=== PATIENT | male | born 1945 | race Caucasian/White ===

== ENCOUNTER 2016-05-26 11:11 | Inpatient (IN) | payer MEDICARE ==
[~2016-05-26] VITALS: Ht 185.4 cm; Wt 112.3 kg
[2016-05-26 12:16] LABS: BASO % 0.6 % (0.0-1.0); EOS # 0.2 K/mm3 (0.0-0.50); EOS % 2.2 % (0.0-3.0); LARGE UNSTAINED CELL # 0.1 K/mm3 (0.0-0.4); LARGE UNSTAINED CELL % 1.1 % (0.0-4.0); LYMPH # 1.4 K/mm3 (1.5-4.5); LYMPH % 18.3 % (24.0-44.0); MEAN CORPUSCULAR HEMOGLOBIN 31.7 pg (27.0-33.0); MEAN CORPUSCULAR HGB CONC 33.6 g/dl (32.0-36.5); MEAN CORPUSCULAR VOLUME 94.2 fl (80.0-96.0); MONO # 0.4 K/mm3 (0.0-0.8); MONO % 5.6 % (0.0-5.0); NEUTROPHILS # 5.5 K/mm3 (1.8-7.7); NEUTROPHILS % 72.2 % (36.0-66.0); PLATELET COUNT, AUTOMATED 215 k/mm3 (150-450); RED CELL DISTRIBUTION WIDTH 12.1 % (11.5-14.5); WHITE BLOOD COUNT 7.7 K/mm3 (4.0-10.0)
[2016-05-26 12:27] LABS: ALBUMIN 3.6 GM/DL (3.2-5.2); ALBUMIN/GLOBULIN RATIO 1.03 (1.00-1.93); ALKALINE PHOSPHATASE 84 U/L (45-117); ALT/SGPT 28 U/L (12-78); ANION GAP 11 MEQ/L (8-16); AST/SGOT 20 U/L (15-37); BILIRUBIN,DIRECT 0.1 MG/DL (0.0-0.2); BILIRUBIN,TOTAL 0.4 MG/DL (0.2-1.0); BLOOD UREA NITROGEN 35 MG/DL (7-18); CALCIUM LEVEL 8.9 MG/DL (8.8-10.2); CARBON DIOXIDE LEVEL 27 MEQ/L (21-32); CHLORIDE LEVEL 104 MEQ/L (98-107); CREATININE FOR GFR 1.91 MG/DL (0.70-1.30); GLOMERULAR FILTRATION RATE 37.3 (>42); GLUCOSE, FASTING 210 MG/DL (83-110); POTASSIUM SERUM 4.3 MEQ/L (3.5-5.1); SODIUM LEVEL 142 MEQ/L (136-145); TOTAL PROTEIN 7.1 GM/DL (6.4-8.2)
[2016-05-26] MEDS ORDERED: GABA-283 PO ×2 (13:38)
[2016-05-26] MEDS ORDERED: LISI20TA3 PO (13:44)
[2016-05-26] MEDS ORDERED: DOXA1TAB41 PO (13:44)
[2016-05-26] MEDS ORDERED: SIMV40TA2 PO (13:44)
[2016-05-26] MEDS ORDERED: INVO300T PO (13:44)
[2016-05-26] MEDS ORDERED: GLIM4TAB PO (13:44)
[2016-05-26] MEDS ORDERED: NOVO70VL SC ×2 (13:44)
[2016-05-26] MEDS ORDERED: ONDANSETRON 4MG/2ML VIAL (J2405) IV PRN (13:45)
[2016-05-26] MEDS ORDERED: GLUCAGON FOR INJ 1 MG VIAL (J1610) SC PRN (13:45)
[2016-05-26] MEDS ORDERED: GLUCOSE 4 GM CHEW TABLET PO PRN (13:45)
[2016-05-26] MEDS ORDERED: ACETAMINOPHEN TAB 650MG DOSE (2X325MG) PO PRN (13:45)
[2016-05-26] MEDS ORDERED: DULO1CAP2 PO (14:00)
--- NOTE | 2016-05-26 14:41 | REP ---
CT brain without contrast 05/26/2016 Indication: Possible seizure Comparison: None Findings: There is mild ventriculomegaly and prominence of cortical sulci consistent with mild generalized cerebral volume loss. There is no intracranial hemorrhage or extra-axial fluid collection. There is no midline shift or mass effect. The basilar artery is generous in size measuring 6 mm transverse by 3 mm AP dimension distally. The skull is without fracture. Visualized portions of mastoid sinuses are clear bilaterally. There is an opacified left frontoethmoidal recess, and a small amount of mucoperiosteal thickening in the ethmoid sinuses bilaterally. Visualized portions of frontal sphenoid and maxillary sinuses are clear Impression 1. 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 May consider MRA of the brain to exclude basilar tip aneurysm if clinically indicated 2. No acute intracranial pathology or hemorrhage; no generalized cerebral volume loss 3. Opacified left frontoethmoidal recess, small amount of mucoperiosteal thickening in the ethmoid sinuses Signed by Serenity Hector MD 05/26/2016 12:12 P
--- NOTE | 2016-05-26 14:51 | HPE ---
DATE OF ADMISSION: 05/26/2016 PRIMARY CARE PROVIDER: [facility]. CHIEF COMPLAINT: Dizziness with collapse. HISTORY OF PRESENT ILLNESS: This is a 71-year-old gentleman with known history of diabetes, hyperlipidemia, hypertension, benign prostatic hypertrophy (BPH) and diabetic neuropathy, who presented to the emergency department after feeling dizzy and fell this morning, passed out briefly at the cancer treatment center. Did not recall the incident witnessed by staff relatively quickly. There was some question by the staff whether or not he had had a seizure-like episode, although he does not have a previous history of having seizures. Did not bite his tongue. No bladder or bowel incontinence and the episode resolved relatively quickly. His systolic blood pressures were noted to be low in the 90-100 range, with positive orthostasis. The patient did inform me that he has been cutting back on his meals, trying to lose weight intentionally; however, he felt that he was trying to keep up with his fluid intake and his urine has been a clear to yellow collar for the last few days. He denies fevers, chills, rigors, nausea, vomiting, a change in bowel habits. PAST MEDICAL HISTORY: Includes: 1. Diabetes. 2. Hyperlipidemia. 3. Hypertension. PAST SURGICAL HISTORY None. SOCIAL HISTORY: The patient lives at home. He is a former smoker. FAMILY HISTORY: Noncontributory. ALLERGIES: Are to [employer]. HOME MEDICATIONS: - doxazosin 2 mg daily - gabapentin 400 mg two tablets twice a day - NovoLog insulin 85 units in morning, 75 units in the evening - Zocor 40 mg daily - lisinopril 20 mg daily - hydrochlorothiazide 25 mg daily - glimepiride 4 mg daily. REVIEW OF SYSTEMS: CONSTITUTIONAL: Denies fevers, chills or rigors, nausea, vomiting. He has had an intentional change in his diet recently. HEENT: No headache, dizziness, blurry vision, double vision, or tinnitus. He did have lightheadedness earlier today with a brief syncopal episode. No difficulty with speech or swallow. PULMONARY: No productive sputum, cough or hemoptysis. CARDIOVASCULAR: No paroxysmal nocturnal dyspnea (PND), orthopnea. No lower extremity edema. No palpitations. No chest pain. GASTROINTESTINAL: No nausea, vomiting, diarrhea. Bowel movements are regular. He denies hematochezia or melena. GENITOURINARY: No dysuria, frequency or hematuria. MUSCULOSKELETAL: No bone loss or joint pain, swelling, erythema. NEUROLOGIC: No paresthesias or paralysis. No facial droop or difficulty with swallowing or speech. LYMPHATICS: No lumps, bumps, or swelling in the neck, axilla or groin. No fevers, night sweats. No weight loss. ENDOCRINE: Positive for diabetes. Negative for thyroid disorder. HEMATOLOGY: No bleeding or bruising disorder. No prior history of venous thromboembolism. ONCOLOGY: No history of cancer. He informs me he was at the cancer treatment center today accompanying his son, who has a brain tumor. PSYCHIATRIC: Negative for depression. No audio or visual hallucinations. No suicidal ideation. PHYSICAL EXAMINATION: Temperature is 96.8, respiratory rate is 18, pulse 78, blood pressure is orthostatic with a lying pulse of 62, blood pressure 112/54 sitting, heart rate 71 and blood pressure of 130/55 standing, pulse is 82 with blood pressure 96/49. HEENT: Head is atraumatic, normocephalic. Eyes pupils equal, round, reactive to light and accommodation. Throat clear. LUNGS: Diminished bibasilar breath sounds, otherwise clear. HEART: Regular rate and rhythm. ABDOMEN: Soft. EXTREMITIES: No edema. No calf tenderness. LABORATORIES AND DIAGNOSTICS: White count 7.7, hemoglobin 14.1 and platelets are 215,000. D-dimer is less than 270. Sodium 142, potassium 4.3, chloride 104, bicarbonate 27, anion gap 11, BUN 35, creatinine 1.91, glucose 210. Total direct bilirubin 0.4, 0.1, AST 20, ALT 28, alkaline phosphatase 84, CK 117, CK-MB 3.6. Troponin is less than 0.02. Albumin is 3.6. TSH 1.540. Chest x-ray: Poor respiratory effort. Portable chest x-ray, however, does not show any acute infiltrative for consulted process. Some mild cardiomegaly is noted. Otherwise unremarkable. His head CT: Some ectasia of the distal basilar artery is noted, which is generous in size, measuring 6 mL transverse x 3 mm. May consider an MRA of the brain to exclude basilar tip aneurysm. No acute intracranial pathology or hemorrhage. Opacified left frontal ethmoid recess is noted with mucoperiosteal thickening of the ethmoid sinus. There was a recommendation for MRI/MRA of the brain, which I did request to go ahead and be ordered through the emergency department. EKG shows sinus rhythm. No acute EKG changes. IMPRESSION: Mr. English is a pleasant 71-year-old gentleman who presents to the emergency department with acute episode of syncope and orthostasis and mild acute kidney injury. He will need some gentle fluid hydration and we will hold on some of his blood pressure medications overnight. Monitor him on telemetry overnight. I do not believe that he truly had a seizure, since there is no underlying history of seizure, but we will go and get a MRA of the brain. PROBLEM LIST: 1. Orthostasis with syncope and collapse. 2. Diabetes. 3. Hyperlipidemia. 4. Hypertension. 5. Diabetic neuropathy. PLAN: The patient is to be admitted to the progressive care unit (PCU) on telemetry per family medicine service. We will hold his lisinopril, hydrochlorothiazide and glimepiride. We will continue his other home medications. Continue to check orthostatics. Start him on gentle IV fluid hydration, cycle his cardiac enzymes. Deep venous thrombosis (DVT) prophylaxis with heparin. We will admit him overnight. Depending how he is looking clinically, he may be able to be discharged home in the morning. CHE
[2016-05-26] MEDS: GABAPENTIN 400 MG CAP PO SCH ×2 (16:00→21:16)
--- NOTE | 2016-05-26 16:35 | REP ---
PORTABLE CHEST: AP portable view of the chest is performed and compared to prior study of 07/09/2011. There is mild cardiomegaly. There is no acute infiltrate. There is calcification of the thoracic aorta. There are degenerative changes of the spine. IMPRESSION: Cardiomegaly. No acute infiltrate. Signed by Abdirahman Kenny MD 05/27/2016 05:09 P
--- NOTE | 2016-05-26 16:45 | EDDOCDS ---
Nurse's Notes [facility] Name: Lionel English Age: 71 yrs Sex: Male : 1945 Arrival Date: 05/26/2016 Time: 11:11 Bed 20 Private MD: Unknown, Family Dr Diagnosis: Syncope and collapse;Orthostatic hypotension-symptomatic Presentation: 05/26 11:32 Presenting complaint: Patient states: has felt dizzy all am today - passed out briefly [facility]cj [facility] - does not recall incident - witnessed by staff. awoke on own - states that he still feels dizzy \T\ this time. denies chest pain SOB resp distress. Adult Sepsis Screening: The patient does not have new or worsening altered mentation. Patient's respiratory rate is less than 22. Systolic blood pressure is less than or equal to 100 (1 point). Patient has a qSOFA score of 1- Negative Sepsis Screen. Suicide/Homicide risk assessment- the patient denies having any suicidal and/or homicidal ideations and does not present with any other emotional, behavioral or mental health complaints. Status: Patient is not a human services worker or dependent. Transition of care: patient was not received from another setting of care. 11:32 Acuity: ANGE Level 3 [facility] 11:32 Method Of Arrival: Walkin/Carried/Asstd [facility] 11:58 Red Flag criteria, patient assessed and taken directly to a bed. mb9 Triage Assessment: 11:38 General: Appears in no apparent distress, comfortable, Behavior is cooperative. Pain: bcj Denies pain. Neurological: Level of Consciousness is awake, alert, Oriented to person, place, time. Historical: - Allergies: Strawberries; - Home Meds: 1. doxazosin 2 mg oral tab once daily 2. gabapentin 400 mg Oral cap 2 in am 2 in evening 1\T\ hs 3. Novolog 100 unit/mL Sub-Q soln 85 units in am 75 units in pm 4. Zocor 40 mg Oral tab 1 tab once daily 5. lisinopril 20 mg Oral tab 1 tab once daily 6. hydrochlorothiazide 25 mg Oral tab 1 tab once daily 7. glimepiride 4 mg Oral tab 1 tab once daily - PMHx: Diabetes - IDDM: controlled; Hypercholesterolemia; Hypertension; - PSHx: none; - Social history: Smoking status: Patient states former smoker of tobacco. No barriers to communication noted, The patient speaks fluent Grenadian, Speaks appropriately for age. - Family history: Not pertinent. - : The pt / caregiver states he / she is not on anticoagulants. Home medication list is obtained from the patient. - Exposure Risk Screening:: None identified. Screenin:58 Screening information is obtained from the patient. Fall risk: No risks identified. hs1 Assistance ADL's: requires no assistance with activities of daily living. Abuse/DV Screen: The patient / caregiver reports he/she is: not in a situation that causes fear, pain or injury. Nutritional screening: No deficits noted. Advance Directives: There is no active DNR order. home support is adequate. Assessment: 11:40 General: Appears in no apparent distress, comfortable, Behavior is appropriate for age, hs1 cooperative, pleasant. Pain: Denies pain. Cardiovascular: Rhythm is sinus rhythm No ectopy. Respiratory: Airway is patent Respiratory effort is even, unlabored. GI: Abdomen is obese. Derm: Skin is pink, warm & dry. normal. 12:45 Reassessment: Patient appears in no apparent distress at this time. Patient states hs1 feeling better. Patient states symptoms have improved. 13:38 General: Appears in no apparent distress, comfortable, Behavior is cooperative, hs1 pleasant, Pt speaking with Dr Hartman about further plan of care at present. Pt denies pain and would like a snack. . 15:15 General: Appears in no apparent distress, comfortable, Behavior is appropriate for age, jmb cooperative. Neurological: Level of Consciousness is awake, alert, obeys commands, Oriented to person, place, time. Respiratory: Airway is patent Respiratory effort is even, unlabored, Respiratory pattern is regular, symmetrical. 16:31 General: Appears in no apparent distress, comfortable, Behavior is appropriate for age, jmb cooperative, Patient laying on stretcher, appears comfortable. Voices no complaints at this time. . Neurological: Level of Consciousness is awake, alert, obeys commands, Oriented to person, place, time, Rn Call Center are equal bilaterally Speech is normal, Facial symmetry appears normal, Facial symmetry: tongue is midline. Cardiovascular: Capillary refill < 3 seconds Heart tones present Pulses are all present. Rhythm is sinus rhythm No ectopy. Respiratory: Airway is patent Respiratory effort is even, unlabored, Respiratory pattern is regular, symmetrical, Breath sounds are clear bilaterally. GI: Abdomen is obese, Bowel sounds present X 4 quads. Abd is soft and non tender X 4 quads. Derm: Skin is pink, warm & dry. Musculoskeletal: Range of motion intact in all extremities. Vital Signs: 11:14 BP 93 / 42 RA Sitting (auto/lg); Pulse 78; Resp 18; Pulse Ox 98% ; Weight 113.4 kg; cmb Height 6 ft. 1 in. (185.42 cm); Pain 0/10; 11:14 BP 95 / 52 LA Sitting (auto/lg); Temp 96.8; cmb 12:14 BP 110 / 53 Supine; Pulse 66; hs1 12:15 BP 99 / 33 Sitting; Pulse 69; hs1 12:15 BP 90 / 48 Standing; Pulse 75; hs1 12:27 BP 90 / 47 (auto/); hs1 12:28 Pulse 64 MON; Pulse Ox 97% ; hs1 12:42 BP 87 / 44 (auto/); hs1 12:43 Pulse 62 MON; Pulse Ox 95% ; hs1 12:56 BP 116 / 56 (auto/); jmb 12:57 BP 114 / 54 (auto/); jmb 12:57 Pulse 64 MON; Pulse Ox 96% ; jmb 12:57 BP 116 / 56; hs1 12:58 Pulse 64 MON; Pulse Ox 96% ; jmb 13:12 BP 112 / 54 (auto/); jmb 13:13 Pulse 64 MON; Pulse Ox 95% ; jmb 13:27 BP 96 / 52 (auto/); jmb 13:27 Pulse 68 MON; Pulse Ox 94% ; jmb 13:33 BP 112 / 54 (auto/); jmb 13:34 BP 130 / 55 (auto/); jmb 13:34 Pulse 72 MON; Pulse Ox 95% ; jmb 13:35 BP 96 / 49 (auto/); jmb 13:35 Pulse 70 MON; Pulse Ox 95% ; jmb 13:36 Pulse 74 MON; Pulse Ox 94% ; jmb 13:37 BP 112 / 54 Supine; Pulse 62; hs1 13:37 BP 130 / 55 Sitting; Pulse 71; hs1 13:37 BP 96 / 49 Standing; Pulse 82; hs1 13:42 BP 109 / 53 (auto/); jmb 13:42 Pulse 78 MON; Pulse Ox 97% ; jmb 13:57 BP 124 / 56 (auto/); jmb 13:58 Pulse 78 MON; Pulse Ox 97% ; jmb 14:12 BP 105 / 51 (auto/); jmb 14:13 Pulse 74 MON; Pulse Ox 96% ; jmb 14:27 BP 105 / 46 (auto/); jmb 14:27 Pulse 74 MON; Pulse Ox 96% ; jmb 14:41 BP 105 / 53 (auto/); jmb 14:41 Pulse 84 MON; Pulse Ox 82% ; jmb 14:43 BP 94 / 47 (auto/); jmb 14:44 Pulse 66 MON; Pulse Ox 98% ; jmb 14:58 BP 97 / 50 (auto/); jmb 14:59 Pulse 64 MON; Pulse Ox 98% ; jmb 15:13 BP 108 / 54 (auto/); jmb 15:14 Pulse 66 MON; Pulse Ox 97% ; jmb 15:28 BP 99 / 52 (auto/); jmb 15:29 Pulse 66 MON; Pulse Ox 97% ; jmb 15:43 BP 104 / 51 (auto/); jmb 15:44 Pulse 66 MON; Pulse Ox 97% ; jmb 15:58 BP 117 / 56 (auto/); jmb 15:59 Pulse 64 MON; Pulse Ox 96% ; jmb 16:13 BP 108 / 52 (auto/); jmb 16:14 Pulse 62 MON; Pulse Ox 96% ; jmb 16:28 BP 111 / 56 (auto/); jmb 16:29 Pulse 62 MON; Pulse Ox 97% ; jmb 16:30 BP 117 / 53 (auto/); jmb 16:31 Pulse 66 MON; Pulse Ox 96% ; jmb 16:31 Resp 20; Temp 97.2; Pain 0/10; jmb 11:14 Body Mass Index 32.98 (113.40 kg, 185.42 cm) [facility] Vitals: 11:14 Log In Time: May 26, 2016 at 11:13. [facility] ED Course: 11:13 Patient visited by Radha Mejia. cmb 11:13 Patient moved to Waiting b 11:14 Unknown, Family Dr is Private Physician. cmb 11:17 RN notified that patient meets Red Flag criteria. cmb 11:25 Patient moved to 20 cmb 11:34 Triage Initiated bcj 11:39 Patient visited by Haris Watkins, MARCI. bcj 11:40 Inserted saline lock: 18 gauge in left antecubital area and blood collected. The hs1 patient tolerated the procedure well. 11:45 CBC with Diff Sent. hs1 11:45 Cardiac Injury Profile Sent. hs1 11:45 Liver Profile Sent. hs1 11:45 MED Profile Sent. hs1 11:45 Thyroid Stimulating Hormone Sent. hs1 11:45 Troponin Sent. hs1 11:57 Maura Huber MD is Attending Physician. ml 11:57 Patient visited by Maura Huber MD. ml 11:59 Patient visited by Syed Chaney RN. mb9 12:08 EKG done. (by ED staff). Reviewed by Maura Huber MD. ct3 12:10 D-Dimer Quant Sent. hs1 12:11 Patient has correct armband on for positive identification. Placed in gown. Bed in low ct3 position. Call light in reach. Side rails up X2. telemetry monitor on. Pulse ox on. NIBP on. 12:12 Patient visited by Danielle Braga PCA. ct3 12:46 Patient visited by Danielle Braga PCA. ct3 12:58 The patient / caregiver is instructed regarding the plan of care and ED course. hs1 12:58 Seizure precautions initiated. hs1 13:18 Patient visited by Susie Greenwood, MARCI. hs1 13:37 Ephraim Hartman DO is Hospitalizing Provider. ml 15:05 [facility] Payment Agreement was scanned into [employer] and attached to record. lg 15:08 CT Head Without Contrast Returned. EDMS 16:31 No procedures done that require assistance. jmb 16:36 Patient visited by Denton Verdugo RN. jmb 16:37 Chest, 1 View Returned. EDMS Administered Medications: 12:10 Drug: NS 0.9% 500 ml [sodium chloride 0.9 % intravenous solution] Route: IV; Rate: hs1 bolus; Site: left antecubital; 12:57 Follow up: BP 116 / 56; IV Status: Completed infusion; IV Intake: 500ml hs1 Intake: 12:57 IV: 500.00ml; Total: 500.00ml. hs1 Order Results: Lab Order: CBC with Diff; SPEC'M 05/26/16 11:43 Test: WHITE BLOOD COUNT; Value: 7.7; Range: 4.0-10.0; Units: K/mm3; Status: F Test: RED BLOOD COUNT; Value: 4.44; Range: 4.30-6.10; Units: M/mm3; Status: F Test: HEMOGLOBIN; Value: 14.1; Range: 14.0-18.0; Units: g/dl; Status: F Test: HEMATOCRIT; Value: 41.9; Range: 42.0-52.0; Abnormal: Below low normal; Units: %; Status: F Test: MEAN CORPUSCULAR VOLUME; Value: 94.2; Range: 80.0-96.0; Units: fl; Status: F Test: MEAN CORPUSCULAR HEMOGLOBIN; Value: 31.7; Range: 27.0-33.0; Units: pg; Status: F Test: MEAN CORPUSCULAR HGB CONC; Value: 33.6; Range: 32.0-36.5; Units: g/dl; Status: F Test: RED CELL DISTRIBUTION WIDTH; Value: 12.1; Range: 11.5-14.5; Units: %; Status: F Test: PLATELET COUNT, AUTOMATED; Value: 215; Range: 150-450; Units: k/mm3; Status: F Test: NEUTROPHILS %; Value: 72.2; Range: 36.0-66.0; Abnormal: Above high normal; Units: %; Status: F Test: LYMPH %; Value: 18.3; Range: 24.0-44.0; Abnormal: Below low normal; Units: %; Status: F Test: MONO %; Value: 5.6; Range: 0.0-5.0; Abnormal: Above high normal; Units: %; Status: F Test: EOS %; Value: 2.2; Range: 0.0-3.0; Units: %; Status: F Test: BASO %; Value: 0.6; Range: 0.0-1.0; Units: %; Status: F Test: LARGE UNSTAINED CELL %; Value: 1.1; Range: 0.0-4.0; Units: %; Status: F Test: NEUTROPHILS #; Value: 5.5; Range: 1.8-7.7; Units: K/mm3; Status: F Test: LYMPH #; Value: 1.4; Range: 1.5-4.5; Abnormal: Below low normal; Units: K/mm3; Status: F Test: MONO #; Value: 0.4; Range: 0.0-0.8; Units: K/mm3; Status: F Test: EOS #; Value: 0.2; Range: 0.0-0.50; Units: K/mm3; Status: F Test: BASO #; Value: 0.0; Range: 0.0-0.2; Units: K/mm3; Status: F Test: LARGE UNSTAINED CELL #; Value: 0.1; Range: 0.0-0.4; Units: K/mm3; Status: F Lab Order: Cardiac Injury Profile; SPEC'M 05/26/16 11:43 Test: CPK CREATINE PHOSPHOKINASE; Value: 117; Range: 39-308; Units: U/L; Status: F Test: CK-MB VALUE MASS; Value: 3.6; Range: 0.0-3.6; Units: NG/ML; Status: F Test: MB/CK RELATIVE INDEX; Value: 3.07; Range: < OR =4; Status: F Test Note: ; DIAGNOSIS CRITERIA MMB ng/ml Relative Index (RI) NON-AMI < or = 5 N/A ORTEGA ZONE > 5 < or = 4 AMI > 5 > 4 Lab Order: Liver Profile; SPEC'M 05/26/16 11:43 Test: AST/SGOT; Value: 20; Range: 15-37; Units: U/L; Status: F Test: ALT/SGPT; Value: 28; Range: 12-78; Units: U/L; Status: F Test: ALKALINE PHOSPHATASE; Value: 84; Range: 45-117; Units: U/L; Status: F Test: BILIRUBIN,TOTAL; Value: 0.4; Range: 0.2-1.0; Units: MG/DL; Status: F Test: BILIRUBIN,DIRECT; Value: 0.1; Range: 0.0-0.2; Units: MG/DL; Status: F Test: TOTAL PROTEIN; Value: 7.1; Range: 6.4-8.2; Units: GM/DL; Status: F Test: ALBUMIN; Value: 3.6; Range: 3.2-5.2; Units: GM/DL; Status: F Test: ALBUMIN/GLOBULIN RATIO; Value: 1.03; Range: 1.00-1.93; Status: F Lab Order: MED Profile; SPEC'05/26/16 11:43 Test: GLUCOSE, FASTING; Value: 210; Range: 83-110; Abnormal: Above high normal; Units: MG/DL; Status: F Test: BLOOD UREA NITROGEN; Value: 35; Range: 7-18; Abnormal: Above high normal; Units: MG/DL; Status: F Test: CREATININE FOR GFR; Value: 1.91; Range: 0.70-1.30; Abnormal: Above high normal; Units: MG/DL; Status: F Test: GLOMERULAR FILTRATION RATE; Value: 37.3; Range: >42; Abnormal: Below low normal; Status: F Test: SODIUM LEVEL; Value: 142; Range: 136-145; Units: MEQ/L; Status: F Test: POTASSIUM SERUM; Value: 4.3; Range: 3.5-5.1; Units: MEQ/L; Status: F Test: CHLORIDE LEVEL; Value: 104; Range: 98-107; Units: MEQ/L; Status: F Test: CARBON DIOXIDE LEVEL; Value: 27; Range: 21-32; Units: MEQ/L; Status: F Test: ANION GAP; Value: 11; Range: 8-16; Units: MEQ/L; Status: F Test: CALCIUM LEVEL; Value: 8.9; Range: 8.8-10.2; Units: MG/DL; Status: F Test Note: ; Units are mL/min/1.73 m2 Chronic Kidney Disease Staging per NKF: Stage I & II GFR >=60 Normal to Mildly Decreased Stage III GFR 30-59 Moderately Decreased Stage IV GFR 15-29 Severely Decreased Stage V GFR <15 Very Little GFR Left ESRD GFR <15 on [employer] Lab Order: Thyroid Stimulating Hormone; SPEC'05/26/16 11:43 Test: THYROID STIMULATING HORMONE; Value: 1.540; Range: 0.358-3.740; Units: uIU/ML; Status: F Lab Order: Troponin; SPEC05/26/16 11:43 Test: TROPONIN I; Value: < 0.02; Range: < 0.10; Units: NG/ML; Status: F Test Note: ; Troponin I Reference Interval for Siemens Roundup LOCI: 99th Percentile= 0.00-0.045 ng/ml Risk Stratification: <= 0.10 ng/ml Decreased Risk for Adverse Clinical Events. 0.10-1.50 ng/ml Increased Risk for Adverse Clinical Events. Evaluation of additional criterion and/or repeat testing in 2-6 hours is suggested to rule out myocardial damage. >= 1.50 ng/ml Indicative of Myocardial Injury. Lab Order: Fingerstick Blood Sugar; SPEC'M 05/26/16 11:34 Test: BEDSIDE GLUCOSE; Value: 201; Range: 83-110; Abnormal: Above high normal; Units: MG/DL; Status: F Test Note: ; RN Notified Doctor Notified Lab Order: D-Dimer Quant; SPEC'M 05/26/16 11:43 Test: D-DIMER QUANT; Value: < 270.0; Range: <500; Units: ng/ml; Status: F Radiology Order: CT Head Without Contrast Test: CT Head Without Contrast REASON FOR EXAMINATION: ?seizure; CT brain without contrast 05/26/2016; ; Indication: Possible seizure; ; Comparison: None; ; Findings: There is mild ventriculomegaly and prominence of cortical sulci; consistent with mild generalized cerebral volume loss. There is no intracranial; hemorrhage or extra-axial fluid collection. There is no midline shift or mass; effect. The basilar artery is generous in size measuring 6 mm transverse by 3 mm; AP dimension distally.; ; The skull is without fracture. Visualized portions of mastoid sinuses are clear; bilaterally. There is an opacified left frontoethmoidal recess, and a small; amount of mucoperiosteal thickening in the ethmoid sinuses bilaterally.; Visualized portions of frontal sphenoid and maxillary sinuses are clear; ; Impression; 1. 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 May consider MRA; of the brain to exclude basilar tip aneurysm if clinically indicated; ; 2. No acute intracranial pathology or hemorrhage; no generalized cerebral volume; loss; 3. Opacified left frontoethmoidal recess, small amount of mucoperiosteal; thickening in the ethmoid sinuses; ; ; Signed by; Serenity Hector MD 05/26/2016 12:12 P; Radiology Order: Chest, 1 View Test: Chest, 1 View REASON FOR EXAMINATION: dizzy; PORTABLE CHEST:; ; AP portable view of the chest is performed and compared to prior study of; 07/09/2011. There is mild cardiomegaly. There is no acute infiltrate. There is; calcification of the thoracic aorta. There are degenerative changes of the spine.; ; ; IMPRESSION:; Cardiomegaly. No acute infiltrate.; ; Unreviewed; Outcome: 13:37 Decision to Hospitalize by Provider. 16:31 Discharge Assessment: Patient awake, alert and oriented x 3. No cognitive and/or jmb functional deficits noted. Patient verbalized understanding of disposition instructions. Patient awake and alert. obeys commands, Oriented to person, place and time. Patient verbalized understanding of disposition instructions. Patient has no functional deficits. patient administered narcotics - no. The following High Risk Discharge criteria are identified: None. Admitted to ICU accompanied by nurse, accompanied by tech, via stretcher, on monitor, with chart. Condition: stable. CT Study completed. Property :Personal belongings accompany Pt. 16:45 Patient left the ED. jmb Signatures: Dispatcher [employer] EDMS Maura Huber MD MD ml Johnson, Bruce, RN RN Linn Hamilton, Elpidio Reg lg Susie Greenwood RN RN hs1 Danielle Braga, CABLE SPLICER APPRENTICE CABLE SPLICER APPRENTICE ct3 Radha Mejia JoshuaRN RN Syed Miller,RN RN mb9 Corrections: (The following items were deleted from the chart) 16:33 16:31 General: Appears in no apparent distress, comfortable, Behavior is appropriate jmb for age, cooperative, Patient laying on stretcher, appears comfortable. Voices no complaints at this time. . jmb MTDD
--- NOTE | 2016-05-26 16:45 | EDDOCDS ---
Physician Documentation [facility] Name: Lionel English Age: 71 yrs Sex: Male : 1945 Arrival Date: 05/26/2016 Time: 11:11 Bed 20 Private MD: Unknown, Family Dr Disposition: 05/26 13:38 Critical Care:. ml Disposition: 05/26/16 13:37 Hospitalization ordered by Ephraim Hartman for Inpatient Admission. Preliminary diagnosis are Syncope and collapse, Orthostatic hypotension - symptomatic. - Bed requested for M ICU. - Status is Inpatient Admission. jmb - Condition is Stable. - Problem is new. - Symptoms have improved. Historical: - Allergies: Strawberries; - Home Meds: 1. doxazosin 2 mg oral tab once daily 2. gabapentin 400 mg Oral cap 2 in am 2 in evening 1\T\ hs 3. Novolog 100 unit/mL Sub-Q soln 85 units in am 75 units in pm 4. Zocor 40 mg Oral tab 1 tab once daily 5. lisinopril 20 mg Oral tab 1 tab once daily 6. hydrochlorothiazide 25 mg Oral tab 1 tab once daily 7. glimepiride 4 mg Oral tab 1 tab once daily - PMHx: Diabetes - IDDM: controlled; Hypercholesterolemia; Hypertension; - PSHx: none; - Social history: Smoking status: Patient states former smoker of tobacco. No barriers to communication noted, The patient speaks fluent Maori, Speaks appropriately for age. - Family history: Not pertinent. - : The pt / caregiver states he / she is not on anticoagulants. Home medication list is obtained from the patient. - Exposure Risk Screening:: None identified. Vital Signs: 11:14 BP 93 / 42 RA Sitting (auto/lg); Pulse 78; Resp 18; Pulse Ox 98% ; Weight 113.4 kg / cmb 250 lbs; Height 6 ft. 1 in. (185.42 cm); Pain 0/10; 11:14 BP 95 / 52 LA Sitting (auto/lg); Temp 96.8; cmb 12:14 BP 110 / 53 Supine; Pulse 66; hs1 12:15 BP 99 / 33 Sitting; Pulse 69; hs1 12:15 BP 90 / 48 Standing; Pulse 75; hs1 12:27 BP 90 / 47 (auto/); hs1 12:28 Pulse 64 MON; Pulse Ox 97% ; hs1 12:42 BP 87 / 44 (auto/); hs1 12:43 Pulse 62 MON; Pulse Ox 95% ; hs1 12:56 BP 116 / 56 (auto/); jmb 12:57 BP 114 / 54 (auto/); jmb 12:57 Pulse 64 MON; Pulse Ox 96% ; jmb 12:57 BP 116 / 56; hs1 12:58 Pulse 64 MON; Pulse Ox 96% ; jmb 13:12 BP 112 / 54 (auto/); jmb 13:13 Pulse 64 MON; Pulse Ox 95% ; jmb 13:27 BP 96 / 52 (auto/); jmb 13:27 Pulse 68 MON; Pulse Ox 94% ; jmb 13:33 BP 112 / 54 (auto/); jmb 13:34 BP 130 / 55 (auto/); jmb 13:34 Pulse 72 MON; Pulse Ox 95% ; jmb 13:35 BP 96 / 49 (auto/); jmb 13:35 Pulse 70 MON; Pulse Ox 95% ; jmb 13:36 Pulse 74 MON; Pulse Ox 94% ; jmb 13:37 BP 112 / 54 Supine; Pulse 62; hs1 13:37 BP 130 / 55 Sitting; Pulse 71; hs1 13:37 BP 96 / 49 Standing; Pulse 82; hs1 13:42 BP 109 / 53 (auto/); jmb 13:42 Pulse 78 MON; Pulse Ox 97% ; jmb 13:57 BP 124 / 56 (auto/); jmb 13:58 Pulse 78 MON; Pulse Ox 97% ; jmb 14:12 BP 105 / 51 (auto/); jmb 14:13 Pulse 74 MON; Pulse Ox 96% ; jmb 14:27 BP 105 / 46 (auto/); jmb 14:27 Pulse 74 MON; Pulse Ox 96% ; jmb 14:41 BP 105 / 53 (auto/); jmb 14:41 Pulse 84 MON; Pulse Ox 82% ; jmb 14:43 BP 94 / 47 (auto/); jmb 14:44 Pulse 66 MON; Pulse Ox 98% ; jmb 14:58 BP 97 / 50 (auto/); jmb 14:59 Pulse 64 MON; Pulse Ox 98% ; jmb 15:13 BP 108 / 54 (auto/); jmb 15:14 Pulse 66 MON; Pulse Ox 97% ; jmb 15:28 BP 99 / 52 (auto/); jmb 15:29 Pulse 66 MON; Pulse Ox 97% ; jmb 15:43 BP 104 / 51 (auto/); jmb 15:44 Pulse 66 MON; Pulse Ox 97% ; jmb 15:58 BP 117 / 56 (auto/); jmb 15:59 Pulse 64 MON; Pulse Ox 96% ; jmb 16:13 BP 108 / 52 (auto/); jmb 16:14 Pulse 62 MON; Pulse Ox 96% ; jmb 16:28 BP 111 / 56 (auto/); jmb 16:29 Pulse 62 MON; Pulse Ox 97% ; jmb 16:30 BP 117 / 53 (auto/); jmb 16:31 Pulse 66 MON; Pulse Ox 96% ; jmb 16:31 Resp 20; Temp 97.2; Pain 0/10; jmb 11:14 Body Mass Index 32.98 (113.40 kg, 185.42 cm) cmb 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 sd1 11:41 Accucheck ordered. sd1 11:41 IV Saline Lock ordered. sd1 11:41 Oxygen at 4L/Min NC or Home dosage ordered. sd1 11:41 Rhythm Strip to chart ordered. sd1 11:41 NS 0.9% 500 ml IV at bolus once ordered. sd1 11:42 CBC with Diff Ordered. EDMS 11:42 Cardiac Injury Profile Ordered. EDMS 11:42 Liver Profile Ordered. EDMS 11:42 MED Profile Ordered. EDMS 11:42 Thyroid Stimulating Hormone Ordered. EDMS 11:42 Troponin Ordered. EDMS 11:42 CT Head Without Contrast Ordered. EDMS 11:42 ECG WITH READING ER PHYS+CARDIAG ordered. EDMS 11:54 Fingerstick Blood Sugar Ordered. EDMS 12:07 Orthostatic VS ordered. ml 12:09 Chest, 1 View Ordered. EDMS 12:10 D-Dimer Quant Ordered. EDMS 12:59 CBC with Diff Reviewed. ml 12:59 MED Profile Reviewed. ml 12:59 Fingerstick Blood Sugar Reviewed. ml 12:59 Cardiac Injury Profile Reviewed. ml 12:59 Liver Profile Reviewed. ml 12:59 Thyroid Stimulating Hormone Reviewed. ml 12:59 Troponin Reviewed. ml 12:59 D-Dimer Quant Reviewed. ml 13:17 Misc. Nursing Order ordered. ml 13:18 BED REQUEST+ADM ordered. EDMS 13:40 Financial registration complete. lg 13:41 CONSISTENT CARBOHYDRATE+DIET ordered. EDMS 13:48 PHYSICAL THERAPY EVAL & TREAT ordered. EDMS 13:49 Admission / Observation Status ordered. EDMS 13:49 CONSISTENT CARBOHYDRATES ordered. EDMS 13:56 Admission / Observation Status ordered. EDMS 14:18 CARDIAC MARKER PANEL Ordered. EDMS 15:05 [facility] Payment Agreement was scanned into [employer] and attached to record. lg Administered Medications: 12:10 Drug: NS 0.9% 500 ml [sodium chloride 0.9 % intravenous solution] Route: IV; Rate: hs1 bolus; Site: left antecubital; 12:57 Follow up: BP 116 / 56; IV Status: Completed infusion; IV Intake: 500ml hs1 Critical Care Time: 13:38 Critical care time: Bedside Care: 120 minutes, Consultation: 10 minutes. Total time: ml 130 minutes Signatures: Dispatcher [employer] EDRI Betsy Epps MD MD sd1 Maura Huber MD MD ml Johnson, Bruce, RN RN Linn Hamilton, Reg Reg lg Denton VerdugoRN RN Radha Mendoza RN RN Susie Diez RN hs1 The chart was reviewed and I authenticate all verbal orders and agree with the evaluation and treatment provided.Attachments: 15:05 [facility] Payment Agreement lg MTDD
[2016-05-26 17:00] VITALS: BP 137/67
[2016-05-26] MEDS: NS 1,000 ML IV SCH (17:45)
[2016-05-26] MEDS: HumaLOG INSULIN (NovoLOG) PER UNIT SC SCH (17:45)
[2016-05-26] MEDS ORDERED: GABAPENTIN 400 MG CAP PO ONE (19:45)
[2016-05-26 19:55] VITALS: BP 172/74
[2016-05-26 20:00] VITALS: BP_SYST 157; BP_SYST 160; BP_SYST 172; BP_DIAS 71; BP_DIAS 72; BP_DIAS 74
[2016-05-26 20:05] VITALS: BP 157/71
[2016-05-26] MEDS ORDERED: DULoxetine 30 MG CAP (CYMBALTA) PO SCH (21:00)
[2016-05-26] MEDS ORDERED: HumaLOG INSULIN (NovoLOG) PER UNIT SC SCH (21:00)
[2016-05-26] MEDS: HEPARIN SOD (PORCINE) 5000 UNITS/ML VIAL SC SCH (21:16)
[2016-05-27] VITALS: BP 149/65
[2016-05-27] MEDS: NS 1,000 ML IV SCH (02:34)
[2016-05-27 03:55] VITALS: BP 130/62
[2016-05-27 04:00] VITALS: BP_SYST 114; BP_SYST 117; BP_SYST 130; BP_DIAS 56; BP_DIAS 58; BP_DIAS 62
[2016-05-27 04:05] VITALS: BP 117/58
[2016-05-27 05:04] LABS: MEAN CORPUSCULAR HEMOGLOBIN 31.7 pg (27.0-33.0); MEAN CORPUSCULAR HGB CONC 33.5 g/dl (32.0-36.5); MEAN CORPUSCULAR VOLUME 94.5 fl (80.0-96.0); RED CELL DISTRIBUTION WIDTH 12.7 % (11.5-14.5); WHITE BLOOD COUNT 10.2 K/mm3 (4.0-10.0)
[2016-05-27 05:27] LABS: ALBUMIN 3.4 GM/DL (3.2-5.2); ANION GAP 10 MEQ/L (8-16); BLOOD UREA NITROGEN 33 MG/DL (7-18); CALCIUM LEVEL 8.9 MG/DL (8.8-10.2); CARBON DIOXIDE LEVEL 25 MEQ/L (21-32); CHLORIDE LEVEL 108 MEQ/L (98-107); CREATININE FOR GFR 1.53 MG/DL (0.70-1.30); GLOMERULAR FILTRATION RATE 48.1 (>42); GLUCOSE, FASTING 125 MG/DL (83-110); PHOSPHORUS LEVEL 2.1 MG/DL (2.5-4.9); POTASSIUM SERUM 4.2 MEQ/L (3.5-5.1); SODIUM LEVEL 143 MEQ/L (136-145)
[2016-05-27] MEDS: HEPARIN SOD (PORCINE) 5000 UNITS/ML VIAL SC SCH (06:11)
[2016-05-27] MEDS: HumaLOG INSULIN (NovoLOG) PER UNIT SC SCH ×2 (07:28→10:58)
[2016-05-27 07:30] VITALS: BP 157/70
[2016-05-27] MEDS ORDERED: GABAPENTIN 400 MG CAP PO SCH (09:00)
[2016-05-27] MEDS ORDERED: SIMVASTATIN 40 MG TAB PO SCH (09:00)
[2016-05-27] MEDS ORDERED: AMLO5TAB2 PO (12:33)
--- NOTE | 2016-05-27 15:15 | DS.PDOC ---
Discharge Summary General Date of Admission May 26, 2016 at 13:47 Date of Discharge May 27, 2016 at 13:14 Primary Care Physician: Haley Banda Attending Physician: MERVAT ARCE DO Discharge Summary PROCEDURES PERFORMED DURING STAY: [None.] COMPLICATIONS/CHIEF COMPLAINT: Syncope And Collapse ADMISSION DIAGNOSES: 1. Orthostasis with syncope and collapse. 2. Diabetes. 3. Hyperlipidemia. 4. Hypertension. 5. Diabetic neuropathy. DISCHARGE DIAGNOSES: 1. SYNCOPE 2. Orthostatic hypotension 3. Diabetes. 4. Hypertension. 5. Diabetic neuropathy. 6 Hyperlipidemia 7. acute kidney injury HISTORY OF PRESENT ILLNESS: This is a 71-year-old gentleman with known history of diabetes, hyperlipidemia, hypertension, benign prostatic hypertrophy (BPH) and diabetic neuropathy, who presented to the emergency department after feeling dizzy and fell this morning, passed out briefly at the cancer treatment center. Did not recall the incident witnessed by staff relatively quickly. There was some question by the staff whether or not he had had a seizure-like episode, although he does not have a previous history of having seizures. Did not bite his tongue. No bladder or bowel incontinence and the episode resolved relatively quickly. His systolic blood pressures were noted to be low in the 90-100 range, with positive orthostasis. The patient did inform me that he has been cutting back on his meals, trying to lose weight intentionally; however, he felt that he was trying to keep up with his fluid intake and his urine has been a clear to yellow collar for the last few days. He denies fevers, chills, rigors, nausea, vomiting, a change in bowel habits. HOSPITAL COURSE: The patient was admitted to PCU status (though housed in the ICU for bed availability.) He was fluid replaced. His antihypertensives were held. In the a.m. of 05/27/2016, he was able to walk without dizziness, and was no longer orthostatic. His blood pressures were running in the 150s systolic. His renal function is essentially normal at baseline (Cr 1.27 and GFT 59.7 in February). It was 1.91 upon admission, and improved to 1.53 prior to discharge. The patient was very anxious to leave, stating that his son was admitted to the hospital in [place] for "bleeding in his head." I discussed that I might usually recommend staying one more night so that we could watch his acute kidney injury resolve and adjust his blood pressure medications, but he preferred to leave, and stated that he would follow closely with his PCP. Further imaging of his basilar artery had been discussed by the admitting physician but not performed; patient amenable to outpatient follow up, in light of clinical improvement. I did discuss with him that his orthostasis was probably secondary to fluid depletion from his Invokana, with possible contribution from his doxazosin. DISCHARGE MEDICATIONS: Please see below. ALLERGIES: Please see below. PHYSICAL EXAMINATION ON DISCHARGE: VITAL SIGNS: Please see below. GENERAL: comfortable, NAD HEENT: MMM NECK: supple CARDIOVASCULAR EXAMINATION: regular, no murmurs, rubs, or gallops RESPIRATORY EXAMINATION: CTAB ABDOMINAL EXAMINATION: soft, nontender, nondistended EXTREMITIES: without edema SKIN: clean, dry, intact NEUROLOGICAL EXAMINATION: nonfocal exam PSYCHIATRIC EXAMINATION: appears somewhat anxious while discussing his son; otherwise normal mood and affect LABORATORY DATA: Please see below. IMAGING: Chest X ray upon admission read as: Cardiomegaly. No acute infiltrate. Head CT upon admission shows basilar artery ectatic and "generous in size", ethmoid sinus thickening, otherwise within normal limits. VTE Prophylaxis ordered?: yes DISCHARGE CONDITION: stable DISPOSITION: 01 Home, Self-Care ACTIVITY: as tolerated DIET: consistent carb ITEMS TO FOLLOWUP ON OUTPATIENT: 1. Possible MRA to evaluate ectatic basilar artery 2. resolution of renal dysfunction 3. Consider new antihyperglycemic (in place of Invokana) 4. restart lisinopril and HCTZ if renal function returns to baseline -- I discussed with the patient that the amlodipine that I started may not be a long- term medication for him, but after stopping his lisinopril and HCTZ I was concerned that he might be too hypertensive until his appointment 5. consider restarting doxazosin (or other therapy for BPH); patiet denies significant obstructive symptoms at this time DISCHARGE PLAN AND INSTRUCTIONS: 1. Follow up with Tita Banda within 1 week 2. Take all medications as recommended 3. Obtain your labwork (scheduled for the end of this month, and containing a CMP) before hospital follow up appointment TIME SPENT ON DISCHARGE: Greater than 30 minutes. Vital Signs/I&Os Vital Signs Date Time Temp Pulse Resp B/P Pulse Ox O2 Delivery O2 Flow Rate FiO2 05/27/16 07:30 96.7 80 18 157/70 92 Room Air I&O- Last 24 Hours up to 6 AM 05/27/16 06:00 Intake Total 1305 ml Output Total 1750 ml Balance -445 ml Laboratory Data Labs 24H Laboratory Tests 2 05/26/16 17:31: Bedside Glucose (Misc Panel) 144H 05/26/16 19:51: Creatine Kinase MB 3.0, Creatine Kinase MB Relative Index 2.75, Total Creatine Kinase 109, Troponin I < 0.02 05/26/16 19:58: Bedside Glucose (Misc Panel) 139H 05/27/16 04:50: Creatine Kinase MB 2.7, Creatine Kinase MB Relative Index 2.34, Total Creatine Kinase 115, Troponin I < 0.02, Albumin 3.4, Blood Urea Nitrogen 33H, Creatinine 1.53H, Sodium Level 143, Potassium Level 4.2, Chloride Level 108H, Carbon Dioxide Level 25, Anion Gap 10, Calcium Level 8.9, Glomerular Filtration Rate 48.1, Phosphorus Level 2.1L 05/27/16 10:53: Bedside Glucose (Misc Panel) 178H CBC/BMP Laboratory Tests 05/27/16 04:50 Anion Gap 10, Red Blood Count 4.21 L, Mean Corpuscular Volume 94.5, Mean Corpuscular Hemoglobin 31.7, Mean Corpuscular Hemoglobin Concent 33.5, Red Cell Distribution Width 12.7 FSBS Laboratory Tests Test 05/26/16 17:31 05/26/16 19:58 05/27/16 10:53 Range/Units Bedside Glucose (Misc Panel) 144 139 178 83-110 MG/DL Microbiology Microbiology 05/26/16 MRSA Screen, Received Pending Medications Scheduled Amlodipine Besylate (Amlodipine Besylate) 5 Mg Tab 5 MG PO DAILY Duloxetine Hcl (Duloxetine HCl) 30 Mg Cap 30 MG PO QHS Gabapentin (Gabapentin) 400 Mg Cap 400 MG PO QAM Gabapentin (Gabapentin) 400 Mg Cap 800 MG PO BID QPM AND QHS Glimepiride (Glimepiride) 4 Mg Tab 4 MG PO DAILY Insulin Aspart Protamine/Aspar (Novolog Mix 70/30 (70-30) 100 Unit/ml) 1 Units/ 0.01 Ml Susp 85 UNITS SC QAM Insulin Aspart Protamine/Aspar (Novolog Mix 70/30 (70-30) 100 Unit/ml) 1 Units/ 0.01 Ml Susp 75 UNITS SC QPM Simvastatin - High Dose (Simvastatin) 40 Mg Tab 40 MG PO DAILY Allergies Coded Allergies: [place] (Verified Allergy, Unknown, RAW PEACH FUZZ, 05/26/16) [place] (Unverified Allergy, Unknown, 05/26/16) MERVAT ARCE DO May 27, 2016 15:15
--- NOTE | 2016-05-27 19:39 | ECGEPIP ---
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
--- NOTE | 2016-05-28 17:45 | EDDOCDS ---
Nurse's Notes [facility] Name: Lionel English Age: 71 yrs Sex: Male : 1945 Arrival Date: 05/26/2016 Time: 11:11 Bed 20 Private MD: Unknown, Family Dr Diagnosis: Syncope and collapse;Orthostatic hypotension-symptomatic Presentation: 05/26 11:32 Presenting complaint: Patient states: has felt dizzy all am today - passed out briefly [facility] - does not recall incident - witnessed by staff. awoke on own - states that he still feels dizzy \T\ this time. denies chest pain SOB resp distress. Adult Sepsis Screening: The patient does not have new or worsening altered mentation. Patient's respiratory rate is less than 22. Systolic blood pressure is less than or equal to 100 (1 point). Patient has a qSOFA score of 1- Negative Sepsis Screen. Suicide/Homicide risk assessment- the patient denies having any suicidal and/or homicidal ideations and does not present with any other emotional, behavioral or mental health complaints. 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 Transition of care: patient was not received from another setting of care. 11:32 Acuity: ANGE Level 3 [facility] 11:32 Method Of Arrival: Walkin/Carried/Asstd [facility] 11:58 Red Flag criteria, patient assessed and taken directly to a bed. mb9 Triage Assessment: 11:38 General: Appears in no apparent distress, comfortable, Behavior is cooperative. Pain: bcj Denies pain. Neurological: Level of Consciousness is awake, alert, Oriented to person, place, time. Historical: - Allergies: Strawberries; - Home Meds: 1. doxazosin 2 mg oral tab once daily 2. gabapentin 400 mg Oral cap 2 in am 2 in evening 1\T\ hs 3. Novolog 100 unit/mL Sub-Q soln 85 units in am 75 units in pm 4. Zocor 40 mg Oral tab 1 tab once daily 5. lisinopril 20 mg Oral tab 1 tab once daily 6. hydrochlorothiazide 25 mg Oral tab 1 tab once daily 7. glimepiride 4 mg Oral tab 1 tab once daily - PMHx: Diabetes - IDDM: controlled; Hypercholesterolemia; Hypertension; - PSHx: none; - Social history: Smoking status: Patient states former smoker of tobacco. No barriers to communication noted, The patient speaks fluent Cook Islander, Speaks appropriately for age. - Family history: Not pertinent. - : The pt / caregiver states he / she is not on anticoagulants. Home medication list is obtained from the patient. - Exposure Risk Screening:: None identified. Screenin:58 Screening information is obtained from the patient. Fall risk: No risks identified. hs1 Assistance ADL's: requires no assistance with activities of daily living. Abuse/DV Screen: The patient / caregiver reports he/she is: not in a situation that causes fear, pain or injury. Nutritional screening: No deficits noted. Advance Directives: There is no active DNR order. home support is adequate. Assessment: 11:40 General: Appears in no apparent distress, comfortable, Behavior is appropriate for age, hs1 cooperative, pleasant. Pain: Denies pain. Cardiovascular: Rhythm is sinus rhythm No ectopy. Respiratory: Airway is patent Respiratory effort is even, unlabored. GI: Abdomen is obese. Derm: Skin is pink, warm & dry. normal. 12:45 Reassessment: Patient appears in no apparent distress at this time. Patient states hs1 feeling better. Patient states symptoms have improved. 13:38 General: Appears in no apparent distress, comfortable, Behavior is cooperative, hs1 pleasant, Pt speaking with Dr Hartman about further plan of care at present. Pt denies pain and would like a snack. . 15:15 General: Appears in no apparent distress, comfortable, Behavior is appropriate for age, jmb cooperative. Neurological: Level of Consciousness is awake, alert, obeys commands, Oriented to person, place, time. Respiratory: Airway is patent Respiratory effort is even, unlabored, Respiratory pattern is regular, symmetrical. 16:31 General: Appears in no apparent distress, comfortable, Behavior is appropriate for age, jmb cooperative, Patient laying on stretcher, appears comfortable. Voices no complaints at this time. . Neurological: Level of Consciousness is awake, alert, obeys commands, Oriented to person, place, time, Household Personal Assistant are equal bilaterally Speech is normal, Facial symmetry appears normal, Facial symmetry: tongue is midline. Cardiovascular: Capillary refill < 3 seconds Heart tones present Pulses are all present. Rhythm is sinus rhythm No ectopy. Respiratory: Airway is patent Respiratory effort is even, unlabored, Respiratory pattern is regular, symmetrical, Breath sounds are clear bilaterally. GI: Abdomen is obese, Bowel sounds present X 4 quads. Abd is soft and non tender X 4 quads. Derm: Skin is pink, warm & dry. Musculoskeletal: Range of motion intact in all extremities. Vital Signs: 11:14 BP 93 / 42 RA Sitting (auto/lg); Pulse 78; Resp 18; Pulse Ox 98% ; Weight 113.4 kg; cmb Height 6 ft. 1 in. (185.42 cm); Pain 0/10; 11:14 BP 95 / 52 LA Sitting (auto/lg); Temp 96.8; cmb 12:14 BP 110 / 53 Supine; Pulse 66; hs1 12:15 BP 99 / 33 Sitting; Pulse 69; hs1 12:15 BP 90 / 48 Standing; Pulse 75; hs1 12:27 BP 90 / 47 (auto/); hs1 12:28 Pulse 64 MON; Pulse Ox 97% ; hs1 12:42 BP 87 / 44 (auto/); hs1 12:43 Pulse 62 MON; Pulse Ox 95% ; hs1 12:56 BP 116 / 56 (auto/); jmb 12:57 BP 114 / 54 (auto/); jmb 12:57 Pulse 64 MON; Pulse Ox 96% ; jmb 12:57 BP 116 / 56; hs1 12:58 Pulse 64 MON; Pulse Ox 96% ; jmb 13:12 BP 112 / 54 (auto/); jmb 13:13 Pulse 64 MON; Pulse Ox 95% ; jmb 13:27 BP 96 / 52 (auto/); jmb 13:27 Pulse 68 MON; Pulse Ox 94% ; jmb 13:33 BP 112 / 54 (auto/); jmb 13:34 BP 130 / 55 (auto/); jmb 13:34 Pulse 72 MON; Pulse Ox 95% ; jmb 13:35 BP 96 / 49 (auto/); jmb 13:35 Pulse 70 MON; Pulse Ox 95% ; jmb 13:36 Pulse 74 MON; Pulse Ox 94% ; jmb 13:37 BP 112 / 54 Supine; Pulse 62; hs1 13:37 BP 130 / 55 Sitting; Pulse 71; hs1 13:37 BP 96 / 49 Standing; Pulse 82; hs1 13:42 BP 109 / 53 (auto/); jmb 13:42 Pulse 78 MON; Pulse Ox 97% ; jmb 13:57 BP 124 / 56 (auto/); jmb 13:58 Pulse 78 MON; Pulse Ox 97% ; jmb 14:12 BP 105 / 51 (auto/); jmb 14:13 Pulse 74 MON; Pulse Ox 96% ; jmb 14:27 BP 105 / 46 (auto/); jmb 14:27 Pulse 74 MON; Pulse Ox 96% ; jmb 14:41 BP 105 / 53 (auto/); jmb 14:41 Pulse 84 MON; Pulse Ox 82% ; jmb 14:43 BP 94 / 47 (auto/); jmb 14:44 Pulse 66 MON; Pulse Ox 98% ; jmb 14:58 BP 97 / 50 (auto/); jmb 14:59 Pulse 64 MON; Pulse Ox 98% ; jmb 15:13 BP 108 / 54 (auto/); jmb 15:14 Pulse 66 MON; Pulse Ox 97% ; jmb 15:28 BP 99 / 52 (auto/); jmb 15:29 Pulse 66 MON; Pulse Ox 97% ; jmb 15:43 BP 104 / 51 (auto/); jmb 15:44 Pulse 66 MON; Pulse Ox 97% ; jmb 15:58 BP 117 / 56 (auto/); jmb 15:59 Pulse 64 MON; Pulse Ox 96% ; jmb 16:13 BP 108 / 52 (auto/); jmb 16:14 Pulse 62 MON; Pulse Ox 96% ; jmb 16:28 BP 111 / 56 (auto/); jmb 16:29 Pulse 62 MON; Pulse Ox 97% ; jmb 16:30 BP 117 / 53 (auto/); jmb 16:31 Pulse 66 MON; Pulse Ox 96% ; jmb 16:31 Resp 20; Temp 97.2; Pain 0/10; jmb 11:14 Body Mass Index 32.98 (113.40 kg, 185.42 cm) [facility] Vitals: 11:14 Log In Time: May 26, 2016 at 11:13. [facility] ED Course: 11:13 Patient visited by Radha Mejia. cmb 11:13 Patient moved to Waiting b 11:14 Unknown, Family Dr is Private Physician. cmb 11:17 RN notified that patient meets Red Flag criteria. cmb 11:25 Patient moved to 20 cmb 11:34 Triage Initiated bcj 11:39 Patient visited by Haris Watkins, RN. bcj 11:40 Inserted saline lock: 18 gauge in left antecubital area and blood collected. The hs1 patient tolerated the procedure well. 11:45 CBC with Diff Sent. hs1 11:45 Cardiac Injury Profile Sent. hs1 11:45 Liver Profile Sent. hs1 11:45 MED Profile Sent. hs1 11:45 Thyroid Stimulating Hormone Sent. hs1 11:45 Troponin Sent. hs1 11:57 Maura Huber MD is Attending Physician. ml 11:57 Patient visited by Maura Huber MD. ml 11:59 Patient visited by Syed Chaney RN. mb9 12:08 EKG done. (by ED staff). Reviewed by Maura Huber MD. ct3 12:10 D-Dimer Quant Sent. hs1 12:11 Patient has correct armband on for positive identification. Placed in gown. Bed in low ct3 position. Call light in reach. Side rails up X2. playground monitor on. Pulse ox on. NIBP on. 12:12 Patient visited by Danielle Braga PCA. ct3 12:46 Patient visited by Danielle Braga PCA. ct3 12:58 The patient / caregiver is instructed regarding the plan of care and ED course. hs1 12:58 Seizure precautions initiated. hs1 13:18 Patient visited by Susie Greenwood, MARCI. hs1 13:37 Ephraim Hartman DO is Hospitalizing Provider. ml 15:05 [facility] Payment Agreement was scanned into [employer] and attached to record. lg 15:08 CT Head Without Contrast Returned. EDMS 16:31 No procedures done that require assistance. jmb 16:36 Patient visited by Denton Verdugo,MARCI. jmb 16:37 Chest, 1 View Returned. EDMS 04 11:16 T-Sheet-- Draft Copy was scanned into [employer] and attached to record. gb 11:16 ECG/EKG was scanned into [employer] and attached to record. gb 11:16 Trend VS was scanned into [employer] and attached to record. gb Administered Medications: 05/26 12:10 Drug: NS 0.9% 500 ml [sodium chloride 0.9 % intravenous solution] Route: IV; Rate: hs1 bolus; Site: left antecubital; 12:57 Follow up: BP 116 / 56; IV Status: Completed infusion; IV Intake: 500ml hs1 Attachments: 11:16 Trend VS gb Intake: 05/26 12:57 IV: 500.00ml; Total: 500.00ml. hs1 Order Results: Lab Order: CBC with Diff; SPEC'M 05/26/16 11:43 Test: WHITE BLOOD COUNT; Value: 7.7; Range: 4.0-10.0; Units: K/mm3; Status: F Test: RED BLOOD COUNT; Value: 4.44; Range: 4.30-6.10; Units: M/mm3; Status: F Test: HEMOGLOBIN; Value: 14.1; Range: 14.0-18.0; Units: g/dl; Status: F Test: HEMATOCRIT; Value: 41.9; Range: 42.0-52.0; Abnormal: Below low normal; Units: %; Status: F Test: MEAN CORPUSCULAR VOLUME; Value: 94.2; Range: 80.0-96.0; Units: fl; Status: F Test: MEAN CORPUSCULAR HEMOGLOBIN; Value: 31.7; Range: 27.0-33.0; Units: pg; Status: F Test: MEAN CORPUSCULAR HGB CONC; Value: 33.6; Range: 32.0-36.5; Units: g/dl; Status: F Test: RED CELL DISTRIBUTION WIDTH; Value: 12.1; Range: 11.5-14.5; Units: %; Status: F Test: PLATELET COUNT, AUTOMATED; Value: 215; Range: 150-450; Units: k/mm3; Status: F Test: NEUTROPHILS %; Value: 72.2; Range: 36.0-66.0; Abnormal: Above high normal; Units: %; Status: F Test: LYMPH %; Value: 18.3; Range: 24.0-44.0; Abnormal: Below low normal; Units: %; Status: F Test: MONO %; Value: 5.6; Range: 0.0-5.0; Abnormal: Above high normal; Units: %; Status: F Test: EOS %; Value: 2.2; Range: 0.0-3.0; Units: %; Status: F Test: BASO %; Value: 0.6; Range: 0.0-1.0; Units: %; Status: F Test: LARGE UNSTAINED CELL %; Value: 1.1; Range: 0.0-4.0; Units: %; Status: F Test: NEUTROPHILS #; Value: 5.5; Range: 1.8-7.7; Units: K/mm3; Status: F Test: LYMPH #; Value: 1.4; Range: 1.5-4.5; Abnormal: Below low normal; Units: K/mm3; Status: F Test: MONO #; Value: 0.4; Range: 0.0-0.8; Units: K/mm3; Status: F Test: EOS #; Value: 0.2; Range: 0.0-0.50; Units: K/mm3; Status: F Test: BASO #; Value: 0.0; Range: 0.0-0.2; Units: K/mm3; Status: F Test: LARGE UNSTAINED CELL #; Value: 0.1; Range: 0.0-0.4; Units: K/mm3; Status: F Lab Order: Cardiac Injury Profile; SPEC'M 05/26/16 11:43 Test: CPK CREATINE PHOSPHOKINASE; Value: 117; Range: 39-308; Units: U/L; Status: F Test: CK-MB VALUE MASS; Value: 3.6; Range: 0.0-3.6; Units: NG/ML; Status: F Test: MB/CK RELATIVE INDEX; Value: 3.07; Range: < OR =4; Status: F Test Note: ; DIAGNOSIS CRITERIA MMB ng/ml Relative Index (RI) NON-AMI < or = 5 N/A ORTEGA ZONE > 5 < or = 4 AMI > 5 > 4 Lab Order: Liver Profile; SPEC'M 05/26/16 11:43 Test: AST/SGOT; Value: 20; Range: 15-37; Units: U/L; Status: F Test: ALT/SGPT; Value: 28; Range: 12-78; Units: U/L; Status: F Test: ALKALINE PHOSPHATASE; Value: 84; Range: 45-117; Units: U/L; Status: F Test: BILIRUBIN,TOTAL; Value: 0.4; Range: 0.2-1.0; Units: MG/DL; Status: F Test: BILIRUBIN,DIRECT; Value: 0.1; Range: 0.0-0.2; Units: MG/DL; Status: F Test: TOTAL PROTEIN; Value: 7.1; Range: 6.4-8.2; Units: GM/DL; Status: F Test: ALBUMIN; Value: 3.6; Range: 3.2-5.2; Units: GM/DL; Status: F Test: ALBUMIN/GLOBULIN RATIO; Value: 1.03; Range: 1.00-1.93; Status: F Lab Order: MED Profile; [facility] 05/26/16 11:43 Test: GLUCOSE, FASTING; Value: 210; Range: 83-110; Abnormal: Above high normal; Units: MG/DL; Status: F Test: BLOOD UREA NITROGEN; Value: 35; Range: 7-18; Abnormal: Above high normal; Units: MG/DL; Status: F Test: CREATININE FOR GFR; Value: 1.91; Range: 0.70-1.30; Abnormal: Above high normal; Units: MG/DL; Status: F Test: GLOMERULAR FILTRATION RATE; Value: 37.3; Range: >42; Abnormal: Below low normal; Status: F Test: SODIUM LEVEL; Value: 142; Range: 136-145; Units: MEQ/L; Status: F Test: POTASSIUM SERUM; Value: 4.3; Range: 3.5-5.1; Units: MEQ/L; Status: F Test: CHLORIDE LEVEL; Value: 104; Range: 98-107; Units: MEQ/L; Status: F Test: CARBON DIOXIDE LEVEL; Value: 27; Range: 21-32; Units: MEQ/L; Status: F Test: ANION GAP; Value: 11; Range: 8-16; Units: MEQ/L; Status: F Test: CALCIUM LEVEL; Value: 8.9; Range: 8.8-10.2; Units: MG/DL; Status: F Test Note: ; Units are mL/min/1.73 m2 Chronic Kidney Disease Staging per NKF: Stage I & II GFR >=60 Normal to Mildly Decreased Stage III GFR 30-59 Moderately Decreased Stage IV GFR 15-29 Severely Decreased Stage V GFR <15 Very Little GFR Left ESRD GFR <15 on LEARNING AND DEVELOPMENT INTERN Lab Order: Thyroid Stimulating Hormone; SPEC'M 05/26/16 11:43 Test: THYROID STIMULATING HORMONE; Value: 1.540; Range: 0.358-3.740; Units: uIU/ML; Status: F Lab Order: Troponin; SPEC'M 05/26/16 11:43 Test: TROPONIN I; Value: < 0.02; Range: < 0.10; Units: NG/ML; Status: F Test Note: ; Troponin I Reference Interval for 3LM LOCI: 99th Percentile= 0.00-0.045 ng/ml Risk Stratification: <= 0.10 ng/ml Decreased Risk for Adverse Clinical Events. 0.10-1.50 ng/ml Increased Risk for Adverse Clinical Events. Evaluation of additional criterion and/or repeat testing in 2-6 hours is suggested to rule out myocardial damage. >= 1.50 ng/ml Indicative of Myocardial Injury. Lab Order: Fingerstick Blood Sugar; SPEC'M 05/26/16 11:34 Test: BEDSIDE GLUCOSE; Value: 201; Range: 83-110; Abnormal: Above high normal; Units: MG/DL; Status: F Test Note: ; RN Notified Doctor Notified Lab Order: D-Dimer Quant; SPEC'M 05/26/16 11:43 Test: D-DIMER QUANT; Value: < 270.0; Range: <500; Units: ng/ml; Status: F Radiology Order: CT Head Without Contrast Test: CT Head Without Contrast REASON FOR EXAMINATION: ?seizure; CT brain without contrast 05/26/2016; ; Indication: Possible seizure; ; Comparison: None; ; Findings: There is mild ventriculomegaly and prominence of cortical sulci; consistent with mild generalized cerebral volume loss. There is no intracranial; hemorrhage or extra-axial fluid collection. There is no midline shift or mass; effect. The basilar artery is generous in size measuring 6 mm transverse by 3 mm; AP dimension distally.; ; The skull is without fracture. Visualized portions of mastoid sinuses are clear; bilaterally. There is an opacified left frontoethmoidal recess, and a small; amount of mucoperiosteal thickening in the ethmoid sinuses bilaterally.; Visualized portions of frontal sphenoid and maxillary sinuses are clear; ; Impression; 1. 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 May consider MRA; of the brain to exclude basilar tip aneurysm if clinically indicated; ; 2. No acute intracranial pathology or hemorrhage; no generalized cerebral volume; loss; 3. Opacified left frontoethmoidal recess, small amount of mucoperiosteal; thickening in the ethmoid sinuses; ; ; Signed by; Serenity Hector MD 05/26/2016 12:12 P; Radiology Order: Chest, 1 View Test: Chest, 1 View REASON FOR EXAMINATION: dizzy; PORTABLE CHEST:; ; AP portable view of the chest is performed and compared to prior study of; 07/09/2011. There is mild cardiomegaly. There is no acute infiltrate. There is; calcification of the thoracic aorta. There are degenerative changes of the spine.; ; ; IMPRESSION:; Cardiomegaly. No acute infiltrate.; ; Unreviewed; Outcome: 13:37 Decision to Hospitalize by Provider. 16:31 Discharge Assessment: Patient awake, alert and oriented x 3. No cognitive and/or jmb functional deficits noted. Patient verbalized understanding of disposition instructions. Patient awake and alert. obeys commands, Oriented to person, place and time. Patient verbalized understanding of disposition instructions. Patient has no functional deficits. patient administered narcotics - no. The following High Risk Discharge criteria are identified: None. Admitted to ICU accompanied by nurse, accompanied by tech, via stretcher, on monitor, with chart. Condition: stable. CT Study completed. Property :Personal belongings accompany Pt. 16:45 Patient left the ED. b Signatures: Dispatcher [employer] EDMS Maura Huber MD MD ml Johnson, Bruce, RN RN Cyndi Bang, Reg Reg gb Linn Bell, Reg Reg lg Susie Greenwood RN RN hs1 Danielle Braga, MAJOR LEAGUE BASEBALL UMPIRE MAJOR LEAGUE BASEBALL UMPIRE ct3 Radha Mejia JoshuaRN RN Syed Miller,RN RN mb9 Corrections: (The following items were deleted from the chart) 16:33 16:31 General: Appears in no apparent distress, comfortable, Behavior is appropriate jmb for age, cooperative, Patient laying on stretcher, appears comfortable. Voices no complaints at this time. . jmb Chart Complete MTDD
--- NOTE | 2016-05-28 17:45 | EDDOCDS ---
Physician Documentation [facility] Name: Lionel English Age: 71 yrs Sex: Male : 1945 Arrival Date: 05/26/2016 Time: 11:11 Bed 20 Private MD: Unknown, Family Dr Disposition: 05/26 13:38 Critical Care:. ml Disposition: 05/26/16 13:37 Hospitalization ordered by Ephraim Hartman for Inpatient Admission. Preliminary diagnosis are Syncope and collapse, Orthostatic hypotension - symptomatic. - Bed requested for M ICU. - Status is Inpatient Admission. jmb - Condition is Stable. - Problem is new. - Symptoms have improved. Historical: - Allergies: Strawberries; - Home Meds: 1. doxazosin 2 mg oral tab once daily 2. gabapentin 400 mg Oral cap 2 in am 2 in evening 1\T\ hs 3. Novolog 100 unit/mL Sub-Q soln 85 units in am 75 units in pm 4. Zocor 40 mg Oral tab 1 tab once daily 5. lisinopril 20 mg Oral tab 1 tab once daily 6. hydrochlorothiazide 25 mg Oral tab 1 tab once daily 7. glimepiride 4 mg Oral tab 1 tab once daily - PMHx: Diabetes - IDDM: controlled; Hypercholesterolemia; Hypertension; - PSHx: none; - Social history: Smoking status: Patient states former smoker of tobacco. No barriers to communication noted, The patient speaks fluent Persian, Speaks appropriately for age. - Family history: Not pertinent. - : The pt / caregiver states he / she is not on anticoagulants. Home medication list is obtained from the patient. - Exposure Risk Screening:: None identified. Vital Signs: 11:14 BP 93 / 42 RA Sitting (auto/lg); Pulse 78; Resp 18; Pulse Ox 98% ; Weight 113.4 kg / cmb 250 lbs; Height 6 ft. 1 in. (185.42 cm); Pain 0/10; 11:14 BP 95 / 52 LA Sitting (auto/lg); Temp 96.8; cmb 12:14 BP 110 / 53 Supine; Pulse 66; hs1 12:15 BP 99 / 33 Sitting; Pulse 69; hs1 12:15 BP 90 / 48 Standing; Pulse 75; hs1 12:27 BP 90 / 47 (auto/); hs1 12:28 Pulse 64 MON; Pulse Ox 97% ; hs1 12:42 BP 87 / 44 (auto/); hs1 12:43 Pulse 62 MON; Pulse Ox 95% ; hs1 12:56 BP 116 / 56 (auto/); jmb 12:57 BP 114 / 54 (auto/); jmb 12:57 Pulse 64 MON; Pulse Ox 96% ; jmb 12:57 BP 116 / 56; hs1 12:58 Pulse 64 MON; Pulse Ox 96% ; jmb 13:12 BP 112 / 54 (auto/); jmb 13:13 Pulse 64 MON; Pulse Ox 95% ; jmb 13:27 BP 96 / 52 (auto/); jmb 13:27 Pulse 68 MON; Pulse Ox 94% ; jmb 13:33 BP 112 / 54 (auto/); jmb 13:34 BP 130 / 55 (auto/); jmb 13:34 Pulse 72 MON; Pulse Ox 95% ; jmb 13:35 BP 96 / 49 (auto/); jmb 13:35 Pulse 70 MON; Pulse Ox 95% ; jmb 13:36 Pulse 74 MON; Pulse Ox 94% ; jmb 13:37 BP 112 / 54 Supine; Pulse 62; hs1 13:37 BP 130 / 55 Sitting; Pulse 71; hs1 13:37 BP 96 / 49 Standing; Pulse 82; hs1 13:42 BP 109 / 53 (auto/); jmb 13:42 Pulse 78 MON; Pulse Ox 97% ; jmb 13:57 BP 124 / 56 (auto/); jmb 13:58 Pulse 78 MON; Pulse Ox 97% ; jmb 14:12 BP 105 / 51 (auto/); jmb 14:13 Pulse 74 MON; Pulse Ox 96% ; jmb 14:27 BP 105 / 46 (auto/); jmb 14:27 Pulse 74 MON; Pulse Ox 96% ; jmb 14:41 BP 105 / 53 (auto/); jmb 14:41 Pulse 84 MON; Pulse Ox 82% ; jmb 14:43 BP 94 / 47 (auto/); jmb 14:44 Pulse 66 MON; Pulse Ox 98% ; jmb 14:58 BP 97 / 50 (auto/); jmb 14:59 Pulse 64 MON; Pulse Ox 98% ; jmb 15:13 BP 108 / 54 (auto/); jmb 15:14 Pulse 66 MON; Pulse Ox 97% ; jmb 15:28 BP 99 / 52 (auto/); jmb 15:29 Pulse 66 MON; Pulse Ox 97% ; jmb 15:43 BP 104 / 51 (auto/); jmb 15:44 Pulse 66 MON; Pulse Ox 97% ; jmb 15:58 BP 117 / 56 (auto/); jmb 15:59 Pulse 64 MON; Pulse Ox 96% ; jmb 16:13 BP 108 / 52 (auto/); jmb 16:14 Pulse 62 MON; Pulse Ox 96% ; jmb 16:28 BP 111 / 56 (auto/); jmb 16:29 Pulse 62 MON; Pulse Ox 97% ; jmb 16:30 BP 117 / 53 (auto/); jmb 16:31 Pulse 66 MON; Pulse Ox 96% ; jmb 16:31 Resp 20; Temp 97.2; Pain 0/10; jmb 11:14 Body Mass Index 32.98 (113.40 kg, 185.42 cm) cmb MDM: 11:41 Lead Java J2Ee Developer/Pulse Ox/q 15 min VS ordered. sd1 11:41 Accucheck ordered. sd1 11:41 IV Saline Lock ordered. sd1 11:41 Oxygen at 4L/Min NC or Home dosage ordered. sd1 11:41 Rhythm Strip to chart ordered. sd1 11:41 NS 0.9% 500 ml IV at bolus once ordered. sd1 11:42 CBC with Diff Ordered. EDMS 11:42 Cardiac Injury Profile Ordered. EDMS 11:42 Liver Profile Ordered. EDMS 11:42 MED Profile Ordered. EDMS 11:42 Thyroid Stimulating Hormone Ordered. EDMS 11:42 Troponin Ordered. EDMS 11:42 CT Head Without Contrast Ordered. EDMS 11:42 ECG WITH READING ER PHYS+CARDIAG ordered. EDMS 11:54 Fingerstick Blood Sugar Ordered. EDMS 12:07 Orthostatic VS ordered. ml 12:09 Chest, 1 View Ordered. EDMS 12:10 D-Dimer Quant Ordered. EDMS 12:59 CBC with Diff Reviewed. ml 12:59 MED Profile Reviewed. ml 12:59 Fingerstick Blood Sugar Reviewed. ml 12:59 Cardiac Injury Profile Reviewed. ml 12:59 Liver Profile Reviewed. ml 12:59 Thyroid Stimulating Hormone Reviewed. ml 12:59 Troponin Reviewed. ml 12:59 D-Dimer Quant Reviewed. ml 13:17 Misc. Nursing Order ordered. ml 13:18 BED REQUEST+ADM ordered. EDMS 13:40 Financial registration complete. lg 13:41 CONSISTENT CARBOHYDRATE+DIET ordered. EDMS 13:48 PHYSICAL THERAPY EVAL & TREAT ordered. EDMS 13:49 Admission / Observation Status ordered. EDMS 13:49 CONSISTENT CARBOHYDRATES ordered. EDMS 13:56 Admission / Observation Status ordered. EDMS 14:18 CARDIAC MARKER PANEL Ordered. EDMS 15:05 [facility] [place] Agreement was scanned into [employer] and attached to record. lg 05/27 11:16 T-Sheet-- Draft Copy was scanned into [employer] and attached to record. gb 11:16 ECG/EKG was scanned into [employer] and attached to record. gb 11:16 Trend VS was scanned into [employer] and attached to record. gb Administered Medications: 05/26 12:10 Drug: NS 0.9% 500 ml [sodium chloride 0.9 % intravenous solution] Route: IV; Rate: hs1 bolus; Site: left antecubital; 12:57 Follow up: BP 116 / 56; IV Status: Completed infusion; IV Intake: 500ml hs1 Critical Care Time: 13:38 Critical care time: Bedside Care: 120 minutes, Consultation: 10 minutes. Total time: ml 130 minutes Signatures: Dispatcher [employer] EDBetsy Bowie MD MD sd1 Maura Huber MD MD ml Johnson, Bruce, RN RN Cyndi Bang, Reg Reg gb Linn Blel, Reg Reg lg Denton VerdugoRN RN Radha Mendoza RN RN lmg Sherrill, Hannah RN hs1 The chart was reviewed and I authenticate all verbal orders and agree with the evaluation and treatment provided.Attachments: 15:05 [facility] Payment Agreement lg 05/27 11:16 T-Sheet-- Draft Copy gb 11:16 ECG/EKG gb Chart Complete MTDD
--- NOTE | 2016-05-28 17:45 | EDDOCDS ---
Physician Documentation [facility] Name: Lionel English Age: 71 yrs Sex: Male : 1945 Arrival Date: 05/26/2016 Time: 11:11 Bed 20 Private MD: Unknown, Family Dr Disposition: 05/26 13:38 Critical Care:. ml Disposition: 05/26/16 13:37 Hospitalization ordered by Ephraim Hartman for Inpatient Admission. Preliminary diagnosis are Syncope and collapse, Orthostatic hypotension - symptomatic. - Bed requested for M ICU. - Status is Inpatient Admission. jmb - Condition is Stable. - Problem is new. - Symptoms have improved. Historical: - Allergies: Strawberries; - Home Meds: 1. doxazosin 2 mg oral tab once daily 2. gabapentin 400 mg Oral cap 2 in am 2 in evening 1\T\ hs 3. Novolog 100 unit/mL Sub-Q soln 85 units in am 75 units in pm 4. Zocor 40 mg Oral tab 1 tab once daily 5. lisinopril 20 mg Oral tab 1 tab once daily 6. hydrochlorothiazide 25 mg Oral tab 1 tab once daily 7. glimepiride 4 mg Oral tab 1 tab once daily - PMHx: Diabetes - IDDM: controlled; Hypercholesterolemia; Hypertension; - PSHx: none; - Social history: Smoking status: Patient states former smoker of tobacco. No barriers to communication noted, The patient speaks fluent Czech, Speaks appropriately for age. - Family history: Not pertinent. - : The pt / caregiver states he / she is not on anticoagulants. Home medication list is obtained from the patient. - Exposure Risk Screening:: None identified. Vital Signs: 11:14 BP 93 / 42 RA Sitting (auto/lg); Pulse 78; Resp 18; Pulse Ox 98% ; Weight 113.4 kg / cmb 250 lbs; Height 6 ft. 1 in. (185.42 cm); Pain 0/10; 11:14 BP 95 / 52 LA Sitting (auto/lg); Temp 96.8; cmb 12:14 BP 110 / 53 Supine; Pulse 66; hs1 12:15 BP 99 / 33 Sitting; Pulse 69; hs1 12:15 BP 90 / 48 Standing; Pulse 75; hs1 12:27 BP 90 / 47 (auto/); hs1 12:28 Pulse 64 MON; Pulse Ox 97% ; hs1 12:42 BP 87 / 44 (auto/); hs1 12:43 Pulse 62 MON; Pulse Ox 95% ; hs1 12:56 BP 116 / 56 (auto/); jmb 12:57 BP 114 / 54 (auto/); jmb 12:57 Pulse 64 MON; Pulse Ox 96% ; jmb 12:57 BP 116 / 56; hs1 12:58 Pulse 64 MON; Pulse Ox 96% ; jmb 13:12 BP 112 / 54 (auto/); jmb 13:13 Pulse 64 MON; Pulse Ox 95% ; jmb 13:27 BP 96 / 52 (auto/); jmb 13:27 Pulse 68 MON; Pulse Ox 94% ; jmb 13:33 BP 112 / 54 (auto/); jmb 13:34 BP 130 / 55 (auto/); jmb 13:34 Pulse 72 MON; Pulse Ox 95% ; jmb 13:35 BP 96 / 49 (auto/); jmb 13:35 Pulse 70 MON; Pulse Ox 95% ; jmb 13:36 Pulse 74 MON; Pulse Ox 94% ; jmb 13:37 BP 112 / 54 Supine; Pulse 62; hs1 13:37 BP 130 / 55 Sitting; Pulse 71; hs1 13:37 BP 96 / 49 Standing; Pulse 82; hs1 13:42 BP 109 / 53 (auto/); jmb 13:42 Pulse 78 MON; Pulse Ox 97% ; jmb 13:57 BP 124 / 56 (auto/); jmb 13:58 Pulse 78 MON; Pulse Ox 97% ; jmb 14:12 BP 105 / 51 (auto/); jmb 14:13 Pulse 74 MON; Pulse Ox 96% ; jmb 14:27 BP 105 / 46 (auto/); jmb 14:27 Pulse 74 MON; Pulse Ox 96% ; jmb 14:41 BP 105 / 53 (auto/); jmb 14:41 Pulse 84 MON; Pulse Ox 82% ; jmb 14:43 BP 94 / 47 (auto/); jmb 14:44 Pulse 66 MON; Pulse Ox 98% ; jmb 14:58 BP 97 / 50 (auto/); jmb 14:59 Pulse 64 MON; Pulse Ox 98% ; jmb 15:13 BP 108 / 54 (auto/); jmb 15:14 Pulse 66 MON; Pulse Ox 97% ; jmb 15:28 BP 99 / 52 (auto/); jmb 15:29 Pulse 66 MON; Pulse Ox 97% ; jmb 15:43 BP 104 / 51 (auto/); jmb 15:44 Pulse 66 MON; Pulse Ox 97% ; jmb 15:58 BP 117 / 56 (auto/); jmb 15:59 Pulse 64 MON; Pulse Ox 96% ; jmb 16:13 BP 108 / 52 (auto/); jmb 16:14 Pulse 62 MON; Pulse Ox 96% ; jmb 16:28 BP 111 / 56 (auto/); jmb 16:29 Pulse 62 MON; Pulse Ox 97% ; jmb 16:30 BP 117 / 53 (auto/); jmb 16:31 Pulse 66 MON; Pulse Ox 96% ; jmb 16:31 Resp 20; Temp 97.2; Pain 0/10; jmb 11:14 Body Mass Index 32.98 (113.40 kg, 185.42 cm) cmb MDM: 11:41 Chief Knowledge Officer/Pulse Ox/q 15 min VS ordered. sd1 11:41 Accucheck ordered. sd1 11:41 IV Saline Lock ordered. sd1 11:41 Oxygen at 4L/Min NC or Home dosage ordered. sd1 11:41 Rhythm Strip to chart ordered. sd1 11:41 NS 0.9% 500 ml IV at bolus once ordered. sd1 11:42 CBC with Diff Ordered. EDMS 11:42 Cardiac Injury Profile Ordered. EDMS 11:42 Liver Profile Ordered. EDMS 11:42 MED Profile Ordered. EDMS 11:42 Thyroid Stimulating Hormone Ordered. EDMS 11:42 Troponin Ordered. EDMS 11:42 CT Head Without Contrast Ordered. EDMS 11:42 ECG WITH READING ER PHYS+CARDIAG ordered. EDMS 11:54 Fingerstick Blood Sugar Ordered. EDMS 12:07 Orthostatic VS ordered. ml 12:09 Chest, 1 View Ordered. EDMS 12:10 D-Dimer Quant Ordered. EDMS 12:59 CBC with Diff Reviewed. ml 12:59 MED Profile Reviewed. ml 12:59 Fingerstick Blood Sugar Reviewed. ml 12:59 Cardiac Injury Profile Reviewed. ml 12:59 Liver Profile Reviewed. ml 12:59 Thyroid Stimulating Hormone Reviewed. ml 12:59 Troponin Reviewed. ml 12:59 D-Dimer Quant Reviewed. ml 13:17 Misc. Nursing Order ordered. ml 13:18 BED REQUEST+ADM ordered. EDMS 13:40 Financial registration complete. lg 13:41 CONSISTENT CARBOHYDRATE+DIET ordered. EDMS 13:48 PHYSICAL THERAPY EVAL & TREAT ordered. EDMS 13:49 Admission / Observation Status ordered. EDMS 13:49 CONSISTENT CARBOHYDRATES ordered. EDMS 13:56 Admission / Observation Status ordered. EDMS 14:18 CARDIAC MARKER PANEL Ordered. EDMS 15:05 [facility] Payment Agreement was scanned into [employer] and attached to record. lg 05/27 11:16 T-Sheet-- Draft Copy was scanned into [employer] and attached to record. gb 11:16 ECG/EKG was scanned into [employer] and attached to record. gb 11:16 Trend VS was scanned into [employer] and attached to record. gb Administered Medications: 05/26 12:10 Drug: NS 0.9% 500 ml [sodium chloride 0.9 % intravenous solution] Route: IV; Rate: hs1 bolus; Site: left antecubital; 12:57 Follow up: BP 116 / 56; IV Status: Completed infusion; IV Intake: 500ml hs1 Critical Care Time: 13:38 Critical care time: Bedside Care: 120 minutes, Consultation: 10 minutes. Total time: ml 130 minutes Signatures: Dispatcher [employer] EDBetsy Bowie MD MD sd1 Maura Huber MD MD ml Johnson, Bruce, RN RN Cyndi Bang, Reg Reg gb Linn Bell, Reg Reg lg Denton VerdugoRN RN Radha Mendoza RN RN lmg Sherrill, Hannah RN hs1 The chart was reviewed and I authenticate all verbal orders and agree with the evaluation and treatment provided.Attachments: 15:05 [facility] Payment Agreement lg 05/27 11:16 T-Sheet-- Draft Copy gb 11:16 ECG/EKG gb Chart Complete MTDD
== END 2016-05-27 13:14 | disposition home or self-care (01) | DRG 312 ==
LOC: M ED 11:11 → M ICU 13:46 → M ED INP 13:47 → M ICU 16:55
PROVIDERS: ADMIT Hospitalist; ATTEND Family Medicine
DX: I95.1 Orthostatic hypotension (principal); N17.9 Acute kidney failure, unspecified; E78.5 Hyperlipidemia, unspecified; I10 Essential (primary) hypertension; E11.40 Type 2 diabetes mellitus with diabetic neuropathy, unspecified; Z79.4 Long term (current) use of insulin; Z79.899 Other long term (current) drug therapy; Z91.018 Allergy to other foods

== ENCOUNTER → 2016-06-01 | Outpatient (REF) | payer MEDICARE ==
[~2016-06-01] MED LIST: AMLO5TAB2 PO; DOXA1TAB41 PO; DULO1CAP2 PO; GABA-283 PO; GLIM4TAB PO; INVO300T PO; LISI20TA3 PO; NOVO70VL SC; SIMV40TA2 PO
[2016-06-01 11:44] LABS: ALBUMIN 3.6 GM/DL (3.2-5.2); ALBUMIN/GLOBULIN RATIO 1.03 (1.00-1.93); BILIRUBIN,TOTAL 0.3 MG/DL (0.2-1.0); CALCIUM LEVEL 8.4 MG/DL (8.8-10.2); CREATININE FOR GFR 1.28 MG/DL (0.70-1.30); GLOMERULAR FILTRATION RATE 59.1 (>42); POTASSIUM SERUM 4.2 MEQ/L (3.5-5.1); TOTAL PROTEIN 7.1 GM/DL (6.4-8.2)
== END ==
LOC: M SFHCCLAY 07:54
PROVIDERS: ATTEND Nurse Practitioner
DX: E11.8 Type 2 diabetes mellitus with unspecified complications (principal)

== ENCOUNTER → 2016-08-24 | Outpatient (REF) | payer MEDICARE ==
[2016-08-24 12:08] LABS: ALBUMIN 3.5 GM/DL (3.2-5.2); ALBUMIN/GLOBULIN RATIO 1.03 (1.00-1.93); ALKALINE PHOSPHATASE 84 U/L (45-117); ALT/SGPT 28 U/L (12-78); ANION GAP 6 MEQ/L (8-16); AST/SGOT 15 U/L (15-37); BILIRUBIN,TOTAL 0.3 MG/DL (0.2-1.0); BLOOD UREA NITROGEN 16 MG/DL (7-18); CARBON DIOXIDE LEVEL 31 MEQ/L (21-32); CHLORIDE LEVEL 107 MEQ/L (98-107); CREATININE FOR GFR 1.19 MG/DL (0.70-1.30); GLOMERULAR FILTRATION RATE > 60.0 (>42); GLUCOSE, FASTING 109 MG/DL (83-110); POTASSIUM SERUM 4.2 MEQ/L (3.5-5.1); SODIUM LEVEL 144 MEQ/L (136-145); TOTAL PROTEIN 6.9 GM/DL (6.4-8.2)
== END ==
LOC: M SFHCCLAY 07:47
PROVIDERS: ATTEND Nurse Practitioner
DX: E11.8 Type 2 diabetes mellitus with unspecified complications (principal)

== ENCOUNTER → 2017-03-01 | Outpatient (REF) | payer MEDICARE ==
[2017-03-01 12:15] LABS: ALBUMIN 3.3 GM/DL (3.2-5.2); ALBUMIN/GLOBULIN RATIO 0.94 (1.00-1.93); ALKALINE PHOSPHATASE 98 U/L (45-117); ALT/SGPT 29 U/L (12-78); ANION GAP 6 MEQ/L (8-16); AST/SGOT 15 U/L (15-37); BILIRUBIN,TOTAL 0.4 MG/DL (0.2-1.0); BLOOD UREA NITROGEN 15 MG/DL (7-18); CARBON DIOXIDE LEVEL 33 MEQ/L (21-32); CHLORIDE LEVEL 106 MEQ/L (98-107); CHOLESTEROL LEVEL 113 MG/DL (<200); CREATININE FOR GFR 1.07 MG/DL (0.70-1.30); GLOMERULAR FILTRATION RATE > 60.0 (>42); GLUCOSE, FASTING 117 MG/DL (83-110); POTASSIUM SERUM 4.2 MEQ/L (3.5-5.1); SODIUM LEVEL 145 MEQ/L (136-145); TOTAL PROTEIN 6.8 GM/DL (6.4-8.2); TRIGLYCERIDES LEVEL 154 MG/DL (<150)
== END ==
LOC: M SFHCCLAY 07:35
PROVIDERS: ATTEND Nurse Practitioner
DX: E11.8 Type 2 diabetes mellitus with unspecified complications (principal)

== ENCOUNTER → 2017-06-04 | Outpatient (REF) | payer MEDICARE ==
[2017-06-04 12:01] LABS: ALT/SGPT 26 U/L (12-78); ANION GAP 4 MEQ/L (8-16); AST/SGOT 16 U/L (7-37); BLOOD UREA NITROGEN 14 MG/DL (7-18); CALCIUM LEVEL 8.9 MG/DL (8.8-10.2); CARBON DIOXIDE LEVEL 32 MEQ/L (21-32); CHLORIDE LEVEL 111 MEQ/L (98-107); GLOMERULAR FILTRATION RATE > 60.0 (>42); GLUCOSE, FASTING 80 MG/DL (83-110); POTASSIUM SERUM 4.2 MEQ/L (3.5-5.1); SODIUM LEVEL 147 MEQ/L (136-145)
[2017-06-04 12:02] LABS: ALBUMIN 3.6 GM/DL (3.2-5.2); ALBUMIN/GLOBULIN RATIO 1.13 (1.00-1.93); ALKALINE PHOSPHATASE 102 U/L (45-117); BILIRUBIN,TOTAL 0.3 MG/DL (0.2-1.0); CHOLESTEROL LEVEL 122 MG/DL (<200); CHOLESTEROL RISK RATIO 2.595 (<5); HDL CHOLESTEROL 47 MG/DL (>40); LDL CHOLESTEROL 58.6 MG/DL (<100); NON-HDL-C 75 MG/DL; PSA SCREENING 3.04 NG/ML (< 4.0); TOTAL PROTEIN 6.8 GM/DL (6.4-8.2); TRIGLYCERIDES LEVEL 82 MG/DL (<150)
[2017-06-04 12:19] LABS: ESTIMATED AVERAGE GLUCOSE 131 MG/DL (60-110); HEMOGLOBIN A1c 6.2 %
[2017-06-04 12:45] LABS: MAU/CREAT RATIO 582.8 MCG/MG (0.0-30.0)
== END ==
LOC: M SFHCCLAY 07:40
DX: E11.8 Type 2 diabetes mellitus with unspecified complications (principal); Z12.5 Encounter for screening for malignant neoplasm of prostate
CPT/HCPCS: 80053

== ENCOUNTER → 2018-05-27 | Outpatient (REF) | payer MEDICARE ==
[~2018-05-27] MED LIST changes: -AMLO5TAB2 PO; +AMLO5TAB6 PO; -GABA-283 PO; +GABA-845 PO
[2018-05-27 11:54] LABS: BLOOD UREA NITROGEN 10 MG/DL (7-18); CALCIUM LEVEL 8.8 MG/DL (8.8-10.2); CARBON DIOXIDE LEVEL 30 MEQ/L (21-32); CHLORIDE LEVEL 105 MEQ/L (98-107); CREATININE FOR GFR 1.12 MG/DL (0.70-1.30); GLOMERULAR FILTRATION RATE > 60.0 (>42); GLUCOSE, FASTING 127 MG/DL (70-100); POTASSIUM SERUM 4.6 MEQ/L (3.5-5.1); SODIUM LEVEL 143 MEQ/L (136-145)
[2018-05-27 13:36] LABS: HEMOGLOBIN A1c 6.7 %
[2018-05-27 14:48] LABS: MAU/CREAT RATIO 546.4 MCG/MG (0.0-30.0)
== END ==
LOC: M SFHCCLAY 07:47
PROVIDERS: ATTEND Family Medicine
DX: E11.8 Type 2 diabetes mellitus with unspecified complications (principal)

== ENCOUNTER → 2018-09-28 | Outpatient (REF) | payer MEDICARE ==
[2018-09-28 12:07] LABS: HEMOGLOBIN A1c 6.6 %
[2018-09-28 12:17] LABS: ALBUMIN 3.6 GM/DL (3.2-5.2); ALT/SGPT 24 U/L (12-78); BILIRUBIN,TOTAL 0.3 MG/DL (0.2-1.0); BLOOD UREA NITROGEN 11 MG/DL (7-18); CALCIUM LEVEL 8.7 MG/DL (8.8-10.2); CARBON DIOXIDE LEVEL 30 MEQ/L (21-32); CHLORIDE LEVEL 108 MEQ/L (98-107); CHOLESTEROL LEVEL 128 MG/DL (<200); CHOLESTEROL RISK RATIO 2.782 (<5); CREATININE FOR GFR 1.13 MG/DL (0.70-1.30); GLOMERULAR FILTRATION RATE > 60.0 (>42); GLUCOSE, FASTING 179 MG/DL (70-100); HDL CHOLESTEROL 46 MG/DL (>40); LDL CHOLESTEROL 66 MG/DL (<100); NON-HDL-C 82 MG/DL; POTASSIUM SERUM 4.5 MEQ/L (3.5-5.1); SODIUM LEVEL 143 MEQ/L (136-145); TOTAL PROTEIN 6.7 GM/DL (6.4-8.2); TRIGLYCERIDES LEVEL 78 MG/DL (<150)
== END ==
LOC: M SFHCCLAY 08:34
PROVIDERS: ATTEND Family Medicine
DX: I10 Essential (primary) hypertension (principal); E11.8 Type 2 diabetes mellitus with unspecified complications

== ENCOUNTER 2018-10-28 03:59 | Emergency (ER) | payer MEDICARE ==
[~2018-10-28] VITALS: Ht 185.4 cm; Wt 113.6 kg
[2018-10-28 05:00] LABS: BASO % 0.4 % (0.0-1.0); EOS # 0.2 10^3/uL (0.0-0.50); HEMATOCRIT 36.2 % (42.0-52.0); HEMOGLOBIN 10.9 g/dl (13.5-17.5); LYMPH # 1.3 10^3/uL (1.5-4.5); LYMPH % 12.4 % (24.0-44.0); MEAN CORPUSCULAR HEMOGLOBIN 27.2 pg (27.0-33.0); MEAN CORPUSCULAR HGB CONC 30.1 g/dl (32.0-36.5); MEAN CORPUSCULAR VOLUME 90.3 fl (80.0-96.0); MONO # 0.8 10^3/uL (0.0-0.8); MONO % 7.5 % (0.0-5.0); NEUTROPHILS # 8.3 10^3/uL (1.8-7.7); NEUTROPHILS % 77.3 % (36.0-66.0); PLATELET COUNT, AUTOMATED 263 10^3/uL (150-450); RED BLOOD COUNT 4.01 10^6/uL (4.30-6.10); WHITE BLOOD COUNT 10.7 10^3/uL (4.0-10.0)
[2018-10-28 05:24] LABS: ALBUMIN 3.5 GM/DL (3.2-5.2); BILIRUBIN,DIRECT 0.1 MG/DL (0.0-0.2); BILIRUBIN,TOTAL 0.3 MG/DL (0.2-1.0); CALCIUM LEVEL 8.6 MG/DL (8.8-10.2); CREATININE FOR GFR 1.31 MG/DL (0.70-1.30); GLOMERULAR FILTRATION RATE 57.3 (>42); POTASSIUM SERUM 3.9 MEQ/L (3.5-5.1)
[2018-10-28] MEDS ORDERED: NS 1,000 ML IV ONE (06:30)
[2018-10-28] MEDS ORDERED: ISOVUE-370 76% 100ML VIAL (Q9967) As Ordered ONE (06:35)
--- NOTE | 2018-10-28 09:05 | REPVR ---
EXAM: CT Abdomen and Pelvis With Contrast EXAM DATE/TIME: 10/28/2018 6:43 AM CLINICAL HISTORY: 73 years old, male; Abdominal pain; Localized; Left lower quadrant (llq); Additional info: Llq painn TECHNIQUE: Imaging protocol: Axial computed tomography images of the abdomen and pelvis with intravenous contrast. Coronal and sagittal reformatted images were created and reviewed. Radiation optimization: All CT scans at this facility use at least one of these dose optimization techniques: automated exposure control; mA and/or kV adjustment per patient size (includes targeted exams where dose is matched to clinical indication); or iterative reconstruction. Contrast material: ISOVUE 370; Contrast volume: 100 ml; Contrast route: IV; COMPARISON: No relevant prior studies available. FINDINGS: ABDOMEN: Liver: There are multiple hepatic metastases. Gallbladder and bile ducts: Normal. No calcified stones. No ductal dilation. Pancreas: Normal. No ductal dilation. Spleen: Normal. No splenomegaly. Adrenals: Normal. No mass. Kidneys and ureters: There are low density lesions in both kidneys, likely cysts, but some are not fully characterized on this exam. Stomach and bowel: There is an apple core lesion in the ascending colon consistent with a primary colonic malignancy. There is focal wall thickening and luminal narrowing involving a short segment of descending colon. There is minimal pericolonic induration. Differential diagnosis includes a second colonic malignancy, epiploic apendigitis, mild diverticulitis. Appendix: A normal appendix is identified. PELVIS: Bladder: Unremarkable as visualized. Reproductive: The prostate is enlarged. There is calcification of the vas deferens. ABDOMEN and PELVIS: Intraperitoneal space: Normal. No free air. No significant fluid collection. Bones/joints: No acute fracture. No dislocation. Soft tissues: Unremarkable. Vasculature: There are calcified atherosclerotic changes of the aorta. Lymph nodes: Normal. No enlarged lymph nodes. IMPRESSION: 1. There is an apple core lesion in the ascending colon consistent with a primary colonic malignancy. 2. There are multiple hepatic metastases. 3. There is focal wall thickening and luminal narrowing involving a short segment of descending colon. There is minimal pericolonic induration. Differential diagnosis includes a second colonic malignancy, epiploic apendigitis, mild diverticulitis. Electronically signed by: Glen Nelson On 10/28/2018 09:04:40 AM
[2018-10-28] MEDS ORDERED: TYLETAB14 PO (09:57)
[2018-10-28 10:03] VITALS: BP 157/70
--- NOTE | 2018-11-01 08:51 | ED PDOC ---
Post-Departure Follow-Up dr suarez faxed formal report of ct abd/p for fu Maura Zhu MD Nov 01, 2018 08:51
[2018-11-02] MEDS ORDERED: DOXA1TAB41 PO (16:33)
[2018-11-02] MEDS ORDERED: FLAG500T PO (16:33)
[2018-11-02] MEDS ORDERED: CIPR500S PO (16:33)
[2018-11-02] MEDS ORDERED: METF-954 PO (16:33)
== END 2018-10-28 10:06 | disposition home or self-care (01) ==
LOC: M ED 03:59
DX: C18.9 Malignant neoplasm of colon, unspecified (principal); C78.7 Secondary malignant neoplasm of liver and intrahepatic bile duct; E11.9 Type 2 diabetes mellitus without complications; I10 Essential (primary) hypertension; E78.5 Hyperlipidemia, unspecified; Z79.899 Other long term (current) drug therapy; Z79.4 Long term (current) use of insulin; Z87.891 Personal history of nicotine dependence
CPT/HCPCS: 74177; 80048; 80076; 81001; 83690; 85025; 93041; 96360; 99285; Q9967

== ENCOUNTER 2018-11-04 09:15 | Day surgery (SDC) | payer MEDICARE ==
[~2018-11-04] VITALS: Ht 184.2 cm; Wt 115.2 kg
[~2018-11-04 09:15] MED LIST changes: +CIPR500S PO; +FLAG500T PO; +LIDOCAINE 1% MDV 20ML VIAL SQ PRN; +LR 1,000 ML IV ONE; +METF-954 PO; +TYLETAB14 PO
[2018-11-04] MEDS ORDERED: ONDANSETRON 4MG/2ML VIAL (J2405) As Ordered ONE (10:14)
[2018-11-04] MEDS ORDERED: ONDANSETRON 4MG/2ML VIAL (J2405) IV ONE (10:15)
[2018-11-04] MEDS ORDERED: PROPOFOL 200 MG/20 ML VIAL As Ordered ONE ×4 (12:27→13:13)
--- NOTE | 2018-11-04 13:40 | ROOR ---
Patient Name: Lionel English Procedure Date: 11/04/2018 12:33 PM Date of : 1945 Age: 73 Gender: Male Note Status: Finalized Procedure: Colonoscopy Indications: Abdominal pain in the left lower quadrant, Abnormal CT of the GI tract Providers: Armando Alonzo MD Referring MD: Bradley Henning MD Requesting Provider: Medicines: Monitored Anesthesia Care Complications: No immediate complications. Procedure: Pre-Anesthesia Assessment: - Prior to the procedure, a History and Physical was performed, and patient medications and allergies were reviewed. The patient is competent. The risks and benefits of the procedure and the sedation options and risks were discussed with the patient. All questions were answered and informed consent was obtained. Patient identification and proposed procedure were verified by the physician, the nurse and the circuits engineer in the procedure room. Mental Status Examination: alert and oriented. Airway Examination: normal oropharyngeal airway and neck mobility. Respiratory Examination: clear to auscultation. CV Examination: normal. Prophylactic Antibiotics: The patient does not require prophylactic antibiotics. Prior Anticoagulants: The patient has taken no previous anticoagulant or antiplatelet agents. ASA Grade Assessment: III - A patient with severe systemic disease. After reviewing the risks and benefits, the patient was deemed in satisfactory condition to undergo the procedure. The anesthesia plan was to use monitored anesthesia care (MAC). Immediately prior to administration of medications, the patient was re-assessed for adequacy to receive sedatives. The heart rate, respiratory rate, oxygen saturations, blood pressure, adequacy of pulmonary ventilation, and response to care were monitored throughout the procedure. The physical status of the patient was re-assessed after the procedure. The Colonoscope was introduced through the anus and advanced to the cecum, identified by the appendiceal orifice. The colonoscopy was somewhat difficult due to a redundant colon. The patient tolerated the procedure well. The quality of the bowel preparation was adequate to identify polyps. Findings: The perianal and digital rectal examinations were normal. A fungating partially obstructing large mass was found in the proximal ascending colon. The mass was partially circumferential (involving two-thirds of the lumen circumference). The mass measured three cm in length. No bleeding was present. This was biopsied with a cold forceps for histology. Estimated blood loss was minimal. Ileocecal valve was not visualized probably laying behind the mass at the proximal ascending colon right after the cecum (maybe involved with the mass) A small polyp was found in the transverse colon. The polyp was semi-pedunculated. The polyp was removed with a cold snare. Resection and retrieval were complete. Estimated blood loss was minimal. There were 2 tiny polyps close to the mass that was not removed. I thought I saw a few tiny polyps at the sigmoid colon on entry but was not able to identify this on withdrawal. The retroflexed view of the distal rectum and anal verge was normal and showed no anal or rectal abnormalities. Impression: - Rule out malignancy, partially obstructing tumor in the proximal ascending colon. Biopsied. - One small polyp in the transverse colon, removed with a cold snare. Resected and retrieved. - The distal rectum and anal verge are normal on retroflexion view. Recommendation: - Discharge patient to home (ambulatory). - Await pathology results. - Refer to an oncologist at appointment to be scheduled. Attending Participation: I personally performed the entire procedure. Armando Alonzo MD Armando Alonzo MD 11/04/2018 1:39:43 PM Electronically signed by Armando Alonzo MD Number of Addenda: 0 Note Initiated On: 11/04/2018 12:33 PM Estimated Blood Loss: Estimated blood loss: none.
[2018-11-04 15:10] VITALS: BP 132/61
== END 2018-11-04 15:10 | disposition home or self-care (01) ==
LOC: M SDC 09:15
PROVIDERS: ATTEND Surgery
DX: C18.2 Malignant neoplasm of ascending colon (principal); I10 Essential (primary) hypertension; E78.00 Pure hypercholesterolemia, unspecified; E11.9 Type 2 diabetes mellitus without complications; N40.0 Benign prostatic hyperplasia without lower urinary tract symptoms; G47.30 Sleep apnea, unspecified; Z87.891 Personal history of nicotine dependence; Z79.84 Long term (current) use of oral hypoglycemic drugs; Z79.4 Long term (current) use of insulin; Z79.899 Other long term (current) drug therapy
CPT/HCPCS: 45380; 45385; 88305; J2405

== ENCOUNTER 2018-11-10 22:38 | Emergency (ER) | payer MEDICARE ==
[~2018-11-10] VITALS: Ht 182.9 cm; Wt 115.9 kg
[~2018-11-10 22:38] MED LIST changes: -LIDOCAINE 1% MDV 20ML VIAL SQ PRN; -LR 1,000 ML IV ONE
[2018-11-10] MEDS ORDERED: NOVO70VL SC (22:56)
[2018-11-10 23:59] LABS: ALBUMIN 3.2 GM/DL (3.2-5.2); BILIRUBIN,DIRECT 0.1 MG/DL (0.0-0.2); BILIRUBIN,TOTAL 0.3 MG/DL (0.2-1.0); CALCIUM LEVEL 8.7 MG/DL (8.8-10.2); CREATININE FOR GFR 1.31 MG/DL (0.70-1.30); GLOMERULAR FILTRATION RATE 57.3 (>42); TOTAL PROTEIN 6.5 GM/DL (6.4-8.2)
[2018-11-11 00:04] LABS: BASO # 0.1 10^3/uL (0.0-0.2); BASO % 0.6 % (0.0-1.0); EOS # 0.2 10^3/uL (0.0-0.50); EOS % 1.6 % (0.0-3.0); HEMATOCRIT 34.3 % (42.0-52.0); HEMOGLOBIN 10.5 g/dl (13.5-17.5); LYMPH # 1.1 10^3/uL (1.5-4.5); LYMPH % 9.2 % (24.0-44.0); MEAN CORPUSCULAR HEMOGLOBIN 26.9 pg (27.0-33.0); MEAN CORPUSCULAR HGB CONC 30.6 g/dl (32.0-36.5); MEAN CORPUSCULAR VOLUME 87.9 fl (80.0-96.0); MONO # 0.9 10^3/uL (0.0-0.8); MONO % 7.5 % (0.0-5.0); NEUTROPHILS # 9.3 10^3/uL (1.8-7.7); NEUTROPHILS % 80.3 % (36.0-66.0); PLATELET COUNT, AUTOMATED 292 10^3/uL (150-450); WHITE BLOOD COUNT 11.6 10^3/uL (4.0-10.0)
[2018-11-11 01:10] VITALS: BP 168/82
[2018-11-11] MEDS ORDERED: cloNIDine 0.1 MG TAB PO ONE (01:15)
[2018-11-11 01:42] VITALS: BP 158/86
== END 2018-11-11 01:51 | disposition home or self-care (01) ==
LOC: M ED 22:38
DX: E11.649 Type 2 diabetes mellitus with hypoglycemia without coma (principal); I10 Essential (primary) hypertension; E78.5 Hyperlipidemia, unspecified; Z79.4 Long term (current) use of insulin; Z79.899 Other long term (current) drug therapy; Z91.018 Allergy to other foods

== ENCOUNTER → 2018-11-28 | Outpatient (REF) | payer MEDICARE ==
[~2018-11-28] MED LIST changes: -DULO1CAP2 PO; +DULO1CAP5 PO; +FERR325T16 PO
== END ==
LOC: M LAB REF 17:21
PROVIDERS: ATTEND Internal Medicine Nephrology
DX: D50.9 Iron deficiency anemia, unspecified (principal)

== ENCOUNTER → 2018-12-06 | Outpatient (CLI) | payer MEDICARE ==
[~2018-12-06] MED LIST changes: +ATOR40TA75 PO; +LISI10TA4 PO
--- NOTE | 2018-12-06 09:23 | REP ---
CHEST X-RAY: Two views. HISTORY: Malignant neoplasm of the colon. Secondary malignant neoplasm of the liver. Type 2 diabetes. COMPARISON CHEST X-RAY: May 26, 2016. FINDINGS: There is linear fibrosis in the right lower lobe overlying the right hemidiaphragm on the frontal view unchanged. The lungs are otherwise well inflated and clear. Pleural angles are sharp. Cardiomediastinal silhouette is unremarkable. There are mild degenerative changes in the thoracic spine. No bony destructive lesion is seen. Pulmonary vasculature is not increased. IMPRESSION: Linear fibrosis right base. Otherwise no acute disease.
== END ==
LOC: M CLY 08:18
PROVIDERS: ATTEND Family Medicine
DX: C78.7 Secondary malignant neoplasm of liver and intrahepatic bile duct (principal); C18.9 Malignant neoplasm of colon, unspecified; E11.8 Type 2 diabetes mellitus with unspecified complications; J84.10 Pulmonary fibrosis, unspecified

== ENCOUNTER → 2018-12-06 | Outpatient (REF) | payer MEDICARE ==
[~2018-12-06] MED LIST changes: -ATOR40TA75 PO; -LISI10TA4 PO
[2018-12-06 13:01] LABS: HEMATOCRIT 36.5 % (42.0-52.0); HEMOGLOBIN 10.6 g/dl (13.5-17.5); MEAN CORPUSCULAR HEMOGLOBIN 25.4 pg (27.0-33.0); MEAN CORPUSCULAR VOLUME 87.5 fl (80.0-96.0); PLATELET COUNT, AUTOMATED 344 10^3/uL (150-450); RED BLOOD COUNT 4.17 10^6/uL (4.30-6.10)
[2018-12-06 13:18] LABS: ALBUMIN 3.5 GM/DL (3.2-5.2); ALT/SGPT 24 U/L (12-78); BILIRUBIN,TOTAL 0.4 MG/DL (0.2-1.0); BLOOD UREA NITROGEN 13 MG/DL (7-18); CALCIUM LEVEL 9.3 MG/DL (8.8-10.2); CARBON DIOXIDE LEVEL 29 MEQ/L (21-32); CHLORIDE LEVEL 107 MEQ/L (98-107); CREATININE FOR GFR 1.14 MG/DL (0.70-1.30); GLOMERULAR FILTRATION RATE > 60.0 (>42); GLUCOSE, FASTING 65 MG/DL (70-100); POTASSIUM SERUM 4.4 MEQ/L (3.5-5.1); SODIUM LEVEL 142 MEQ/L (136-145); TOTAL PROTEIN 7.2 GM/DL (6.4-8.2)
[2018-12-06 13:27] LABS: HEMOGLOBIN A1c 5.4 %
[2018-12-06 13:47] LABS: CA 125 7.3 U/ML (<30.2)
== END ==
LOC: M SFHCCLAY 08:02
PROVIDERS: ATTEND Family Medicine
DX: C18.9 Malignant neoplasm of colon, unspecified (principal); C78.7 Secondary malignant neoplasm of liver and intrahepatic bile duct; E11.8 Type 2 diabetes mellitus with unspecified complications

== ENCOUNTER 2018-12-09 06:42 | Outpatient (CLI) | payer MEDICARE ==
[~2018-12-09] VITALS: Ht 183.9 cm; Wt 116.1 kg
[2018-12-09] VITALS (7 sets, daily range): BP systolic 115–149; BP diastolic 58–66
[2018-12-09] MEDS ORDERED: IRON SUCROSE 25 MG in NS 50 ML IV ONE (08:00)
[2018-12-09] MEDS ORDERED: IRON SUCROSE 275 MG in NS 250 ML IV ONE (09:00)
[2018-12-13] MEDS ORDERED: LISI10TA4 PO (17:03)
[2018-12-13] MEDS ORDERED: ATOR40TA75 PO (17:03)
== END 2018-12-09 12:25 | disposition home or self-care (01) ==
LOC: M INFU 06:42
PROVIDERS: ATTEND Internal Medicine Nephrology
DX: D50.9 Iron deficiency anemia, unspecified (principal); Z91.018 Allergy to other foods
CPT/HCPCS: 96365; 96366; G0463; J1756

== ENCOUNTER 2018-12-15 09:44 | Outpatient (CLI) | payer MEDICARE ==
[~2018-12-15] VITALS: Ht 184.2 cm; Wt 115.9 kg
[~2018-12-15 09:44] MED LIST changes: +ATOR40TA75 PO; +LISI10TA4 PO
[2018-12-15 09:50] VITALS: BP 112/55
[2018-12-15] MEDS ORDERED: IRON SUCROSE 300 MG in NS 250 ML IV ONE (10:00)
[2018-12-15 10:22] VITALS: BP 127/58
[2018-12-15 10:40] VITALS: BP 126/60
[2018-12-15 11:40] VITALS: BP 136/60
[2018-12-15 12:40] VITALS: BP 126/60
[2018-12-15 13:30] VITALS: BP 142/62
== END 2018-12-15 13:35 | disposition home or self-care (01) ==
LOC: M INFU 09:44
PROVIDERS: ATTEND Internal Medicine Nephrology
DX: D50.9 Iron deficiency anemia, unspecified (principal)

== ENCOUNTER 2018-12-16 05:47 | Inpatient (IN) | payer MEDICARE ==
[~2018-12-16] VITALS: Ht 184.2 cm; Wt 106.0 kg
[2018-12-16] MEDS ORDERED: LIDOCAINE 1% MDV 20ML VIAL SQ PRN (06:00)
[2018-12-16] MEDS ORDERED: ALVIMOPAN 12 MG CAPSULE (ENTEREG) PO ONE (07:00)
[2018-12-16] MEDS ORDERED: LR 1,000 ML IV ONE (07:00)
[2018-12-16] MEDS ORDERED: metroNIDAZOLE 500 MG in APPROPRIATE DILUENT 1 EA IV ONE (07:00)
[2018-12-16] MEDS ORDERED: ONDANSETRON 4MG/2ML VIAL (J2405) As Ordered ONE ×2 (07:00→11:53)
[2018-12-16] MEDS ORDERED: cefoTEtan DISODIUM 2 GM in D5W MINI-BAG PLUS 50 ML IV ONE (07:00)
[2018-12-16] MEDS ORDERED: dexameTHASONE 4 MG/ML 1ML VIAL (J1100) As Ordered ONE (07:00)
[2018-12-16] MEDS ORDERED: SUGAMMADEX SODIUM 500 MG/5 ML VIAL (BRIDION) As Ordered ONE (07:00)
[2018-12-16] MEDS ORDERED: PROPOFOL 200 MG/20 ML VIAL As Ordered ONE (07:00)
[2018-12-16] MEDS ORDERED: HEPARIN SOD (PORCINE) 5000 UNITS/ML VIAL SQ ONE (07:00)
[2018-12-16] MEDS ORDERED: KETOROLAC 60 MG/2 ML VIAL (J1885) As Ordered ONE (07:00)
[2018-12-16] MEDS ORDERED: LIDOCAINE 2% INJ 100 MG/5 ML SDV (FOR ANES.) As Ordered ONE ×3 (07:00→08:56)
[2018-12-16] MEDS ORDERED: ROCURONIUM BROMIDE 50 MG/5 ML VIAL As Ordered ONE ×2 (07:00→14:05)
[2018-12-16] MEDS ORDERED: fentaNYL 250 MCG/5 ML INJECTION (J3010) As Ordered ONE (07:01)
[2018-12-16] MEDS ORDERED: MIDAZOLAM INJ 2 MG/2 ML VIAL (J2250) As Ordered ONE (07:01)
[2018-12-16] MEDS ORDERED: KETAMINE HCL 200 MG/20 ML VIAL As Ordered ONE (07:01)
[2018-12-16] MEDS ORDERED: HumaLOG INSULIN (NovoLOG) PER UNIT As Ordered ONE (07:11)
[2018-12-16] MEDS ORDERED: LIDOCAINE 1% SDV INJ 30 ML VIAL As Ordered ONE (07:11)
[2018-12-16] MEDS ORDERED: BUPIVACAINE HCL 0.25% 30 ML VIAL As Ordered ONE ×2 (07:12→08:49)
[2018-12-16] MEDS ORDERED: HumaLOG INSULIN (NovoLOG) PER UNIT SC ONE (07:30)
[2018-12-16] MEDS ORDERED: HumuLIN R (REGULAR) INSULIN (NovoLIN R) **100U/ML** PER UNIT As Ordered ONE (08:05)
[2018-12-16] MEDS ORDERED: BUPIVACAINE LIPOSOME/PF 1.3% 20ML VIAL (13.3MG/ML)(EXPAREL)(C9290 PER1MG) As Ordered ONE (08:49)
[2018-12-16] MEDS ORDERED: MORPHINE 4 MG/ML 1ML VIAL/SYRINGE (J2270) IV PRN (15:15)
[2018-12-16] MEDS ORDERED: PERCOCET 5MG/325MG TAB PO PRN ×2 (15:15→16:15)
[2018-12-16] MEDS ORDERED: ONDANSETRON 4MG/2ML VIAL (J2405) IV PRN ×2 (15:15→16:15)
[2018-12-16] MEDS ORDERED: GLUCOSE 4 GM CHEW TABLET PO PRN (15:45)
[2018-12-16] MEDS ORDERED: GLUCAGON FOR INJ 1 MG VIAL (J1610) SC PRN (15:45)
[2018-12-16] MEDS ORDERED: DEXTROSE 50% 50 ML SYRINGE IV PRN (15:45)
--- NOTE | 2018-12-16 15:54 | ROOPDOC ---
[facility] Report Of Operation Report of Operation DATE OF PROCEDURE: 12/16/18 PREPROCEDURE DIAGNOSES: malignancy ascending colon. POSTPROCEDURE DIAGNOSES: same. PROCEDURE: Robotic Assisted Laparoscopic Right Colectomy. SURGEON: Armando Alonzo MD DAIRY EQUIPMENT REPAIRER: MD Dr. Dale Wayne assisted me with management of the instruments, trocar and the da Bobby tower on the field while I was scrubbed out on the surgeon's console as well as with retraction of the bowel, closure of incision. ANESTHESIA: General Anesthesia. ESTIMATED BLOOD LOSS: Approximately 50 mL. COMPLICATIONS: none. REMARKS: bulky lymph nodes within mesentery. PROCEDURE NOTE: isoperistaltic anastomosis with 45 mm blue stapler, suture closure of enterocolotomy. Patient with very bulky right colon mesentery, probably enlarged lymph nodes within the mesentery. Presence of liver metastasis confirmed on the surface of the right lobe liver. No peritoneal deposits. DESCRIPTION OF PROCEDURE: The patient was brought to the operating room and placed supine on the operating table. Cefotetan 2 g IV and metronidazole 500 mg IV were administered prior to incision for prophylaxis. After induction of general endotracheal anesthesia, he was placed supine with both arms tucked on his sides with the pressure points padded. He received 5000 units of heparin preoperatively subcutaneously for DVT prophylaxis as well as compression boots in both his lower extremities. A Rodriguez catheter was inserted.Time-outs were performed using both preinduction and pre-incision safety checklists to verify correct patient, procedure, site, and additional critical information prior to beginning the procedure. A Veress needle was introduced into the abdominal cavity at the patient's left upper quadrant. Intra-abdominal placement confirmed with saline drop technique . and pneumoperitoneum to a pressure of 15 mmHg was achieved. Under direct visualization with the laparoscope an 8 mm robotic trocar was placed infraumbilically. The insertion site was inspected for injury and none was found. The entry point of the Veress needle was also inspected. There were some omental adhesions over the patient's left upper quadrant area which I removed with blunt and sharp dissection. Three additional 8 mm robotic trochars were placed under direct vision. An 8 mm trocar at the left upper quadrant area, at about 8 cm from the LUQ port towards the midclavicular line a 12 mm stapler port was placed and on the right lower quadrant about 3-4 cm medial to the ante rior superior iliac spine and another 8 mm port was placed. A 5 mm port was placed at the suprapubic area for my customer marketing assistant to use. The patient was then positioned in 10 reverse Trendelenburg position with the patients right side up to allow for small bowel to drop clear of the operative field. The XI da Bobby robot tower was maneuvered in place over the patient's right side. The trochars were docked onto the robot arms. A 30 8 mm robotic laparoscopic port was used for the procedure. I scrubbed and perform the surgery at the surgeon's console while Dr. Hunter assisted me with bowel retraction on the field. A dimpling of the wall on the medial side of the right colon just above the cecum with some omental attachments confirms presence of the mass over that area. Patient is quite bulky omentum and mesentery. The omentum was retracted to the patient's left upper quadrant area and bowels retracted away from the right lower quadrant area. I could visually confirm the presence of a whitish irregular nodule on top of the patient's right lobe of the liver consistent with metastatic liver deposits. The cecum was grasped and lifted up to tent the mesentery to find the course of the ileocolic artery. The course of the ileocolic artery was not readily apparent due to patient's bulky mesentery. Initial dissection was slightly more lateral towards the small bowel mesentery and so I adjusted the dissection point more medially and centrally. The patient's retroperitoneum and up towards the anticipated area of the duodenum. I found the correct plane at the base of the ileocolic artery where it joined the superior mesenteric artery. He has very thick and bulky mesentery probably containing enlarged lymph nodes. The peritoneum overlying the takeoff of the ileocolic artery was opened using electrocautery. I immediately switched to the robotic vessel sealing device as the mesentery overlying peritoneum is quite thick. This opening of the peritoneum was carried up to the base of the transverse mesocolon. With the ileocolic artery retracted by traction on the cecum, gentle dissection was used to identify its takeoff from the superior mesenteric artery. The adipose tissue around the ileocolic artery and vein were then dissected and a window created and these structures were divided using 45 mm stapler with vascular load. The divided vessels were then elevated and dissection proceeded in the retroperitone al plane using a traction countertraction technique with gentle sweeping and visualization of the duodenum. The duodenum and its attachments were swept downward. The C loop of the duodenum were fully visualized, dissected, and preserved. Dissection then continued on the right side of the superior mesenteric artery but I did not find any definite right colic artery or vein at the area. At this point with the bulkiness of the transverse colon mesentery was hard to further dissect up towards the transverse colon. Thus he switched my attention to the top of the proximal transverse colon to dissect the hepatocolic attachments and proceeded laterally backwards towards the lateral attachments of the ascending colon and cecum along the white line of Toldt. Dissection of this area proved easy with the previous retrocolic blunt dissection. This mobilization was carried out until the posterior plane of dissection that was started from the medial approach was encountered, completing the liberation of the ascending colon and its hepatic flexure. The omentum attached to resected portions of the colon was divided and resected with the specimen. As I reached towards the area of the terminal ileum, the small bowel seems to be tethered both at the retroperitoneum and the lateral pelvic sidewall preventing much upward retraction beyond the terminal ileum. Thus I chose an area in the terminal ileum for division which I have have freed up laterally and posteriorly. I went back to the medial view of the mesentery from the transecti on of the ileocolic vessels and proceeded taking down the mesenteric vessels towards the chosen portion of the terminal ileum. The terminal ileum was then divided using a 45 mm stapler with a blue load. After dividing the terminal ileum there still was much attachments of the small bowel to the retroperitoneum as well as to the pelvis which was difficult to lyse with the patient's positioning. He was repositioned to a slight Trendelenburg position and the course of the terminal ileum was lysed from its lateral wall and pelvic attachments as well as from its retroperitoneal attachments until we could pull this out of the right lower quadrant into the midepigastric area without tension. The patient was then again repositioned in a slight reverse in the lumbar position this time to work on the transverse colon. At this time the right colon was sufficiently freed up that I could follow the course of the remaining right colon mesentery and this was divided with the vessel sealing device towards the chosen area of the transverse colon. The surrounding epiploic appendages and the remaining omental attachments was cleared from the area. The transverse colon was then divided with 2 firings of the same 45 mm stapler, blue load. The remaining attachments of the right colon was easily detached at this point and the colon was temporarily placed on top of the liver to clear the area for anastomosis. The adequacy of the blood supply of site of transection was confirmed visually with ICG. The gastrocolic attachments and omental attachments of the transverse colon was freed up to allow this to drop further down and aligned with the distal ileal stump to arrange for isoperistaltic anastomosis. After the bowels were lined up. An enterotomy was made 2 cm from the edge of the terminal ileum and 6 cm from the edge of the transverse colon slightly medial to the tenia coli. A 45 mm stapler with a blue load was used to create an isoperistaltic [id number] anastomosis. The anastomotic site was inspected for injury and none was found. ICG was used to to determine adequate blood supply to both ends. I placed 2 retention sutures at the superior and inferior end of the anastomosis to align the edges of the bowel. I then used a 3-0V LOC to close the enterotomy and a running fashion starting inferiorly to make sure that the crotch of the anastomosis as well closed and then coming back down in a slight Lembert fashion after completing the anastomosis superiorly. I placed additional 3-0 silks along the closure especially in the inferior portion. The anastomosis was tested for leakage and again checked for adequate vascularization with ICG. I then scrubbed in. I created about the 3-4 cm vertical incision above the umbilicus and deepened this through the subcutaneous thinks tissue and opened up the fascia for our extraction site. Heme obese wound protector was placed and the right colon specimen was extracted. The extraction site the anastomosis is well up towards the epigastric area. The extraction site was then closed using 1 Vicryl in a mattress fashion. I resumed laparoscopy to again checked for proper anastomosis and once satisfied the abdomen was then deflated. All ports were removed. The 12 mm stapler port was closed anteriorly with 0 Vicryl. All remaining incisions were closed with 4-0 Monocryl in subcutaneous fashion. Dermabond was used for dressing. Patient remained stable throughout the procedure In the end a bilateral transabdominal preperitoneal block was placed under ultrasound guidance on both sides. The patient tolerated the procedure well and was transferred to the postanesthesia care unit in stable condition. ARMANDO ALONZO MD Dec 16, 2018 15:54
[2018-12-16] MEDS ORDERED: fentaNYL 100 MCG/2 ML INJECTION (J3010) As Ordered ONE (15:58)
[2018-12-16] MEDS: fentaNYL 100 MCG/2 ML INJECTION (J3010) IV PRN ×8 (16:03→16:52)
[2018-12-16 16:05] LABS: CALCIUM LEVEL 8.8 MG/DL (8.8-10.2); CREATININE FOR GFR 2.2 MG/DL (0.70-1.30); GLOMERULAR FILTRATION RATE 31.5 (>42); POTASSIUM SERUM 4.6 MEQ/L (3.5-5.1)
[2018-12-16] MEDS ORDERED: LR 1,000 ML IV SCH (16:15)
[2018-12-16] MEDS ORDERED: MEPERIDINE INJ 25 MG/ML VIAL (J2175) IV PRN (16:15)
[2018-12-16] MEDS ORDERED: METOCLOPRAMIDE INJ 10MG/2ML VIAL (J2765) IV PRN (16:15)
[2018-12-16 17:00] VITALS: BP 159/90
[2018-12-16] MEDS: LR 1,000 ML IV SCH ×2 (17:00→17:20)
[2018-12-16 17:30] VITALS: BP 149/71; O2SAT 95
[2018-12-16] MEDS: HumaLOG INSULIN (NovoLOG) PER UNIT SC SCH (17:45)
[2018-12-16 18:00] VITALS: BP 161/72
[2018-12-16] MEDS: NovoLOG MIX 70/30 PER UNIT SC SCH (18:32)
[2018-12-16] MEDS: metFORMIN 850 MG TAB PO SCH (18:32)
[2018-12-16 19:00] VITALS: BP 144/75
[2018-12-16 20:00] VITALS: BP 132/83
[2018-12-16 21:00] VITALS: BP 135/70
[2018-12-16] MEDS: LISINOPRIL 10 MG TAB PO SCH (21:11)
[2018-12-16] MEDS: DULoxetine 30 MG CAP (CYMBALTA) PO SCH (21:11)
[2018-12-16] MEDS: GABAPENTIN 400 MG CAP PO SCH (21:11)
[2018-12-16] MEDS: DOXAZOSIN MESYLATE 1 MG TAB PO SCH (21:11)
[2018-12-16] MEDS: SENOKOT S TAB PO SCH (21:11)
[2018-12-17] VITALS (9 sets, daily range): BP systolic 118–162; BP diastolic 52–75; O2SAT 93–99
[2018-12-17] MEDS: LR 1,000 ML IV SCH ×3 (03:42→16:04)
[2018-12-17] MEDS: KETOROLAC 30 MG/ML VIAL (J1885) IV PRN (03:49)
[2018-12-17 06:39] LABS: BASO % 0.2 % (0.0-1.0); EOS % 0.2 % (0.0-3.0); HEMATOCRIT 30.3 % (42.0-52.0); HEMOGLOBIN 9.1 g/dl (13.5-17.5); LYMPH # 1.4 10^3/uL (1.5-4.5); LYMPH % 11.6 % (24.0-44.0); MEAN CORPUSCULAR HEMOGLOBIN 26.5 pg (27.0-33.0); MEAN CORPUSCULAR VOLUME 88.1 fl (80.0-96.0); MONO # 1.3 10^3/uL (0.0-0.8); MONO % 10.8 % (0.0-5.0); NEUTROPHILS % 76.9 % (36.0-66.0); PLATELET COUNT, AUTOMATED 238 10^3/uL (150-450); RED BLOOD COUNT 3.44 10^6/uL (4.30-6.10); WHITE BLOOD COUNT 11.7 10^3/uL (4.0-10.0)
[2018-12-17] MEDS: NovoLOG MIX 70/30 PER UNIT SC SCH ×2 (07:30→17:09)
[2018-12-17] MEDS: HumaLOG INSULIN (NovoLOG) PER UNIT SC SCH ×3 (07:30→17:21)
[2018-12-17] MEDS: FERROUS GLUCONATE 324 MG TAB PO SCH (08:12)
[2018-12-17] MEDS: metFORMIN 850 MG TAB PO SCH ×2 (08:12→17:20)
[2018-12-17] MEDS: GABAPENTIN 400 MG CAP PO SCH ×3 (08:12→20:30)
[2018-12-17] MEDS: GLIMEPIRIDE 2 MG TAB PO SCH (08:13)
[2018-12-17] MEDS: ATORVASTATIN 20 MG TAB PO SCH (08:13)
[2018-12-17] MEDS: SENOKOT S TAB PO SCH ×2 (08:13→20:30)
[2018-12-17] MEDS: ENOXAPARIN 40 MG/0.4 ML SYRINGE (J1650) SC SCH (08:14)
[2018-12-17] MEDS: ALVIMOPAN 12 MG CAPSULE (ENTEREG) PO SCH ×2 (09:27→20:30)
[2018-12-17] MEDS: PERCOCET 5MG/325MG TAB PO PRN ×2 (12:10→16:36)
[2018-12-17] MEDS ORDERED: NS 1,000 ML IV ONE (18:00)
[2018-12-17] MEDS: DULoxetine 30 MG CAP (CYMBALTA) PO SCH (20:30)
[2018-12-17] MEDS: DOXAZOSIN MESYLATE 1 MG TAB PO SCH (20:32)
[2018-12-17] MEDS: LISINOPRIL 10 MG TAB PO SCH (20:32)
[2018-12-18] MEDS: LR 1,000 ML IV SCH ×3 (01:17→09:33)
[2018-12-18] MEDS: PERCOCET 5MG/325MG TAB PO PRN ×3 (02:18→18:01)
[2018-12-18 06:00] VITALS: BP 122/60
[2018-12-18 06:56] VITALS: O2SAT 94
[2018-12-18 06:56] LABS: BASO % 0.1 % (0.0-1.0); HEMATOCRIT 31.1 % (42.0-52.0); HEMOGLOBIN 9.3 g/dl (13.5-17.5); LYMPH % 6.8 % (24.0-44.0); MEAN CORPUSCULAR HEMOGLOBIN 26.7 pg (27.0-33.0); MEAN CORPUSCULAR HGB CONC 29.9 g/dl (32.0-36.5); MEAN CORPUSCULAR VOLUME 89.4 fl (80.0-96.0); MONO # 1.3 10^3/uL (0.0-0.8); MONO % 8.3 % (0.0-5.0); NEUTROPHILS # 12.8 10^3/uL (1.8-7.7); NEUTROPHILS % 83.9 % (36.0-66.0); PLATELET COUNT, AUTOMATED 243 10^3/uL (150-450); RED BLOOD COUNT 3.48 10^6/uL (4.30-6.10); WHITE BLOOD COUNT 15.3 10^3/uL (4.0-10.0)
[2018-12-18 07:27] LABS: CALCIUM LEVEL 8.1 MG/DL (8.8-10.2); CREATININE FOR GFR 1.76 MG/DL (0.70-1.30); GLOMERULAR FILTRATION RATE 40.7 (>42); POTASSIUM SERUM 4.2 MEQ/L (3.5-5.1)
[2018-12-18] MEDS: metFORMIN 850 MG TAB PO SCH ×2 (08:06→17:50)
[2018-12-18] MEDS: FERROUS GLUCONATE 324 MG TAB PO SCH (08:06)
[2018-12-18] MEDS: ATORVASTATIN 20 MG TAB PO SCH (08:06)
[2018-12-18] MEDS: GLIMEPIRIDE 2 MG TAB PO SCH (08:07)
[2018-12-18] MEDS: GABAPENTIN 400 MG CAP PO SCH ×3 (08:07→21:24)
[2018-12-18] MEDS: ALVIMOPAN 12 MG CAPSULE (ENTEREG) PO SCH ×2 (08:07→21:25)
[2018-12-18] MEDS: HumaLOG INSULIN (NovoLOG) PER UNIT SC SCH ×2 (08:08→12:51)
[2018-12-18] MEDS: NovoLOG MIX 70/30 PER UNIT SC SCH ×2 (08:09→17:30)
[2018-12-18] MEDS: ENOXAPARIN 40 MG/0.4 ML SYRINGE (J1650) SC SCH (08:10)
[2018-12-18] MEDS: SENOKOT S TAB PO SCH ×2 (08:10→21:00)
--- NOTE | 2018-12-18 10:19 | IPNPDOC ---
Text Note Date of Service The patient was seen on 12/17/18. NOTE No acute events overnight. Tolerating clq diet without any nausea or emesis. Good urine output. Pain is present, but controlled. No flatus or BM yet. VSSAF NAD abd - soft, nt, nd, incisions intact labs - below A) 73y/o male s/p RA rt hemicolectomy P) clq diet d/c stewart ambulate monitor labs await return of bowel function plan for mediport on Wednesday. Thom Hunter DO VS,Fishbone, I+O VS, Fishbone, I+O Laboratory Tests 12/18/18 06:20 Red Blood Count 3.48 L, Mean Corpuscular Volume 89.4, Mean Corpuscular Hemoglobin 26.7 L, Mean Corpuscular Hemoglobin Concent 29.9 L, Red Cell Distribution Width 18.7 H, Neutrophils (%) (Auto) 83.9 H, Lymphocytes (%) (Auto) 6.8 L, Monocytes (%) (Auto) 8.3 H, Eosinophils (%) (Auto) 0.0, Basophils (%) (Auto) 0.1, Neutrophils # (Auto) 12.8 H, Lymphocytes # (Auto) 1.0 L, Monocytes # (Auto) 1.3 H, Eosinophils # (Auto) 0.0, Basophils # (Auto) 0.0, Calcium Level 8.1 L Vital Signs Date Time Temp Pulse Resp B/P (MAP) Pulse Ox O2 Delivery O2 Flow Rate FiO2 12/18/18 08:46 20 12/18/18 06:56 94 Room Air 12/18/18 06:00 98.2 101 122/60 (80) 12/17/18 06:00 1.0 I&O- Last 24 Hours up to 6 AM 12/18/18 06:00 Intake Total 4920 ml Output Total 1685 ml Balance 3235 ml SOCORRO HUNTER DO Dec 18, 2018 10:19
--- NOTE | 2018-12-18 10:20 | IPNPDOC ---
Text Note Date of Service The patient was seen on 12/18/18. NOTE No acute events overnight. Tolerating clq diet without any nausea or emesis. Tolerating the stewart out. He has had 3 BMs, and is ambulating in the room VSSAF NAD abd - soft, nt, nd, incisions intact labs - below A) 73y/o male s/p RA rt hemicolectomy POD# 2 P) reg diet ambulate in halls monitor labs d/c IVF plan for mediport on Wednesday. Thom Hunter DO VS,Fishbone, I+O VS, Fishbone, I+O Laboratory Tests 12/18/18 06:20 Red Blood Count 3.48 L, Mean Corpuscular Volume 89.4, Mean Corpuscular Hemoglobin 26.7 L, Mean Corpuscular Hemoglobin Concent 29.9 L, Red Cell Distribution Width 18.7 H, Neutrophils (%) (Auto) 83.9 H, Lymphocytes (%) (Auto) 6.8 L, Monocytes (%) (Auto) 8.3 H, Eosinophils (%) (Auto) 0.0, Basophils (%) (Auto) 0.1, Neutrophils # (Auto) 12.8 H, Lymphocytes # (Auto) 1.0 L, Monocytes # (Auto) 1.3 H, Eosinophils # (Auto) 0.0, Basophils # (Auto) 0.0, Calcium Level 8.1 L Vital Signs Date Time Temp Pulse Resp B/P (MAP) Pulse Ox O2 Delivery O2 Flow Rate FiO2 12/18/18 08:46 20 12/18/18 06:56 94 Room Air 12/18/18 06:00 98.2 101 122/60 (80) 12/17/18 06:00 1.0 I&O- Last 24 Hours up to 6 AM 12/18/18 06:00 Intake Total 4920 ml Output Total 1685 ml Balance 3235 ml SOCORRO HUNTER DO Dec 18, 2018 10:20
[2018-12-18 14:00] VITALS: BP 124/64
[2018-12-18 16:07] VITALS: O2SAT 95
[2018-12-18] MEDS: DULoxetine 30 MG CAP (CYMBALTA) PO SCH (21:24)
[2018-12-18] MEDS: DOXAZOSIN MESYLATE 1 MG TAB PO SCH (21:25)
[2018-12-18] MEDS: LISINOPRIL 10 MG TAB PO SCH (21:25)
[2018-12-18 22:00] VITALS: BP 147/56
[2018-12-19] MEDS: KETOROLAC 30 MG/ML VIAL (J1885) IV PRN (03:49)
[2018-12-19 06:00] VITALS: BP 145/69
[2018-12-19 06:26] LABS: BASO % 0.2 % (0.0-1.0); EOS # 0.1 10^3/uL (0.0-0.50); EOS % 0.7 % (0.0-3.0); HEMATOCRIT 27.5 % (42.0-52.0); HEMOGLOBIN 8.3 g/dl (13.5-17.5); LYMPH # 0.9 10^3/uL (1.5-4.5); MEAN CORPUSCULAR HEMOGLOBIN 26.7 pg (27.0-33.0); MEAN CORPUSCULAR HGB CONC 30.2 g/dl (32.0-36.5); MEAN CORPUSCULAR VOLUME 88.4 fl (80.0-96.0); MONO % 9.4 % (0.0-5.0); NEUTROPHILS # 8.4 10^3/uL (1.8-7.7); NEUTROPHILS % 80.1 % (36.0-66.0); PLATELET COUNT, AUTOMATED 193 10^3/uL (150-450); RED BLOOD COUNT 3.11 10^6/uL (4.30-6.10); WHITE BLOOD COUNT 10.5 10^3/uL (4.0-10.0)
[2018-12-19 06:52] LABS: CALCIUM LEVEL 8.3 MG/DL (8.8-10.2); CREATININE FOR GFR 1.27 MG/DL (0.70-1.30); GLOMERULAR FILTRATION RATE 59.3 (>42); POTASSIUM SERUM 3.6 MEQ/L (3.5-5.1)
[2018-12-19] MEDS: NovoLOG MIX 70/30 PER UNIT SC SCH ×2 (07:30→17:30)
[2018-12-19] MEDS: GLIMEPIRIDE 2 MG TAB PO SCH (07:30)
[2018-12-19] MEDS: metFORMIN 850 MG TAB PO SCH ×2 (07:43→17:42)
[2018-12-19] MEDS: ALVIMOPAN 12 MG CAPSULE (ENTEREG) PO SCH ×2 (08:10→21:10)
[2018-12-19] MEDS: GABAPENTIN 400 MG CAP PO SCH ×3 (08:10→21:09)
[2018-12-19] MEDS: ATORVASTATIN 20 MG TAB PO SCH (08:10)
[2018-12-19] MEDS: SENOKOT S TAB PO SCH ×2 (08:10→21:00)
[2018-12-19] MEDS: FERROUS GLUCONATE 324 MG TAB PO SCH (08:11)
[2018-12-19] MEDS: ENOXAPARIN 40 MG/0.4 ML SYRINGE (J1650) SC SCH (08:11)
[2018-12-19 09:00] VITALS: O2SAT 93
--- NOTE | 2018-12-19 09:25 | IPNPDOC ---
Subjective General Date/Time Seen The patient was seen on 12/19/18 at 09:18. Subject Chief Complaint/History The patient is a 73-year-old male admitted with a reason for visit of Ascending Colon Cancer. weekend course reviewed. Patient reports he has been having loose stools, darker in color today. Reports mild abdominal pain at right lower quadrant and above the umbilicus. Not regularly passing flatus. He has been afebrile. He has ambulated to the hallways but felt weak this morning. BS have been low this morning. Patient npo for placement of mediport by IR today. Current Medications Current Medications Current Medications Medications (Trade) Dose Ordered Sig/Apoorva Route PRN Reason Start Time Stop Time Status Last Admin Dose Admin Alvimopan (Entereg) 12 mg BID PO 12/17/18 09:00 12/24/18 08:59 12/19/18 08:10 Atorvastatin Calcium (Lipitor) 40 mg DAILY PO 12/17/18 09:00 12/19/18 08:10 Dextrose (Dextrose 50%) 25 ml ASDIRECTED PRN IV SEE LABEL COMMENTS 12/16/18 15:45 12/19/18 07:07 Doxazosin Mesylate (Cardura) 2 mg QHS PO 12/16/18 21:00 12/18/18 21:25 Duloxetine HCl (Cymbalta) 30 mg QHS PO 12/16/18 21:00 12/18/18 21:24 Enoxaparin Sodium (Lovenox) 40 mg DAILY SC 12/17/18 09:00 12/19/18 08:11 Fentanyl Citrate (Sublimaze) 25 mcg Q5MP PRN IV MODERATE PAIN (PS 4-7) 12/16/18 16:15 12/16/18 16:53 DC 12/16/18 16:52 Ferrous Gluconate (Fergon) 324 mg DAILY PO 12/17/18 09:00 12/19/18 08:11 Gabapentin (Neurontin) 400 mg QAM PO 12/17/18 09:00 12/19/18 08:10 Gabapentin (Neurontin) 800 mg BID@1600,2100 PO 12/16/18 21:00 12/18/18 21:24 Glimepiride (Amaryl) 4 mg DAILY@0730 PO 12/17/18 07:30 12/18/18 08:07 Glucagon (Glucagon) 1 mg ASDIRECTED PRN SC SEE LABEL COMMENTS 12/16/18 15:45 Glucose (Glucose) 16 GM ASDIRECTED PRN PO SEE LABEL COMMENTS 12/16/18 15:45 Insulin Human Lispro (HumaLOG INSULIN) SEE PROTOCOL TABLE AC SC 12/16/18 17:30 12/18/18 17:45 DC 12/18/18 12:51 Insulin Lispro Protam/Lispro Human (NovoLOG MIX 70/ 30 INSULIN) 60 units QAM@0730 VA 12/17/18 07:30 12/18/18 08:09 Insulin Lispro Protam/Lispro Human (NovoLOG MIX 70/ 30 INSULIN) 85 units QPM@1730 VA 12/16/18 17:30 12/16/18 18:32 Ketorolac Tromethamine (ToRADol) 30 mg Q6HP PRN IV MILD/MODERATE PAIN (PS 1-7) 12/16/18 15:15 12/21/18 15:14 12/19/18 03:49 Lactated Ringer's 1,000 ml @ 100 mls/hr Q10H IV 12/16/18 16:15 12/16/18 17:15 DC Lactated Ringer's 1,000 ml @ 125 mls/hr Q8H IV 12/16/18 15:30 12/18/18 10:17 DC 12/18/18 09:33 Lidocaine HCl (LIDOCAINE 1% MDV 20ml) 0.1 ml ONCE PRN SQ DISCOMFORT BEFORE IV START 12/16/18 06:00 12/16/18 15:25 DC Lisinopril (Prinivil) 10 mg QHS PO 12/16/18 21:00 12/18/18 21:25 Meperidine HCl (Demerol) 12.5 mg Q5MP PRN IV SHIVERING 12/16/18 16:15 12/16/18 17:15 DC Metformin HCl (Glucophage) 850 mg BIDWM PO 12/16/18 18:00 12/18/18 17:50 Metoclopramide HCl (REGLAN INJection) 10 mg Q6HP PRN IV NAUSEA OR VOMITING 12/16/18 16:15 12/16/18 17:15 DC Morphine Sulfate (Morphine Sulfate Inj) 4 mg Q2HP PRN IV SEVERE PAIN (PS 8-10) 12/16/18 15:15 Ondansetron HCl (ZOFRAN INJection) 4 mg Q4HP PRN IV NAUSEA OR VOMITING 12/16/18 16:15 12/16/18 17:15 DC 12/16/18 16:07 Ondansetron HCl (ZOFRAN INJection) 4 mg Q6HP PRN IV NAUSEA OR VOMITING 12/16/18 15:15 12/18/18 18:01 Oxycodone/ Acetaminophen (Percocet 5mg/ 325mg Tablet) 1 tab ASDIRECTED PRN PO MILD/MODERATE PAIN (PS 1-7) 12/16/18 16:15 12/16/18 17:15 DC 12/16/18 16:51 Oxycodone/ Acetaminophen (Percocet 5mg/ 325mg Tablet) 1 tab Q4HP PRN PO MODERATE PAIN (PS 5-7) 12/16/18 15:15 12/18/18 18:01 Oxycodone/ Acetaminophen (Percocet 5mg/ 325mg Tablet) 2 tab Q6HP PRN PO SEVERE PAIN (PS 8-10) 12/16/18 15:15 Senna/Docusate Sodium (Senokot S) 1 tab BID PO 12/16/18 21:00 12/19/18 08:10 Allergies Coded Allergies: [place] (Verified Allergy, Intermediate, RAW PEACH FUZZ; hives, 12/16/18) strawberry (Verified Allergy, Intermediate, hives, 12/16/18) Objective Physical Examination Examination GENERAL APPEARANCE:relatively comfortable. SKIN: Warm and moist. HEENT: Normocephalic, atraumatic. mild pale palpebral conjunctiva, anicteric sclerae. Lips and mucosa appear moist. NECK: Supple, no thyromegaly. No obvious jugular venous distention. LUNGS: Clear to auscultation bilaterally. No wheezing appreciated. HEART: No chest wall abnormalities. Regular rate and rhythm with no murmurs appreciated. ABDOMEN: Abdomen is round, soft, still moderately distended. Port sites and extaction site (umbilicus) clean, dry, intact, with dermabond on them, slight bruising below extraction site. Mild tenderness above and to the right of the umbilicus. Hypoactive bowel sounds. EXTREMITIES: Extremities have no deformities. No edema identified. Vital Signs Vital Signs Date Time Temp Pulse Resp B/P (MAP) Pulse Ox O2 Delivery O2 Flow Rate FiO2 12/19/18 06:00 97.1 89 17 145/69 (94) 96 12/18/18 16:07 Room Air 12/17/18 06:00 1.0 I&Os I&O- Last 24 Hours up to 6 AM 12/19/18 06:00 Intake Total 980 ml Output Total 2250 ml Balance -1270 ml Laboratory Data Labs 24H Laboratory Tests 2 12/18/18 11:44: Bedside Glucose (Misc Panel) 120H 12/18/18 16:54: Bedside Glucose (Misc Panel) 87 12/18/18 20:42: Bedside Glucose (Misc Panel) 76L 12/19/18 05:41: Immature Granulocyte % (Auto) 0.6, White Blood Count 10.5H, Red Blood Count 3.11L, Hemoglobin 8.3L, Hematocrit 27.5L, Mean Corpuscular Volume 88.4, Mean Corpuscular Hemoglobin 26.7L, Mean Corpuscular Hemoglobin Concent 30.2L, Red Cell Distribution Width 18.6H, Platelet Count 193, Neutrophils (%) (Auto) 80.1H, Lymphocytes (%) (Auto) 9.0L, Monocytes (%) (Auto) 9.4H, Eosinophils (%) (Auto) 0.7, Basophils (%) (Auto) 0.2, Neutrophils # (Auto) 8.4H, Lymphocytes # (Auto) 0.9L, Monocytes # (Auto) 1.0H, Eosinophils # (Auto) 0.1, Basophils # (Auto) 0.0, Nucleated Red Blood Cells % (auto) 0.0, Anion Gap 5L, Glomerular Filtration Rate 59.3, Blood Urea Nitrogen 20H, Creatinine 1.27, Sodium Level 141, Potassium Level 3.6, Chloride Level 110H, Carbon Dioxide Level 26, Calcium Level 8.3L 12/19/18 08:05: Bedside Glucose (Misc Panel) 86 CBC/BMP Laboratory Tests 12/19/18 05:41 Red Blood Count 3.11 L, Mean Corpuscular Volume 88.4, Mean Corpuscular Hemoglobin 26.7 L, Mean Corpuscular Hemoglobin Concent 30.2 L, Red Cell Distribution Width 18.6 H, Neutrophils (%) (Auto) 80.1 H, Lymphocytes (%) (Auto) 9.0 L, Monocytes (%) (Auto) 9.4 H, Eosinophils (%) (Auto) 0.7, Basophils (%) (Auto) 0.2, Neutrophils # (Auto) 8.4 H, Lymphocytes # (Auto) 0.9 L, Monocytes # (Auto) 1.0 H, Eosinophils # (Auto) 0.1, Basophils # (Auto) 0.0, Calcium Level 8.3 L Impression POD3 RA lap right colectomy for ascending colon cancer - stage IV with liver mets iron deficiency anemia worsened postoperatively but stable over all seems to be doing well but abdomen still distended. His initial leukocytosis has improved. He has been afebrile. I instructed him to ambulate the hallways. He is scheduled for placement of mediport by IR sometime today thus he is npo and his blood sugars are low so I will place him on a D5 continaing fluid while npo and he can resume diet afterwards. I dont think he is ready for discharge as of yet with his abdominal distention. DVT prophylaxis - lovenox. Plan / VTE VTE Prophylaxis Ordered?: Yes TOM LY MD Dec 19, 2018 09:25
[2018-12-19] MEDS ORDERED: KCL 20MEQ IN D5/0.45NS 1000ML 1,000 ML IV SCH (09:30)
[2018-12-19 14:00] VITALS: BP 145/69
[2018-12-19 21:09] VITALS: BP 137/79
[2018-12-19] MEDS: DOXAZOSIN MESYLATE 1 MG TAB PO SCH (21:09)
[2018-12-19] MEDS: LISINOPRIL 10 MG TAB PO SCH (21:10)
[2018-12-19] MEDS: DULoxetine 30 MG CAP (CYMBALTA) PO SCH (21:10)
[2018-12-19 22:00] VITALS: BP 137/79
[2018-12-20 06:00] VITALS: BP 165/67
[2018-12-20 06:34] LABS: BASO % 0.2 % (0.0-1.0); EOS # 0.2 10^3/uL (0.0-0.50); EOS % 2.3 % (0.0-3.0); HEMATOCRIT 29.1 % (42.0-52.0); HEMOGLOBIN 8.9 g/dl (13.5-17.5); LYMPH # 0.9 10^3/uL (1.5-4.5); LYMPH % 9.4 % (24.0-44.0); MEAN CORPUSCULAR HEMOGLOBIN 26.9 pg (27.0-33.0); MEAN CORPUSCULAR HGB CONC 30.6 g/dl (32.0-36.5); MEAN CORPUSCULAR VOLUME 87.9 fl (80.0-96.0); MONO % 10.4 % (0.0-5.0); NEUTROPHILS # 7.6 10^3/uL (1.8-7.7); NEUTROPHILS % 77.4 % (36.0-66.0); PLATELET COUNT, AUTOMATED 225 10^3/uL (150-450); RED BLOOD COUNT 3.31 10^6/uL (4.30-6.10); WHITE BLOOD COUNT 9.8 10^3/uL (4.0-10.0)
[2018-12-20] MEDS: KETOROLAC 30 MG/ML VIAL (J1885) IV PRN (06:37)
[2018-12-20 06:53] LABS: BLOOD UREA NITROGEN 20 MG/DL (7-18); CALCIUM LEVEL 8.9 MG/DL (8.8-10.2); CARBON DIOXIDE LEVEL 26 MEQ/L (21-32); CHLORIDE LEVEL 109 MEQ/L (98-107); CREATININE FOR GFR 1.14 MG/DL (0.70-1.30); GLOMERULAR FILTRATION RATE > 60.0 (>42); GLUCOSE, FASTING 143 MG/DL (70-100); POTASSIUM SERUM 3.8 MEQ/L (3.5-5.1); SODIUM LEVEL 141 MEQ/L (136-145)
[2018-12-20] MEDS: NovoLOG MIX 70/30 PER UNIT SC SCH ×2 (07:30→17:25)
[2018-12-20] MEDS: ATORVASTATIN 20 MG TAB PO SCH (08:29)
[2018-12-20] MEDS: GLIMEPIRIDE 2 MG TAB PO SCH (08:30)
[2018-12-20] MEDS: ALVIMOPAN 12 MG CAPSULE (ENTEREG) PO SCH (08:30)
[2018-12-20] MEDS: SENOKOT S TAB PO SCH (08:30)
[2018-12-20] MEDS: metFORMIN 850 MG TAB PO SCH ×2 (08:30→17:25)
[2018-12-20] MEDS: FERROUS GLUCONATE 324 MG TAB PO SCH (08:30)
[2018-12-20] MEDS: GABAPENTIN 400 MG CAP PO SCH ×2 (08:31→17:25)
[2018-12-20 09:00] VITALS: O2SAT 93
[2018-12-20] MEDS ORDERED: KCL 20MEQ IN D5/0.45NS 1000ML 1,000 ML IV SCH (09:00)
--- NOTE | 2018-12-20 12:27 | IPNPDOC ---
Subjective General Date/Time Seen The patient was seen on 12/20/18 at 12:25. Subject Chief Complaint/History The patient is a 73-year-old male admitted with a reason for visit of Ascending Colon Cancer. Patient seen sitting up on the bed. He denies any abdominal discomfort, shortness breath, chest pain. He is awaiting placement of [id number]. He tells me he ate better this morning had a bowel movement but feels more substantial this morning. Nurse reports he is refusing to ambulate to the hallways and prefers to ambulate in the room. He is completely independent while he is in the room. There is also reports some swelling on his bilateral upper arms. Current Medications Current Medications Current Medications Medications (Trade) Dose Ordered Sig/Apoorva Route PRN Reason Start Time Stop Time Status Last Admin Dose Admin Alvimopan (Entereg) 12 mg BID PO 12/17/18 09:00 12/24/18 08:59 12/20/18 08:30 Atorvastatin Calcium (Lipitor) 40 mg DAILY PO 12/17/18 09:00 12/20/18 08:29 Dextrose (Dextrose 50%) 25 ml ASDIRECTED PRN IV SEE LABEL COMMENTS 12/16/18 15:45 12/19/18 07:07 Doxazosin Mesylate (Cardura) 2 mg QHS PO 12/16/18 21:00 12/19/18 21:09 Duloxetine HCl (Cymbalta) 30 mg QHS PO 12/16/18 21:00 12/19/18 21:10 Enoxaparin Sodium (Lovenox) 40 mg DAILY SC 12/17/18 09:00 Future hold 12/19/18 08:11 Fentanyl Citrate (Sublimaze) 25 mcg Q5MP PRN IV MODERATE PAIN (PS 4-7) 12/16/18 16:15 12/16/18 16:53 DC 12/16/18 16:52 Ferrous Gluconate (Fergon) 324 mg DAILY PO 12/17/18 09:00 12/20/18 08:30 Gabapentin (Neurontin) 400 mg QAM PO 12/17/18 09:00 12/20/18 08:31 Gabapentin (Neurontin) 800 mg BID@1600,2100 PO 12/16/18 21:00 12/19/18 21:09 Glimepiride (Amaryl) 4 mg DAILY@0730 PO 12/17/18 07:30 12/20/18 08:30 Glucagon (Glucagon) 1 mg ASDIRECTED PRN SC SEE LABEL COMMENTS 12/16/18 15:45 Glucose (Glucose) 16 GM ASDIRECTED PRN PO SEE LABEL COMMENTS 12/16/18 15:45 Insulin Human Lispro (HumaLOG INSULIN) SEE PROTOCOL TABLE AC SC 12/16/18 17:30 12/18/18 17:45 DC 12/18/18 12:51 Insulin Lispro Protam/Lispro Human (NovoLOG MIX 70/ 30 INSULIN) 60 units QAM@0730 SC 12/17/18 07:30 12/18/18 08:09 Insulin Lispro Protam/Lispro Human (NovoLOG MIX 70/ 30 INSULIN) 85 units QPM@1730 SC 12/16/18 17:30 12/16/18 18:32 Ketorolac Tromethamine (ToRADol) 30 mg Q6HP PRN IV MILD/MODERATE PAIN (PS 1-7) 12/16/18 15:15 12/21/18 15:14 12/20/18 06:37 Lactated Ringer's 1,000 ml @ 100 mls/hr Q10H IV 12/16/18 16:15 12/16/18 17:15 DC Lactated Ringer's 1,000 ml @ 125 mls/hr Q8H IV 12/16/18 15:30 12/18/18 10:17 DC 12/18/18 09:33 Lidocaine HCl (LIDOCAINE 1% MDV 20ml) 0.1 ml ONCE PRN SQ DISCOMFORT BEFORE IV START 12/16/18 06:00 12/16/18 15:25 DC Lisinopril (Prinivil) 10 mg QHS PO 12/16/18 21:00 12/19/18 21:10 Meperidine HCl (Demerol) 12.5 mg Q5MP PRN IV SHIVERING 12/16/18 16:15 12/16/18 17:15 DC Metformin HCl (Glucophage) 850 mg BIDWM PO 12/16/18 18:00 12/20/18 08:30 Metoclopramide HCl (REGLAN INJection) 10 mg Q6HP PRN IV NAUSEA OR VOMITING 12/16/18 16:15 12/16/18 17:15 DC Morphine Sulfate (Morphine Sulfate Inj) 4 mg Q2HP PRN IV SEVERE PAIN (PS 8-10) 12/16/18 15:15 Ondansetron HCl (ZOFRAN INJection) 4 mg Q4HP PRN IV NAUSEA OR VOMITING 12/16/18 16:15 12/16/18 17:15 DC 12/16/18 16:07 Ondansetron HCl (ZOFRAN INJection) 4 mg Q6HP PRN IV NAUSEA OR VOMITING 12/16/18 15:15 12/18/18 18:01 Oxycodone/ Acetaminophen (Percocet 5mg/ 325mg Tablet) 1 tab ASDIRECTED PRN PO MILD/MODERATE PAIN (PS 1-7) 12/16/18 16:15 12/16/18 17:15 DC 12/16/18 16:51 Oxycodone/ Acetaminophen (Percocet 5mg/ 325mg Tablet) 1 tab Q4HP PRN PO MODERATE PAIN (PS 5-7) 12/16/18 15:15 12/18/18 18:01 Oxycodone/ Acetaminophen (Percocet 5mg/ 325mg Tablet) 2 tab Q6HP PRN PO SEVERE PAIN (PS 8-10) 12/16/18 15:15 Potassium Chloride/Dextrose/ Sod Cl 1,000 ml @ 80 mls/hr [id number] IV 12/20/18 09:00 12/20/18 08:31 Potassium Chloride/Dextrose/ Sod Cl 1,000 ml @ 100 mls/hr Q10H IV 12/19/18 09:30 Cancel Senna/Docusate Sodium (Senokot S) 1 tab BID PO 12/16/18 21:00 12/19/18 08:10 Allergies Coded Allergies: [place] (Verified Allergy, Intermediate, RAW PEACH FUZZ; hives, 12/16/18) strawberry (Verified Allergy, Intermediate, hives, 12/16/18) Objective Physical Examination Examination GENERAL APPEARANCE: Overall looks comfortable. SKIN: Warm and dry. HEENT: Mild pale palpebral conjunctiva. NECK: Supple, no thyromegaly. No obvious jugular venous distention. LUNGS: Clear to auscultation bilaterally. No wheezing appreciated. HEART: No chest wall abnormalities. Regular rate and rhythm with no murmurs appreciated. ABDOMEN: Abdomen is markedly rounded, soft, appears a lot softer less distended than it was yesterday still slightly tympanitic on percussion. Previous tenderness over the epigastric, supraumbilical area has improved since decrease of distention. Minimally tender in the right lower quadrant on palpation. Laparoscopic port sites and extraction site are clean dry and intact covered with Dermabond. No surrounding skin erythema. EXTREMITIES: There is some mild dependent edema on the left upper arm probably secondary to the IV site no signs of erythema or nontender on palpation. Both lower extremities have no edema.. Vital Signs Vital Signs Date Time Temp Pulse Resp B/P (MAP) Pulse Ox O2 Delivery O2 Flow Rate FiO2 12/20/18 09:00 93 Room Air 12/20/18 06:00 96.1 83 18 165/67 (99) 12/17/18 06:00 1.0 I&Os I&O- Last 24 Hours up to 6 AM 12/20/18 06:00 Intake Total 575 ml Output Total 1000 ml Balance -425 ml Laboratory Data Labs 24H Laboratory Tests 2 12/19/18 16:25: Bedside Glucose (Misc Panel) 115H 12/19/18 21:14: Bedside Glucose (Misc Panel) 145H 12/20/18 06:13: Immature Granulocyte % (Auto) 0.3, White Blood Count 9.8, Red Blood Count 3.31L, Hemoglobin 8.9L, Hematocrit 29.1L, Mean Corpuscular Volume 87.9, Mean Corpuscular Hemoglobin 26.9L, Mean Corpuscular Hemoglobin Concent 30.6L, Red Cell Distribution Width 18.4H, Platelet Count 225, Neutrophils (%) (Auto) 77.4H, Lymphocytes (%) (Auto) 9.4L, Monocytes (%) (Auto) 10.4H, Eosinophils (%) (Auto) 2.3, Basophils (%) (Auto) 0.2, Neutrophils # (Auto) 7.6, Lymphocytes # (Auto) 0.9L, Monocytes # (Auto) 1.0H, Eosinophils # (Auto) 0.2, Basophils # (Auto) 0.0, Nucleated Red Blood Cells % (auto) 0.0, Anion Gap 6L, Glomerular Filtration Rate > 60.0, Blood Urea Nitrogen 20H, Creatinine 1.14, Sodium Level 141, Potassium Level 3.8, Chloride Level 109H, Carbon Dioxide Level 26, Calcium Level 8.9 12/20/18 11:34: Bedside Glucose (Misc Panel) 216H CBC/BMP Laboratory Tests 12/20/18 06:13 Red Blood Count 3.31 L, Mean Corpuscular Volume 87.9, Mean Corpuscular Hemoglobin 26.9 L, Mean Corpuscular Hemoglobin Concent 30.6 L, Red Cell Distribution Width 18.4 H, Neutrophils (%) (Auto) 77.4 H, Lymphocytes (%) (Auto) 9.4 L, Monocytes (%) (Auto) 10.4 H, Eosinophils (%) (Auto) 2.3, Basophils (%) (Auto) 0.2, Neutrophils # (Auto) 7.6, Lymphocytes # (Auto) 0.9 L, Monocytes # (Auto) 1.0 H, Eosinophils # (Auto) 0.2, Basophils # (Auto) 0.0, Calcium Level 8.9 Impression POD4 RA lap right colectomy for ascending colon cancer - stage IV with liver mets iron deficiency anemia worsened postoperatively but stable Patient scheduled to have his [id number] done today. This was not done yesterday due to the fact that he got Lovenox which is just a prophylactic dose. Using eating better and his abdomen is less distended than yesterday and is passing flatus and having bowel movements. He feels tired. Sure if he is just acutely depressed from his medical situation and he seems to be less talkative postoperatively and he was preoperatively. He wants to go home. I told him he has to ambulate to hallways which apparently he has not done postoperatively to make sure he he is stable enough to go home. DVT prophylaxis - lovenox. Plan / VTE VTE Prophylaxis Ordered?: Yes TOM LY MD Dec 20, 2018 12:27
[2018-12-20 14:00] VITALS: BP 149/65
[2018-12-20] MEDS ORDERED: ceFAZolin 1GM INJ (J0690 PER 500MG) As Ordered ONE (14:52)
[2018-12-20] MEDS ORDERED: LIDOCAINE 1% MDV 20ML VIAL As Ordered ONE (14:53)
--- NOTE | 2018-12-20 15:03 | IRMSE ---
[facility] IR Moderate Sedation Eval. Date and Time Date: Dec 20, 2018 Time: 15:03 ASA Classification ASA Classification: III-Severe systemic dis. Mallampati Score: II NPO: Yes Obstructive Sleep Apnea: No Interval Plan: moderate sedation LUCIEN FLORES MD Dec 20, 2018 15:03
[2018-12-20] MEDS ORDERED: fentaNYL 100 MCG/2 ML INJECTION (J3010) As Ordered ONE (15:05)
[2018-12-20] MEDS ORDERED: diphenhydrAMINE INJ 50MG/ML VIAL (J1200) As Ordered ONE (15:05)
[2018-12-20] MEDS ORDERED: MIDAZOLAM INJ 2 MG/2 ML VIAL (J2250) As Ordered ONE (15:06)
[2018-12-20 16:27] VITALS: BP 157/74
--- NOTE | 2018-12-20 16:27 | POST-OPPD ---
Postoperative Procedure Note Date Of Procedure: Dec 20, 2018 Time Of Procedure: 16:25 PREOPERATIVE DIAGNOSIS: colon ca POSTOPERATIVE DIAGNOSIS: colon ca FINDINGS: normal right IJ PROCEDURE: right IJ port SURGEON: Dayana ANESTHESIA: moderate sedation ESTIMATED BLOOD LOSS: < 5 ml COMPLICATIONS: none POSTOPERATIVE CONDITION: stable LUCIEN FLORES MD Dec 20, 2018 16:27
[2018-12-20] MEDS ORDERED: PERCOCET PO (17:18)
--- NOTE | 2018-12-20 17:21 | DS.PDOC ---
Discharge Summary General Date of Admission Dec 16, 2018 at 05:47 Date of Discharge December 20, 2018 Attending Physician: TOM LY MD Specialist/Consultants Involve: LUCIEN FLORES MD Discharge Summary PROCEDURES PERFORMED DURING STAY: Robotic assisted laparoscopic right colectomy. ADMITTING DIAGNOSES: 1. Ascending Colon Malignancy. DISCHARGE DIAGNOSES: 1. Ascending Colon Malignancy. COMPLICATIONS/CHIEF COMPLAINT: Ascending Colon Cancer. HISTORY OF PRESENT ILLNESS: Patient has been previously diagnosed with ascending colon adenocarcinoma. Preoperative workup shown metastasis to the liver. With discussion with her oncologist, he was recommended to proceed with right colectomy this patient was admitted for laparoscopic right colectomy. HOSPITAL COURSE: Patient underwent robotic-assisted laparoscopic right colectomy with ileocolonic anastomosis. He was stable throughout the procedure. Though the procedure did took quite a while due to patient's body habitus, thick, bulky mesentery monitor things. He was immediately started on clear liquids the same night. He had some mild elevation of his BUN and creatinine suggesting the patient needs further hydration likewise had some mild reactive leukocytosis. His leukocytosis itself gradually resolve. He was given extra IV fluids and maintained on IV fluids and his creatinine returned to normal bony some mild elevation of the BUN towards the end of the. He was advanced to regular diet at postop day 2 started having some bowel functions. Initially was passing a small amount of loose stools up until post op day 3 where he had been able to move his bowels with amount. His abdominal distention improved. Towards the end of his admission the Mediport was placed by interventional radiology for plans for adjuvant chemotherapy. He did well after this. He was also advised to ambulate prior to discharge and that that he did to the hallways and remain independent throughout the hospital stay. DISCHARGE MEDICATIONS: Please see below. ALLERGIES: Please see below. PHYSICAL EXAMINATION ON DISCHARGE: VITAL SIGNS: Please see below. GENERAL: Comfortable HEENT: No jugular venous distention CARDIOVASCULAR EXAMINATION: Regular heart rate and rhythm RESPIRATORY EXAMINATION: Clear breath sounds to auscultation bilaterally ABDOMINAL EXAMINATION: Moderately rounded, protuberant abdomen. Minimally distended. Laparoscopic extraction port sites are covered with Dermabond and a clean dry and intact. Nontender on palpation EXTREMITIES: No extremity edema LABORATORY DATA: Please see below. IMAGING: Fluoroscopy in interventional radiology PROGNOSIS: For fair ACTIVITY: Activity 2 weeks. DIET: As tolerated DISCHARGE PLAN: Patient is discharged home. He will follow-up with me in 2 weeks' time. He will follow up with oncology as previously scheduled to discuss chemotherapy. DISPOSITION: . DISCHARGE INSTRUCTIONS: 1. As above. ITEMS TO FOLLOWUP ON ON OUTPATIENT: 1. Oncology follow-up for chemotherapy DISCHARGE CONDITION: Stable. TIME SPENT ON DISCHARGE: Greater than 30 minutes. Vital Signs/I&Os Vital Signs Date Time Temp Pulse Resp B/P (MAP) Pulse Ox O2 Delivery O2 Flow Rate FiO2 12/20/18 14:00 98.3 76 20 149/65 (93) 96 12/20/18 09:00 Room Air 12/17/18 06:00 1.0 I&O- Last 24 Hours up to 6 AM 12/20/18 06:00 Intake Total 575 ml Output Total 1000 ml Balance -425 ml Laboratory Data Labs 24H Laboratory Tests 2 12/19/18 21:14: Bedside Glucose (Misc Panel) 145H 12/20/18 06:13: Immature Granulocyte % (Auto) 0.3, White Blood Count 9.8, Red Blood Count 3.31L, Hemoglobin 8.9L, Hematocrit 29.1L, Mean Corpuscular Volume 87.9, Mean Corpuscular Hemoglobin 26.9L, Mean Corpuscular Hemoglobin Concent 30.6L, Red Cell Distribution Width 18.4H, Platelet Count 225, Neutrophils (%) (Auto) 77.4H, Lymphocytes (%) (Auto) 9.4L, Monocytes (%) (Auto) 10.4H, Eosinophils (%) (Auto) 2.3, Basophils (%) (Auto) 0.2, Neutrophils # (Auto) 7.6, Lymphocytes # (Auto) 0.9L, Monocytes # (Auto) 1.0H, Eosinophils # (Auto) 0.2, Basophils # (Auto) 0.0, Nucleated Red Blood Cells % (auto) 0.0, Anion Gap 6L, Glomerular Filtration Rate > 60.0, Blood Urea Nitrogen 20H, Creatinine 1.14, Sodium Level 141, Potassium Level 3.8, Chloride Level 109H, Carbon Dioxide Level 26, Calcium Level 8.9 12/20/18 11:34: Bedside Glucose (Misc Panel) 216H CBC/BMP Laboratory Tests 12/20/18 06:13 Red Blood Count 3.31 L, Mean Corpuscular Volume 87.9, Mean Corpuscular Hemoglobin 26.9 L, Mean Corpuscular Hemoglobin Concent 30.6 L, Red Cell Distribution Width 18.4 H, Neutrophils (%) (Auto) 77.4 H, Lymphocytes (%) (Auto) 9.4 L, Monocytes (%) (Auto) 10.4 H, Eosinophils (%) (Auto) 2.3, Basophils (%) ( Auto) 0.2, Neutrophils # (Auto) 7.6, Lymphocytes # (Auto) 0.9 L, Monocytes # (Auto) 1.0 H, Eosinophils # (Auto) 0.2, Basophils # (Auto) 0.0, Calcium Level 8.9 FSBS Laboratory Tests Test 12/19/18 21:14 12/20/18 11:34 Range/Units Bedside Glucose (Misc Panel) 145 216 83-110 MG/DL Discharge Medications Scheduled Atorvastatin Calcium (Atorvastatin Calcium) 40 Mg Tablet, 40 MG PO DAILY, (Reported) Doxazosin Mesylate (Doxazosin Mesylate) 2 Mg Tablet, 2 MG PO QHS, (Reported) Duloxetine Hcl (Duloxetine HCl) 30 Mg Cap, 30 MG PO QHS, (Reported) Ferrous Gluconate (Ferrous Gluconate) 324 Mg Tablet, 1 TAB PO DAILY for iron, ( Reported) Gabapentin (Gabapentin) 400 Mg Cap, 400 MG PO QAM, (Reported) Gabapentin (Gabapentin) 400 Mg Cap, 800 MG PO BID, (Reported) QPM AND QHS Glimepiride (Glimepiride) 4 Mg Tab, 4 MG PO DAILY, (Reported) Insulin Aspart Protamine/Aspar (Novolog Mix 70-30 Vial) 1 Units/0.01 Ml Susp, 85 UNITS SC QPM, (Reported) Insulin Aspart Protamine/Aspar (Novolog Mix 70-30 Vial) 100 Unit/1 Ml Vial, 60 UNITS SC QAM, (Reported) Lisinopril (Lisinopril) 10 Mg Tablet, 10 MG PO DAILY, (Reported) Metformin HCl (Metformin HCl) 850 Mg Tablet, 850 MG PO BID, (Reported) Scheduled PRN Oxycodone/Acetaminophen (Oxycodone-Acetaminophen 5-325) 1 Each Tablet, 1-2 TAB PO Q6HP PRN for MODERATE PAIN (PS 5-7) Allergies Coded Allergies: [place] (Verified Allergy, Intermediate, RAW PEACH FUZZ; hives, 12/16/18) strawberry (Verified Allergy, Intermediate, hives, 12/16/18) TOM LY MD Dec 20, 2018 17:21
--- NOTE | 2018-12-21 07:30 | REP ---
IR Ultrasound and fluoroscopy-guided port placement. IR Ultrasound of the neck. IR Moderate sedation. Clinical information: Colon cancer. Needs port for chemotherapy. Physician: Dr. Anne. Procedure: The patient was advised of the benefits, risks, and alternatives of the procedure and informed consent was obtained. A time-out was performed with verification of the patient's name, MRN, site of procedure and type of procedure to be performed. The patient was positioned in the supine position on the angiographic table. The site was prepped and draped in the usual sterile fashion. Moderate sedation was performed by the physician including the presence of an independent trained observer who assisted and monitored the patient's level of consciousness and physiologic status. Following the administration of Fentanyl and Versed, the physician spent 45 minutes of continuous face to face time with the patient. Ultrasound of the neck reveals a patent and compressible right internal jugular vein. A warehouse hand radiograph reveals right base atelectasis. The neck and anterior chest wall were anesthetized with lidocaine. The right internal jugular vein was accessed using a microintroducer needle by a lateral approach. An 0018 wire was advanced into the superior vena cava, the needle was removed and a microsheath was placed. An Amplatz wire was then passed into the inferior vena cava. An incision at the internal jugular vein access site and anterior chest wall were made using a scalpel. An incision was made at the anterior chest wall. A small pocket was created using a combination of blunt and sharp dissection. A tunneling device was then used to pass the catheter from the pocket to the neck puncture site. An 8-Malagasy [employer]odynamics smart power port was then positioned in the pocket. The catheter was then measured and cut. The introducer sheath was exchanged for a peel-away sheath. The catheter was passed through the peel-away sheath into the internal jugular vein and the peel-away sheath was removed. The port tip was positioned at the cavo atrial junction. The port was then accessed with a Patton needle. The port flushes and aspirates well. The puncture site in the neck was closed. The chest wall incision was then closed with 2-0 Vicryl and 4-0 Monocryl. Glue and Steri-Strips were applied. A sterile dressing was then applied. The patient tolerated the procedure well and was returned to the PRU in stable condition. Estimated blood loss: <5 ml. Complications: none. Conclusion: 1. Successful placement of an 8-Malagasy Angiodynamics smart power port via the right internal jugular vein. The port is ready for immediate use. 2. Patient to follow up in IR clinic in 2 weeks. Thank you for this referral. Electronically Signed by Bianca Anne MD 12/20/2018 05:02 P
== END 2018-12-20 18:11 | disposition home or self-care (01) | DRG 330 ==
LOC: M OR 05:47 → M MSPAV 17:00 → EDSTATUS 12-23 07:30
PROVIDERS: ADMIT Surgery; ATTEND Surgery
PROC: 8E0W4CZ Robotic Assisted Procedure of Trunk Region, Percutaneous Endoscopic Approach (ICD-10-PCS; 2018-12-16)
PROC: 0DBK4ZZ Excision of Ascending Colon, Percutaneous Endoscopic Approach (ICD-10-PCS; principal; 2018-12-16 07:30)
PROC: 05HM03Z Insertion of Infusion Device into Right Internal Jugular Vein, Open Approach (ICD-10-PCS; 2018-12-20)
DX: C18.2 Malignant neoplasm of ascending colon (principal); C78.7 Secondary malignant neoplasm of liver and intrahepatic bile duct; C77.2 Secondary and unspecified malignant neoplasm of intra-abdominal lymph nodes; Z79.899 Other long term (current) drug therapy; Z91.018 Allergy to other foods; I12.9 Hypertensive chronic kidney disease with stage 1 through stage 4 chronic kidney disease, or unspecified chronic kidney disease; N18.2 Chronic kidney disease, stage 2 (mild); E11.22 Type 2 diabetes mellitus with diabetic chronic kidney disease; D50.9 Iron deficiency anemia, unspecified

== ENCOUNTER → 2019-01-03 | Outpatient (POV) | payer MEDICARE ==
[~2019-01-03] VITALS: Ht 182.9 cm; Wt 106.1 kg
[~2019-01-03] MED LIST changes: +LISI20TA20 PO; -LISI20TA3 PO; +PERCOCET PO
[2019-01-03 09:10] VITALS: BP 119/58
--- NOTE | 2019-01-03 13:53 | IPNPDOC ---
Text Note Date of Service The patient was seen on 01/03/19. NOTE 2 week follow-up post right chest port placement. Patient doing well. No pain, tenderness or drainage from site. No fevers. On examination: Port site looks almost healed. No redness, no discharge. Impression: Port site healing well. No further follow-up unless initiated by patient. Thank you for this referral. VS,Fishbone, I+O VS, Fishbone, I+O Vital Signs Date Time Temp Pulse Resp B/P (MAP) Pulse Ox O2 Delivery O2 Flow Rate FiO2 01/03/19 09:10 97.3 82 16 119/58 (78) 96 LUCIEN FLORES MD Jan 03, 2019 13:53
== END ==
LOC: M IRPOV 08:47
PROVIDERS: ATTEND Radiology Diagnostic Radiology
DX: Z45.2 Encounter for adjustment and management of vascular access device (principal)

== ENCOUNTER 2019-01-10 09:52 | Observation (INO) | payer MEDICARE ==
[~2019-01-10] VITALS: Ht 184.2 cm; Wt 103.5 kg
[2019-01-10] MEDS ORDERED: NS 500 ML IV ONE (10:45)
[2019-01-10 10:50] LABS: BASO # 0.1 10^3/uL (0.0-0.2); BASO % 0.6 % (0.0-1.0); EOS # 1.2 10^3/uL (0.0-0.50); EOS % 12.4 % (0.0-3.0); HEMATOCRIT 37.2 % (42.0-52.0); HEMOGLOBIN 11.1 g/dl (13.5-17.5); LYMPH # 1.3 10^3/uL (1.5-4.5); LYMPH % 12.6 % (24.0-44.0); MEAN CORPUSCULAR HEMOGLOBIN 26.5 pg (27.0-33.0); MEAN CORPUSCULAR HGB CONC 29.8 g/dl (32.0-36.5); MEAN CORPUSCULAR VOLUME 88.8 fl (80.0-96.0); MONO # 0.6 10^3/uL (0.0-0.8); MONO % 6.4 % (0.0-5.0); NEUTROPHILS # 6.8 10^3/uL (1.8-7.7); NEUTROPHILS % 67.6 % (36.0-66.0); PLATELET COUNT, AUTOMATED 314 10^3/uL (150-450); RED BLOOD COUNT 4.19 10^6/uL (4.30-6.10)
[2019-01-10 11:04] LABS: ALBUMIN 2.9 GM/DL (3.2-5.2); ALT/SGPT 20 U/L (12-78); BILIRUBIN,DIRECT 0.2 MG/DL (0.0-0.2); BILIRUBIN,TOTAL 0.4 MG/DL (0.2-1.0); BLOOD UREA NITROGEN 15 MG/DL (7-18); CALCIUM LEVEL 9.1 MG/DL (8.8-10.2); CARBON DIOXIDE LEVEL 32 MEQ/L (21-32); CHLORIDE LEVEL 103 MEQ/L (98-107); CK-MB VALUE MASS 2.9 NG/ML (<3.6); CPK CREATINE PHOSPHOKINASE 47 U/L (39-308); CREATININE FOR GFR 1.54 MG/DL (0.70-1.30); GLOMERULAR FILTRATION RATE 47.5 (>42); GLUCOSE, FASTING 213 MG/DL (70-100); LIPASE 107 U/L (73-393); MB/CK RELATIVE INDEX 6.17 (< OR =4); POTASSIUM SERUM 4.4 MEQ/L (3.5-5.1); SODIUM LEVEL 138 MEQ/L (136-145); TOTAL PROTEIN 7.5 GM/DL (6.4-8.2); TROPONIN I < 0.02 NG/ML (< 0.10)
--- NOTE | 2019-01-10 11:22 | REP ---
PA and lateral chest: Comparison is 12/06/2018. On the prior study the patient has additional clinical history of colon carcinoma and secondary malignant neoplasm of the liver and type 2 diabetes. There has been interval placement of a right IJ Iyxdyq-X-Mafx catheter with the tip in the superior vena cava in satisfactory location. There is elevation of the right hemidiaphragm, as previously. However, there is effacement right costophrenic angle today as an interval change suggesting a new right pleural effusion. Left lung is clear. Cardiac size is normal. The aroldo, mediastinum, skeletal structures are unchanged. Impression: Probable new right pleural effusion as described. There has been interval placement of a right IJ central venous Cwjsxn-H-Wvuj. Electronically Signed by Abdirahman Fan MD 01/10/2019 11:14 A
[2019-01-10] MEDS ORDERED: GABA800T4 PO ×2 (12:15)
[2019-01-10] MEDS ORDERED: DOXA4TAB2 PO (12:15)
[2019-01-10] MEDS ORDERED: GLUCOSE 4 GM CHEW TABLET PO PRN (12:45)
[2019-01-10] MEDS ORDERED: DEXTROSE 50% 50 ML SYRINGE IV PRN (12:45)
[2019-01-10] MEDS ORDERED: GLUCAGON FOR INJ 1 MG VIAL (J1610) SC PRN (12:45)
--- NOTE | 2019-01-10 13:19 | HPE ---
DATE OF ADMISSION: 01/10/2019 CHIEF COMPLAINT: Orthostatic syncope. HISTORY: Lionel English is a 73-year-old admitted with orthostatic syncope. He was at Dr. Alonzo's office today for a postop check, was found to be hypotensive, pressures in the 80s. He was transferred to the emergency room, resuscitated with IV fluids, pressure is back to baseline. He has some nonspecific EKG changes, being admitted overnight for observation and further evaluation. He recently underwent robotic assisted laparoscopic right colectomy for adenocarcinoma with metastasis to the liver. He had some acute kidney injury during that hospitalization requiring fluid resuscitation. He has an appointment to establish with oncology, Dr. Gilman, apparently tomorrow. PAST MEDICAL HISTORY: Type 2 diabetes for which he is on oral agents and insulin. Hypertensive heart disease. Benign prostatic hypertrophy (BPH). Obstructive sleep apnea (REY). Diabetic neuropathy and retinopathy. SURGICAL HISTORY: Cataract extractions. FAMILY HISTORY: Father had liver and pancreatic cancer, diabetes. Mother had coronary disease. He has a son with brain cancer. SOCIAL HISTORY: : He quit smoking many years ago. No alcohol use. ALLERGIES: Strawberries and skin of peaches, which cause hives. REVIEW OF SYSTEMS: He was admitted 05/26/2016 at [facility] for hypotension. He denies any chest pain, palpitations, rectal bleeding, urinary bleeding, epistaxis. PHYSICAL EXAMINATION: Most recent systolic pressures in the 130s. He was 91/53 on arrival to the ER. Heart rate is in the 70s to 80s, afebrile. Oxygen saturation 98%. General appearance: He is resting comfortably, looks well in no distress. HEENT unremarkable. Lungs clear. Heart regular rhythm without murmur. Abdomen soft, nontender, nondistended, no masses. Surgical incisions healing well. No redness. No drainage. Extremities no clubbing, cyanosis, or edema. Moves arms and legs with equal strength. Neurologic exam is nonfocal. LABS: CBC unremarkable. Electrolytes sodium 138, potassium 4.4, BUN 15, creatinine 1.5 (baseline creatinine 1.1). Lactic acid was 2.9. Troponin was low. EKG shows nonspecific changes in inferior and lateral leads. Chest x-ray shows a right pleural effusion. Infusaport in satisfactory location. IMPRESSION: 1. Syncope, probably orthostatic related to his blood pressure medications. He is being admitted to PCU bed. He will be on telemetry overnight. Ordered repeat EKG and cardiac enzymes. He will be on the [facility] inpatient service. Hopefully he will be discharged tomorrow. 2. Acute kidney injury, probably from volume depletion. IV fluids have been ordered. Will change his IV fluids to Lactated Ringer's in the face of the acute kidney injury to reduce the risk of hyperchloremic acidosis with saline. 3. Diabetes. Hold his oral agents. Sliding scale insulin coverage. 4. Hyperlipidemia. Continue atorvastatin 40 mg daily. 5. Chronic pain. He is on duloxetine and gabapentin as an outpatient. We will continue these. 6. BPH. He takes doxazosin and that could be contributing to his orthostasis. I will hold this while in the hospital.
[2019-01-10] MEDS: LR 1,000 ML IV SCH ×2 (13:50→21:14)
[2019-01-10 16:08] VITALS: BP 144/69
[2019-01-10] MEDS: HumaLOG INSULIN (NovoLOG) PER UNIT SC SCH (18:08)
[2019-01-10] MEDS: GABAPENTIN 400 MG CAP PO SCH ×2 (18:08→21:15)
[2019-01-10 19:51] LABS: CK-MB VALUE MASS 2.8 NG/ML (<3.6); CPK CREATINE PHOSPHOKINASE 53 U/L (39-308); MB/CK RELATIVE INDEX 5.28 (< OR =4); TROPONIN I < 0.02 NG/ML (< 0.10)
[2019-01-10 20:00] VITALS: BP_SYST 129; BP_SYST 160; BP_DIAS 68; BP_DIAS 76
--- NOTE | 2019-01-10 20:30 | ECGEPIP ---
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
[2019-01-10] MEDS ORDERED: DULoxetine 30 MG CAP (CYMBALTA) PO SCH (21:00)
[2019-01-10] MEDS ORDERED: FERROUS GLUCONATE 324 MG TAB PO SCH (21:00)
[2019-01-10] MEDS ORDERED: HumaLOG INSULIN (NovoLOG) PER UNIT SC SCH (21:00)
[2019-01-10 23:59] VITALS: BP 154/62
[2019-01-11 03:16] LABS: HEMATOCRIT 32.9 % (42.0-52.0); MEAN CORPUSCULAR HEMOGLOBIN 25.8 pg (27.0-33.0); MEAN CORPUSCULAR HGB CONC 30.4 g/dl (32.0-36.5); PLATELET COUNT, AUTOMATED 282 10^3/uL (150-450); RED BLOOD COUNT 3.87 10^6/uL (4.30-6.10); WHITE BLOOD COUNT 10.5 10^3/uL (4.0-10.0)
[2019-01-11 03:39] LABS: BLOOD UREA NITROGEN 16 MG/DL (7-18); CALCIUM LEVEL 8.5 MG/DL (8.8-10.2); CARBON DIOXIDE LEVEL 29 MEQ/L (21-32); CHLORIDE LEVEL 108 MEQ/L (98-107); CREATININE FOR GFR 1.06 MG/DL (0.70-1.30); GLOMERULAR FILTRATION RATE > 60.0 (>42); GLUCOSE, FASTING 171 MG/DL (70-100); POTASSIUM SERUM 4.2 MEQ/L (3.5-5.1); SODIUM LEVEL 140 MEQ/L (136-145)
[2019-01-11 03:46] LABS: CK-MB VALUE MASS 2.7 NG/ML (<3.6); MB/CK RELATIVE INDEX 5.4 (< OR =4); TROPONIN I 0.02 NG/ML (< 0.10)
[2019-01-11 04:00] VITALS: BP 162/84
[2019-01-11] MEDS: LR 1,000 ML IV SCH (04:54)
[2019-01-11] MEDS ORDERED: ACETAMINOPHEN 500 MG TAB PO PRN (05:30)
[2019-01-11 06:00] VITALS: BP 196/102
[2019-01-11 06:46] VITALS: BP 189/99
[2019-01-11] MEDS ORDERED: LISINOPRIL 10 MG TAB PO ONE (07:00)
[2019-01-11 07:10] VITALS: BP 155/90
[2019-01-11 08:00] VITALS: BP 152/70
[2019-01-11] MEDS ORDERED: SLF 3 ML SYR IV PRN (08:15)
[2019-01-11] MEDS: HumaLOG INSULIN (NovoLOG) PER UNIT SC SCH ×2 (08:20→12:30)
[2019-01-11] MEDS ORDERED: ATORVASTATIN 20 MG TAB PO SCH (09:00)
[2019-01-11] MEDS ORDERED: GABAPENTIN 400 MG CAP PO SCH (09:00)
[2019-01-11 11:07] LABS: CK-MB VALUE MASS 2.9 NG/ML (<3.6); MB/CK RELATIVE INDEX 5.92 (< OR =4); TROPONIN I 0.02 NG/ML (< 0.10)
[2019-01-11 12:00] VITALS: BP 153/79
[2019-01-11] MEDS ORDERED: SLF 3 ML SYR IV SCH (14:00)
--- NOTE | 2019-01-13 09:04 | ECGEPIP ---
[facility] Test Date: 2019-01-11 Pat Name: LORE CHESTER Department: Room: [place] [id number] Gender: Male Concreter: JEROD : 1945 Requested By: Bill Grimm Order Number: [id number] Reading MD: Mik Dickson Measurements Intervals [place] Rate: 76 P: 53 CA: 164 QRS: -12 QRSD: 104 T: 89 QT: 388 QTc: 437 Interpretive Statements SINUS RHYTHM NONSPECIFIC ST & T-WAVE ABNORMALITY SINCE 01/10/19 THERE HAS BEEN RESOLUTION OF INFERIOR T WAVE INVERSIONS Electronically Signed on 01-13-2019 9:04:33 EDT by Mik Dickson
== END 2019-01-11 13:58 | disposition home or self-care (01) ==
LOC: M ED 09:52 → M ED INP 12:41 → M PCU 16:08
PROVIDERS: ADMIT Family Medicine; ATTEND Family Medicine
DX: I95.1 Orthostatic hypotension (principal); N17.9 Acute kidney failure, unspecified; E11.40 Type 2 diabetes mellitus with diabetic neuropathy, unspecified; E11.319 Type 2 diabetes mellitus with unspecified diabetic retinopathy without macular edema; C18.9 Malignant neoplasm of colon, unspecified; C78.7 Secondary malignant neoplasm of liver and intrahepatic bile duct; Z79.84 Long term (current) use of oral hypoglycemic drugs; I11.9 Hypertensive heart disease without heart failure; N40.0 Benign prostatic hyperplasia without lower urinary tract symptoms; G47.33 Obstructive sleep apnea (adult) (pediatric); Z79.899 Other long term (current) drug therapy
CPT/HCPCS: 36415; 71046; 80048; 80076; 82550; 82553; 83605; 83690; 84484; 85025; 85027; 87040; 93005; 93041; 96361; 96374; 99285; G0378

== ENCOUNTER 2019-01-17 08:56 | Emergency (ER) | payer MEDICARE ==
[~2019-01-17] VITALS: Ht 182.9 cm; Wt 101.6 kg
[~2019-01-17 08:56] MED LIST changes: +DOXA4TAB2 PO; +GABA800T4 PO; -GLIM4TAB PO; +GLIM4TAB5 PO; -SIMV40TA2 PO; +SIMV40TA20 PO
[2019-01-17] MEDS ORDERED: NS 500 ML IV ONE (09:15)
--- NOTE | 2019-01-17 09:36 | REP ---
Portable chest, single AP view with the patient upright, 09:17 a.m.: Comparison is 01/10/2019. There is elevation of the right hemidiaphragm, unchanged. There is slight effacement right costophrenic angle, artifact from elevated diaphragm versus right pleural effusion. Left lung is clear. Cardiac size is normal. The aroldo, mediastinum, skeletal structures are unremarkable. There is a right IJ Bfoxrh-W-Qotf with the tip in the superior vena cava in satisfactory position, unchanged. Impression: Elevated right hemidiaphragm. Questionable right pleural effusion. Werqco-I-Dmhp as described. Electronically Signed by Abdirahman Fan MD 01/17/2019 09:27 A
[2019-01-17 09:50] LABS: BASO # 0.1 10^3/uL (0.0-0.2); BASO % 0.5 % (0.0-1.0); EOS # 0.9 10^3/uL (0.0-0.50); EOS % 8.5 % (0.0-3.0); HEMATOCRIT 40.8 % (42.0-52.0); HEMOGLOBIN 12.2 g/dl (13.5-17.5); LYMPH # 1.9 10^3/uL (1.5-4.5); LYMPH % 17.3 % (24.0-44.0); MEAN CORPUSCULAR HEMOGLOBIN 26.3 pg (27.0-33.0); MEAN CORPUSCULAR HGB CONC 29.9 g/dl (32.0-36.5); MEAN CORPUSCULAR VOLUME 88.1 fl (80.0-96.0); MONO # 0.8 10^3/uL (0.0-0.8); MONO % 7.3 % (0.0-5.0); NEUTROPHILS # 7.3 10^3/uL (1.8-7.7); NEUTROPHILS % 65.9 % (36.0-66.0); PLATELET COUNT, AUTOMATED 334 10^3/uL (150-450); RED BLOOD COUNT 4.63 10^6/uL (4.30-6.10)
[2019-01-17 10:21] LABS: ALBUMIN 3.3 GM/DL (3.2-5.2); BILIRUBIN,DIRECT 0.1 MG/DL (0.0-0.2); BILIRUBIN,TOTAL 0.3 MG/DL (0.2-1.0); CK-MB VALUE MASS 3.8 NG/ML (<3.6); FREE T4 1.01 NG/DL (0.76-1.46); MB/CK RELATIVE INDEX 5.67 (< OR =4); THYROID STIMULATING HORMONE 1.65 uIU/ML (0.358-3.740); TROPONIN I 0.02 NG/ML (< 0.10)
[2019-01-17 12:33] VITALS: BP 154/71
--- NOTE | 2019-01-17 18:50 | ECGEPIP ---
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
[2019-02-28] MEDS ORDERED: NOVO70VL (08:27)
[2019-02-28] MEDS ORDERED: ONDA8TAB10 PO (09:12)
[2019-03-14] MEDS ORDERED: METF850T4 PO (08:46)
[2019-03-20] MEDS ORDERED: ONDA8TAB10 PO (13:32)
[2019-04-11] MEDS ORDERED: VIRT1TAB8 PO (08:41)
== END 2019-01-17 12:34 | disposition home or self-care (01) ==
LOC: M ED 08:56
DX: R55 Syncope and collapse (principal); C18.9 Malignant neoplasm of colon, unspecified; M25.511 Pain in right shoulder; I10 Essential (primary) hypertension; E11.9 Type 2 diabetes mellitus without complications; E78.00 Pure hypercholesterolemia, unspecified; N40.0 Benign prostatic hyperplasia without lower urinary tract symptoms; R51 Headache; F17.200 Nicotine dependence, unspecified, uncomplicated; C78.7 Secondary malignant neoplasm of liver and intrahepatic bile duct; Z79.899 Other long term (current) drug therapy; Z79.4 Long term (current) use of insulin; Z91.018 Allergy to other foods

== ENCOUNTER 2019-02-20 15:50 | Observation (INO) | payer MEDICARE ==
[~2019-02-20] VITALS: Ht 182.9 cm; Wt 99.2 kg
[2019-02-20] MEDS: NS 1,000 ML IV SCH ×2 (16:52→23:43)
[2019-02-20 16:53] LABS: BASO % 0.2 % (0.0-1.0); EOS # 0.2 10^3/uL (0.0-0.5); EOS % 3.3 % (0.0-3.0); HEMOGLOBIN 13.3 g/dl (13.5-17.5); LYMPH # 1.3 10^3/uL (1.5-5.0); LYMPH % 22.1 % (24.0-44.0); MEAN CORPUSCULAR HEMOGLOBIN 26.6 pg (27.0-33.0); MEAN CORPUSCULAR HGB CONC 30.9 g/dl (32.0-36.5); MONO # 0.3 10^3/uL (0.0-0.8); MONO % 5.6 % (0.0-5.0); NEUTROPHILS # 3.9 10^3/uL (1.5-8.5); NEUTROPHILS % 68.6 % (36.0-66.0); PLATELET COUNT, AUTOMATED 231 10^3/uL (150-450); WHITE BLOOD COUNT 5.7 10^3/uL (4.0-10.0)
[2019-02-20 16:54] LABS: VENOUS BASE EXCESS -2.7 (-2.0-2.0); VENOUS HCO3 24.9 MEQ/L (23.0-27.0); VENOUS O2 SATURATION 86.1 % (60.0-80.0); VENOUS PARTIAL PRESSURE CO2 54.7 mmHg (38.0-50.0); VENOUS PARTIAL PRESSURE O2 55.1 mmHg (30.0-50.0); VENOUS PH 7.276 UNITS (7.330-7.430); VENOUS STANDARD HCO3 21.9 MEQ/L; VENOUS TOTAL CO2 26.6 MEQ/L (24.0-28.0)
[2019-02-20 17:12] LABS: INR 1.06; PROTHROMBIN TIME 13.5 SECONDS (11.8-14.0)
[2019-02-20 17:26] LABS: BLOOD UREA NITROGEN 16 MG/DL (7-18); CALCIUM LEVEL 8.9 MG/DL (8.8-10.2); CARBON DIOXIDE LEVEL 29 MEQ/L (21-32); CHLORIDE LEVEL 105 MEQ/L (98-107); CPK CREATINE PHOSPHOKINASE 54 U/L (39-308); CREATININE FOR GFR 1.26 MG/DL (0.70-1.30); ETHYL ALCOHOL (ETHANOL) < 0.003 % (0.000-0.010); FREE T4 1.04 NG/DL (0.76-1.46); GLOMERULAR FILTRATION RATE 59.9 (>42); GLUCOSE, FASTING 65 MG/DL (70-100); MB/CK RELATIVE INDEX 5.56 (< OR =4); POTASSIUM SERUM 3.9 MEQ/L (3.5-5.1); SODIUM LEVEL 141 MEQ/L (136-145); TROPONIN I 0.43 NG/ML (< 0.10)
--- NOTE | 2019-02-20 18:08 | REP ---
Portable chest, 05:52 p.m., single AP view with the patient sitting: Comparison is 2018. The right hemidiaphragm is elevated. This is unchanged. The lung stallings are clear. Cardiac size is normal. The aroldo, mediastinum, skeletal structures are unremarkable. The right IJ Duswtm-I-Zzvx catheter is unchanged. Impression: There are no acute cardiopulmonary findings. Elevated right hemidiaphragm, unchanged. Right IJ Btilqd-Q-Aepl, unchanged. Electronically Signed by Abdirahman Fan MD 02/20/2019 05:59 P
[2019-02-20 19:39] LABS: MB/CK RELATIVE INDEX 6.98 (< OR =4); TROPONIN I 0.46 NG/ML (< 0.10)
[2019-02-20] MEDS ORDERED: DEXTROSE 50% 50 ML SYRINGE As Ordered ONE (19:41)
[2019-02-20] MEDS ORDERED: DEXTROSE 50% 50 ML VIAL IV ONE (19:45)
--- NOTE | 2019-02-20 21:02 | ECGEPIP ---
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
--- NOTE | 2019-02-20 21:06 | ECGEPIP ---
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
[2019-02-20] MEDS ORDERED: DEXTROSE 50% 50 ML SYRINGE IV PRN (22:30)
[2019-02-20] MEDS ORDERED: GLUCAGON FOR INJ 1 MG VIAL (J1610) SC PRN (22:30)
[2019-02-20] MEDS ORDERED: GLUCOSE 4 GM CHEW TABLET PO PRN (22:30)
--- NOTE | 2019-02-20 22:33 | HPEPDOC ---
[facility] Medical History & Physical Date of Admission Feb 20, 2019 Date of Service: Feb 20, 2019 Primary Care Physician: Bradley Henning MD Attending Physician: Bradley Henning MD History and Physical TIME OF SERVICE: 9:45 PM CHIEF COMPLAINT: Sent by heel attacher HISTORY OF PRESENT ILLNESS: This is a 73-year-old male who was at his heel attacher office earlier on today. While he was there he reports "not feeling right" when they took his blood pressure it was in the 70s. This is a second time that this has happened. His lisinopril and doxazosin were recently discontinued because his blood pressure was low. He ate breakfast and lunch today but missed his supper. He has chronic diarrhea with an average of 0-3 bowel movements per day which he reports began after he had his right hemicolectomy. 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 BPH Sleep apnea Status post right hemicolectomy for adenocarcinoma: Denies personal history of stroke or GA Status post cataract lateral surgeries SOCIAL HISTORY: Quit smoking [place] FAMILY HISTORY: Coronary artery disease. Diabetes Pancreatic cancer ALLERGIES: Please see below. HOME MEDICATIONS: Please see below. PHYSICAL EXAMINATION: VITAL SIGNS: Please see below. GENERAL APPEARANCE: Well-nourished, well-developed, not in apparent distress HEENT: Normocephalic, atraumatic, mucous membranes moist and pink CARDIOVASCULAR: Regular rate and rhythm. No murmurs, rubs or gallops. Radial pulses are intact is no lower extremity edema LUNGS: Clear to auscultation bilaterally on room air ABDOMEN: Positive bowel sounds. Abdomen is soft and nontender on palpation MUSCULOSKELETAL: Age of motion is intact in all 4 extremities INTEGUMENT: Does not appear flushed or pale NEUROLOGICAL:Cranial nerves II-12 are grossly intact. Speech is not dysarthric PSYCHIATRIC: Alert and oriented to person, place and time, able to understand and follow commands LABORATORY DATA: See below. IMAGING: Chest x-ray "Impression: There are no acute cardiopulmonary findings. Elevated right hemidiaphragm, unchanged. Right IJ [id number], unchanged." CT abdomen and pelvis report pending MICROBIOLOGY: Please see below. ASSESSMENT: Mr. English is a 79-year-old male with a past medical history of diabetes, colon cancer, sleep apnea, and insulin-dependent diabetes mellitus who will be admitted for management of hypoglycemia, dehydration and labile blood pressure. PLAN: 1.Hypoglycemia Based on chart review, his previously admitted for management of hypotension and hypoglycemia recent A1c 5.4% Plan: hold all antiglycemic agents/ f/u acchecks Q4H / SSS / hypoglycemia p rotocol 2. Dehydration. Likely due to chronic diarrhea. Plan: Admit to medical floor/IV fluids/follow-up orthostats 3. Labile blood pressure. The patient reports his blood pressure was low at his heel attacher office, but currently the systolic blood pressures in the 180s He is no longer taking any antihypertensives. Plan: f/u orthostats/Resume doxazosin 4. Elevated troponins Possibly due to accelerated HTN He denies having chest pain, shortness of breath, or any other ACS equivalents. Plan: Telemetry/trend troponins / ASA 5. Primary respiratory acidosis with secondary metabolic acidosis.? Respiratory acidosis is unclear (sleep apnea?) . Metabolic acidosis may be due to chronic diarrhea He is not complaining of upper respiratory tract symptoms. Chest x-rays are unremarkable Plan: Repeat VBG in the morning 6. BPH Plan: Resume tamsulosin 7.Sleep apnea Plan: home CPAP 8. Chronic right shoulder pain secondary to arthritis. Plan: lidcane patch DVT prophylaxis with heparin Disposition pending clinical course Vital Signs Vital Signs Date Time Temp Pulse Resp B/P (MAP) Pulse Ox O2 Delivery O2 Flow Rate FiO2 02/20/19 22:00 76 99 Room Air 02/20/19 21:45 183/83 (116) 02/20/19 18:35 18 Laboratory Data Labs 24H Laboratory Tests 2 02/20/19 16:44: Immature Granulocyte % (Auto) 0.2, White Blood Count 5.7, Red Blood Count 5.00, Hemoglobin 13.3L, Hematocrit 43.0, Mean Corpuscular Volume 86.0, Mean Corpuscular Hemoglobin 26.6L, Mean Corpuscular Hemoglobin Concent 30.9L, Red Cell Distribution Width 16.4H, Platelet Count 231, Neutrophils (%) (Auto) 68.6H, Lymphocytes (%) (Auto) 22.1L, Monocytes (%) (Auto) 5.6H, Eosinophils (%) (Auto) 3.3H, Basophils (%) (Auto) 0.2, Neutrophils # (Auto) 3.9, Lymphocytes # (Auto) 1.3L, Monocytes # (Auto) 0.3, Eosinophils # (Auto) 0.2, Basophils # (Auto) 0.0, Nucleated Red Blood Cells % (auto) 0.0, Prothrombin Time 13.5, Prothromb Time International Ratio 1.06, Blood Gas Bicarbonate Standard 21.9, Venous Blood pH 7.276L, Venous Blood Partial Pressure CO2 54.7H, Venous Blood Partial Pressure O2 55.1H, Venous Blood Total Carbon Dioxide 26.6, Venous Blood HCO3 24.9, Venous Blood Oxygen Saturation 86.1H, Venous Blood Base Excess -2.7L, Anion Gap 7L, Glomerular Filtration Rate 59.9, Blood Urea Nitrogen 16, Creatinine 1.26, Sodium Level 141, Potassium Level 3.9, Chloride Level 105, Carbon Dioxide Level 29, Calcium Level 8.9, Total Creatine Kinase 54, Creatine Kinase MB 3.0, Creatine Kinase MB Relative Index 5.56H, Troponin I 0.43H, Thyroid Stimulating Hormone (TSH) 1.720, Free Thyroxine 1.04, Ethyl Alcohol Level < 0.003 02/20/19 18:59: Total Creatine Kinase 43, Creatine Kinase MB 3.0, Creatine Kinase MB Relative Index 6.98H, Troponin I 0.46H 02/20/19 19:39: Bedside Glucose (Misc Panel) 41L 02/20/19 19:51: Bedside Glucose (Misc Panel) 134H CBC/BMP Laboratory Tests 02/20/19 16:44 Red Blood Count 5.00, Mean Corpuscular Volume 86.0, Mean Corpuscular Hemoglobin 26.6 L, Mean Corpuscular Hemoglobin Concent 30.9 L, Red Cell Distribution Width 16.4 H, Neutrophils (%) (Auto) 68.6 H, Lymphocytes (%) (Auto) 22.1 L, Monocytes (%) (Auto) 5.6 H, Eosinophils (%) (Auto) 3.3 H, Basophils (%) (Auto) 0.2, Neutrophils # (Auto) 3.9, Lymphocytes # (Auto) 1.3 L, Monocytes # (Auto) 0.3, Eosinophils # (Auto) 0.2, Basophils # (Auto) 0.0, Calcium Level 8.9, Total Creatine Kinase 54 Home Medications Scheduled Atorvastatin Calcium (Atorvastatin Calcium) 40 Mg Tablet, 40 MG PO DAILY Duloxetine Hcl (Duloxetine HCl) 30 Mg Cap, 30 MG PO QHS Ferrous Gluconate (Ferrous Gluconate) 324 Mg Tablet, 324 MG PO QPM DINNERTIME Gabapentin (Gabapentin) 800 Mg Tablet, 400 MG PO QAM Gabapentin (Gabapentin) 800 Mg Tablet, 800 MG PO BID DINNER AND BEDTIME Allergies Coded Allergies: Long (Verified Allergy, Intermediate, RAW PEACH FUZZ; hives, 12/16/18) strawberry (Verified Allergy, Intermediate, hives, 12/16/18) A-FIB/CHADSVASC A-FIB History Current/History of A-Fib/PAF?: No Current PO Anticoag Therapy: No SHELBI MILES MD Feb 20, 2019 22:33
[2019-02-20] MEDS ORDERED: LIDOCAINE 5% (LIDODERM) PATCH TD ONE (23:00)
[2019-02-20 23:20] VITALS: BP 186/78
[2019-02-20] MEDS: HumaLOG INSULIN (NovoLOG) PER UNIT SC SCH (23:43)
[2019-02-21] VITALS (10 sets, daily range): BP systolic 104–200; BP diastolic 52–94
[2019-02-21] MEDS: DULoxetine 30 MG CAP (CYMBALTA) PO SCH ×2 (00:05→20:19)
[2019-02-21] MEDS ORDERED: NS 1,000 ML IV SCH (00:15)
[2019-02-21] MEDS ORDERED: ASPIRIN 81 MG CHEW TABLET PO ONE (02:00)
[2019-02-21 02:22] LABS: VENOUS BASE EXCESS 0.3 (-2.0-2.0); VENOUS HCO3 27.6 MEQ/L (23.0-27.0); VENOUS O2 SATURATION 60.5 % (60.0-80.0); VENOUS PARTIAL PRESSURE CO2 56.9 mmHg (38.0-50.0); VENOUS PH 7.304 UNITS (7.330-7.430); VENOUS STANDARD HCO3 23.9 MEQ/L; VENOUS TOTAL CO2 29.4 MEQ/L (24.0-28.0)
[2019-02-21] MEDS ORDERED: lisinopriL 5 MG TAB PO ONE (03:15)
[2019-02-21 03:42] LABS: AMPHETAMINES LEVEL URINE NEGATIVE (NEGATIVE); BARBITURATES URINE NEGATIVE (NEGATIVE); BENZODIAZEPINES URINE NEGATIVE (NEGATIVE); CANNABINOIDS URINE NEGATIVE (NEGATIVE); COCAINE METABOLITE URINE NEGATIVE (NEGATIVE); METHADONE URINE NEGATIVE (NEGATIVE); OPIATES URINE NEGATIVE (NEGATIVE); PHENCYCLIDINE URINE NEGATIVE (NEGATIVE)
[2019-02-21] MEDS ORDERED: hydrALAZINE INJ 20 MG/ML VIAL IV ONE (04:45)
[2019-02-21] MEDS ORDERED: amLODIPine 5 MG TAB PO ONE ×3 (04:45→22:00)
[2019-02-21] MEDS: HEPARIN SOD (PORCINE) 5000 UNITS/ML VIAL SC SCH ×3 (05:00→21:54)
[2019-02-21 06:12] LABS: HEMATOCRIT 38.1 % (42.0-52.0); HEMOGLOBIN 11.9 g/dl (13.5-17.5); MEAN CORPUSCULAR HEMOGLOBIN 26.7 pg (27.0-33.0); MEAN CORPUSCULAR HGB CONC 31.2 g/dl (32.0-36.5); MEAN CORPUSCULAR VOLUME 85.4 fl (80.0-96.0); PLATELET COUNT, AUTOMATED 200 10^3/uL (150-450); RED BLOOD COUNT 4.46 10^6/uL (4.30-6.10); WHITE BLOOD COUNT 6.9 10^3/uL (4.0-10.0)
[2019-02-21 06:44] LABS: BLOOD UREA NITROGEN 13 MG/DL (7-18); CARBON DIOXIDE LEVEL 29 MEQ/L (21-32); CHLORIDE LEVEL 106 MEQ/L (98-107); CREATININE FOR GFR 0.96 MG/DL (0.70-1.30); GLOMERULAR FILTRATION RATE > 60.0 (>42); GLUCOSE, FASTING 80 MG/DL (70-100); POTASSIUM SERUM 4.2 MEQ/L (3.5-5.1); SODIUM LEVEL 140 MEQ/L (136-145); TROPONIN I 0.47 NG/ML (< 0.10)
[2019-02-21] MEDS: HumaLOG INSULIN (NovoLOG) PER UNIT SC SCH ×4 (07:30→20:19)
--- NOTE | 2019-02-21 08:18 | REP ---
CT ABDOMEN AND PELVIS WITHOUT CONTRAST: CT abdomen and pelvis performed without oral or IV contrast. Sagittal and coronal reconstruction images are performed. Comparison made with prior study 10/28/2018. There is elevation of the right hemidiaphragm as on prior study. There is right base atelectatic change. Liver again demonstrates multiple metastatic nodules diffusely involving the right and left lobes. The gallbladder is grossly unremarkable. The spleen, adrenals, and pancreas are grossly unremarkable. Multiple bilateral renal cysts are again identified. There is no hydroureteronephrosis. There is no abdominal aortic aneurysm. Mild atherosclerotic calcifications are present. No adenopathy is seen. There is no free air or free fluid. There is streaky density in the subcutaneous fat of the upper abdominal wall in the midline. In the underling mesentery there are streaky densities surrounding a segment of colon which contains a suture line. Findings are compatible with postsurgical edema and scarring. Prostate is enlarged. No pelvic mass is seen. There are degenerative changes of the spine. IMPRESSION: Postsurgical edema and scarring in the upper anterior abdominal wall and right upper quadrant mesentery. No free fluid or fluid collection. Multiple metastatic nodules again seen throughout the right and left lobes of the liver. There are multiple bilateral renal cysts. Atelectatic changes right lung base. Incidental note is made of a central venous catheter in the superior vena cava. Electronically Signed by Abdirahman Kenny MD 02/22/2019 04:03 P
[2019-02-21] MEDS: GABAPENTIN 400 MG CAP PO SCH ×3 (09:45→20:19)
[2019-02-21] MEDS: ATORVASTATIN 20 MG TAB PO SCH (09:45)
--- NOTE | 2019-02-21 10:14 | IPNPDOC ---
Subjective Date Seen The patient was seen on 02/21/19. Subjective Chief Complaint/HPI hypotension, hypoglycemia Events since last encounter Admitted overnight for hypotension, near syncope. This is the second episode in 3 weeks. Both episodes occurred when have labs drawn from [facility]. Patient admits to being dizzy from labs prior but, never to the most recent episodes. He is s/p colectomy from colon cancer and admit to more frequent stools since then. He stopped Lisinopril in December due to hypotension. Has noted to have hypoglycemia on presentation and diabetic agents were stopped. Since admission, has significant orthostasis with BP as high as 190s that drops to 100s standing. Constitutional: Denies: Chills, Fever, Night Sweats Skin: Denies: Rash, Lesions, Breakdown Pulmonary: Denies: Dyspnea, Cough Cardiovascular: Denies: Chest Pain, Palpitations, Orthopnea, Paroxysmal Noc. Dyspnea, Lt Headedness Gastrointestinal: Reports: Diarrhea (multiple stools per day since colectomy); Denies: Nausea, Vomiting, Abdominal Pain, Constipation Genitourinary: Denies: Dysuria, Frequency, Incontinence, Retention Objective Physical Examination General Exam: Positive: Alert, No Acute Distress Neck Exam: Positive: Supple, +2 carotid pulse wo bruit; Negative: JVD, thyromegaly Chest Exam: Positive: Clear to auscultation, Normal air movement Heart Exam: Positive: Rate Normal, Regular Rhythm, Normal S1, Normal S2; Negative: Murmurs, Rubs Telemetry: Positive: No significant arrhythmia Abdomen Exam: Positive: Normal bowel sounds, Soft; Negative: Tenderness, Hepatospenomegaly Extremity Exam: Positive: Normal pulses; Negative: Clubbing, Cyanosis, Edema Skin Exam: Positive: Nl turgor and temperature; Negative: Rash, Breakdown Psych Exam: Positive: Mental status NL, Mood NL, Oriented x 3 Assessment /Plan Problems (1) Orthostatic syncope Problem Text: unclear etiology. Potential causes: volume depletion from increase stools, cardiac abnormality, vasovagal response. Will eval echo and carotid US. Monitor troponins and orthostatic VS JFW: pt says he feels "much better" says he is OOB w/o difficulty, insisting on d/c tomorrow earlya s son has an appt at [facility] tomorrow morning (2) Elevated troponin Status: Acute (3) Hypoglycemia Status: Acute Problem Text: diabetic agents have been held. previously on Glimepiride, metformin, 70/30 insulin (4) Ascending colon malignant neoplasm Problem Text: hx of colon Ca with mets to liver documented on CT abd/pelvis Plan/VTE VTE Prophylaxis Ordered?: Yes (heparin) VS, I&O, 24H, Fishbone Vital Signs/I&O Vital Signs Date Time Temp Pulse Resp B/P (MAP) Pulse Ox O2 Delivery O2 Flow Rate FiO2 02/21/19 06:35 82 169/83 (111) 83 145/69 (94) 95 108/59 (75) 02/21/19 01:20 97.1 19 96 02/20/19 22:00 Room Air I&O- Last 24 Hours up to 6 AM 02/21/19 06:00 Intake Total 150 ml Output Total 350 ml Balance -200 ml Laboratory Data 24H LABS Laboratory Tests 2 02/20/19 16:44: Immature Granulocyte % (Auto) 0.2, White Blood Count 5.7, Red Blood Count 5.00, Hemoglobin 13.3L, Hematocrit 43.0, Mean Corpuscular Volume 86.0, Mean Corpuscular Hemoglobin 26.6L, Mean Corpuscular Hemoglobin Concent 30.9L, Red Cell Distribution Width 16.4H, Platelet Count 231, Neutrophils (%) (Auto) 68.6H, Lymphocytes (%) (Auto) 22.1L, Monocytes (%) (Auto) 5.6H, Eosinophils (%) (Auto) 3.3H, Basophils (%) (Auto) 0.2, Neutrophils # (Auto) 3.9, Lymphocytes # (Auto) 1.3L, Monocytes # (Auto) 0.3, Eosinophils # (Auto) 0.2, Basophils # (Auto) 0.0, Nucleated Red Blood Cells % (auto) 0.0, Prothrombin Time 13.5, Prothromb Time International Ratio 1.06, Blood Gas Bicarbonate Standard 21.9, Venous Blood pH 7.276L, Venous Blood Partial Pressure CO2 54.7H, Venous Blood Partial Pressure O2 55.1H, Venous Blood Total Carbon Dioxide 26.6, Venous Blood HCO3 24.9, Venous Blood Oxygen Saturation 86.1H, Venous Blood Base Excess -2.7L, Anion Gap 7L, Glomerular Filtration Rate 59.9, Blood Urea Nitrogen 16, Creatinine 1.26, Sodium Level 141, Potassium Level 3.9, Chloride Level 105, Carbon Dioxide Level 29, Calcium Level 8.9, Total Creatine Kinase 54, Creatine Kinase MB 3.0, Creatine Kinase MB Relative Index 5.56H, Troponin I 0.43H, Thyroid Stimulating Hormone (TSH) 1.720, Free Thyroxine 1.04, Ethyl Alcohol Level < 0.003 02/20/19 18:59: Total Creatine Kinase 43, Creatine Kinase MB 3.0, Creatine Kinase MB Relative Index 6.98H, Troponin I 0.46H 02/20/19 19:39: Bedside Glucose (Misc Panel) 41L 02/20/19 19:51: Bedside Glucose (Misc Panel) 134H 02/20/19 23:31: Bedside Glucose (Misc Panel) 114H 02/21/19 01:42: Troponin I 0.44H 02/21/19 02:16: Blood Gas Bicarbonate Standard 23.9, Venous Blood pH 7.304L, Venous Blood Partial Pressure CO2 56.9H, Venous Blood Partial Pressure O2 37.0, Venous Blood Total Carbon Dioxide 29.4H, Venous Blood HCO3 27.6H, Venous Blood Oxygen Saturation 60.5, Venous Blood Base Excess 0.3 02/21/19 02:40: Urine Color YELLOW, Urine Appearance CLEAR, Urine pH 5.0, Urine Specific [place] 1.018, Urine Protein 2+H, Urine Glucose (UA) 1+H, Urine Ketones NEGATIVE, Urine Blood NEGATIVE, Urine Nitrite NEGATIVE, Urine Bilirubin NEGATIVE, Urine Urobilinogen 0.2, Urine Leukocyte Esterase NEGATIVE, Urine WBC (Auto) 0, Urine RBC (Auto) 0, Urine Hyaline Casts (Auto) 4, Urine Bacteria (Auto) NEGATIVE, Urine Squamous Epithelial Cells 0, Urine Sperm (Auto) , Urine Amphetamines Screen NEGATIVE, Urine Benzodiazepines Screen NEGATIVE, Urine Opiates Screen NEGATIVE, Urine Methadone Screen NEGATIVE, Urine Barbiturates Screen NEGATIVE, Urine Phencyclidine Screen NEGATIVE, Urine Cocaine Metabolite Screen NEGATIVE, Urine Cannabinoids Screen NEGATIVE 02/21/19 05:27: Nucleated Red Blood Cells % (auto) 0.0, Anion Gap 5L, Glomerular Filtration Rate > 60.0, Blood Urea Nitrogen 13, Creatinine 0.96, Sodium Level 140, Potassium Level 4.2, Chloride Level 106, Carbon Dioxide Level 29, Calcium Level 8.0L, Troponin I 0.47H CBC/BMP Laboratory Tests 02/20/19 16:44 Red Blood Count 5.00, Mean Corpuscular Volume 86.0, Mean Corpuscular Hemoglobin 26.6 L, Mean Corpuscular Hemoglobin Concent 30.9 L, Red Cell Distribution Width 16.4 H, Neutrophils (%) (Auto) 68.6 H, Lymphocytes (%) (Auto) 22.1 L, Monocytes (%) (Auto) 5.6 H, Eosinophils (%) (Auto) 3.3 H, Basophils (%) (Auto) 0.2, Neutr ophils # (Auto) 3.9, Lymphocytes # (Auto) 1.3 L, Monocytes # (Auto) 0.3, Eosinophils # (Auto) 0.2, Basophils # (Auto) 0.0, Calcium Level 8.9, Total Creatine Kinase 54 02/21/19 05:27 Red Blood Count 4.46, Mean Corpuscular Volume 85.4, Mean Corpuscular Hemoglobin 26.7 L, Mean Corpuscular Hemoglobin Concent 31.2 L, Red Cell Distribution Width 16.4 H, Calcium Level 8.0 L My Harrell Feb 21, 2019 10:14 Bill Grimm MD Feb 21, 2019 13:38
[2019-02-21] MEDS ORDERED: **NOTE PATIENT COMMENT** MISC XX SCH (11:00)
--- NOTE | 2019-02-21 16:08 | REP ---
Bilateral carotid artery duplex ultrasound: Peak flow velocity analysis: RIGHT LEFT ICA Peak flow velocity cm/sec 179.0 59.5 ICA Diastolic flow velocity cm/sec 35.2 10.1 ICA/CCA Ratio 2.17 0.73 ECA Peak flow velocity cm/sec 102.0 107.0 CCA Peak flow velocity cm/sec 82.7 81.4 There is shallow diffuse atheromatous plaque bilaterally. There is a focal larger plaque at the origin of the right ICA. There is a focal mild plaque at the origin of the left ECA. The peak flow velocity at the origin of the right ICA is mildly elevated compatible with 50 - 69% stenosis. The peak flow velocities otherwise are normal indicating less than 50% stenosis. There is antegrade flow in the vertebral arteries bilaterally. Electronically Signed by Abdirahman Fan MD 02/21/2019 04:00 P
[2019-02-21 18:55] LABS: TROPONIN I 0.21 NG/ML (< 0.10)
[2019-02-21 19:25] LABS: ALBUMIN 2.9 GM/DL (3.2-5.2); BLOOD UREA NITROGEN 16 MG/DL (7-18); CALCIUM LEVEL 8.7 MG/DL (8.8-10.2); CARBON DIOXIDE LEVEL 25 MEQ/L (21-32); CHLORIDE LEVEL 107 MEQ/L (98-107); CREATININE FOR GFR 1.09 MG/DL (0.70-1.30); GLOMERULAR FILTRATION RATE > 60.0 (>42); GLUCOSE, FASTING 213 MG/DL (70-100); MAGNESIUM LEVEL 1.6 MG/DL (1.8-2.4); PHOSPHORUS LEVEL 2.2 MG/DL (2.5-4.9); POTASSIUM SERUM 4.1 MEQ/L (3.5-5.1); SODIUM LEVEL 139 MEQ/L (136-145)
[2019-02-21] MEDS ORDERED: MAG SULF 1GM/100ML (MAG RUN) 1 GM in IV 1 EA IV ONE (20:00)
[2019-02-21 20:02] LABS: ALBUMIN 2.7 GM/DL (3.2-5.2); BLOOD UREA NITROGEN 16 MG/DL (7-18); CALCIUM LEVEL 8.2 MG/DL (8.8-10.2); CARBON DIOXIDE LEVEL 25 MEQ/L (21-32); CHLORIDE LEVEL 107 MEQ/L (98-107); GLOMERULAR FILTRATION RATE > 60.0 (>42); GLUCOSE, FASTING 234 MG/DL (70-100); MAGNESIUM LEVEL 1.5 MG/DL (1.8-2.4); PHOSPHORUS LEVEL 1.9 MG/DL (2.5-4.9); POTASSIUM SERUM 4.3 MEQ/L (3.5-5.1); SODIUM LEVEL 139 MEQ/L (136-145)
[2019-02-21] MEDS ORDERED: FERROUS GLUCONATE 324 MG TAB PO SCH (21:00)
[2019-02-22 00:12] VITALS: BP 160/76
[2019-02-22 02:00] VITALS: BP 161/76
[2019-02-22] MEDS: HEPARIN SOD (PORCINE) 5000 UNITS/ML VIAL SC SCH (05:24)
[2019-02-22 06:00] VITALS: BP 160/76
[2019-02-22 06:13] LABS: BASO % 0.3 % (0.0-1.0); EOS # 0.3 10^3/uL (0.0-0.5); EOS % 5.7 % (0.0-3.0); HEMATOCRIT 37.5 % (42.0-52.0); LYMPH # 2.1 10^3/uL (1.5-5.0); MEAN CORPUSCULAR HEMOGLOBIN 27.1 pg (27.0-33.0); MEAN CORPUSCULAR VOLUME 84.8 fl (80.0-96.0); MONO # 0.6 10^3/uL (0.0-0.8); MONO % 9.2 % (0.0-5.0); NEUTROPHILS # 2.9 10^3/uL (1.5-8.5); NEUTROPHILS % 49.3 % (36.0-66.0); PLATELET COUNT, AUTOMATED 225 10^3/uL (150-450); RED BLOOD COUNT 4.42 10^6/uL (4.30-6.10)
[2019-02-22 06:42] LABS: ALBUMIN 2.7 GM/DL (3.2-5.2); ALT/SGPT 18 U/L (12-78); BILIRUBIN,TOTAL 0.3 MG/DL (0.2-1.0); BLOOD UREA NITROGEN 12 MG/DL (7-18); CALCIUM LEVEL 8.5 MG/DL (8.8-10.2); CARBON DIOXIDE LEVEL 26 MEQ/L (21-32); CHLORIDE LEVEL 107 MEQ/L (98-107); CREATININE FOR GFR 0.93 MG/DL (0.70-1.30); GLOMERULAR FILTRATION RATE > 60.0 (>42); GLUCOSE, FASTING 173 MG/DL (70-100); POTASSIUM SERUM 4.2 MEQ/L (3.5-5.1); SODIUM LEVEL 140 MEQ/L (136-145); TOTAL PROTEIN 6.2 GM/DL (6.4-8.2); TROPONIN I 0.19 NG/ML (< 0.10)
--- NOTE | 2019-02-22 07:55 | ECHO ---
TWO-DIMENSIONAL ECHOCARDIOGRAM REPORT DATE: 02/21/2019 REFERRING PHYSICIAN: Bhavana Harrell NP INDICATION: Chest pain. HEIGHT: 183 cm WEIGHT: 100 kg DIMENSIONS: IVS 1.6 LV 4.1 LVPW 1.3 LA 3.9 Aorta 3.2 Mitral E wave velocity 64 A wave 96 E prime septal 5.8 E prime lateral 9.1 FINDINGS: The study is of acceptable technical quality. The patient is in sinus rhythm. Left ventricle is of normal size and systolic function with estimated left ventricular ejection fraction (LVEF) 60-65%. Moderate left ventricular hypertrophy is noted. Right ventricle is normal size and systolic function. Left atrium appears at least mildly enlarged. Right atrium is normal size. Aortic valve has three cusps. It is minimally sclerotic but mobility is preserved. Same applies for mitral valve with minimal degenerative abnormalities but preserved mobility of mitral leaflets. Tricuspid and pulmonic valves appear normal. No pericardial effusion is present. Inferior vena cava was not visualized. Aortic root is normal. Aortic arch and abdominal aorta were not seen. Doppler interrogation of aortic valve reveals no stenosis or insufficiency. Same applies for mitral valve. There is trace tricuspid insufficiency. Calculated pulmonary artery pressure is in high 30s assuming normal central venous pressure. This is based on poor quality TR jet. Pulmonic valve is functionally competent. Mitral inflow pattern and tissue Doppler imaging of mitral annulus reveal grade 1 diastolic dysfunction. CONCLUSIONS: 1. Study is of acceptable technical quality. 2. Normal left ventricle (LV) size with moderate left ventricular hypertrophy (LVH) and preserved LV systolic function. Grade 1 diastolic dysfunction. 3. No hemodynamically significant valvular disease. 4. Unable to estimate central venous pressure. 5. At least mild pulmonary hypertension. COMMENT: SBE prophylaxis is not recommended. Study does not provide obvious explanation for chest discomfort. MTDD
[2019-02-22] MEDS: ATORVASTATIN 20 MG TAB PO SCH (08:17)
[2019-02-22] MEDS: HumaLOG INSULIN (NovoLOG) PER UNIT SC SCH (08:17)
[2019-02-22] MEDS: GABAPENTIN 400 MG CAP PO SCH (08:17)
--- NOTE | 2019-02-22 10:37 | DSES ---
DATE OF ADMISSION: 02/20/2019 DATE OF DISCHARGE: 02/22/2019 PCP: Dr. Bradley Henning ATTENDING PHYSICIAN: Dr. Bill Grimm HISTORY OF PRESENT ILLNESS: This is a 73-year-old male who presented to e commerce strategist' s office on 02/20/2019, he states he was not feeling well, some blood work had been drawn off of his [id number] and his blood pressure dropped to 70s systolic. Patient was subsequently sent to the emergency department for evaluation. Patient admits to anywhere from one to three bowel movements per day since his right hemicolectomy earlier this year. Patient's lisinopril and doxazosin were stopped in December secondary to lower blood pressures at that time. Patient was subsequently admitted to family medicine service. HOSPITAL COURSE: Patient was monitored on telemetry with no significant arrhythmias noted. Patient's blood pressure systolic at rest, has remained elevated in the 150s to as high as 200, however, patient had significant orthostasis with his pressure dropping to low 100s on standing. Patient denies any further symptoms with standing or ambulating. He has been able to walk to the bathroom and wash up on his own without difficulty. He denies further dizziness. Of note patient did have some mildly elevated troponins in the 0.4 range, these have trended down, most recent troponin was this morning with a 0.19 value. Patient did not have any EKG changes and echocardiogram was ordered and completed on 02/21/2019. It appears the patient had grade 1 diastolic dysfunction based on the report and some mild pulmonary hypertension, otherwise no valvular disorders are noted. His EF is 60-65%. Imaging completed during hospitalization includes carotid ultrasound which shows no acute abnormalities as well as a chest x-ray and a CT abdomen and pelvis both without any acute abnormalities. CT abdomen and pelvis did document multiple metastatic nodules throughout the right and left lobes of the liver and multiple bilateral renal cysts. PHYSICAL EXAMINATION: On physical exam today patient is anxious to leave the facility. His son is ill with a brain tumor and needs to get to an appointment today in [place] so we are going to go ahead and let him go home to care for his son. Vital signs: Stable. Blood pressure this morning is 160/76, heart rate is 72, respiratory rate is 18, temperature is 96.4, oxygen saturation is 97% on room air. HEENT: Neck is supple without lymphadenopathy or jugular venous distention (JVD). CARDIOVASCULAR: Heart rate and rhythm are regular. PULMONARY: Lungs are clear. ABDOMEN: Soft and nontender. EXTREMITIES: Bilateral lower extremities are without any edema. NEURO: Patient is alert and oriented times three. PSYCH: Affect is appropriate. Conversation is congruent. Patient is mildly anxious to leave the facility. ASSESSMENT: 1. Discharge diagnoses near syncope secondary to hypotension. 2. Recurrent diarrhea. 3. Orthostatic hypotension. SECONDARY DIAGNOSES INCLUDE: 1. Diabetes. 2. Iron deficiency anemia. 3. Chronic pain. 4. Hyperlipidemia. PLAN: Patient will be discharged to home. Diet is as tolerated. Activity is as tolerated. Medications are as follows: - atorvastatin 40 mg by mouth daily - duloxetine 30 mg by mouth at bedtime - ferrous gluconate 324 by mouth every evening - gabapentin 800 mg one by mouth twice a day with 400 mg in the morning Patient's diabetic medications are currently on hold as he was hypoglycemic on presentation to the hospital with a blood sugar of 65. His most recent hemoglobin A1c was 5.4. Diabetic medications will be followed up with primary care physician (PCP) at his followup. Patient was advised to monitor his sugars while he is out of the facility and to contact his provider if they continue to increase. Patient is discharged in stable and satisfactory condition with no further questions at time of discharge.
[2019-02-28] MEDS ORDERED: NOVO70VL (08:27)
[2019-02-28] MEDS ORDERED: ONDA8TAB10 PO (09:12)
[2019-03-14] MEDS ORDERED: METF850T4 PO (08:46)
[2019-03-20] MEDS ORDERED: ONDA8TAB10 PO (13:32)
[2019-04-11] MEDS ORDERED: VIRT1TAB8 PO (08:41)
== END 2019-02-22 08:40 | disposition home or self-care (01) ==
LOC: M ED 15:50 → EDBD 15:50 → M ED INP 15:51 → M MSPAV 23:20
PROVIDERS: ADMIT Internal Medicine; ATTEND Family Medicine
DX: R55 Syncope and collapse (principal); R19.7 Diarrhea, unspecified; E86.0 Dehydration; R74.8 Abnormal levels of other serum enzymes; E11.21 Type 2 diabetes mellitus with diabetic nephropathy; E11.319 Type 2 diabetes mellitus with unspecified diabetic retinopathy without macular edema; D50.9 Iron deficiency anemia, unspecified; G89.29 Other chronic pain; E78.49 Other hyperlipidemia; Z79.4 Long term (current) use of insulin; G47.30 Sleep apnea, unspecified; Z90.49 Acquired absence of other specified parts of digestive tract; Z85.038 Personal history of other malignant neoplasm of large intestine
CPT/HCPCS: 36415; 71045; 74176; 80053; 80069; 80307; 81001; 82550; 82553; 82803; 83735; 84439; 84443; 84484; 85025; 85027; 85610; 93005; 93041; 93306; 93880; 96361; 96372; 96374; 99285; G0378; G0480; J3475

== ENCOUNTER → 2019-05-15 | Outpatient (CLI) | payer MEDICARE ==
[~2019-05-15] MED LIST changes: +GASTROGRAFIN SOLUTION 30ML (Q9963) As Ordered ONE; +GLIM4TAB3 PO; -GLIM4TAB5 PO; +ISOVUE-370 76% 100ML VIAL (Q9967) As Ordered ONE; +METF850T4 PO; +NOVO70VL; +ONDA8TAB7 PO; +VIRT1TAB8 PO
--- NOTE | 2019-05-15 13:20 | REP ---
Clinical: History of colon cancer. Restaging. Technique: Axial contrast enhanced images from the lung bases to the pubic symphysis using oral (per protocol) and 100 ml Isovue 370 intravenous contrast material with coronal and sagittal re-formations. Delayed images of the abdomen obtained. Comparison: 02/20/2019, 10/28/2018 Findings: Low density lesions scattered throughout the liver are again noted and suggest metastatic disease which may be slightly more pronounced than prior examination. Spleen, pancreas, gallbladder, and bilateral adrenal glands are normal. The renal cystic disease again noted and unchanged. Evidence for prior right hemicolectomy. Residual small and large bowel without obvious obstruction or acute process. Pelvis demonstrates mildly prominent prostate gland along with normal bladder. No ascites. No free air. No obvious adenopathy. Abdominal aorta and vasculature without aneurysm or dissection. Skeletal structures demonstrate age-related degenerative changes without focal abnormality. Lung bases demonstrate right basilar atelectasis. Impression: 1. Innumerable low density lesions scattered throughout the liver similar to prior examination and most compatible with metastatic disease. 2. Stable polycystic kidney disease. 3. Mild prostatomegaly. 4. No ascites. No obvious adenopathy. 5. Evidence of prior right hemicolectomy. Electronically Signed by Lalo Rubi MD 05/15/2019 01:11 P
--- NOTE | 2019-05-15 13:26 | REP ---
Clinical: Colon cancer. Restaging. Technique: Axial contrast enhanced images from the thoracic inlet to the upper abdomen with coronal and sagittal re-formations using 100 ml Isovue 370 intravenous contrast material. Comparison: None. Findings: Mild right basilar atelectasis is appreciated. Few small scattered primarily calcified nodules noted measuring up to 2 mm which are nonspecific. A 3 mm noncalcified nodule in the right base (image 45) cannot be excluded. No axillary, hilar, or mediastinal adenopathy. Atherosclerotic changes to the thoracic aorta and coronary arteries noted without aortic aneurysm or dissection. No cardiomegaly or pericardial effusion. Incomplete evaluation of the upper abdomen demonstrates presumed innumerable mucinous metastatic lesions scattered throughout the liver. Renal cystic disease noted. Adrenal glands appear normal. Impression: 1. Mild right basilar atelectasis. 2. 3 mm noncalcified nodule in the right base inseparable from the atelectasis and diaphragm. Findings may warrant short-term follow-up examination at 3 months. Electronically Signed by Lalo Rubi MD 05/15/2019 01:18 P
== END ==
LOC: M RAD 11:00
PROVIDERS: ATTEND Internal Medicine Hematology
DX: K76.89 Other specified diseases of liver (principal); N40.1 Benign prostatic hyperplasia with lower urinary tract symptoms; R91.1 Solitary pulmonary nodule; J98.11 Atelectasis; C18.9 Malignant neoplasm of colon, unspecified
CPT/HCPCS: 71260; 74177; Q9963; Q9967

== ENCOUNTER → 2019-05-30 | Outpatient (CLI) | payer MEDICARE ==
[~2019-05-30] MED LIST changes: -GASTROGRAFIN SOLUTION 30ML (Q9963) As Ordered ONE; -GLIM4TAB3 PO; +GLIM4TAB5 PO; -ISOVUE-370 76% 100ML VIAL (Q9967) As Ordered ONE; +ONDA8TAB10 PO; -ONDA8TAB7 PO
== END ==
LOC: M RAD 14:30
PROVIDERS: ATTEND Internal Medicine Hematology
DX: Z53.9 Procedure and treatment not carried out, unspecified reason (principal)

== ENCOUNTER → 2019-06-20 | Outpatient (REF) | payer MEDICARE ==
[2019-06-20 12:36] LABS: ALBUMIN 3.2 GM/DL (3.2-5.2); ALT/SGPT 22 U/L (12-78); BILIRUBIN,TOTAL 0.4 MG/DL (0.2-1.0); BLOOD UREA NITROGEN 20 MG/DL (7-18); CALCIUM LEVEL 9.1 MG/DL (8.8-10.2); CARBON DIOXIDE LEVEL 30 MEQ/L (21-32); CHLORIDE LEVEL 105 MEQ/L (98-107); CHOLESTEROL LEVEL 205 MG/DL (<200); CHOLESTEROL RISK RATIO 3.416 (<5); CREATININE FOR GFR 1.09 MG/DL (0.70-1.30); FREE T4 1.07 NG/DL (0.76-1.46); GLOMERULAR FILTRATION RATE > 60.0 (>42); GLUCOSE, FASTING 198 MG/DL (70-100); HDL CHOLESTEROL 60 MG/DL (>40); LDL CHOLESTEROL 76 MG/DL (<100); NON-HDL-C 145 MG/DL; POTASSIUM SERUM 4.3 MEQ/L (3.5-5.1); SODIUM LEVEL 141 MEQ/L (136-145); TOTAL PROTEIN 6.4 GM/DL (6.4-8.2); TRIGLYCERIDES LEVEL 346 MG/DL (<150)
[2019-06-20 12:48] LABS: HEMOGLOBIN A1c 7.5 %
== END ==
LOC: M SFHCCLAY 08:43
PROVIDERS: ATTEND Family Medicine
DX: I10 Essential (primary) hypertension (principal); E11.8 Type 2 diabetes mellitus with unspecified complications; E78.2 Mixed hyperlipidemia; C18.9 Malignant neoplasm of colon, unspecified

== ENCOUNTER 2019-08-10 13:59 | Emergency (ER) | payer MEDICARE ==
[~2019-08-10] VITALS: Ht 182.9 cm; Wt 97.7 kg
[2019-08-10] MEDS ORDERED: ADACEL/BOOSTRIX VACCINE (DIPHTH/PERTUSS/ACELL/TETANUS)0.5ML SYR (90715) IM ONE (14:45)
[2019-08-10 15:12] LABS: BLOOD UREA NITROGEN 11 MG/DL (7-18); CALCIUM LEVEL 8.9 MG/DL (8.8-10.2); CARBON DIOXIDE LEVEL 27 MEQ/L (21-32); CHLORIDE LEVEL 106 MEQ/L (98-107); CK-MB VALUE MASS 2.4 NG/ML (<3.6); CPK CREATINE PHOSPHOKINASE 63 U/L (39-308); CREATININE FOR GFR 1.09 MG/DL (0.70-1.30); GLOMERULAR FILTRATION RATE > 60.0 (>42); GLUCOSE, FASTING 131 MG/DL (70-100); MAGNESIUM LEVEL 1.9 MG/DL (1.8-2.4); MB/CK RELATIVE INDEX 3.81 (< OR =4); POTASSIUM SERUM 4.3 MEQ/L (3.5-5.1); SODIUM LEVEL 140 MEQ/L (136-145); TROPONIN I < 0.02 NG/ML (< 0.10)
[2019-08-10 15:48] LABS: BASO % 0.2 % (0.0-1.0); EOS % 0.4 % (0.0-3.0); HEMATOCRIT 38.5 % (42.0-52.0); HEMOGLOBIN 12.9 g/dl (13.5-17.5); LYMPH # 1.1 10^3/uL (1.5-5.0); LYMPH % 22.6 % (24.0-44.0); MEAN CORPUSCULAR HEMOGLOBIN 34.7 pg (27.0-33.0); MEAN CORPUSCULAR HGB CONC 33.5 g/dl (32.0-36.5); MEAN CORPUSCULAR VOLUME 103.5 fl (80.0-96.0); MONO # 0.3 10^3/uL (0.0-0.8); MONO % 7.1 % (0.0-5.0); NEUTROPHILS # 3.4 10^3/uL (1.5-8.5); NEUTROPHILS % 69.5 % (36.0-66.0); PLATELET COUNT, AUTOMATED 128 10^3/uL (150-450); RED BLOOD COUNT 3.72 10^6/uL (4.30-6.10); WHITE BLOOD COUNT 4.8 10^3/uL (4.0-10.0)
--- NOTE | 2019-08-10 16:00 | REP ---
KUB ABDOMEN AND PELVIS: Two KUB films of abdomen and pelvis performed. Mild air and fecal material is seen throughout the colon. There is a single mildly dilated small bowel loop in the left mid abdomen. There are mild degenerative changes of the spine. There are vascular calcifications in the pelvis. There are mild degenerative changes of the hips. IMPRESSION: Single mildly dilated small bowel loop in the left mid abdomen is of doubtful significance. Could represent a mild focal ileus. There is mild scattered air and fecal material throughout the colon. Electronically Signed by Abdirahman Kenny MD 08/10/2019 05:45 P
[2019-08-10] MEDS ORDERED: ISOVUE-370 76% 100ML VIAL (Q9967) As Ordered ONE (18:02)
--- NOTE | 2019-08-10 18:40 | REPVR ---
PROCEDURE INFORMATION: Exam: CT Abdomen And Pelvis With Contrast Exam date and time: 08/10/2019 5:54 PM Age: 74 years old Clinical indication: Abdominal pain; Additional info: Lower abdominal pain; ? Obstructive process; ? Mass TECHNIQUE: Imaging protocol: Computed tomography of the abdomen and pelvis with intravenous contrast. Radiation optimization: All CT scans at this facility use at least one of these dose optimization techniques: automated exposure control; mA and/or kV adjustment per patient size (includes targeted exams where dose is matched to clinical indication); or iterative reconstruction. Contrast material: ISOVUE 370; Contrast volume: 100 ml; Contrast route: IV; COMPARISON: CT ABD PELVIS WITH CONTRAST 05/15/2019 12:55 PM FINDINGS: Lungs: Calcified granuloma right upper lobe. Elevated right hemidiaphragm. Atelectasis right lung base. Liver: There is a diffuse decrease in hepatic parenchymal density, consistent with steatosis. Multiple hepatic hypodensities again redemonstrated throughout the liver which are similar in size in comparison to 05/15/2019. Although some of the lesions may be cystic others have a more solid appearance. Correlation with ultrasound or MRI suggested if clinically desired. Gallbladder and bile ducts: Normal. No calcified stones. No ductal dilation. Pancreas: There is diffuse pancreatic atrophy. Spleen: Normal. No splenomegaly. Adrenals: Normal. No mass. Kidneys and ureters: Multiple bilateral renal cysts including a lobular septated cyst in the lower pole of the left kidney (Bosniak type 2 lesion) stable in appearance in comparison to the prior study. Stomach and bowel: Status post right hemicolectomy. There is increased fluid demonstrated in the proximal colon consistent with diarrhea possibly postobstructive within increased fecal load demonstrated in the distal left colon. No mass demonstrated. Appendix: No evidence of appendicitis. Intraperitoneal space: Unremarkable. No free air. No significant fluid collection. Vasculature: The aorta demonstrates mild atherosclerotic calcification. Lymph nodes: Unremarkable. No enlarged lymph nodes. Bladder: Unremarkable as visualized. Reproductive: The prostate gland demonstrates mild hyperplasia. Bones/joints: Moderate central spinal stenosis L2-L3, moderate to severe central spinal stenosis L3-L4, severe central spinal stenosis L4-L5 and L5-S1. Lumbarized 1st sacral segment. The spine demonstrates moderate degenerative changes. Soft tissues: There is a small umbilical hernia. There is no evidence of incarceration. There is a small supraumbilical hernia demonstrating increased density within the herniated fat, findings which may indicate the presence of incarceration (see series 201, image 93). IMPRESSION: 1. There is a diffuse decrease in hepatic parenchymal density, consistent with steatosis. 2. Multiple hepatic hypodensities again redemonstrated throughout the liver which are similar in size in comparison to 05/15/2019. Correlation with ultrasound or MRI suggested as described above if clinically desired. 3. There is diffuse pancreatic atrophy. 4. Multiple bilateral renal cysts including a lobular septated cyst in the lower pole of the left kidney (Bosniak type 2 lesion) stable in appearance in comparison to the prior study. 5. There is a small supraumbilical hernia demonstrating increased density within the herniated fat, findings which may indicate the presence of incarceration. 6. There is increased fluid demonstrated in the proximal colon consistent with diarrhea possibly postobstructive within increased fecal load demonstrated in the distal left colon. No mass demonstrated. 7. Mild prostatic hyperplasia. Electronically signed by: Rogelio Kumar On 08/10/2019 18:39:55 PM
[2019-08-10 20:45] VITALS: BP 135/64
[2019-08-10] MEDS ORDERED: MIRA3350 PO (21:05)
--- NOTE | 2019-08-11 18:39 | ECGEPIP ---
[facility] - ED Test Date: 2019-08-10 Pat Name: LORE CHESTER Department: Room: - Gender: Male [employer]: : [id number] Requested By: YANNA CANTOR Order Number: [id number] Reading MD: Betsy Epps Measurements Intervals Davis Rate: 77 P: 60 TN: 160 QRS: -35 QRSD: 101 T: 96 QT: 394 QTc: 446 Interpretive Statements SINUS RHYTHM WITH SINUS ARRHYTHMIA MARKED LEFT AXIS DEVIATION ST DEVIATION AND MODERATE T-WAVE ABNORMALITY, CONSIDER ISCHEMIA INCREASED RATE 02/20/19 Electronically Signed on 08-11-2019 18:38:37 EDT by Betsy Epps
--- NOTE | 2019-08-13 08:46 | ED PDOC ---
Post-Departure Follow-Up ct abd/p faxed to dr chand for fu Maura Zhu MD Aug 13, 2019 08:46
== END 2019-08-10 21:34 | disposition home or self-care (01) ==
LOC: M ED 13:59
DX: R55 Syncope and collapse (principal); K59.00 Constipation, unspecified; R91.8 Other nonspecific abnormal finding of lung field; J98.11 Atelectasis; N28.1 Cyst of kidney, acquired; N40.1 Benign prostatic hyperplasia with lower urinary tract symptoms; C18.9 Malignant neoplasm of colon, unspecified; I10 Essential (primary) hypertension; E11.9 Type 2 diabetes mellitus without complications; Z91.018 Allergy to other foods
CPT/HCPCS: 36415; 74018; 74177; 80048; 82550; 82553; 83735; 84443; 84484; 85025; 90715; 93005; 93041; 94760; 96372; 99285; Q9967

== ENCOUNTER → 2019-09-19 | Outpatient (CLI) | payer MEDICARE ==
[~2019-09-19] MED LIST changes: +BISA1TAB PO; +DOXY-350 PO; +MIRA3350 PO; +MM S100C PO
--- NOTE | 2019-09-19 15:33 | REP ---
REASON FOR EXAM: History of colonic malignancy. Supine and upright views of the abdomen were obtained and compared to the KUB of 08/10/2019. The intestinal gas pattern is nonspecific. There is no free air. The organ silhouettes are unchanged. The osseous structures are unchanged. IMPRESSION: No significant change. Electronically Signed by Paul Pederson DO 09/19/2019 03:36 P
== END ==
LOC: M RAD 13:34
PROVIDERS: ATTEND Internal Medicine Hematology
DX: C18.2 Malignant neoplasm of ascending colon (principal)

== ENCOUNTER → 2019-10-02 | Outpatient (CLI) | payer MEDICARE ==
--- NOTE | 2019-10-02 19:41 | ECHO ---
DATE OF PROCEDURE: 10/02/2019 REFERRING PHYSICIAN: Dr. Roberto Carlos Jackson INDICATION: Chemotherapy for colon cancer. Height 185 cm, weight 92 kg. DIMENSIONS: IVS: 1.4 LV: 4.6 LVPW: 1.4 LA: 3.3 Aorta: 3.2 Mitral E wave velocity: 41 A wave: 89 E prime septal: 6.5 E prime lateral: 8.6 FINDINGS: The study is of rather limited technical quality with challenging visualization. The patient is in sinus rhythm. Left ventricle is normal size. Mild to moderate left ventricular hypertrophy is present. Basal segments of left ventricle appear to have normal contractility, but apical and mid segments were very poorly visualized, and I cannot provide reliable comment on the systolic function. Right ventricle appears grossly normal size. Both atria appear grossly normal. Aortic valve is mildly sclerotic, but it has three cusps and preserved mobility. Mitral, tricuspid valve appear normal. Pulmonic valve was not well seen. No pericardial effusion is noted. Inferior vena cava was not well seen. Aortic root is normal. Aortic arch and abdominal aorta were not well visualized. Doppler interrogation reveals no significant valvular disease, all four valves were reasonably well competent and not stenotic. Mitral inflow pattern and tissue Doppler imaging of mitral annulus revealed grade 1 diastolic dysfunction. Global longitudinal strain was reported as negative 10.9%, but this is based on poor visualization and consequently should not be considered reliable. CONCLUSIONS: 1. Study is of fair technical quality with difficult visualization. 2. Normal left ventricular (LV) size with mild to moderate left ventricular hypertrophy (LVH). I am unable to reliably comment on left ventricular systolic function due to poor visualization of apical and mid segments of left ventricle. Basal segments have normal contractility. Grade 1 diastolic dysfunction. 3. No significant valvular disease. 4. Unable to estimate central venous pressure and pulmonary artery pressure. COMMENT: Study is most consistent with hypertensive heart disease. If precise knowledge of left ventricular systolic function is important for guidance for chemotherapy, I do recommend that the patient has alternative imaging, most likely a MUGA scan. [facility]
== END ==
LOC: M CARPUL 10:21
PROVIDERS: ATTEND Internal Medicine Hematology
DX: C18.8 Malignant neoplasm of overlapping sites of colon (principal); Z79.899 Other long term (current) drug therapy

== ENCOUNTER → 2019-10-03 | Outpatient (CLI) | payer MEDICARE ==
--- NOTE | 2019-10-03 14:09 | REP ---
PET/CT: HISTORY: Restaging colon cancer. Stage IV, metastatic to liver and lung. Chemotherapy. Comparison CT study is from August 10, 2019. TECHNIQUE: 45 minutes following the intravenous injection of a 9.02 mCi dose of F-18 FDG, three-dimensional PET scintigraphy is acquired from the skull base to the proximal thighs. Triplanar noncontrast CT scanning is acquired through the same anatomic range for attenuation correction, and image registration with scan parameters optimized to minimize radiation exposure to the patient. PET scintigraphy and CT datasets were fused and displayed on a workstation with multiplanar and projection display capability. PET/CT FINDINGS: Head and neck soft tissues are unremarkable. There is no abnormal hypermetabolic uptake within the thorax. A right sided [id number] catheter is noted. There is coarse plate-like atelectasis in the right base. Right hemidiaphragm is somewhat elevated. In the abdomen and pelvis, there is normal hepatic, splenic, gastrointestinal and genitourinary MDT accumulation. No abnormal hypermetabolic uptake is seen in the liver. Multiple low-density liver lesions show no evidence of increased uptake. There are multiple renal cysts. Prior right hemicolectomy. No abnormal rye hypermetabolic uptake is seen in the abdomen or pelvis. No abnormal hypermetabolic uptake is seen within the pelvis. No abnormal skeletal hypermetabolic focus is seen. IMPRESSION: Negative PET scintigraphy. No abnormal hypermetabolic uptake is appreciated. Electronically Signed by Jarod Oakes MD 10/03/2019 03:47 P
== END ==
LOC: M PLARAD 09:33
PROVIDERS: ATTEND Internal Medicine Hematology
DX: C18.2 Malignant neoplasm of ascending colon (principal)
CPT/HCPCS: 78815; A9552

== ENCOUNTER → 2019-11-10 | Outpatient (CLI) | payer MEDICARE ==
[~2019-11-10] MED LIST changes: +AMLO1TAB24 PO; +AMLO1TAB25 PO; -AMLO5TAB6 PO; +ATEN25TA PO; +BISA5TAB15 PO; +CEFD300CAP PO; +COLA100C5 PO; +DULC5TAB PO; +FERR1TAB8 PO; +LEVA750T7 PO; +LISI10TA22 PO; -LISI10TA4 PO; +LOMO2.5T PO; +MIDO2.5T PO; +MIRA1POW3 PO; +NORV5TAB PO; -NOVO70VL; +NYST5000 PO; +NYST50SS PO; +OMEP-218 PO; +PROC10TA4 PO; +PROHANCE 279.3MG/ML 15ML VIAL As Ordered ONE; +SULF1TAB93 PO; +XARE15TA PO; +ZYVO1TAB PO; +[UNRECOGNIZED DRUG - REMARK]
--- NOTE | 2019-11-11 10:01 | REP ---
MRI BRAIN WITHOUT AND WITH IV GADOLINIUM: HISTORY: Stage IV colorectal cancer. Unsteady gait. TECHNIQUE: Axial and sagittal imaging planes are utilized for T1- and T2-weighted scans. Sequences include spin-echo, fast spin echo, FLAIR, and diffusion weighted sequences. Gadolinium enhancement dose is 9 mL of intravenous ProHance. MRI FINDINGS: Bony calvarium is intact. Craniocervical junction and upper cervical cord are normal in appearance. There is no MR evidence of significant paranasal sinus disease. Deep facial and skull base soft tissues are unremarkable. No intraorbital abnormalities appreciated. There is no MR evidence of mass lesion. No abnormal gadolinium enhancement is appreciated. There are mild small vessel changes, and there is mild diffuse generalized volume loss. Postcontrast study shows enhancement in normal vasculature. No abnormal intracranial contrast enhancement is seen. IMPRESSION: There is no evidence of intracranial metastasis. Mild small vessel changes and generalized volume loss. Electronically Signed by Jarod Oakes MD 11/11/2019 10:34 A
== END ==
LOC: M RAD 14:16
PROVIDERS: ATTEND Internal Medicine Hematology & Oncology
DX: C18.2 Malignant neoplasm of ascending colon (principal)
CPT/HCPCS: 70553; A9576

== ENCOUNTER 2020-01-20 04:42 | Emergency (ER) | payer MEDICARE ==
[~2020-01-20] VITALS: Ht 182.9 cm; Wt 90.9 kg
[~2020-01-20 04:42] MED LIST changes: -AMLO1TAB25 PO; -ATEN25TA PO; -BISA5TAB15 PO; -CEFD300CAP PO; -DULC5TAB PO; -FERR1TAB8 PO; -LEVA750T7 PO; -LISI10TA22 PO; +LISI10TA4 PO; -LOMO2.5T PO; -MIRA1POW3 PO; -NORV5TAB PO; -NYST5000 PO; -NYST50SS PO; -OMEP-218 PO; -PROC10TA4 PO; -PROHANCE 279.3MG/ML 15ML VIAL As Ordered ONE; -SULF1TAB93 PO; -XARE15TA PO; -ZYVO1TAB PO; -[UNRECOGNIZED DRUG - REMARK]
[2020-01-20] MEDS ORDERED: OMEP-218 PO (05:11)
[2020-01-20] MEDS ORDERED: PROC10TA4 PO (05:11)
[2020-01-20] MEDS ORDERED: NS 1,000 ML IV ONE (05:15)
[2020-01-20 05:45] LABS: CALCIUM LEVEL 8.5 MG/DL (8.8-10.2); CREATININE FOR GFR 1.43 MG/DL (0.70-1.30); GLOMERULAR FILTRATION RATE 51.6 (>42); POTASSIUM SERUM 4.4 MEQ/L (3.5-5.1)
[2020-01-20 06:10] VITALS: BP 155/64
--- NOTE | 2020-02-06 14:52 | ECGEPIP ---
[facility] - ED Test Date: 2020-01-20 Pat Name: LORE CHESTER Department: Room: - Gender: Male [place]ter: NATASHA MANNB: 1945 Requested By: NAGI WEAVER Order Number: [id number] Reading MD: Betsy Epps Measurements Intervals [place] Rate: 90 P: 38 NE: 166 QRS: -24 QRSD: 101 T: 78 QT: 346 QTc: 424 Interpretive Statements SINUS RHYTHM WITH SINUS ARRHYTHMIA BORDERLINE LEFT AXIS DEVIATION NONSPECIFIC ST & T-WAVE ABNORMALITY BORDERLINE ECG SEE SCANNED DOWNTIME REPORT
== END 2020-01-20 06:21 | disposition home or self-care (01) ==
LOC: M ED 04:42
DX: I95.1 Orthostatic hypotension (principal); E11.9 Type 2 diabetes mellitus without complications; Z79.899 Other long term (current) drug therapy; Z79.4 Long term (current) use of insulin; Z91.018 Allergy to other foods

== ENCOUNTER 2020-01-24 22:50 | Inpatient (IN) | payer MEDICARE ==
[~2020-01-24] VITALS: Ht 185.4 cm; Wt 94.5 kg
[~2020-01-24 22:50] MED LIST changes: +OMEP-218 PO; +PROC10TA4 PO
--- NOTE | 2020-01-24 23:42 | REPVR ---
PROCEDURE INFORMATION: Exam: CT Head Without Contrast Exam date and time: 01/24/2020 11:13 PM Age: 74 years old Clinical indication: Injury or trauma; Fall; Initial encounter; Concussion / head injury; Consciousness not specified; Additional info: Dizziness, HX stage 4 colon CA TECHNIQUE: Imaging protocol: Computed tomography of the head without contrast. Radiation optimization: All CT scans at this facility use at least one of these dose optimization techniques: automated exposure control; mA and/or kV adjustment per patient size (includes targeted exams where dose is matched to clinical indication); or iterative reconstruction. COMPARISON: CT Head without contrast 05/26/2016 11:55 AM FINDINGS: Brain: No acute intracranial hemorrhage is visualized. The white-hernandez differentiation is preserved demonstrating no acute territorial type infarct. There are periventricular foci of white matter hypodensity, likely representing small vessel ischemic disease in a patient this age. The acuity of the white matter disease is indeterminate. There is no midline shift. Artifact limits evaluation of the ying. No intracranial mass effect. Ventricles: There is mild prominence of the ventricles and sulci, compatible with atrophy. Bones/joints: The calvarium demonstrates no evidence for a depressed fracture. Sinuses: Visualized sinuses are unremarkable. No fluid levels. Mastoid air cells: No mastoid effusion. Orbits: Bilateral orbital lens implants. Vasculature: Intracranial atherosclerosis visualized. Soft tissues: Minimal stable increased density involving the left frontal scalp. IMPRESSION: 1. No acute intracranial hemorrhage or acute territorial type infarct. 2. There are periventricular foci of white matter hypodensity, likely representing small vessel ischemic disease in a patient this age. 3. Mild atrophy. 4. Additional findings described above. Electronically signed by: Frederic Coles On 01/24/2020 23:42:02 PM
[2020-01-24] MEDS ORDERED: ACETAMINOPHEN TAB 650MG DOSE (2X325MG) PO ONE (23:45)
[2020-01-24] MEDS ORDERED: NS 500 ML IV ONE (23:45)
[2020-01-24 23:54] LABS: BASO % 0.1 % (0.0-1.0); HEMATOCRIT 39.2 % (42.0-52.0); HEMOGLOBIN 12.8 g/dl (13.5-17.5); LYMPH # 0.4 10^3/uL (1.5-5.0); LYMPH % 2.6 % (24.0-44.0); MEAN CORPUSCULAR HEMOGLOBIN 32.4 pg (27.0-33.0); MEAN CORPUSCULAR HGB CONC 32.7 g/dl (32.0-36.5); MEAN CORPUSCULAR VOLUME 99.2 fl (80.0-96.0); MONO # 1.1 10^3/uL (0.0-0.8); MONO % 6.4 % (0.0-5.0); NEUTROPHILS % 89.9 % (36.0-66.0); PLATELET COUNT, AUTOMATED 339 10^3/uL (150-450); RED BLOOD COUNT 3.95 10^6/uL (4.30-6.10); WHITE BLOOD COUNT 16.7 10^3/uL (4.0-10.0)
--- NOTE | 2020-01-25 00:13 | REPVR ---
PROCEDURE INFORMATION: Exam: XR Chest, 1 View Exam date and time: 01/24/2020 11:49 PM Age: 74 years old Clinical indication: Other: Fuo TECHNIQUE: Imaging protocol: XR of the chest Views: 1 view. COMPARISON: CT Chest with contrast 05/15/2019 12:55 PM FINDINGS: Tubes, catheters and devices: A right-sided Port-A-Cath is identified. Lungs: Mild bibasilar atelectatic changes. A small nodule was previously described at the right lung base on the previous CT, although not well visualized on the current x-ray. CT has increased sensitivity for the detection of pulmonary nodules. Mild prominence of the pulmonary vascular markings. Pleural space: No pleural effusion. No pneumothorax. Heart/Mediastinum: The right heart border is partially obscured. Diaphragm: Elevation of the right hemidiaphragm again visualized. Bones/joints: Hypertrophic degenerative changes are noted involving the spine. A circular radiopacity is identified at the level of the mid to lower thoracic spine within the midline chest, which may be postoperative or overlying the patient. IMPRESSION: 1. Elevation of the right hemidiaphragm again visualized. 2. Mild bibasilar atelectatic changes. 3. A small nodule was previously described at the right lung base on the previous CT, although not well visualized on the current x-ray. CT has increased sensitivity for the detection of pulmonary nodules. A follow-up chest CT is suggested. 4. Mild prominence of the pulmonary vascular markings. Electronically signed by: Frederic Coles On 01/25/2020 00:13:06 AM
[2020-01-25 00:32] LABS: ALBUMIN 2.9 GM/DL (3.2-5.2); ALT/SGPT 16 U/L (12-78); BILIRUBIN,DIRECT 0.3 MG/DL (0.0-0.2); BILIRUBIN,TOTAL 0.9 MG/DL (0.2-1.0); BLOOD UREA NITROGEN 23 MG/DL (7-18); CALCIUM LEVEL 9.1 MG/DL (8.8-10.2); CARBON DIOXIDE LEVEL 27 MEQ/L (21-32); CHLORIDE LEVEL 96 MEQ/L (98-107); CREATININE FOR GFR 1.69 MG/DL (0.70-1.30); GLOMERULAR FILTRATION RATE 42.6 (>42); GLUCOSE, FASTING 453 MG/DL (70-100); POTASSIUM SERUM 5.1 MEQ/L (3.5-5.1); SODIUM LEVEL 132 MEQ/L (136-145); TOTAL PROTEIN 7.3 GM/DL (6.4-8.2)
[2020-01-25] MEDS: SODIUM CHLORIDE 0.9% INJ 10 ML SYR IV PRN ×2 (00:54→04:20)
[2020-01-25] MEDS ORDERED: HumuLIN R (REGULAR) INSULIN (NovoLIN R) **100U/ML** PER UNIT SC ONE (02:00)
[2020-01-25] MEDS ORDERED: BISA5TAB13 PO (02:22)
[2020-01-25] MEDS ORDERED: DEXTROSE 50% 50 ML SYRINGE IV PRN (02:30)
[2020-01-25] MEDS ORDERED: MAALOX 30 ML SUSP *UDC PO PRN (02:30)
[2020-01-25] MEDS ORDERED: GLUCOSE 4GM CHEW TABLET PO PRN (02:30)
[2020-01-25] MEDS ORDERED: MOM 30ML SUSPENSION UDC PO PRN (02:30)
[2020-01-25] MEDS ORDERED: GLUCAGON INJ 1MG VIAL SC PRN (02:30)
[2020-01-25] MEDS ORDERED: cefTRIAXone SOD 2 GM VIAL (J0696 PER 250MG) IM SCH (02:30)
[2020-01-25] MEDS ORDERED: NOVO70VL SC (02:31)
[2020-01-25] MEDS ORDERED: FERR1TAB8 PO (02:31)
[2020-01-25] MEDS ORDERED: MIRA1POW3 PO (02:31)
[2020-01-25] MEDS ORDERED: cefTRIAXone SOD 2 GM in D5W MINI-BAG PLUS 50 ML IV ONE (02:45)
[2020-01-25 02:59] LABS: HEMOGLOBIN A1c 7.5 %
[2020-01-25 03:19] LABS: BASO % 0.1 % (0.0-1.0); HEMATOCRIT 34.3 % (42.0-52.0); HEMOGLOBIN 11.4 g/dl (13.5-17.5); LYMPH # 0.8 10^3/uL (1.5-5.0); LYMPH % 4.7 % (24.0-44.0); MEAN CORPUSCULAR HEMOGLOBIN 32.9 pg (27.0-33.0); MEAN CORPUSCULAR HGB CONC 33.2 g/dl (32.0-36.5); MEAN CORPUSCULAR VOLUME 99.1 fl (80.0-96.0); MONO # 1.5 10^3/uL (0.0-0.8); MONO % 8.2 % (0.0-5.0); NEUTROPHILS # 15.5 10^3/uL (1.5-8.5); NEUTROPHILS % 86.4 % (36.0-66.0); PLATELET COUNT, AUTOMATED 319 10^3/uL (150-450); RED BLOOD COUNT 3.46 10^6/uL (4.30-6.10); WHITE BLOOD COUNT 17.9 10^3/uL (4.0-10.0)
[2020-01-25 03:23] LABS: FERRITIN 324 NG/ML (26-388); IRON (FE) 23 UG/DL (65-175); PERCENT SATURATION 9.8 % (19.7-50.0); TOTAL IRON BINDING CAPACITY 235 UG/DL (250-450)
[2020-01-25 03:23] LABS: VENOUS HCO3 24.6 MEQ/L (23.0-27.0); VENOUS O2 SATURATION 80.6 % (60.0-80.0); VENOUS PARTIAL PRESSURE CO2 40.2 mmHg (38.0-50.0); VENOUS PARTIAL PRESSURE O2 47.7 mmHg (30.0-50.0); VENOUS PH 7.405 UNITS (7.330-7.430); VENOUS STANDARD HCO3 24.1 MEQ/L; VENOUS TOTAL CO2 25.9 MEQ/L (24.0-28.0)
[2020-01-25 03:39] LABS: CALCIUM LEVEL 8.4 MG/DL (8.8-10.2); CREATININE FOR GFR 1.49 MG/DL (0.70-1.30); GLOMERULAR FILTRATION RATE 49.2 (>42); POTASSIUM SERUM 4.7 MEQ/L (3.5-5.1)
--- NOTE | 2020-01-25 06:10 | HPEPDOC ---
[facility] Medical History & Physical Date of Admission Jan 25, 2020 Date of Service: Jan 25, 2020 Primary Care Physician: Bradley Henning MD Attending Physician: SHELBI MILES MD History and Physical TIME OF SERVICE: 253AM CHIEF COMPLAINT: fall HISTORY OF PRESENT ILLNESS: This 76 yr old M presented w c/o of slipping out of bed when he tried to get up at about 10PM. He didnt hit his head or lose consciousness. This is his second fall over the last few weeks. He has been feeling weak, had non-bloody emesis, a fever, and 1/0 in severity constant non-radiating abdominal pain. He denies having chills, diarrhea and his last BM was yesterday AM. 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 HOME MEDICATIONS: Please see below. PHYSICAL EXAM Vital Signs Date Time Temp Pulse Resp B/P (MAP) Pulse Ox O2 Delivery O2 Flow Rate FiO2 01/24/20 23:01 98.8 118 20 196/88 95 Room Air GENERAL APPEARANCE: slim build/ well developed /NAD HEENT: no scleral icterus / EOMI CARDIOVASCULAR: RRR/NMRG / radial pulses intact LUNGS: CTAB on RA ABDOMEN: distended/ soft/ lower abdomen slightly tender w palpitation MUSCULOSKELETAL: JEAN-PAUL x 4 INTEGUMENT: port-a cath at right upper chest / mild generalized pallor /has ecchymosis and old cat scratch campos on his legs NEUROLOGICAL: CN -12 intact / speech not dysarthric PSYCHIATRIC: A&Ox 3 /able to understand and follow all commands LABORATORY DATA: 01/24/20 23:42 mmature Granulocyte % (Auto) 1.0, Neutrophils (%) (Auto) 89.9H, Lymphocytes (%) (Auto) 2.6L, Monocytes (%) (Auto) 6.4H, Eosinophils (%) (Auto) 0.0, Basophils (%) (Auto) 0.1, Neutrophils # (Auto) 15.0H, Lymphocytes # (Auto) 0.4L, Monocytes # (Auto) 1.1H, Eosinophils # (Auto) 0.0, Basophils # (Auto) 0.0, Nucleated Red Blood Cells % (auto) 0.0, Anion Gap 9, Glomerular Filtration Rate 42.6, Lactic Acid Level 3.1*H, Calcium Level 9.1, Iron Level 23L, Total Iron Binding Capacity 235L, Transferrin % Saturation 9.8L, Ferritin 324, Total Bilirubin 0.9, Direct Bilirubin 0.3H, Aspartate Amino Transf (AST/SGOT) 13, Alanine Aminotransferase (ALT/SGPT) 16, Alkaline Phosphatase 125H, Total Protein 7.3, Albumin 2.9L, Albumin/Globulin Ratio 0.7 01/25/20 00:27: Estimated Mean Plasma Glucose 169H, Hemoglobin A1c 7.5 01/25/20 01:10: Urine Color YELLOW, Urine Appearance HAZY, Urine pH 6.0, Urine Specific [place] 1.022, Urine Protein 2+H, Urine Glucose (UA) 3+H, Urine Ketones 1+H, Urine Blood 2+H, Urine Nitrite NEGATIVE, Urine Bilirubin NEGATIVE, Urine Urobilinogen 0.2, Urine Leukocyte Esterase TRACEH, Urine WBC (Auto) 74H, Urine RBC (Auto) 5H, Urine Hyaline Casts (Auto) 0, Urine Bacteria (Auto) NEGATIVE, Urine Squamous Epithelial Cells 0, Urine Mucus (Auto) SMALL, Urine Sperm (Auto) IMAGING: Chest xray IMPRESSION: 1. Elevation of the right hemidiaphragm again visualized. 2. Mild bibasilar atelectatic changes. 3. A small nodule was previously described at the right lung base on the previous CT, although not well visualized on the current x-ray. CT has increased sensitivity for the detection of pulmonary nodules. A follow-up chest CT is suggested.4. Mild prominence of the pulmonary vascular markings. CT head IMPRESSION: 1. No acute intracranial hemorrhage or acute territorial type infarct. 2. There are periventricular foci of white matter hypodensity, likely representing small vessel ischemic disease in a patient this age. 3. Mild atrophy. 4. Additional findings described above. MICROBIOLOGY: 01/25/20 Urine Culture, Received Pending 01/25/20 Blood Culture, Received Pending 01/25/20 Respiratory Virus Panel (PCR) (SOLO) - Final, Complete 01/25/20 Blood Culture, Received Pending 01/24/20 Blood Culture, Received Pending 01/24/20 Blood Culture, Received Pending ASSESSMENT: is a 74 yr old M w a hx of metastatic colon adenocarcinoma, orthostatic hypotension, and IDDM w retinopathy who presented w c/o falling out of bed, weakness and abdominal pain he will be admitted for management of weakness and sepsis 2/2 UTI. PLAN: 1 Falls / Debility Cause TBD CT head unrevealing Plan: admit to medical floor / orthostats / fall precautions / PT eval / day time team to consider MRI brain 2 Sepsis 2/2 UTI SIRS criteria include fever, tachycardia and leukocytosis Lactic acid elevated Plan: IVF / Ceftriaxone / f/u blood cx and Ucx 3 Labile BP He has a remote hx of HTN but more recently has hypotension has been taking midodrine Plan: hold midodrine 4 Macrocytic Anemia Plan: f/u iron studies, B12 and folate / hold PO iron while ill 5 DM w Neuropathy Plan: FSBS, SSI w hypoglycemia protocol, A1C, gabapentin, Levemir 30 units in the morning and 25 units at night (home insulin regimen is insulin 70-30 10 units in the morning and 50 units at night) / hold glimepiride & metformin 6 Sleep apnea Plan: own CPAP Dispo: home after more than 2 midnights stay Home Medications Scheduled Atorvastatin Calcium (Atorvastatin Calcium) 40 Mg Tablet, 40 MG PO DAILY Duloxetine Hcl (Duloxetine HCl) 30 Mg Cap, 30 MG PO QHS Ferrous Sulfate (Ferrous Sulfate) 325 Mg Tablet, 325 MG PO DAILY Gabapentin (Gabapentin) 800 Mg Tablet, 400 MG PO DAILY Gabapentin (Gabapentin) 800 Mg Tablet, 800 MG PO BID DINNER AND BEDTIME Glimepiride (Glimepiride) 4 Mg Tablet, 4 MG PO DAILY Insulin Aspart Protamine/Aspar (Novolog Mix 70-30 Vial) 100 Unit/1 Ml Vial, 60 UNIT SC DAILY Insulin Aspart Protamine/Aspar (Novolog Mix 70-30 Vial) 100 Unit/1 Ml Vial, 50 UNITS SC QHS Metformin HCl (Metformin HCl) 850 Mg Tablet, 850 MG PO BID Midodrine HCl (Midodrine HCl) 2.5 Mg Tablet, 2.5 MG PO BID Omeprazole (Omeprazole) 20 Mg Capsule.dr, 20 MG PO DAILY Sod Phos Di, Mcintosh/K Phos Mcintosh (Virt-Phos 250 Neutral Tablet) 250 Mg Tablet, 250 MG PO DAILY Scheduled PRN Bisacodyl (Bisacodyl) 5 Mg Tablet.dr, 2 TAB PO ASDIRECTED PRN for constipation Ondansetron HCl (Ondansetron HCl) 8 Mg Tablet, 8 MG PO Q8HP PRN for NAUSEA OR VOMITING Polyethylene Glycol 3350 (Miralax) 17 Gm Powd.pack, 17 GM PO DAILY PRN for CONSTIPATION Prochlorperazine Maleate (Prochlorperazine Maleate) 10 Mg Tablet, 10 MG PO TID PRN for NAUSEA Allergies Coded Allergies: [place] (Verified Allergy, Intermediate, RAW PEACH FUZZ; hives, 12/16/18) strawberry (Verified Allergy, Intermediate, hives, 12/16/18) A-FIB/CHADSVASC A-FIB History Current/History of A-Fib/PAF?: No Current PO Anticoag Therapy: No SHELBI MILES MD Jan 25, 2020 06:10
[2020-01-25] MEDS ORDERED: PROCHLORPERAZINE 5 MG TAB (S0183) PO PRN (06:45)
[2020-01-25] MEDS ORDERED: BISACODYL 5 MG TAB PO PRN (06:45)
[2020-01-25] MEDS ORDERED: ONDANSETRON 4 MG TAB PO PRN (06:45)
[2020-01-25] MEDS ORDERED: MIRALAX *UNIT DOSE* 17GM PACKET PO PRN (06:45)
[2020-01-25] MEDS: ACETAMINOPHEN TAB 650MG DOSE (2X325MG) PO PRN ×2 (07:08→14:40)
[2020-01-25] MEDS ORDERED: atenoloL 25 MG TAB PO ONE (07:15)
[2020-01-25] MEDS: HumaLOG INSULIN (NovoLOG) PER UNIT SC SCH ×4 (07:19→21:00)
[2020-01-25] MEDS: HEPARIN SOD (PORCINE) 5000UNITS/ML 1ML VIAL/SYRINGE SC SCH ×4 (07:19→22:23)
[2020-01-25] MEDS: GABAPENTIN 400 MG CAP PO SCH ×3 (08:09→22:23)
[2020-01-25] MEDS: LEVEMIR (INSULIN DETEMIR) 1 UNITS/0.01ML SC SCH ×2 (08:09→21:00)
[2020-01-25] MEDS: ATORVASTATIN 20 MG TAB PO SCH (08:10)
[2020-01-25] MEDS: OMEPRAZOLE 20 MG CAP PO SCH (08:10)
[2020-01-25] MEDS: K-PHOS NEUTRAL 250MG TABLET (SOD.PHOSPHATE/POT.PHOSPHATE) PO SCH (09:00)
[2020-01-25 09:13] LABS: FOLATE > 24.0 NG/ML (>5.4); VITAMIN B12 LEVEL 355 PG/ML (247-911)
[2020-01-25] MEDS ORDERED: NS 1,000 ML IV SCH (10:30)
[2020-01-25] MEDS: PHENAZOPYRIDINE 100 MG TAB PO SCH ×2 (14:41→22:23)
[2020-01-25] MEDS ORDERED: VANCOMYCIN HCL 1,000 MG, VIAL MATE ADAPTER 1 EACH in D5W 250 ML IV ONE (15:00)
[2020-01-25 16:00] VITALS: BP 145/82
[2020-01-25] MEDS ORDERED: VANCOMYCIN HCL 500 MG in D5W MINI-BAG PLUS 100 ML IV ONE (16:00)
[2020-01-25 20:00] VITALS: BP 145/66
[2020-01-25] MEDS: DULoxetine 30 MG CAP (CYMBALTA) PO SCH (22:23)
[2020-01-25] MEDS: cefTRIAXone SOD 2 GM in D5W MINI-BAG PLUS 50 ML IV SCH (22:25)
[2020-01-26] VITALS (10 sets, daily range): BP systolic 97–178; BP diastolic 49–84
[2020-01-26] MEDS: ACETAMINOPHEN TAB 650MG DOSE (2X325MG) PO PRN ×2 (00:19→21:06)
[2020-01-26] MEDS: VANCOMYCIN HCL 1,000 MG, VIAL MATE ADAPTER 1 EACH in D5W 250 ML IV SCH ×2 (02:06→15:58)
[2020-01-26] MEDS: HEPARIN SOD (PORCINE) 5000UNITS/ML 1ML VIAL/SYRINGE SC SCH ×3 (06:04→21:05)
[2020-01-26] MEDS: PHENAZOPYRIDINE 100 MG TAB PO SCH ×3 (06:04→21:06)
[2020-01-26 06:32] LABS: HEMATOCRIT 34.3 % (42.0-52.0); HEMOGLOBIN 11.3 g/dl (13.5-17.5); MEAN CORPUSCULAR HEMOGLOBIN 32.8 pg (27.0-33.0); MEAN CORPUSCULAR HGB CONC 32.9 g/dl (32.0-36.5); MEAN CORPUSCULAR VOLUME 99.4 fl (80.0-96.0); PLATELET COUNT, AUTOMATED 299 10^3/uL (150-450); RED BLOOD COUNT 3.45 10^6/uL (4.30-6.10); WHITE BLOOD COUNT 15.7 10^3/uL (4.0-10.0)
[2020-01-26 07:00] LABS: BLOOD UREA NITROGEN 19 MG/DL (7-18); CALCIUM LEVEL 8.1 MG/DL (8.8-10.2); CARBON DIOXIDE LEVEL 26 MEQ/L (21-32); CHLORIDE LEVEL 103 MEQ/L (98-107); GLOMERULAR FILTRATION RATE > 60.0 (>42); GLUCOSE, FASTING 151 MG/DL (70-100); MAGNESIUM LEVEL 1.7 MG/DL (1.8-2.4); POTASSIUM SERUM 3.7 MEQ/L (3.5-5.1); SODIUM LEVEL 138 MEQ/L (136-145)
[2020-01-26] MEDS: HumaLOG INSULIN (NovoLOG) PER UNIT SC SCH ×5 (07:30→21:00)
[2020-01-26] MEDS ORDERED: MAG SULF 1GM/100ML (MAG RUN) 1 GM in IV 1 EA IV ONE (08:00)
[2020-01-26] MEDS ORDERED: amLODIPine 5 MG TAB PO SCH (09:00)
[2020-01-26] MEDS: LEVEMIR (INSULIN DETEMIR) 1 UNITS/0.01ML SC SCH ×2 (09:49→21:05)
[2020-01-26] MEDS: OMEPRAZOLE 20 MG CAP PO SCH (09:50)
[2020-01-26] MEDS: GABAPENTIN 400 MG CAP PO SCH ×3 (09:50→21:06)
[2020-01-26] MEDS: ATORVASTATIN 20 MG TAB PO SCH (09:50)
[2020-01-26] MEDS: K-PHOS NEUTRAL 250MG TABLET (SOD.PHOSPHATE/POT.PHOSPHATE) PO SCH (09:50)
[2020-01-26] MEDS ORDERED: NS 500 ML IV ONE (17:30)
[2020-01-26] MEDS: DULoxetine 30 MG CAP (CYMBALTA) PO SCH (21:06)
[2020-01-26] MEDS: cefTRIAXone SOD 2 GM in D5W MINI-BAG PLUS 50 ML IV SCH (21:07)
[2020-01-27] MEDS: VANCOMYCIN HCL 1,000 MG, VIAL MATE ADAPTER 1 EACH in D5W 250 ML IV SCH (03:51)
[2020-01-27 06:00] VITALS: BP 142/77
[2020-01-27] MEDS: HEPARIN SOD (PORCINE) 5000UNITS/ML 1ML VIAL/SYRINGE SC SCH ×3 (06:00→21:22)
[2020-01-27] MEDS: PHENAZOPYRIDINE 100 MG TAB PO SCH ×3 (06:01→21:22)
[2020-01-27] MEDS: SODIUM CHLORIDE 0.9% INJ 10 ML SYR IV SCH (07:45)
[2020-01-27] MEDS: HumaLOG INSULIN (NovoLOG) PER UNIT SC SCH ×4 (07:46→20:34)
[2020-01-27] MEDS: ATORVASTATIN 20 MG TAB PO SCH (07:47)
[2020-01-27] MEDS: K-PHOS NEUTRAL 250MG TABLET (SOD.PHOSPHATE/POT.PHOSPHATE) PO SCH (07:47)
[2020-01-27] MEDS: OMEPRAZOLE 20 MG CAP PO SCH (07:47)
[2020-01-27] MEDS: LEVEMIR (INSULIN DETEMIR) 1 UNITS/0.01ML SC SCH ×2 (07:47→20:32)
[2020-01-27] MEDS: GABAPENTIN 400 MG CAP PO SCH ×3 (07:47→20:33)
[2020-01-27] MEDS ORDERED: LevoFLOXacin 750 MG TABLET PO ONE (10:15)
[2020-01-27] MEDS ORDERED: LEVA750T7 PO (10:19)
[2020-01-27] MEDS ORDERED: MAG SULF 1GM/100ML (MAG RUN) 1 GM in IV 1 EA IV ONE (11:00)
[2020-01-27 14:00] VITALS: BP 164/76
[2020-01-27 17:26] VITALS: BP 142/70
[2020-01-27] MEDS: ACETAMINOPHEN TAB 650MG DOSE (2X325MG) PO PRN (20:33)
[2020-01-27] MEDS: DULoxetine 30 MG CAP (CYMBALTA) PO SCH (20:34)
[2020-01-27 22:00] VITALS: BP 140/81
[2020-01-28] MEDS: PHENAZOPYRIDINE 100 MG TAB PO SCH (05:02)
[2020-01-28] MEDS: HEPARIN SOD (PORCINE) 5000UNITS/ML 1ML VIAL/SYRINGE SC SCH (05:02)
[2020-01-28 06:00] VITALS: BP 142/84
[2020-01-28] MEDS ORDERED: LevoFLOXacin 750 MG TABLET PO SCH (06:00)
[2020-01-28] MEDS: HumaLOG INSULIN (NovoLOG) PER UNIT SC SCH (07:30)
[2020-01-28] MEDS: MIRALAX *UNIT DOSE* 17GM PACKET PO SCH ×2 (08:51→08:57)
[2020-01-28] MEDS: LEVEMIR (INSULIN DETEMIR) 1 UNITS/0.01ML SC SCH (08:51)
[2020-01-28] MEDS: GABAPENTIN 400 MG CAP PO SCH (08:52)
[2020-01-28] MEDS: OMEPRAZOLE 20 MG CAP PO SCH (08:52)
[2020-01-28] MEDS: ATORVASTATIN 20 MG TAB PO SCH (08:52)
[2020-01-28] MEDS: K-PHOS NEUTRAL 250MG TABLET (SOD.PHOSPHATE/POT.PHOSPHATE) PO SCH (08:53)
[2020-01-28] MEDS: SODIUM CHLORIDE 0.9% INJ 10 ML SYR IV SCH (08:54)
--- NOTE | 2020-01-28 11:01 | IPN ---
DATE: 01/26/2020 SUBJECTIVE: Patient still complains of dysuria, but improved from yesterday. No flank pain. He complains of chills and fevers overnight. Patient currently on Vanco and Ceftriaxone. Blood culture is positive for gram negative rods; awaiting final cultures. Blood culture is gram positive cocci in clusters. No other issues per nursing. OBJECTIVE PHYSICAL EXAMINATION: VITALS: Temperature 97, pulse 100, respiratory rate 18, , 94% on room air. GENERAL: Awake, alert and oriented to person, place and time. Answering questions appropriately. Chemo port without any erythema or tenderness. LUNGS: Clear to auscultation. No wheezing, rales or rhonchi. HEART: S1, S2, sinus rhythm. ABDOMEN: Soft, nontender, non-distended, positive bowel sounds. EXTREMITIES: No cyanosis, clubbing or pitting edema. No CVA tenderness. LABORATORY DATA: White count 15.7, hemoglobin 11, hematocrit 34, platelet count 299,000. Sodium 138, potassium 3.7, chloride 103, bicarb 26, BUN 19, creatinine 1.2, glucose 151, magnesium 1.7. MICROBIOLOGY: Blood culture gram positive cocci. Urinalysis is pending. ASSESSMENT AND PLAN: This is a 74-year-old male with a history of stage 4 colon CA with mets to the liver and lung, palliative FOLFIRI and Bevacizumab; status post right hemicolectomy, CKD stage 3, insulin dependent diabetes with retinopathy, orthostatic hypotension on chronic Midodrine, BPH, REY and chemo port, who presented through the Emergency Room status post a fall, was found to have a fever and admitted for a urinary tract infection. He was found to have gram-positive bacteremia. IMPRESSION: 1. Sepsis secondary to urinary tract infection and gram-positive bacteremia: Patient currently has vancomycin and I.V. Ceftriaxone. White count is decreasing. Continue on full supportive care. Lactic acid has normalized after I.V. fluid hydration. 2. FalPT, OT, ARU consulted. CT of the head was negative. 3. History of metastatic colon cancer: On palliative treatment. Outpatient follow-up. Chemo port site appears clean. Rule out line sepsis with culture results on the blood cultures. 4. 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 consistent carbohydrate diet and fingersticks q.a.c. h.s. 5. Sleep apnea: On CPAP. 6. Labile hypertension: Monitor patient's blood pressure and discontinue Midodrine if his pressure is greater than 140. MTDD
--- NOTE | 2020-01-30 10:05 | IPN ---
DATE: 01/27/2020 SUBJECTIVE: Patient seen and examined at bedside. Chart has been reviewed. Patient says that he felt a little bit dizzy today. No fever or chills. Dysuria is improved on Pyridium. Urine output and bodily fluids are bright orange. No nausea or vomiting. No flank pain or chills. OBJECTIVE: PHYSICAL EXAMINATION: Temperature 96.4, pulse 74, respiratory rate 18, blood pressure 142/77, 96% on room air. GENERAL: Patient is awake, alert, oriented to person, place, and time, answering questions appropriately. No jugular venous distention (JVD, thyromegaly, or cervical lymphadenopathy. LUNGS: Clear to auscultation. No wheezing, rales, or rhonchi. Chemotherapy port clean and dry without any erythema or tenderness. ABDOMEN: Soft, nontender, nondistended. Positive bowel sounds. EXTREMITIES: No cyanosis or clubbing. LABORATORY DATA: White count 15.7, hemoglobin 11, hematocrit 34, platelet count 299. Sodium 138, potassium 3.7, chloride 103, bicarbonate 26, BUN 19, creatinine 1.2, glucose 151, magnesium of 1.7. January 26 still pending. ASSESSMENT AND PLAN: This is a 76-year-old male who slipped out of bed with a history of stage IV colon cancer, metastatic to the liver, chronic kidney disease, stage III, diabetes, BPH, obstructive sleep apnea (REY), on chronic midodrine for hypotension. Had a fall. Found to have a fever and urinary tract infection (UTI). 1. Urinary tract infection, on intravenous (IV) ceftriaxone, changed to oral Levaquin. Blood and urine cultures have been reviewed. Patient was status post vancomycin. 2. History of orthostatic hypotension. Had been taking midodrine but will hold due to adequate blood pressure. 3. Macrocytic anemia. Outpatient followup. 4. Diabetes with neuropathy, on insulin sliding scale, hypoglycemic protocol, and consistent-carbohydrate diet. 5. Obstructive sleep apnea. Resume on home dose of continuous positive airway pressure (CPAP). DISPOSITION: Await physical therapy (PT) clearance. Discharge home in the morning if stable. [facility]
--- NOTE | 2020-02-01 14:38 | ECGEPIP ---
[facility] - ED Test Date: 2020-01-24 Pat Name: LORE CHESTER Department: Room: [place] [address] Gender: Male Booky: ivelisse : 1945 Requested By: Cody Phillips Order Number: [id number] Reading MD: Betsy Epps Measurements Intervals [place] Rate: 118 P: DE: 0 QRS: -28 QRSD: 96 T: 83 QT: 325 QTc: 455 Interpretive Statements SINUS TACHYCARDIA BORDERLINE LEFT AXIS DEVIATION NONSPECIFIC ST & T-WAVE ABNORMALITY ABNORMAL RHYTHM ECG SEE SCANNED DOWNTIME REPORT
--- NOTE | 2020-02-20 11:08 | DSES ---
"DATE OF ADMISSION: 01/25/2020 DATE OF DISCHARGE: 01/28/2020 PRIMARY DISCHARGE DIAGNOSES: 1. Sepsis secondary to urinary tract infection with contaminated blood culture. 2. Fall. 3. Metastatic colon cancer, on palliative chemotherapy. 4. 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 5. Obstructive sleep apnea. 6. Labile hypertension. DISCHARGE MEDICATIONS: - Levaquin 750 mg daily - atorvastatin 40 daily - bisacodyl as needed - duloxetine 30 every night - ferrous sulfate 325 daily - gabapentin 400 mg daily - glimepiride 4 mg daily - insulin 6 units subcutaneous - NovoLog mix daily, 50 units every night - metformin 850 twice a day - midodrine 2.5 twice a day - omeprazole 20 mg daily - Zofran 8 mg every 8 as needed - MiraLax 17 grams daily as needed - prochlorperazine 10 mg twice a day as needed - Virt-Phos Neutral tablet 250 daily DISCHARGE INSTRUCTIONS: Followup with primary care physician within hospital discharge and followup with medical oncologist as previously recommended. HOSPITAL COURSE: This is a 74-year-old male with history of colon cancer and is on palliative chemotherapy, status post right hemicolectomy, chronic kidney disease (CKD) III, diabetes with retinopathy, orthostatic hypotension, on chronic midodrine, obstructive sleep apnea (REY), chemotherapy port, BPH, presented to the emergency room after a fall. Found to have a fever. Admitted for a urinary tract infection. Was found to have gram-positive bacteremia. Patient was admitted for sepsis due to urinary tract infection (UTI) with lactic acidosis. Urine culture grew out Providencia |rettgeri and blood culture grew out Staphylococcus hominis, most likely contamination, and transient bacteremia with providential blood culture. Patient was initially given vancomycin and Zosyn. Then transitioned to Levaquin once culture results returned. He had episodes of low magnesium, which was supplemented, and he was resumed on his home doses of diabetic medications, Levemir, gabapentin, atorvastatin, Prilosec. Patient had no other acute issues and passed a home safety evaluation. He remained afebrile with improved white count to 15,000. Patient is stable for discharge home. PHYSICAL EXAMINATION ON DISCHARGE: Temperature 96.9, pulse 62, respiratory rate 18, blood pressure 142/84, 96% on room air. GENERAL: Awake, alert, oriented times three, answering questions appropriately. No jugular venous distention (JVD). No thyromegaly. LUNGS: Clear to auscultation. No wheezing or rales. HEART: S1, S2, sinus rhythm. ABDOMEN: Soft, nontender, nondistended. Positive bowel sounds. EXTREMITIES: Trace edema. LABORATORY DATA ON DISCHARGE: White count 15.7, hemoglobin 11, hematocrit 34, platelet count 299. Sodium 138, potassium 3.7, chloride 103, bicarbonate 26, BUN 19, creatinine 1.2, glucose 151, magnesium of 1.7. Microbiology: Providencia, resistant to ampicillin, cefazolin, nitrofurantoin, tigecycline, sensitive to Levaquin. Blood cultures: Staphylococcus hominis. Blood culture January 23: Providencia. IMAGING STUDY: Chest x-ray, January 23: Elevation of right hemidiaphragm. Small nodule in the right lung base. Followup chest x-ray recommended. Pulmonary vascular markings. TIME SPENT ON DISCHARGE: 30 minutes. MTDD"
== END 2020-01-28 11:25 | disposition home or self-care (01) | DRG 872 ==
LOC: M ED 22:50 → M ED INP 01-25 02:23 → M PCU 01-25 16:06 → M MS5PR 01-26 14:06
PROVIDERS: ADMIT Internal Medicine; ATTEND General Practice
DX: A41.9 Sepsis, unspecified organism (principal); C18.9 Malignant neoplasm of colon, unspecified; C78.7 Secondary malignant neoplasm of liver and intrahepatic bile duct; N39.0 Urinary tract infection, site not specified; C78.00 Secondary malignant neoplasm of unspecified lung; R29.6 Repeated falls; I95.1 Orthostatic hypotension; R53.81 Other malaise; E11.319 Type 2 diabetes mellitus with unspecified diabetic retinopathy without macular edema; N40.0 Benign prostatic hyperplasia without lower urinary tract symptoms; G47.33 Obstructive sleep apnea (adult) (pediatric); I12.9 Hypertensive chronic kidney disease with stage 1 through stage 4 chronic kidney disease, or unspecified chronic kidney disease; N18.3 Chronic kidney disease, stage 3 (moderate); E11.22 Type 2 diabetes mellitus with diabetic chronic kidney disease; Z87.891 Personal history of nicotine dependence; D53.9 Nutritional anemia, unspecified; E11.40 Type 2 diabetes mellitus with diabetic neuropathy, unspecified; Z79.4 Long term (current) use of insulin; Z79.899 Other long term (current) drug therapy; Z91.018 Allergy to other foods; R42 Dizziness and giddiness

== ENCOUNTER → 2020-02-29 | Outpatient (REF) | payer MEDICARE ==
[~2020-02-29] MED LIST changes: +AMLO1TAB25 PO; +ATEN25TA PO; +BISA5TAB13 PO; +CEFD300CAP PO; +DULC5TAB PO; +FERR1TAB8 PO; +LEVA750T7 PO; +MIRA1POW3 PO; +NYST5000 PO; +NYST50SS PO; +SULF1TAB93 PO; +XARE15TA PO; +ZYVO1TAB PO; +[UNRECOGNIZED DRUG - REMARK]
== END ==
LOC: M SFHCCLAY 15:29
PROVIDERS: ATTEND Physician Assistant
DX: L03.012 Cellulitis of left finger (principal)
CPT/HCPCS: 87070; G0463

== ENCOUNTER 2020-03-06 07:44 | Inpatient (IN) | payer MEDICARE ==
[~2020-03-06] VITALS: Ht 182.9 cm; Wt 88.0 kg
[~2020-03-06 07:44] MED LIST changes: -AMLO1TAB25 PO; -ATEN25TA PO; -CEFD300CAP PO; -DULC5TAB PO; -NYST5000 PO; -NYST50SS PO; -SULF1TAB93 PO; -XARE15TA PO; -ZYVO1TAB PO; -[UNRECOGNIZED DRUG - REMARK]
[2020-03-06] MEDS ORDERED: SULF1TAB93 PO (08:01)
[2020-03-06 08:28] LABS: BASO % 0.4 % (0.0-1.0); EOS # 0.1 10^3/uL (0.0-0.5); EOS % 2.6 % (0.0-3.0); HEMATOCRIT 37.3 % (42.0-52.0); HEMOGLOBIN 11.7 g/dl (13.5-17.5); LYMPH # 0.5 10^3/uL (1.5-5.0); LYMPH % 9.2 % (24.0-44.0); MEAN CORPUSCULAR HEMOGLOBIN 30.3 pg (27.0-33.0); MEAN CORPUSCULAR HGB CONC 31.4 g/dl (32.0-36.5); MEAN CORPUSCULAR VOLUME 96.6 fl (80.0-96.0); MONO # 0.6 10^3/uL (0.0-0.8); MONO % 10.3 % (0.0-5.0); NEUTROPHILS # 4.2 10^3/uL (1.5-8.5); NEUTROPHILS % 76.9 % (36.0-66.0); PLATELET COUNT, AUTOMATED 168 10^3/uL (150-450); RED BLOOD COUNT 3.86 10^6/uL (4.30-6.10); WHITE BLOOD COUNT 5.4 10^3/uL (4.0-10.0)
[2020-03-06] MEDS ORDERED: ISOVUE-370 76% 100ML VIAL As Ordered ONE (08:31)
[2020-03-06] MEDS ORDERED: ONDANSETRON 4MG/2ML VIAL IV ONE (08:45)
[2020-03-06] MEDS ORDERED: ACETAMINOPHEN TAB 650MG DOSE (2X325MG) PO ONE (08:45)
[2020-03-06] MEDS ORDERED: FERROUS SULFATE 325MG TAB PO SCH (09:00)
[2020-03-06] MEDS ORDERED: OMEPRAZOLE 20 MG CAP PO SCH (09:00)
[2020-03-06] MEDS ORDERED: ATORVASTATIN 20 MG TAB PO SCH (09:00)
[2020-03-06 09:08] LABS: ALBUMIN 3.2 GM/DL (3.2-5.2); ALT/SGPT 956 U/L (12-78); BILIRUBIN,DIRECT 0.8 MG/DL (0.0-0.2); BILIRUBIN,TOTAL 1.2 MG/DL (0.2-1.0); CK-MB VALUE MASS 1.7 NG/ML (<3.6); CPK CREATINE PHOSPHOKINASE 106 U/L (39-308); TOTAL PROTEIN 7.2 GM/DL (6.4-8.2); TROPONIN I 0.02 NG/ML (< 0.10)
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
[2020-03-06] MEDS ORDERED: NS 500 ML IV ONE (10:30)
[2020-03-06] MEDS ORDERED: IBUPROFEN 400 MG TAB PO ONE (10:30)
[2020-03-06 10:50] LABS: HEPATITIS B SURFACE ANTIGEN NEGATIVE (NEGATIVE)
--- NOTE | 2020-03-06 10:59 | REPVR ---
PROCEDURE INFORMATION: Exam: US Abdomen, Limited; Right Upper Quadrant Exam date and time: 03/06/2020 10:37 AM Age: 74 years old Clinical indication: Abnormal findings; Abnormal lab test; Elevated liver enzymes; Additional info: Elevated lfts TECHNIQUE: Imaging protocol: US abdomen. Real time ultrasound with image documentation. Limited exam focused on the right upper quadrant. COMPARISON: CT ABD/PEL W/IV CONTRAST ONLY 03/06/2020 8:33 AM FINDINGS: Limitations: Study is limited by bowel gas and limited scanning windows. Liver: Liver shows multiple hypoechoic lesions on abdominal CT. There is limited evaluation of liver. A hypoechoic mass without through transmission is seen in right lobe measuring 1.5 cm x 1.7 cm x 1.5 cm. Remaining lesions seen on CT are not visualized on this ultrasound. Patient has history of colon cancer and liver lesions are concerning for metastatic lesions. Please see report of today's CT. Gallbladder: Gallbladder shows no echogenic shadowing stones. Gallbladder wall is not thickened measuring 2 point mm. No documented pericholecystic fluid. Technologist did not comment on Linares's sign. Common bile duct: Common bile duct measures 3 mm. Pancreas: Pancreas is poorly visualized and evaluated. Right kidney: Right kidney measures 14.5 cm x 6.2 cm x 5.6 cm. This measurement includes a large upper pole cyst which appears unilocular measuring 4.8 cm x 5.1 cm x 5 6 cm. There are additional unilocular cyst in mid kidney measuring 1.6 cm x 1.7 cm x 2.4 cm and 2.4 cm x 1.9 cm x 2.3 cm. No hydronephrosis. IMPRESSION: 1. Limited examination. Only 1 of the liver lesions seen on today's CT is identified and is not show findings consistent with cyst. Please see report of CT of abdomen from today. 2. Right renal cyst. No hydronephrosis. 3. Unremarkable gallbladder. Normal diameter common bile duct. Electronically signed by: Yamileth Arrington On 03/06/2020 10:59:40 AM
[2020-03-06 11:18] LABS: HEPATITIS B CORE ANTIBODY IGM NEGATIVE (NEGATIVE); HEPATITIS C VIRUS ABY INDEX 0.1 INDEX (<0.8)
[2020-03-06 11:19] LABS: HEPATITIS A ANTIBODY IGM NEGATIVE (NEGATIVE)
[2020-03-06] MEDS ORDERED: DULC5TAB PO (12:08)
[2020-03-06] MEDS ORDERED: ONDA8TAB10 PO (12:08)
[2020-03-06] MEDS ORDERED: MIDO2.5T PO (12:10)
[2020-03-06] MEDS ORDERED: PROC10TA4 PO (12:11)
[2020-03-06] MEDS ORDERED: [UNRECOGNIZED DRUG - REMARK] (12:14)
[2020-03-06] MEDS ORDERED: NS 1,000 ML IV SCH (12:45)
[2020-03-06] MEDS ORDERED: GLUCOSE 4GM CHEW TABLET PO PRN (12:45)
[2020-03-06] MEDS ORDERED: GLUCAGON INJ 1MG VIAL SC PRN (12:45)
[2020-03-06] MEDS ORDERED: BISACODYL 5 MG TAB PO PRN (12:45)
[2020-03-06 14:00] VITALS: BP_SYST 116; BP_SYST 121; BP_SYST 93; BP_DIAS 44; BP_DIAS 59; BP_DIAS 62
[2020-03-06 14:00] LABS: INR 1.07; PROTHROMBIN TIME 14.2 SECONDS (12.5-14.3)
[2020-03-06 14:11] LABS: PERCENT SATURATION 16.3 % (19.7-50.0)
[2020-03-06] MEDS ORDERED: cefTRIAXone SOD 2 GM in D5W MINI-BAG PLUS 50 ML IV ONE (16:00)
[2020-03-06] MEDS ORDERED: MIDODRINE 2.5 MG TAB PO SCH (16:00)
[2020-03-06] MEDS: HumaLOG INSULIN (NovoLOG) PER UNIT SC SCH ×2 (17:04→20:01)
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
[2020-03-06 18:54] LABS: ACETAMINOPHEN LEVEL < 2.0 UG/ML (10.0-30.0); ALBUMIN 3.2 GM/DL (3.2-5.2); ALT/SGPT 852 U/L (12-78); BLOOD UREA NITROGEN 25 MG/DL (7-18); CALCIUM LEVEL 9.1 MG/DL (8.8-10.2); CARBON DIOXIDE LEVEL 25 MEQ/L (21-32); CHLORIDE LEVEL 103 MEQ/L (98-107); CREATININE FOR GFR 1.74 MG/DL (0.70-1.30); ETHYL ALCOHOL (ETHANOL) < 0.003 % (0.000-0.010); GLOMERULAR FILTRATION RATE 41.1 (>42); GLUCOSE, FASTING 131 MG/DL (70-100); POTASSIUM SERUM 4.6 MEQ/L (3.5-5.1); SODIUM LEVEL 135 MEQ/L (136-145); TOTAL PROTEIN 7.1 GM/DL (6.4-8.2)
[2020-03-06 19:30] VITALS: BP 220/90
[2020-03-06] MEDS ORDERED: IBUPROFEN 200MG TAB PO PRN (20:00)
[2020-03-06] MEDS ORDERED: **hydrALAZINE** 10 MG TAB PO ONE (20:00)
[2020-03-06] MEDS: DOCUSATE SODIUM 100 MG CAP PO SCH (20:05)
[2020-03-06] MEDS: NovoLOG MIX 70/30 PER UNIT SC SCH (20:12)
[2020-03-06 20:34] VITALS: BP 188/78
[2020-03-06 20:34] LABS: ABG BASE EXCESS -1.5 (-2.0-2.0); ABG HCO3 20.3 MEQ/L (22.0-26.0); ABG O2 SATURATION 93.5 % (95.0-99.0); ABG PARTIAL PRESSURE CO2 26.5 mmHg (35.0-45.0); ABG PARTIAL PRESSURE O2 66.7 mmHg (75.0-100.0); ABG STANDARD HCO3 23.1 MEQ/L (22.0-26.0); ABG TOTAL CO2 21.1 MEQ/L (23.0-31.0); ABG pH (ARTERIAL) 7.502 UNITS (7.350-7.450)
--- NOTE | 2020-03-06 20:42 | REPVR ---
PROCEDURE INFORMATION: Exam: XR Chest, 1 View Exam date and time: 03/06/2020 8:14 PM Age: 74 years old Clinical indication: Other: Fever; Additional info: Fever 103.7 TECHNIQUE: Imaging protocol: XR of the chest Views: 1 view. COMPARISON: CT Chest with contrast 03/06/2020 8:33 AM FINDINGS: Lungs: Atelectasis right lung base. Lungs otherwise clear. Pleural space: Unremarkable. No pleural effusion. No pneumothorax. Heart/Mediastinum: MediPort catheter tip demonstrated at the superior cavoatrial junction. Diaphragm: Elevated right hemidiaphragm consistent with eventration. Bones/joints: Unremarkable. IMPRESSION: No acute findings. Electronically signed by: Rogelio Kumar On 03/06/2020 20:41:40 PM
[2020-03-06] MEDS ORDERED: VANCOMYCIN HCL 750 MG, VIAL MATE ADAPTER 1 EACH in D5W 250 ML IV SCH (20:45)
[2020-03-06] MEDS ORDERED: DULoxetine 30 MG CAP (CYMBALTA) PO SCH (21:00)
[2020-03-06] MEDS ORDERED: IBUPROFEN 200MG TAB PO ONE (21:30)
[2020-03-06] MEDS: CEFEPIME HCL 1 GM in D5W MINI-BAG PLUS 50 ML IV SCH (21:38)
[2020-03-06] MEDS ORDERED: IBUPROFEN 400 MG TAB PO PRN (22:30)
[2020-03-06] MEDS ORDERED: VANCOMYCIN HCL 750 MG, VIAL MATE ADAPTER 1 EACH in D5W 250 ML IV ONE (23:00)
[2020-03-06] MEDS ORDERED: IPRATROPIUM HFA INHALER 12.9 GRAMS (ATROVENT HFA) INH SCH (23:30)
--- NOTE | 2020-03-06 23:35 | IPNPDOC ---
Subjective Date Seen The patient was seen on 03/06/20. Subjective Chief Complaint/HPI I was notified by nursing via telephone that patient has a temp of 103.7 and that he's tachypneic with rr of 46 satting at 92% RA and bp of 220/90 with HR of 120. I transferred patient from floor to PCU with telemetry and continuous pulse ox and started him on ibuprofen 400mg Q8h for fever and 5mg IV labetolol first dose given immediately and then give [id number] until target bp of SBP between 145- 170. STAT CXR, urine with reflex to culture, another lactic acid, COVID PCR, and MRSA PCR screen and a sputum cx and grain stain were ordered. A stat ABG was also ordered at this time. He was started on empiric abx vancomycin and cefepime with a pharmacy consult on vanco dosing. Of note, pt does have a increase Cr and pharmacy was called to consult on dosing of ibuprofen as well. Fluids were not given at the time due to patient's Hx of CHF and high blood pressure. Assessment /Plan Plan/VTE VTE Prophylaxis Ordered?: Yes VS, I&O, [facility] Vital Signs/I&O Vital Signs Date Time Temp Pulse Resp B/P (MAP) Pulse Ox O2 Delivery O2 Flow Rate FiO2 03/06/20 23:14 99.3 03/06/20 20:34 125 30 188/78 (114) 94 Room Air Laboratory Data 24H LABS Laboratory Tests 2 03/06/20 08:08: Immature Granulocyte % (Auto) 0.6, Neutrophils (%) (Auto) 76.9H, Lymphocytes (%) (Auto) 9.2L, Monocytes (%) (Auto) 10.3H, Eosinophils (%) (Auto) 2.6, Basophils (%) (Auto) 0.4, Neutrophils # (Auto) 4.2, Lymphocytes # (Auto) 0.5L, Monocytes # (Auto) 0.6, Eosinophils # (Auto) 0.1, Basophils # (Auto) 0.0, Nucleated Red Blood Cells % (auto) 0.0, Lactic Acid Level 2.5*H, Total Bilirubin 1.2H, Direct Bilirubin 0.8H, Aspartate Amino Transf (AST/SGOT) 2055H, Alanine Aminotransferase (ALT/SGPT) 956H, Alkaline Phosphatase 474H, Total Creatine Kinase 106, Creatine Kinase MB 1.7, Creatine Kinase MB Relative Index 1.60, Troponin I 0.02, Total Protein 7.2, Albumin 3.2, Albumin/Globulin Ratio 0.8, Hepatitis A IgM Antibody NEGATIVE, Hepatitis B Surface Antigen NEGATIVE, Hepatitis B Core IgM Antibody NEGATIVE, Hepatitis C Antibody Index 0.1 03/06/20 08:09: POC Glucose (Misc Panel) 218H, POC Sodium (Misc Panel) 135L, POC Potassium (Misc Panel) 5.1, POC Chloride (Misc Panel) 99, POC Total CO2 (Misc Panel) 24.0, POC Blood Urea Nitrogen (Misc Panel 28H, POC Ionized Calcium (Misc Panel) 4.8, POC Creatinine (Misc Panel) 1.6H, POC Hematocrit (Misc Panel) 37.0L 03/06/20 09:00: Urine Color YELLOW, Urine Appearance CLEAR, Urine pH 6.0, Urine Specific [place] 1.013, Urine Protein 2+H, Urine Glucose (UA) 3+H, Urine Ketones NEGATIVE, Urine Blood NEGATIVE, Urine Nitrite NEGATIVE, Urine Bilirubin NEGATIVE, Urine Urobilinogen 4.0H, Urine Leukocyte Esterase NEGATIVE, Urine WBC (Auto) 1, Urine RBC (Auto) 1, Urine Hyaline Casts (Auto) 0, Urine Bacteria (Auto) NEGATIVE, Urine Squamous Epithelial Cells 0, Urine Mucus (Auto) SMALL, Urine Sperm (Auto) 03/06/20 12:58: Lactic Acid Followup at 4 Hours 1.7 03/06/20 13:08: Prothrombin Time 14.2H, Prothromb Time International Ratio 1.07, Iron Level 38L, Total Iron Binding Capacity 233L, Transferrin % Saturation 16.3L, Ferritin 1379H, Lactate Dehydrogenase 772H 03/06/20 16:32: Bedside Glucose (Misc Panel) 132H 03/06/20 17:18: Anion Gap 7L, Glomerular Filtration Rate 41.1L, Calcium Level 9.1, Total Bilirubin 1.0, Aspartate Amino Transf (AST/SGOT) 987H, Alanine Aminotransferase (ALT/SGPT) 852H, Alkaline Phosphatase 425H, Total Protein 7.1, Albumin 3.2, Albumin/Globulin Ratio 0.8, Acetaminophen Level < 2.0L, Ethyl Alcohol Level < 0.003 03/06/20 19:30: Bedside Glucose (Misc Panel) 176H 03/06/20 20:15: Lactic Acid Level 2.5*H 03/06/20 20:24: Blood Gas Bicarbonate Standard 23.1, Arterial Blood pH 7.502H, Arterial Blood Partial Pressure CO2 26.5L, Arterial Blood Partial Pressure O2 66.7L, Arterial Blood Total CO2 21.1L, Arterial Blood HCO3 20.3L, Arterial Blood Base Excess - 1.5, Arterial Blood Oxygen Saturation 93.5L 03/06/20 21:53: Coronavirus (COVID-19)(PCR) NEGATIVE CBC/BMP Laboratory Tests 03/06/20 08:08 03/06/20 17:18 Microbiology Microbiology 03/06/20 Blood Culture, Received Pending 03/06/20 Blood Culture, Received Pending GME ATTESTATION GME ATTESTATION My faculty preceptor for this patient encounter was physically present during the encounter and was fully available. All aspects of the patient interview, examination, medical decision making process, and medical care plan development were reviewed and approved by the faculty preceptor. The faculty preceptor is aware and concurs with the plan as stated in the body of this note and will attest to such by his/her cosignature. Lopez Noguera DO Mar 06, 2020 23:35
[2020-03-07] VITALS (26 sets, daily range): BP systolic 124–184; BP diastolic 58–96; O2SAT 96–98
[2020-03-07] MEDS ORDERED: IPRATROPIUM 0.5MG/ALBUTEROL 2.5MG INH SOL UD 3ML (DUONEB) NEB SCH
[2020-03-07] MEDS ORDERED: VANCOMYCIN HCL 750 MG, VIAL MATE ADAPTER 1 EACH in D5W 250 ML IV ONE ×3
[2020-03-07] MEDS: LABETALOL 100MG/20ML VIAL IV SCH ×2 (04:09→04:19)
[2020-03-07 05:06] LABS: HEMATOCRIT 39.5 % (42.0-52.0); HEMOGLOBIN 12.6 g/dl (13.5-17.5); MEAN CORPUSCULAR HEMOGLOBIN 30.7 pg (27.0-33.0); MEAN CORPUSCULAR HGB CONC 31.9 g/dl (32.0-36.5); MEAN CORPUSCULAR VOLUME 96.1 fl (80.0-96.0); PLATELET COUNT, AUTOMATED 163 10^3/uL (150-450); RED BLOOD COUNT 4.11 10^6/uL (4.30-6.10); WHITE BLOOD COUNT 9.1 10^3/uL (4.0-10.0)
[2020-03-07 05:50] LABS: ALBUMIN 2.9 GM/DL (3.2-5.2); CALCIUM LEVEL 8.8 MG/DL (8.8-10.2); CREATININE FOR GFR 1.76 MG/DL (0.70-1.30); GLOMERULAR FILTRATION RATE 40.6 (>42); MAGNESIUM LEVEL 1.6 MG/DL (1.8-2.4); POTASSIUM SERUM 4.4 MEQ/L (3.5-5.1); TOTAL PROTEIN 7.7 GM/DL (6.4-8.2)
[2020-03-07] MEDS ORDERED: PROMETHAZINE INJ 25 MG/ML VIAL (J2550) IV ONE (06:15)
[2020-03-07] MEDS ORDERED: NovoLOG MIX 70/30 PER UNIT SC SCH (09:00)
[2020-03-07] MEDS ORDERED: ENOXAPARIN 40MG/0.4ML SYRINGE (J1650 PER 10MG) SC SCH (09:00)
[2020-03-07] MEDS: HumaLOG INSULIN (NovoLOG) PER UNIT SC SCH ×4 (09:09→20:49)
[2020-03-07] MEDS: MAG SULF 1GM/100ML (MAG RUN) 1 GM in IV 1 EA IV SCH ×2 (10:05→10:54)
[2020-03-07] MEDS: DOCUSATE SODIUM 100 MG CAP PO SCH ×3 (10:06→21:34)
[2020-03-07] MEDS: PANTOPRAZOLE 40MG TAB (PROTONIX) PO SCH (10:06)
[2020-03-07] MEDS: CEFEPIME HCL 1 GM in D5W MINI-BAG PLUS 50 ML IV SCH ×2 (10:54→21:34)
--- NOTE | 2020-03-07 11:38 | IPNPDOC ---
Date Seen The patient was seen on 03/07/20. Progress Note SUBJECTIVE: Patient was transferred to the PCU overnight for fevers and chills with Tmax 103. Blood pressure was acutely elevated in the 200s systolic and patient was complaining of some shortness of breath and vague abdominal pain. He was started on broad spectrum antibiotics and infectious workup at that time was relatively negative. He tells me he is feeling somewhat better this morning. He does have some nausea and vague abdominal pain but denies any diarrhea. OBJECTIVE PHYSICAL EXAMINATION: VITAL SIGNS: see below GENERAL: alert and oriented, in no apparent distress, pleasant and conversant in full sentences. HEENT: PERRL, EOMI, Oral mucous membranes are moist without lesions. NECK: The patient has no noted JVD. No adenopathy is appreciated. No thyromegaly CHEST/LUNGS: Lungs are clear bilaterally without rhonchi, rales, or wheezes. There is no subcutaneous air appreciated. There is no tenderness to the chest wall. CHEST WALL: There is a port in the R upper chest wall HEART:Regular rate and rhythm. No murmurs, rubs, or gallops are appreciated. Distal pulses are 2+. No carotid bruits appreciated. ABDOMEN: healed postsurgical scars on abdomen. Soft, nontender, and nondist ended. Bowel sounds are positive. No organomegaly is appreciated. No masses are appreciated. There are no peritoneal signs. There is no [place] sign. EXTREMITIES: No peripheral edema. There is no focal long bone tenderness or deformity. SKIN: The patients skin is warm and dry, with some scattered bruising on arms and legs PSYCHIATRIC: AAO x 3, normal mood/affect NEUROLOGIC: The patient has 5/5 strength to the upper and lower extremities bilaterally. Sensation is intact throughout. Deep tendon reflexes are 2+ in all four extremities. There are no deficits to the cranial nerves. LABORATORY DATA, IMAGING STUDIES, MICROBIOLOGY: Please see below. Echocardiogram: Pending DVT prophylaxis ordered?: Goyo ASSESSMENT: This is a 74 YO M with history of metastatic colon cancer who presents after a fall at home found to have transaminitis and fever concerning for worsening cancer burden vs acute infection related to recent sepsis 2/2 UTI with bacteremia. PLAN: 1. Fever of unknown origin: patient was found have fever 102.7 on admission, tachycardia. He denies any recent illness. Of note, the patient was recently admitted from 01/25/20 to 01/28/20 found to have bacteremia with Providencia R ettgeri in urine and blood cultures. He was treated with Levaquin, which was continued on discharge. The patient dies any dysuria symptoms at this time. -Blood cultures x1 positive for Gram positive cocci. Will repeat blood cultures at this time -s/p one time dose empiric Rocephin -Continue empiric Vancomycin/Cefepime for now -Procalcitonin pending -lactic acid improved from 2.5 to 1.3 -UA not concerning for infection at this time -Echo ordered to r/o endocarditis -If fevers continue, will order LE doppler US and RUE doppler to r/o DVT -Caution with Ibuprofen in setting of CKD and Tylenol in setting of transaminitis 2. Transaminitis: trended down to AST 497, ALT 629. Patient does have known metastases of his colon cancer to his liver. Chemotherapy has been held recently due to patient's declining functional status. -Possible etiology is drug side-effect: recent use of Bactrim, Duloxetine, Midodrine. All of these have been held -Tylenol level, EtOH levels negative -Will continue to trend CMP -CT abd pelvis shows enlarging liver mets, Liver US similar findings -Hepatitis panel negative for infection -Iron panel ordered to r/o hemochromatosis. Patient does have iron deficiency -T bili mildly elevated at 1.2 on admission, has trended down to 1.0 -INR WNL -LDH elevated at 772 3. Weakness: Neurologic exam normal -Likely 2/2 dehydration -s/p IV fluids -PT/OT consulted. Patient will likely need rehab/placement after medically cleared -Initial Orthostats positive. Will recheck -Holding midodrine due to hypertension 4. CKD3: Cr today found to be 1.76. Baseline seems to be around 1.3-1.6 -Holding any nephrotoxic medications 5. Iron deficiency anemia: -Holding home oral iron supplementation in setting of acute infection 6. DM2: -Continue Insulin 70/30 50U QHS, 60U SC DAILY -SSI with hypoglycemic protocol 7. Diabetic Neuropathy: -Holding Cymbalta for concern for liver toxicity DVT ppx: Lovenox VS, I&O, 24H, Fishbone Vital Signs/I&O Vital Signs Date Time Temp Pulse Resp B/P (MAP) Pulse Ox O2 Delivery O2 Flow Rate FiO2 03/07/20 10:00 97 Room Air 03/07/20 07:49 103.2 99 18 160/76 (104) I&O- Last 24 Hours up to 6 AM 03/07/20 06:00 Intake Total 950 ml Output Total 1050 ml Balance -100 ml Laboratory Data 24H LABS Laboratory Tests 2 03/06/20 12:58: Lactic Acid Followup at 4 Hours 1.7 03/06/20 13:08: Prothrombin Time 14.2H, Prothromb Time International Ratio 1.07, Iron Level 38L, Total Iron Binding Capacity 233L, Transferrin % Saturation 16.3L, Ferritin 1379H, Lactate Dehydrogenase 772H 03/06/20 16:32: Bedside Glucose (Misc Panel) 132H 03/06/20 17:18: Anion Gap 7L, Glomerular Filtration Rate 41.1L, Calcium Level 9.1, Total Bilir ubin 1.0, Aspartate Amino Transf (AST/SGOT) 987H, Alanine Aminotransferase (ALT/SGPT) 852H, Alkaline Phosphatase 425H, Total Protein 7.1, Albumin 3.2, Albumin/Globulin Ratio 0.8, Acetaminophen Level < 2.0L, Ethyl Alcohol Level < 0.003 03/06/20 19:30: Bedside Glucose (Misc Panel) 176H 03/06/20 20:15: Lactic Acid Level 2.5*H 03/06/20 20:24: Blood Gas Bicarbonate Standard 23.1, Arterial Blood pH 7.502H, Arterial Blood Partial Pressure CO2 26.5L, Arterial Blood Partial Pressure O2 66.7L, Arterial Blood Total CO2 21.1L, Arterial Blood HCO3 20.3L, Arterial Blood Base Excess - 1.5, Arterial Blood Oxygen Saturation 93.5L 03/06/20 21:53: Coronavirus (COVID-19)(PCR) NEGATIVE 03/07/20 01:05: Lactic Acid Followup at 4 Hours 1.3 03/07/20 04:43: Nucleated Red Blood Cells % (auto) 0.0, Anion Gap 5L, Glomerular Filtration Rate 40.6L, Calcium Level 8.8, Magnesium Level 1.6L, Total Bilirubin 1.0, Aspartate Amino Transf (AST/SGOT) 497H, Alanine Aminotransferase (ALT/SGPT) 629H, Alkaline Phosphatase 383H, Total Protein 7.7, Albumin 2.9L, Albumin/Globulin Ratio 0.6 CBC/BMP Laboratory Tests 03/06/20 17:18 03/07/20 04:43 Microbiology Microbiology 03/06/20 Blood Culture - Preliminary, Resulted No growth after 24 hours . All specim... 03/06/20 Blood Culture - Preliminary, Resulted GME ATTESTATION GME ATTESTATION My faculty preceptor for this patient encounter was physically present during the encounter and was fully available. All aspects of the patient interview, examination, medical decision making process, and medical care plan development were reviewed and approved by the faculty preceptor. The faculty preceptor is aware and concurs with the plan as stated in the body of this note and will attest to such by his/her cosignature. ATTENDING NOTE Patient was seen and examined by me personally with the residents and the students. Agree with the above assessment and plan. PAMELA JAVIER MD Mar 07, 2020 11:38 EMILY CARTER MD Mar 08, 2020 14:10
[2020-03-07] MEDS: VANCOMYCIN HCL 1,000 MG, VIAL MATE ADAPTER 1 EACH in D5W 250 ML IV SCH (12:55)
[2020-03-07] MEDS: LABETALOL 200 MG TAB PO SCH ×2 (14:00→21:34)
[2020-03-07] MEDS: ACETAMINOPHEN 325 MG TAB PO PRN (15:06)
[2020-03-07 17:21] LABS: MONO SCRN NEGATIVE (NEGATIVE)
[2020-03-07] MEDS ORDERED: ACETAMINOPHEN 325 MG TAB PO ONE (18:00)
--- NOTE | 2020-03-07 18:08 | REPVR ---
PROCEDURE INFORMATION: Exam: US Duplex Lower Extremity Veins, Bilateral Exam date and time: 03/07/2020 6:01 PM Age: 74 years old Clinical indication: Condition or disease; Other: Fever; Additional info: R/O dvt, fever TECHNIQUE: Imaging protocol: Real-time duplex ultrasound of the extremities with 2-D hernandez scale, color Doppler flow and spectral waveform analysis with image documentation. Complete exam focused on the bilateral lower extremity veins. COMPARISON: US DUPLEX EXT UPPER VEINS UNILATE RIGHT 03/07/2020 5:12 PM FINDINGS: Right deep veins: Nonocclusive thrombus in the right common femoral vein and proximal superficial femoral vein. Findings may be related to prior DVT. Remaining veins in the deep system unremarkable. Right superficial veins: Saphenofemoral junction is patent without thrombus. Left deep veins: Unremarkable. The common femoral, femoral, proximal profunda femoral and popliteal veins are patent without thrombus. Normal Doppler waveforms. Normal compressibility and/or augmentation response. Left superficial veins: Saphenofemoral junction is patent without thrombus. Soft tissues: Unremarkable. IMPRESSION: 1. Nonocclusive thrombus in the right common femoral vein and proximal superficial femoral vein. Findings may be related to prior recanalized thrombosis or subtotal acute thrombosis. 2. No DVT on the left. Electronically signed by: Rogelio Kumar On 03/07/2020 18:08:22 PM
--- NOTE | 2020-03-07 18:10 | REPVR ---
PROCEDURE INFORMATION: Exam: US Duplex Right Upper Extremity Veins, Limited Exam date and time: 03/07/2020 6:01 PM Age: 74 years old Clinical indication: Condition or disease; Other: Fever; Additional info: R/O dvt TECHNIQUE: Imaging protocol: Real-time Duplex ultrasound of the Right Upper Extremity with 2-D hernandez scale, color Doppler flow and spectral waveform analysis with image documentation. Limited exam focused on the right upper extremity veins. COMPARISON: No relevant prior studies available. FINDINGS: Right deep veins: Unremarkable. Axillary and brachial veins are patent throughout without thrombus. Normal Doppler waveforms. Normal compressibility and/or augmentation response. Visualized internal jugular and subclavian veins are patent. Right superficial veins: Unremarkable. Visualized cephalic and basilic veins are patent without thrombus. Soft tissues: Unremarkable. Other findings: Solid hyperechoic homogeneous nodule demonstrated within the muscle planes at the level of the mid to distal humerus measuring 7.2 x 2.2 x 3.9 cm. IMPRESSION: Solid hyperechoic nodule demonstrated within the muscle planes at the level of the mid to distal humerus measuring 7.2 x 2.2 x 3.9 cm. No DVT. Electronically signed by: Rogelio Kumar On 03/07/2020 18:10:42 PM
[2020-03-07] MEDS: DEXTROSE 50% 50 ML SYRINGE IV PRN ×2 (18:27→19:09)
--- NOTE | 2020-03-07 19:06 | ECGEPIP ---
[facility] - ED Test Date: 2020-03-06 Pat Name: LORE CHESTER Department: Room: - Gender: Male [employer] Operator: jenny : 1945 Requested By: YANNA Franco Order Number: [id number] Reading MD: Cody Ferreira Measurements Intervals [place] Rate: 102 P: 52 NM: 169 QRS: -24 QRSD: 96 T: 65 QT: 320 QTc: 417 Interpretive Statements SINUS TACHYCARDIA BORDERLINE LEFT AXIS DEVIATION NONSPECIFIC T-WAVE ABNORMALITY SIMILAR TO 01/24/20 Electronically Signed on 03-07-2020 19:06:21 EDT by Cody Ferreira
[2020-03-07] MEDS ORDERED: HEPARIN SOD (PORCINE) 5000UNITS/ML 1ML VIAL/SYRINGE IV PRN (20:15)
[2020-03-07 20:39] LABS: HEMATOCRIT 39.3 % (42.0-52.0); HEMOGLOBIN 12.5 g/dl (13.5-17.5); MEAN CORPUSCULAR HEMOGLOBIN 30.4 pg (27.0-33.0); MEAN CORPUSCULAR HGB CONC 31.8 g/dl (32.0-36.5); MEAN CORPUSCULAR VOLUME 95.6 fl (80.0-96.0); PLATELET COUNT, AUTOMATED 165 10^3/uL (150-450); RED BLOOD COUNT 4.11 10^6/uL (4.30-6.10); WHITE BLOOD COUNT 10.6 10^3/uL (4.0-10.0)
[2020-03-07] MEDS: NovoLOG MIX 70/30 PER UNIT SC SCH (20:49)
[2020-03-07] MEDS: HEPARIN DRIP 25,000 UNITS in IV 1 EA IV SCH (21:41)
[2020-03-08] VITALS (26 sets, daily range): BP systolic 92–200; BP diastolic 52–106; O2SAT 97–99
[2020-03-08 05:02] LABS: HEMATOCRIT 37.6 % (42.0-52.0); HEMOGLOBIN 12.1 g/dl (13.5-17.5); MEAN CORPUSCULAR HEMOGLOBIN 30.8 pg (27.0-33.0); MEAN CORPUSCULAR HGB CONC 32.2 g/dl (32.0-36.5); MEAN CORPUSCULAR VOLUME 95.7 fl (80.0-96.0); PLATELET COUNT, AUTOMATED 165 10^3/uL (150-450); RED BLOOD COUNT 3.93 10^6/uL (4.30-6.10); WHITE BLOOD COUNT 9.9 10^3/uL (4.0-10.0)
[2020-03-08] MEDS: LABETALOL 200 MG TAB PO SCH ×3 (06:32→21:33)
[2020-03-08] MEDS: ACETAMINOPHEN 325 MG TAB PO PRN ×2 (06:33→15:56)
[2020-03-08 06:37] LABS: ALBUMIN 2.7 GM/DL (3.2-5.2); BILIRUBIN,TOTAL 0.7 MG/DL (0.2-1.0); CALCIUM LEVEL 8.6 MG/DL (8.8-10.2); CREATININE FOR GFR 1.44 MG/DL (0.70-1.30); GLOMERULAR FILTRATION RATE 51.2 (>42); POTASSIUM SERUM 4.6 MEQ/L (3.5-5.1); TOTAL PROTEIN 6.6 GM/DL (6.4-8.2); VANCOMYCIN LEVEL TROUGH 4.2 UG/ML (10.0-20.0)
[2020-03-08] MEDS: VANCOMYCIN HCL 1,000 MG, VIAL MATE ADAPTER 1 EACH in D5W 250 ML IV SCH (06:51)
--- NOTE | 2020-03-08 08:12 | ECHO ---
DATE OF PROCEDURE: 03/07/2020 Age: 74 Gender: Male Height: 183 cm Weight: 95 kg REFERRING PHYSICIAN: Jazmin Adame MD INDICATION: Fever. MEASUREMENTS: 2D Measurements: Intraventricular septum 1.28 cm Posterior wall 1.08 cm Left ventricle diastole 4.6 cm Aortic root 2.8 cm Left atrium 4.0 cm Left atrial volume index 21 cm Doppler Measurements: No aortic stenosis No aortic regurgitation Aortic valve velocity 172 cm/s LVOT velocity 116 cm/s No mitral regurgitation No mitral stenosis Mitral E velocity 55.3 cm/s Mitral A velocity 81.0 cm/s Mitral deceleration time 121 msec Trace tricuspid regurgitation No pulmonic regurgitation Pulmonary artery acceleration time 90 msec MITRAL ANNULAR TISSUE DOPPLER E prime septal 6.2 cm/s, E prime lateral 10.3 cm/s DESCRIPTION: Rhythm was sinus with some premature ventricular contractions (PVCs) observed. This was a moderately technically difficult echocardiogram. No pericardial effusion. CONCLUSIONS: 1. No vegetation identified. 2. Moderately technically difficult echocardiogram. 3. Normal left ventricle internal dimensions and wall thickness. Normal regional left ventricular (LV) wall motion and wall thickening. Normal left ventricular (LV) systolic function. Left ventricular ejection fraction (LVEF) 60% by visual estimate. Normal left ventricular (LV) diastolic function for age and observed heart rate. 4. Suggestive of mild elevation of pulmonary artery systolic pressure. 5. Mild aortic valve sclerosis of 3-cuspid aortic valve. No aortic regurgitation. MTDD
[2020-03-08] MEDS: HumaLOG INSULIN (NovoLOG) PER UNIT SC SCH ×4 (08:47→20:27)
[2020-03-08] MEDS: DOCUSATE SODIUM 100 MG CAP PO SCH ×2 (08:48→21:32)
[2020-03-08] MEDS: NovoLOG MIX 70/30 PER UNIT SC SCH (08:48)
[2020-03-08] MEDS: PANTOPRAZOLE 40MG TAB (PROTONIX) PO SCH (08:48)
[2020-03-08] MEDS: ONDANSETRON 4MG/2ML VIAL IV PRN ×2 (08:53→21:32)
[2020-03-08] MEDS: CEFEPIME HCL 1 GM in D5W MINI-BAG PLUS 50 ML IV SCH ×2 (09:25→21:32)
[2020-03-08] MEDS ORDERED: VANCOMYCIN HCL 500 MG in D5W MINI-BAG PLUS 100 ML IV ONE (10:00)
--- NOTE | 2020-03-08 14:16 | IPNPDOC ---
Date Seen The patient was seen on 03/08/20. Progress Note SUBJECTIVE: Patient was seen and examined at the bedside this morning. He continued to have fevers overnight but his fever curve has trended down. This morning he is hypoglycemic and nursing reports he has not been eating very much. He states he is nauseous and has not had an appetite. Zofran was ordered and patient was encouraged to eat. The findings of RLE DVT were explained to him as well as need for heparin drip at this time. The patient had no other complaints of SOB, CP, headache, lightheadedness/dizziness. OBJECTIVE PHYSICAL EXAMINATION: VITAL SIGNS: see below GENERAL: alert and oriented, in no apparent distress, pleasant and conversant in full sentences. HEENT: PERRL, EOMI, Oral mucous membranes are moist without lesions. NECK: The patient has no noted JVD. No adenopathy is appreciated. No thyromegaly CHEST/LUNGS: Lungs are clear bilaterally without rhonchi, rales, or wheezes. There is no subcutaneous air appreciated. There is no tenderness to the chest wall. CHEST WALL: There is a port in the R upper chest wall HEART:Regular rate and rhythm. No murmurs, rubs, or gallops are appreciated. Distal pulses are 2+. No carotid bruits appreciated. ABDOMEN: healed postsurgical scars on abdomen. Soft, nontender, and nondistended. Bowel sounds are positive. No organomegaly is appreciated. No masses are appreciated. There are no peritoneal signs. There is no [place] sign. EXTREMITIES: No peripheral edema. There is no focal long bone tenderness or deformity. SKIN: The patients skin is warm and dry, with some scattered bruising on arms and legs PSYCHIATRIC: AAO x 3, normal mood/affect NEUROLOGIC: The patient has 5/5 strength to the upper and lower extremities bilaterally. Sensation is intact throughout. Deep tendon reflexes are 2+ in all four extremities. There are no deficits to the cranial nerves. LABORATORY DATA, IMAGING STUDIES, MICROBIOLOGY: Please see below. Echocardiogram: CONCLUSIONS: 1. No vegetation identified. 2. Moderately technically difficult echocardiogram. 3. Normal left ventricle internal dimensions and wall thickness. Normal regional left ventricular (LV) wall motion and wall thickening. Normal left ventricular (LV) systolic function. Left ventricular ejection fraction (LVEF) 60% by visual estimate. Normal left ventricular (LV) diastolic function for age and observed heart rate. 4. Suggestive of mild elevation of pulmonary artery systolic pressure. 5. Mild aortic valve sclerosis of 3-cuspid aortic valve. No aortic regurgit ation. DOPPLER US LE BILATERAL: FINDINGS: Right deep veins: Nonocclusive thrombus in the right common femoral vein and proximal superficial femoral vein. Findings may be related to prior DVT. Remaining veins in the deep system unremarkable. Right superficial veins: Saphenofemoral junction is patent without thrombus. Left deep veins: Unremarkable. The common femoral, femoral, proximal profunda femoral and popliteal veins are patent without thrombus. Normal Doppler waveforms. Normal compressibility and/or augmentation response. Left superficial veins: Saphenofemoral junction is patent without thrombus. Soft tissues: Unremarkable. IMPRESSION: 1. Nonocclusive thrombus in the right common femoral vein and proximal superficial femoral vein. Findings may be related to prior recanalized thrombosis or subtotal acute thrombosis. 2. No DVT on the left. DOPPLER US RUE: FINDINGS: Right deep veins: Unremarkable. Axillary and brachial veins are patent throughout without thrombus. Normal Doppler waveforms. Normal compressibility and/or augmentation response. Visualized internal jugular and subclavian veins are patent. Right superficial veins: Unremarkable. Visualized cephalic and basilic veins are patent without thrombus. Soft tissues: Unremarkable. Other findings: Solid hyperechoic homogeneous nodule demonstrated within the muscle planes at the level of the mid to distal humerus measuring 7.2 x 2.2 x 3.9 cm. IMPRESSION: Solid hyperechoic nodule demonstrated within the muscle planes at the level of the mid to distal humerus measuring 7.2 x 2.2 x 3.9 cm. No DVT. DVT prophylaxis ordered?: on heparin drip ASSESSMENT: This is a 74 YO M with history of metastatic colon cancer who presents after a fall at home found to have transaminitis and fever likely 2/2 to DVT from cancer hypercoagulability vs hepatitis. He is currently in the ICU on antibiotics and heparin drip. PLAN: 1. Fever of unknown origin: Patient was found to have RLE DVT which may be et iology of fever vs drug-induced hepatitis -Blood cultures x1 positive for Gram positive cocci. Pending repeat blood cultures -s/p one time dose empiric Rocephin -Continue empiric Cefepime for now -Vancomycin stopped -Procalcitonin found to be 0.41, low risk for progression to septic shock -lactic acid improved from 2.5 to 1.3 -UA not concerning for infection at this time -Echo did not show any vegetations -Caution with Ibuprofen in setting of CKD and Tylenol in setting of transaminitis. Continue cooling blanket 2. Transaminitis: AST/ALT now trended down to 158/368. Likely drug-induced (recent Bactrim, Duloxetine, Midodrine use) -Tylenol level, EtOH levels negative -Will continue to trend CMP -CT abd pelvis shows enlarging liver mets, Liver US similar findings -Hepatitis panel negative for infection -Iron panel ordered to r/o hemochromatosis. Patient does have iron deficiency -T bili mildly elevated at 1.2 on admission, has trended down to 1.0 -INR WNL -LDH elevated at 772 3. Weakness: Neurologic exam normal -Likely 2/2 dehydration -s/p IV fluids -PT/OT consulted. Patient will likely need rehab/placement after medically cleared -Initial Orthostats positive. Will recheck 4. CKD3: Cr today down to 1.44. Baseline seems to be around 1.3-1.6 -Holding any nephrotoxic medications 5. Iron deficiency anemia: -Holding home oral iron supplementation in setting of acute infection 6. DM2: -Continue Insulin 70/30, reduced for time being due to hypoglycemia 2/2 not eating -SSI with hypoglycemic protocol 7. Diabetic Neuropathy: -Holding Cymbalta for concern for liver toxicity DVT ppx: Lovenox VS, I&O, 24H, Fishbone Vital Signs/I&O Vital Signs Date Time Temp Pulse Resp B/P (MAP) Pulse Ox O2 Delivery O2 Flow Rate FiO2 03/08/20 09:00 100.4 66 126/57 (80) 99 Room Air 03/08/20 08:15 18 I&O- Last 24 Hours up to 6 AM 03/08/20 06:00 Intake Total 1882 ml Output Total 225 ml Balance 1657 ml Laboratory Data 24H LABS Laboratory Tests 2 03/07/20 16:48: Monoscreen NEGATIVE 03/07/20 18:13: Bedside Glucose (Misc Panel) 52L 03/07/20 18:18: Bedside Glucose (Misc Panel) 42L 03/07/20 18:20: Bedside Glucose (Misc Panel) 44L 03/07/20 19:07: Bedside Glucose (Misc Panel) 69L 03/07/20 20:09: Bedside Glucose (Misc Panel) 72L 03/07/20 20:27: Nucleated Red Blood Cells % (auto) 0.0, Activated Partial Thromboplast Time 41.9H 03/08/20 04:43: Nucleated Red Blood Cells % (auto) 0.0, Activated Partial Thromboplast Time 143.8*H, Anion Gap 10, Glomerular Filtration Rate 51.2, Calcium Level 8.6L, Total Bilirubin 0.7, Aspartate Amino Transf (AST/SGOT) 158H, Alanine Aminotransferase (ALT/SGPT) 368H, Alkaline Phosphatase 324H, Total Protein 6.6, Albumin 2.7L, Albumin/Globulin Ratio 0.7, Vancomycin Level Trough 4.2L 03/08/20 08:41: Bedside Glucose (Misc Panel) 181H 03/08/20 11:49: Bedside Glucose (Misc Panel) 267H 03/08/20 12:27: Activated Partial Thromboplast Time 101.6H CBC/BMP Laboratory Tests 03/07/20 20:27 03/08/20 04:43 Microbiology Microbiology 03/07/20 Gram Stain - Final, Resulted 03/07/20 Sputum Culture - Preliminary, Resulted Yeast Like Organism 03/07/20 Blood Culture - Preliminary, Resulted No growth after 24 hours . All specim... 03/07/20 Blood Culture - Preliminary, Resulted No growth after 24 hours . All specim... 03/06/20 Blood Culture - Preliminary, Resulted No Growth after 48 hours. All Specime... 03/06/20 Blood Culture - Preliminary, Resulted GME ATTESTATION GME ATTESTATION My faculty preceptor for this patient encounter was physically present during the encounter and was fully available. All aspects of the patient interview, examination, medical decision making process, and medical care plan development were reviewed and approved by the faculty preceptor. The faculty preceptor is aware and concurs with the plan as stated in the body of this note and will attest to such by his/her cosignature. ATTENDING NOTE Patient was seen and examined by me personally with the residents/ students. I agree with the above assessment and plan PAMELA JAVIER MD Mar 08, 2020 13:38 EMILY CARTER MD Mar 26, 2020 12:20
[2020-03-08] MEDS: HEPARIN DRIP 25,000 UNITS in IV 1 EA IV SCH (15:59)
[2020-03-08] MEDS ORDERED: VANCOMYCIN HCL 1,000 MG, VIAL MATE ADAPTER 1 EACH in D5W 250 ML IV SCH (19:00)
[2020-03-08] MEDS ORDERED: NovoLOG MIX 70/30 PER UNIT SC SCH (21:00)
[2020-03-08] MEDS ORDERED: diphenhydrAMINE 25MG CAP PO ONE (23:30)
[2020-03-09] VITALS (19 sets, daily range): BP systolic 97–146; BP diastolic 52–88; O2SAT 97–99
[2020-03-09] MEDS: LABETALOL 200 MG TAB PO SCH (05:17)
[2020-03-09] MEDS: ONDANSETRON 4MG/2ML VIAL IV PRN (05:20)
[2020-03-09 06:21] LABS: HEMATOCRIT 33.8 % (42.0-52.0); HEMOGLOBIN 10.7 g/dl (13.5-17.5); MEAN CORPUSCULAR HEMOGLOBIN 30.1 pg (27.0-33.0); MEAN CORPUSCULAR HGB CONC 31.7 g/dl (32.0-36.5); MEAN CORPUSCULAR VOLUME 95.2 fl (80.0-96.0); PLATELET COUNT, AUTOMATED 182 10^3/uL (150-450); RED BLOOD COUNT 3.55 10^6/uL (4.30-6.10)
[2020-03-09 07:01] LABS: ALBUMIN 2.6 GM/DL (3.2-5.2); ALT/SGPT 226 U/L (12-78); BILIRUBIN,TOTAL 0.5 MG/DL (0.2-1.0); BLOOD UREA NITROGEN 27 MG/DL (7-18); CALCIUM LEVEL 8.6 MG/DL (8.8-10.2); CARBON DIOXIDE LEVEL 26 MEQ/L (21-32); CHLORIDE LEVEL 102 MEQ/L (98-107); CREATININE FOR GFR 1.13 MG/DL (0.70-1.30); GLOMERULAR FILTRATION RATE > 60.0 (>42); GLUCOSE, FASTING 31 MG/DL (70-100); POTASSIUM SERUM 3.8 MEQ/L (3.5-5.1); SODIUM LEVEL 135 MEQ/L (136-145); TOTAL PROTEIN 6.5 GM/DL (6.4-8.2)
[2020-03-09] MEDS: DEXTROSE 50% 50 ML SYRINGE IV PRN (07:04)
[2020-03-09] MEDS: HumaLOG INSULIN (NovoLOG) PER UNIT SC SCH ×4 (07:30→20:03)
[2020-03-09] MEDS: NovoLOG MIX 70/30 PER UNIT SC SCH ×2 (09:00→20:03)
[2020-03-09] MEDS: DOCUSATE SODIUM 100 MG CAP PO SCH ×2 (09:00→20:03)
[2020-03-09] MEDS ORDERED: amLODIPine 5 MG TAB PO SCH (09:00)
[2020-03-09] MEDS ORDERED: lisinopriL 10 MG TAB PO SCH (09:00)
[2020-03-09] MEDS: PANTOPRAZOLE 40MG TAB (PROTONIX) PO SCH (09:44)
[2020-03-09] MEDS: CEFEPIME HCL 1 GM in D5W MINI-BAG PLUS 50 ML IV SCH ×2 (11:25→23:05)
[2020-03-09 13:15] LABS: MAGNESIUM LEVEL 2.1 MG/DL (1.8-2.4)
[2020-03-09] MEDS: NYSTATIN 500,000 U/5 ML SUSP UDC PO SCH ×3 (15:09→23:05)
[2020-03-09] MEDS: RIVAROXABAN 15 MG TAB (XARELTO) PO SCH (16:07)
--- NOTE | 2020-03-09 21:45 | IPNPDOC ---
Date Seen The patient was seen on 03/09/20. Progress Note SUBJECTIVE: Lionel was seen and examined this morning while lying in his ICU bed. He denies any acute events overnight, but does express strong wishes to be discharged sooner rather than later. He denies feeling as fever overnight or this morning. The colon banket is no longer being used at this time. His heparin drip continues to run. He was significantly hypoglycemic this morning with serum glucose of 31. This campos multiple mornings where he's had low blood sugar. He continues to express somewhat diminished appetite. He denies any current, or overnight, chills, night sweats chest pain, palpitations, shortness of breath, abdominal pain, nausea, or vomiting. *Of note, later in the shift, after transfer orders for him to be downgraded to med/surg were placed, he expressed a significant desire to leave the hospital all together even if it required an AGAINST MEDICAL ADVICE sign-out to do so. Multiple times he referred to the hospital as "a [facility]," and expressed displeasure with how uncomfortable his bed feels. After speaking with the patient, explaining to him his medical conditions and why they warrant further inpatient treatment, he decided against AMA and his transfer to med/surg was subsequently completed. OBJECTIVE PHYSICAL EXAMINATION: VITAL SIGNS: Please see below. GENERAL: Alert man lying in bed. Seems a bit disappointed and disheartened at times during exam. No acute distress. Alert and oriented 3. HEENT: Cephalic, atraumatic. Noninjected sclera. No significant scleral icterus appreciated. There is some yellow crusting on the lower eyelids bilaterally. Moist mucous membranes. NECK: Neck is supple. Trachea midline. No thyromegaly or lymphadenopathy appreciated. No JVD. CHEST: There is a port present. Underlying skin of the right upper chest. There is no induration, erythema, or discharge from the port site. CARDIOVASCULAR: Rate and rhythm are regular. Normal S1, S2. Our sounds are somewhat distant. No appreciable and/R/G. RESPIRATORY: (Patient was unable to sit up on his own accord for posterior auscultation, and needed assistance to do so) clear to auscultation bilaterally with no adventitious breath sounds appreciated. No tenderness to chest wall with no subcutaneous air appreciated. ABDOMINAL: Soft, nontender, nondistended. No guarding, rigidity. Normoactive bowel sounds throughout. Negative hepatojugular reflex and no Linares sign. No pedal splenomegaly or masses appreciated. EXTREMITIES: There is a significant number of scratches over the right anterior thigh, with some scratches over the bilateral shins. Lower extremities are free of edema. No signs of clubbing or cyanosis. 2+ radial and posterior tibial pulses bilaterally. NEUROLOGICAL: Awake, alert and oriented 3. No focal neurologic deficits appreciated. No dysarthric speech. PSYCHOLOGICAL: Somewhat disheartened mood at times during exam. Affect appears appropriate. LABORATORY DATA, IMAGING STUDIES, MICROBIOLOGY: Please see below. Echocardiogram: CONCLUSIONS: 1. No vegetation identified. 2. Moderately technically difficult echocardiogram. 3. Normal left ventricle internal dimensions and wall thickness. Normal regional left ventricular (LV) wall motion and wall thickening. Normal left ventricular (LV) systolic function. Left ventricular ejection fraction (LVEF) 60% by visual estimate. Normal left ventricular (LV) diastolic function for age and observed heart rate. 4. Suggestive of mild elevation of pulmonary artery systolic pressure. 5. Mild aortic valve sclerosis of 3-cuspid aortic valve. No aortic regurgitation. DOPPLER US LE BILATERAL: FINDINGS: Right deep veins: Nonocclusive thrombus in the right common femoral vein and proximal superficial femoral vein. Findings may be related to prior DVT. Remaining veins in the deep system unremarkable. Right superficial veins: Saphenofemoral junction is patent without thrombus. Left deep veins: Unremarkable. The common femoral, femoral, proximal profunda femoral and popliteal veins are patent without thrombus. Normal Doppler waveforms. Normal compressibility and/or augmentation response. Left superficial veins: Saphenofemoral junction is patent without thrombus. Soft tissues: Unremarkable. IMPRESSION: 1. Nonocclusive thrombus in the right common femoral vein and proximal superficial femoral vein. Findings may be related to prior recanalized thrombosis or subtotal acute thrombosis. 2. No DVT on the left. DOPPLER US RUE: FINDINGS: Right deep veins: Unremarkable. Axillary and brachial veins are patent throughout without thrombus. Normal Doppler waveforms. Normal compressibility and/or augmentation response. Visualized internal jugular and subclavian veins are patent. Right superficial veins: Unremarkable. Visualized cephalic and basilic veins are patent without thrombus. Soft tissues: Unremarkable. Other findings: Solid hyperechoic homogeneous nodule demonstrated within the muscle planes at the level of the mid to distal humerus measuring 7.2 x 2.2 x 3.9 cm. IMPRESSION: Solid hyperechoic nodule demonstrated within the muscle planes at the level of the mid to distal humerus measuring 7.2 x 2.2 x 3.9 cm. No DVT. ASSESSMENT AND PLAN: This is a 74yo male with history of metastatic colon cancer to liver, who presented to the [facility] ED after falling at his home and was subsequently found to be febrile with transaminitis, likely secondary to DVT from cancer hypercoagulability versus drug-induced hepatitis/metastatic burden hepatitis. He initially was in progressive care and switch to ICU for a cooling blanket and was maintained on antibiotics as well as a heparin drip for the DVT. On 03/09, heparin drip was discontinued to switch over to direct oral anticoagulant therapeutic dosing and remained afebrile for 24 hours and was subsequently downgraded to pcu. #Fever with unknown source: Patient was found to have an occult thrombus (RLE DVT), which is possible etiology fever versus drug-induced hepatitis as etiology -Patient has been afebrile for roughly the past 24 hours. He was 97.7 this morning. The cooling blanket is no longer being applied. Patient was downgraded to [facility] today out of the ICU. -White count within normal limits this morning. One of 2 initial blood cultures grew staph epidermidis. The other had no growth after 48 hours, 2 repeat blood cultures showed no growth after 24 hours. Sputum culture showed yeast organisms present. Previous UA unremarkable. Patient has had no evidence of meningeal signs. -IV cefepime was continued. Patient previously had been on vancomycin is discontinued and did receive 1 dose of empiric ceftriaxone. -Continue to proceed with caution in administering ibuprofen the setting of CKD, as well as Tylenol in the setting of transaminitis. Tylenol max dose over 24 hours is 1 g. #Transaminitis -AST and ALT continued to trend down as is alkaline phosphatase. This is likely due to drug-induced effect, as patient has recently taken Bactrim as outpatient, and has home midodrine and duloxetine meds. We will continue to hold these aforementioned medications and trend metabolic panel -a CT abdomen and pelvis did show increased medical static burden in the liver that were corroborated on liver ultrasound-initial hepatitis panel was ordered and was unremarkable for active infection. Patient has history of iron deficiency anemia and iron panel was ordered to rule out hemochromatosis -Initially elevated T bili has trended down -Initial INR is within normal limits. -LDH level was initially elevated #Provoked DVT -Lower extremity venous Doppler ultrasound revealed nonocclusive left common femoral thrombus that potentially is acute versus previous DVT -Likely provoked due to the hypercoagulability as a side effect of the metastatic cancer -Patient was placed on a heparin drip by overnight service on 03/06. Heparin gtt was stopped today and patient was switched to direct oral anticoagulation in the form of Xarelto therapeutic dose. Beginning therapeutic dose of 15 mg for the 21 days qd today. #Chronic kidney disease stage III -creatinine again came down today. Baseline is about 1.3-1.6 -Due to hold nephrotoxic medications #History of iron deficiency anemia. 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 His home evening 70/30 insulin dose of 40 units was halved to 20 units today. -We'll continue with morning, daily 50 unit dosing as well as hypoglycemic protocol. -Continue to hold home Cymbalta. Out of concern for liver toxicity in the setting of transaminitis, likely from drug-induced hepatitis #Yeast organism growth on sputum culture -oral nystatin ordered today #Elevated blood pressures without history/dx of htn -Patient had previously been placed on labetalol, blood pressures are normotensive. Of late, and subsequently we discontinued labetalol today. -Patient has had multiple positive orthostatic vital signs during this admission #DVT prophylaxis: On therapeutic xarelto dosing Disposition: Discharge pending continued afebrile state and treatment of DVT Patient seen and examined independently. Agree with resident's note. VS, I&O, 24H, Fishbone Vital Signs/I&O Vital Signs Date Time Temp Pulse Resp B/P (MAP) Pulse Ox O2 Delivery O2 Flow Rate FiO2 03/09/20 16:11 69 146/66 (92) 75 115/53 (73) 03/09/20 15:30 97.6 20 98 Room Air I&O- Last 24 Hours up to 6 AM 03/09/20 06:00 Intake Total 1438 ml Output Total 350 ml Balance 1088 ml Laboratory Data 24H LABS Laboratory Tests 2 03/09/20 05:59: Nucleated Red Blood Cells % (auto) 0.0, Activated Partial Thromboplast Time 74.1H, Anion Gap 7L, Glomerular Filtration Rate > 60.0, Calcium Level 8.6L, Magnesium Level 2.1, Total Bilirubin 0.5, Aspartate Amino Transf (AST/SGOT) 68H, Alanine Aminotransferase (ALT/SGPT) 226H, Alkaline Phosphatase 258H, Total Protein 6.5, Albumin 2.6L, Albumin/Globulin Ratio 0.7 03/09/20 07:54: Bedside Glucose (Misc Panel) 100 03/09/20 12:06: Bedside Glucose (Misc Panel) 211H 03/09/20 16:32: Bedside Glucose (Misc Panel) 184H 03/09/20 19:33: Bedside Glucose (Misc Panel) 206H CBC/BMP Laboratory Tests 03/09/20 05:59 Microbiology Microbiology 03/07/20 Gram Stain - Final, Complete 03/07/20 Sputum Culture - Final, Complete Yeast Like Organism 03/07/20 Blood Culture - Preliminary, Resulted No Growth after 48 hours. All Specime... 03/07/20 Blood Culture - Preliminary, Resulted No Growth after 48 hours. All Specime... 03/06/20 Blood Culture - Preliminary, Resulted No Growth after 72 hours. All specime... 03/06/20 Blood Culture - Final, Complete Staphylococcus Epidermidis STAN LING D.O. Mar 09, 2020 21:44 NIC CHACON MD Apr 01, 2020 14:12
[2020-03-10] MEDS: NYSTATIN 500,000 U/5 ML SUSP UDC PO SCH ×4 (05:36→17:31)
[2020-03-10 06:00] VITALS: BP 146/70
[2020-03-10 06:56] LABS: HEMOGLOBIN 10.8 g/dl (13.5-17.5); MEAN CORPUSCULAR HEMOGLOBIN 30.2 pg (27.0-33.0); MEAN CORPUSCULAR HGB CONC 31.8 g/dl (32.0-36.5); PLATELET COUNT, AUTOMATED 209 10^3/uL (150-450); RED BLOOD COUNT 3.58 10^6/uL (4.30-6.10); WHITE BLOOD COUNT 7.4 10^3/uL (4.0-10.0)
[2020-03-10 07:21] LABS: ALBUMIN 2.5 GM/DL (3.2-5.2); ALT/SGPT 154 U/L (12-78); BILIRUBIN,TOTAL 0.5 MG/DL (0.2-1.0); BLOOD UREA NITROGEN 23 MG/DL (7-18); CALCIUM LEVEL 8.6 MG/DL (8.8-10.2); CARBON DIOXIDE LEVEL 24 MEQ/L (21-32); CHLORIDE LEVEL 106 MEQ/L (98-107); CREATININE FOR GFR 1.08 MG/DL (0.70-1.30); GLOMERULAR FILTRATION RATE > 60.0 (>42); GLUCOSE, FASTING 106 MG/DL (70-100); POTASSIUM SERUM 4.4 MEQ/L (3.5-5.1); SODIUM LEVEL 136 MEQ/L (136-145); TOTAL PROTEIN 6.5 GM/DL (6.4-8.2)
[2020-03-10] MEDS: HumaLOG INSULIN (NovoLOG) PER UNIT SC SCH ×4 (07:30→19:57)
[2020-03-10] MEDS: DOCUSATE SODIUM 100 MG CAP PO SCH ×2 (08:48→19:57)
[2020-03-10] MEDS: PANTOPRAZOLE 40MG TAB (PROTONIX) PO SCH (08:48)
[2020-03-10] MEDS: RIVAROXABAN 15 MG TAB (XARELTO) PO SCH ×2 (08:48→17:29)
[2020-03-10] MEDS: CEFEPIME HCL 1 GM in D5W MINI-BAG PLUS 50 ML IV SCH (08:48)
[2020-03-10] MEDS: NovoLOG MIX 70/30 PER UNIT SC SCH ×2 (08:48→19:57)
--- NOTE | 2020-03-10 09:10 | IPNPDOC ---
Text Note Date of Service The patient was seen on 03/10/20. NOTE SUBJECTIVE: Patient seen and examined at bedside. No acute overnight events reported. Patient has no new medical complaints this morning. Patient is very anxious to leave and is stating that he is leaving today. Extensive discussion at bedside with patient encouraging him to remain in the hospital for continued medical care. Risks of leaving AGAINST MEDICAL ADVICE were explained to him in detail and he voices complete understanding. OBJECTIVE: VITAL SIGNS: Please see below. GENERAL: NAD, lying comfortably in bed, grumpy HEENT: NC/AT, EOMI CHEST: right anterior chest port in place - area is c/d/i, lungs CTA B/L Heart: +S1S2, RRR Abd: soft, NT, +BS EXTREMITIES: There is a significant number of scratches over the right anterior thigh, with some scratches over the bilateral shins. Lower extremities are free of edema. No signs of clubbing or cyanosis. 2+ radial and posterior tibial pulses bilaterally. NEUROLOGICAL: Awake, alert and oriented 3. No focal neurologic deficits appreciated. No dysarthric speech. PSYCHOLOGICAL: AAOx3, grumpy ASSESSMENT AND PLAN: 74yo male with PMHx including metastatic colon cancer to liver, who presented to the [facility] ED after falling at his home and was subsequently found to be febrile with transaminitis, likely multifactorial etiology secondary to lower extremity DVT versus drug-induced hepatitis vs metastatic burden hepatitis. DVT felt to be secondary to hypercoagulable state from his malignancy. #Fevers - no clear source - thought to be multi-factorial from DVT, drug induced hepatitis, metastatic disease - afebrile > 24 hours - 05/27 BCx - Staph epi - thought to be contaminant - MRSA screen pending - vanco has been discontinued - IV cefepime - day #5 - anticipating d/c tomorrow - convert to oral #Transaminitis - continues to improve -AST and ALT continued to trend down as is alkaline phosphatase. This is likely due to drug-induced effect, as patient has recently taken Bactrim as outpatient, and has home midodrine and duloxetine meds. We will continue to hold these aforementioned medications and trend metabolic panel -a CT abdomen and pelvis did show increased medical static burden in the liver that were corroborated on liver ultrasound-initial hepatitis panel was ordered and was unremarkable for active infection. Patient has history of iron deficiency anemia and iron panel was ordered to rule out hemochromatosis -Initially elevated T bili has trended down -Initial INR is within normal limits. -LDH level was initially elevated #Provoked DVT -LLE venous Doppler ultrasound revealed nonocclusive left common femoral thrombus that potentially is acute versus previous DVT -Likely provoked due to the hypercoagulability as a side effect of the metastatic cancer -Patient was placed on a heparin drip by overnight service on 03/06. - continue DOAC #OSCAR/CKDIII - resolved #History of iron deficiency anemia. 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 Out of concern for liver toxicity in the setting of transaminitis, likely from drug-induced hepatitis #Yeast organism growth on sputum culture -oral nystatin ordered #Elevated blood pressures without history/dx of htn -Patient had previously been placed on labetalol, blood pressures are normotensive. Of late, and subsequently we discontinued labetalol -Patient has had multiple positive orthostatic vital signs during this admission - relatively asymptomatic with regards to orthostasis #DVT prophylaxis: On therapeutic xarelto dosing Disposition: anticipating discharge in 24 hours, pending PT follow up VS,Ralph, I+O VS, Ivane, I+O Laboratory Tests 03/10/20 06:29 Vital Signs Date Time Temp Pulse Resp B/P (MAP) Pulse Ox O2 Delivery O2 Flow Rate FiO2 03/10/20 06:00 97.9 68 20 146/70 (95) 97 Room Air I&O- Last 24 Hours up to 6 AM 03/10/20 06:00 Intake Total 560 ml Output Total 100 ml Balance 460 ml NIC CHACON MD Mar 10, 2020 09:10
[2020-03-10 14:00] VITALS: BP 132/70
[2020-03-10] MEDS: CEFDINIR 300 MG CAP (OMNICEF) PO SCH (19:57)
[2020-03-10 22:00] VITALS: BP 161/83
[2020-03-11] MEDS: NYSTATIN 500,000 U/5 ML SUSP UDC PO SCH ×3 (00:13→12:00)
[2020-03-11 05:52] LABS: HEMATOCRIT 37.6 % (42.0-52.0); HEMOGLOBIN 12.2 g/dl (13.5-17.5); MEAN CORPUSCULAR HEMOGLOBIN 30.9 pg (27.0-33.0); MEAN CORPUSCULAR HGB CONC 32.4 g/dl (32.0-36.5); MEAN CORPUSCULAR VOLUME 95.2 fl (80.0-96.0); PLATELET COUNT, AUTOMATED 225 10^3/uL (150-450); RED BLOOD COUNT 3.95 10^6/uL (4.30-6.10); WHITE BLOOD COUNT 7.1 10^3/uL (4.0-10.0)
[2020-03-11 06:00] VITALS: BP 146/88
[2020-03-11 06:26] LABS: ALBUMIN 2.7 GM/DL (3.2-5.2); ALT/SGPT 119 U/L (12-78); BILIRUBIN,TOTAL 0.6 MG/DL (0.2-1.0); BLOOD UREA NITROGEN 17 MG/DL (7-18); CARBON DIOXIDE LEVEL 24 MEQ/L (21-32); CHLORIDE LEVEL 109 MEQ/L (98-107); CREATININE FOR GFR 0.89 MG/DL (0.70-1.30); GLOMERULAR FILTRATION RATE > 60.0 (>42); GLUCOSE, FASTING 60 MG/DL (70-100); POTASSIUM SERUM 3.7 MEQ/L (3.5-5.1); SODIUM LEVEL 139 MEQ/L (136-145); TOTAL PROTEIN 6.8 GM/DL (6.4-8.2)
[2020-03-11] MEDS: HumaLOG INSULIN (NovoLOG) PER UNIT SC SCH ×2 (07:30→12:00)
[2020-03-11] MEDS: NovoLOG MIX 70/30 PER UNIT SC SCH (07:49)
[2020-03-11 08:00] VITALS: BP 164/73
[2020-03-11] MEDS: PANTOPRAZOLE 40MG TAB (PROTONIX) PO SCH (08:20)
[2020-03-11] MEDS: DOCUSATE SODIUM 100 MG CAP PO SCH ×2 (08:20→08:25)
[2020-03-11] MEDS: CEFDINIR 300 MG CAP (OMNICEF) PO SCH (08:20)
[2020-03-11] MEDS: RIVAROXABAN 15 MG TAB (XARELTO) PO SCH (08:20)
[2020-03-11] MEDS ORDERED: CEFD300CAP PO (11:50)
[2020-03-11] MEDS ORDERED: XARE15TA PO ×3 (11:50→15:48)
[2020-03-11] MEDS ORDERED: NOVO70VL SC ×2 (11:50)
[2020-03-11] MEDS ORDERED: NYST50SS PO (11:50)
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
[2020-03-11] MEDS ORDERED: NYST5000 PO (13:59)
[2020-03-11] MEDS ORDERED: RIVAROXABAN 15 MG TAB (XARELTO) PO ONE (16:00)
== END 2020-03-11 16:10 | disposition home health service (06) | DRG 300 ==
LOC: EDBD 07:44 → M ED 07:44 → M ED INP 12:13 → M MSPAV 14:05 → M PCU 20:34 → M ICU 03-07 09:35 → M MS5PR 03-09 15:13
PROVIDERS: ADMIT Internal Medicine; ATTEND Internal Medicine
DX: I82.411 Acute embolism and thrombosis of right femoral vein (principal); C78.7 Secondary malignant neoplasm of liver and intrahepatic bile duct; C18.9 Malignant neoplasm of colon, unspecified; I50.32 Chronic diastolic (congestive) heart failure; I13.0 Hypertensive heart and chronic kidney disease with heart failure and stage 1 through stage 4 chronic kidney disease, or unspecified chronic kidney disease; R50.9 Fever, unspecified; E11.649 Type 2 diabetes mellitus with hypoglycemia without coma; R74.01 Elevation of levels of liver transaminase levels; E11.22 Type 2 diabetes mellitus with diabetic chronic kidney disease; N40.0 Benign prostatic hyperplasia without lower urinary tract symptoms; N18.30 Chronic kidney disease, stage 3 unspecified; E11.42 Type 2 diabetes mellitus with diabetic polyneuropathy; G47.30 Sleep apnea, unspecified; E11.319 Type 2 diabetes mellitus with unspecified diabetic retinopathy without macular edema; R53.1 Weakness; D50.9 Iron deficiency anemia, unspecified; Z90.49 Acquired absence of other specified parts of digestive tract; Z98.42 Cataract extraction status, left eye; Z20.828 Contact with and (suspected) exposure to other viral communicable diseases; Z91.018 Allergy to other foods

== ENCOUNTER → 2020-03-19 | Outpatient (REF) | payer MEDICARE ==
[~2020-03-19] MED LIST changes: +CEFD300CAP PO; +DULC5TAB PO; +NYST5000 PO; +NYST50SS PO; +SULF1TAB93 PO; +XARE15TA PO; +[UNRECOGNIZED DRUG - REMARK]
[2020-03-20 11:22] LABS: HEMATOCRIT 40.1 % (42.0-52.0); HEMOGLOBIN 12.3 g/dl (13.5-17.5); MEAN CORPUSCULAR HEMOGLOBIN 30.1 pg (27.0-33.0); MEAN CORPUSCULAR HGB CONC 30.7 g/dl (32.0-36.5); MEAN CORPUSCULAR VOLUME 98.3 fl (80.0-96.0); PLATELET COUNT, AUTOMATED 345 10^3/uL (150-450); RED BLOOD COUNT 4.08 10^6/uL (4.30-6.10); WHITE BLOOD COUNT 11.1 10^3/uL (4.0-10.0)
[2020-03-20 12:00] LABS: ALBUMIN 3.3 GM/DL (3.2-5.2); BILIRUBIN,TOTAL 0.3 MG/DL (0.2-1.0); C REACTIVE PROTEIN QUANTITATIV 0.9 MG/DL (0.00-0.30); CALCIUM LEVEL 9.3 MG/DL (8.8-10.2); CREATININE FOR GFR 1.35 MG/DL (0.70-1.30); POTASSIUM SERUM 5.9 MEQ/L (3.5-5.1); TOTAL PROTEIN 7.4 GM/DL (6.4-8.2)
== END ==
LOC: M SFHCCLAY 14:50
PROVIDERS: ATTEND Family Medicine
DX: E11.43 Type 2 diabetes mellitus with diabetic autonomic (poly)neuropathy (principal); C78.7 Secondary malignant neoplasm of liver and intrahepatic bile duct; C18.9 Malignant neoplasm of colon, unspecified

== ENCOUNTER 2020-03-22 05:42 | Inpatient (IN) | payer MEDICARE ==
[~2020-03-22] VITALS: Ht 182.9 cm; Wt 101.5 kg
[2020-03-22 06:25] LABS: VENOUS BASE EXCESS -4.7 (-2.0-2.0); VENOUS HCO3 20.2 MEQ/L (23.0-27.0); VENOUS O2 SATURATION 89.2 % (60.0-80.0); VENOUS PARTIAL PRESSURE CO2 37.2 mmHg (38.0-50.0); VENOUS PARTIAL PRESSURE O2 60.5 mmHg (30.0-50.0); VENOUS PH 7.353 UNITS (7.330-7.430); VENOUS STANDARD HCO3 20.4 MEQ/L; VENOUS TOTAL CO2 21.4 MEQ/L (24.0-28.0)
[2020-03-22] MEDS ORDERED: NS 1,000 ML IV ONE ×4 (06:30→13:30)
[2020-03-22 06:35] LABS: BASO % 0.2 % (0.0-1.0); EOS # 0.1 10^3/uL (0.0-0.5); EOS % 0.6 % (0.0-3.0); HEMATOCRIT 40.4 % (42.0-52.0); HEMOGLOBIN 12.7 g/dl (13.5-17.5); LYMPH # 0.3 10^3/uL (1.5-5.0); LYMPH % 1.7 % (24.0-44.0); MEAN CORPUSCULAR HEMOGLOBIN 30.5 pg (27.0-33.0); MEAN CORPUSCULAR HGB CONC 31.4 g/dl (32.0-36.5); MEAN CORPUSCULAR VOLUME 96.9 fl (80.0-96.0); MONO # 0.6 10^3/uL (0.0-0.8); MONO % 3.7 % (0.0-5.0); NEUTROPHILS # 14.5 10^3/uL (1.5-8.5); NEUTROPHILS % 93.2 % (36.0-66.0); PLATELET COUNT, AUTOMATED 248 10^3/uL (150-450); RED BLOOD COUNT 4.17 10^6/uL (4.30-6.10); WHITE BLOOD COUNT 15.6 10^3/uL (4.0-10.0)
[2020-03-22 07:11] LABS: ACETONE/KETONE 2.91 MG/DL (<2.81); ALBUMIN 3.1 GM/DL (3.2-5.2); BILIRUBIN,DIRECT 0.1 MG/DL (0.0-0.2); BILIRUBIN,TOTAL 0.5 MG/DL (0.2-1.0); CALCIUM LEVEL 9.3 MG/DL (8.8-10.2); CK-MB VALUE MASS 1.9 NG/ML (<3.6); CREATININE FOR GFR 1.48 MG/DL (0.70-1.30); GLOMERULAR FILTRATION RATE 49.5 (>42); MB/CK RELATIVE INDEX 1.9 (< OR =4); POTASSIUM SERUM 5.5 MEQ/L (3.5-5.1); TOTAL PROTEIN 7.3 GM/DL (6.4-8.2); TROPONIN I 0.09 NG/ML (< 0.10)
[2020-03-22] MEDS ORDERED: PIPERACILLIN/TAZOBACTAM SOD 4.5 GM in D5W MINI-BAG PLUS 50 ML IV ONE (07:15)
--- NOTE | 2020-03-22 07:15 | REPVR ---
PROCEDURE INFORMATION: Exam: CT Head Without Contrast Exam date and time: 03/22/2020 6:25 AM Age: 75 years old Clinical indication: Injury or trauma; Fall; Concussion/head injury; Consciousness not specified; Additional info: Fall/ on xarelto TECHNIQUE: Imaging protocol: Computed tomography of the head without contrast. Radiation optimization: All CT scans at this facility use at least one of these dose optimization techniques: automated exposure control; mA and/or kV adjustment per patient size (includes targeted exams where dose is matched to clinical indication); or iterative reconstruction. COMPARISON: CT Head without contrast 03/06/2020 8:33 AM FINDINGS: Brain: No acute intracerebral abnormality or injury. No acute infarct or intracerebral bleed. 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 No significant interval change since the previous head CT from 03/06/2020. [place] Stroke Program Early CT Score (ASPECTS score) = 10. Cerebral ventricles: No ventriculomegaly. Bones/joints: Normal. Paranasal sinuses: Visualized sinuses are unremarkable. No fluid levels. Mastoid air cells: Visualized mastoid air cells are well aerated. Soft tissues: Minimal soft tissue swelling and a small scalp contusion is seen in the left frontal scalp on image 15 of series 202. No underlying calvarial or orbital fractures, however. IMPRESSION: 1. Minimal soft tissue swelling and a small scalp contusion is seen in the left frontal scalp on image 15 of series 202. No underlying calvarial or orbital fractures, however. 2. No acute intracerebral abnormality or injury. No acute infarct or intracerebral bleed. 3. 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 No significant interval change since the previous head CT from 03/06/2020. 4. [place] Stroke Program Early CT Score (ASPECTS score) = 10. Electronically signed by: Nghia Willis On 03/22/2020 07:15:26 AM
--- NOTE | 2020-03-22 07:18 | REPVR ---
PROCEDURE INFORMATION: Exam: XR Chest, 1 View Exam date and time: 03/22/2020 6:56 AM Age: 75 years old Clinical indication: Other: Fever TECHNIQUE: Imaging protocol: XR of the chest Views: 1 view. COMPARISON: CR PORTABLE CHEST X-RAY 03/06/2020 8:23 PM FINDINGS: Tubes, catheters and devices: Right-sided Port-A-Cath appears stable. Lungs: There is mild right basilar atelectasis. The lungs are otherwise clear. Pleural space: Unremarkable. No pleural effusion. No pneumothorax. Heart/Mediastinum: The cardiomediastinal silhouette is fairly stable in appearance. Diaphragm: The right hemidiaphragm is again elevated. Bones/joints: Unremarkable. IMPRESSION: No evidence for acute pulmonary disease. Electronically signed by: Syed Sanchez On 03/22/2020 07:17:51 AM
--- NOTE | 2020-03-22 07:26 | REPVR ---
PROCEDURE INFORMATION: Exam: CT Cervical Spine Without Contrast Exam date and time: 03/22/2020 6:25 AM Age: 75 years old Clinical indication: Neck pain; Additional info: Fall/ on xarelto TECHNIQUE: Imaging protocol: Computed tomography images of the cervical spine without contrast. Radiation optimization: All CT scans at this facility use at least one of these dose optimization techniques: automated exposure control; mA and/or kV adjustment per patient size (includes targeted exams where dose is matched to clinical indication); or iterative reconstruction. COMPARISON: CT Spine,cervical w/o contrast 03/06/2020 8:33 AM FINDINGS: Bones/joints: No acute fractures seen in the cervical spine. The cervical spine alignment is normal except for mild loss of lordosis above C4, which is unchanged since the previous CT cervical spine study from 03/06/2020. Chronic degenerative vertebral body endplate osteophytosis with diminished disc height and anterior and posterior longitudinal ligament calcification is present at levels C3-T1. Moderately severe spinal stenosis is present at levels C3/C4 and C4/C5 secondary to posterior disc bulging and posterior vertebral body endplate osteophytic spurring. Discs/Spinal canal/Neural foramina: Chronic degenerative bony neuroforaminal stenosis secondary to uncal joint and posterior facet joint arthropathy, bilaterally at C3/C4 and C4/C5 and on the right at C6/C7. Soft tissues: Chronic degenerative calcification of the nuchal ligament is seen posteriorly at C4/C5 on image 44 of series 304. Lungs: Lung apices are normal. IMPRESSION: 1. No acute fractures seen in the cervical spine. 2. The cervical spine alignment is normal except for mild loss of lordosis above C4, which is unchanged since the previous CT cervical spine study from 03/06/2020. 3. Chronic degenerative vertebral body endplate osteophytosis with diminished disc height and anterior and posterior longitudinal ligament calcification is present at levels C3-T1. 4. Chronic degenerative bony neuroforaminal stenosis secondary to uncal joint and posterior facet joint arthropathy, bilaterally at C3/C4 and C4/C5 and on the right at C6/C7. 5. Moderately severe spinal stenosis is present at levels C3/C4 and C4/C5 secondary to posterior disc bulging and posterior vertebral body endplate osteophytic spurring. 6. Chronic degenerative calcification of the nuchal ligament is seen posteriorly at C4/C5 on image 44 of series 304. Electronically signed by: Nghia Willis On 03/22/2020 07:25:51 AM
[2020-03-22 07:30] LABS: HEMOGLOBIN A1c 7.1 %
--- NOTE | 2020-03-22 07:33 | ECGEPIP ---
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
[2020-03-22] MEDS ORDERED: ISOVUE-370 76% 100ML VIAL As Ordered ONE (07:35)
[2020-03-22] MEDS ORDERED: HumaLOG INSULIN (NovoLOG) PER UNIT SC STA (07:40)
[2020-03-22] MEDS ORDERED: LEVEMIR (INSULIN DETEMIR) 1 UNITS/0.01ML SC ONE (07:45)
[2020-03-22] MEDS ORDERED: CALCIUM GLUCONATE 1,000 MG in D5W MINI-BAG PLUS 100 ML IV ONE (07:45)
[2020-03-22] MEDS ORDERED: SOD POLYSTYRENE SULFONATE SUSP 15 GM/60 ML UD PO ONE (08:00)
[2020-03-22] MEDS ORDERED: XARE15TA PO (08:02)
[2020-03-22] MEDS ORDERED: NOVO70VL SC ×2 (08:02)
[2020-03-22 08:10] LABS: C REACTIVE PROTEIN QUANTITATIV 1.02 MG/DL (0.00-0.30)
--- NOTE | 2020-03-22 08:13 | REP ---
INDICATION: fever unknown source. COMPARISON: Comparison portable chest x-ray March 22, 2020.. Comparison chest CT study March 06, 2020. TECHNIQUE: Contrast dose: 100 ML of Isovue [address] technique: Helical scanning is acquired and overlapping 1.5 mm and contiguous 3 mm axial images are reformatted. In addition, maximum intensity projection and multiplanar re-formation images are generated in sagittal and coronal imaging projections. FINDINGS: Digital preliminary topographic computator radiograph demonstrates elevation of right hemidiaphragm as on chest radiograph. A right-sided Kladeq-Y-Iurv catheter seen in place. The lung window settings demonstrate a coarse area of linear discoid atelectasis in the right lower lobe. No infiltrate is seen in the lung parenchyma. There are scattered granulomatous calcifications throughout the lungs bilaterally. No pulmonary mass lesion is seen. No adrenal lesion is seen. There is good opacification of the pulmonary arterial tree. There is no filling defect or vessel cutoff seen to suggest pulmonary embolism. The thoracic aorta shows calcification but is normal in caliber and contour. No evidence of aortic dissection or aneurysm. No hilar or mediastinal mass or adenopathy is observed. No pleural or pericardial effusion is seen. There are degenerative changes in the thoracic spine. No bony destructive lesion. Multiple low-density areas are seen in the liver. These will be described in more detail on concurrently performed CT study of the abdomen report. IMPRESSION: No CT evidence of pulmonary embolus. Discoid atelectasis in the right lower lobe above an elevated right hemidiaphragm. No pema infiltrates seen. Multiple low-density liver lesions. <Electronically signed by Mateo Oakes > 03/22/20 [id number]
[2020-03-22 08:16] LABS: ERYTHROCYTE SEDIMENTATION RATE 9 mm/hr (0-20)
--- NOTE | 2020-03-22 08:21 | REP ---
INDICATION: fever unknown source. Patient gives a history of colon lung and liver cancer. Prior colon resection. COMPARISON: Comparison CT studies of the abdomen are reviewed reviewed dated March 06, 2020, August 10, 2019, and October 28, 2018.. TECHNIQUE: Helical scanning was acquired and 4 mm axial images are re-formatted. Coronal and sagittal MPR images were generated and reviewed. The contrast enhancement dose is 100 mL of intravenous Isovue 370. FINDINGS: Digital preliminary zinc furnace charger radiograph demonstrates a normal bowel gas pattern. The patient is apparently unable to bringing his arms out of the field of view. Discoid atelectasis is noted in the right lower lobe of the lung. No pleural effusion or upper abdominal ascites is seen. There are multiple low-density liver lesions scattered about the liver ranging in size up to 2.9 cm. These are consistent with hepatic metastatic lesions. They are unchanged from the March 06 study. Some are less conspicuous and smaller than on the October 28, 2018 study. The 2.8 cm lesion is larger. No definite new lesion. Spleen is homogeneous in texture and normal in size. No abnormality is noted in the pancreas. No adrenal abnormality is observed. There are multiple cysts affecting each kidney. These are unchanged. No evidence of hydronephrosis or new renal mass. There is no evidence of retroperitoneal lymphadenopathy. Small and large intestinal bowel loops are unremarkable. Prostate gland is enlarged. Urinary bladder seminal vesicles are unremarkable. Vas deferens calcification is noted incidentally. No pelvic adenopathy or mass is seen. No abnormal fluid collection. Bone window settings demonstrate a stable benign hemangioma in the L4 vertebral body on the left side. No acute bony destructive lesion is seen. IMPRESSION: Multiple hepatic metastatic lesions again seen. Several of these are improved since October 2018. No definite new lesion. A central 2.9 cm lesion in the right lobe appears larger. No other evidence of abdominal mass or adenopathy. <Electronically signed by Mateo Oakes > 03/22/20 [id number]
[2020-03-22] MEDS ORDERED: LINEZOLID 600 MG in IV 1 EA IV SCH (09:00)
[2020-03-22] MEDS ORDERED: VANCOMYCIN HCL 1,000 MG, VIAL MATE ADAPTER 1 EACH in D5W 250 ML IV SCH (10:00)
[2020-03-22 11:02] VITALS: BP 160/93
[2020-03-22] MEDS ORDERED: GLUCAGON INJ 1MG VIAL SC PRN (11:45)
[2020-03-22] MEDS ORDERED: DEXTROSE 50% 50 ML SYRINGE IV PRN (11:45)
[2020-03-22] MEDS ORDERED: BISACODYL 5 MG TAB PO PRN (11:45)
[2020-03-22] MEDS ORDERED: PROCHLORPERAZINE 5 MG TAB (S0183) PO PRN (11:45)
[2020-03-22] MEDS ORDERED: GLUCOSE 4GM CHEW TABLET PO PRN (11:45)
[2020-03-22] MEDS ORDERED: ONDANSETRON 4 MG TAB PO PRN (11:45)
[2020-03-22] MEDS ORDERED: MIRALAX *UNIT DOSE* 17GM PACKET PO PRN (11:45)
[2020-03-22 12:17] LABS: CALCIUM LEVEL 8.9 MG/DL (8.8-10.2); CREATININE FOR GFR 1.51 MG/DL (0.70-1.30); GLOMERULAR FILTRATION RATE 48.3 (>42); POTASSIUM SERUM 5.2 MEQ/L (3.5-5.1)
[2020-03-22] MEDS: GABAPENTIN 400 MG CAP PO SCH ×3 (12:21→20:52)
[2020-03-22] MEDS: RIVAROXABAN 15 MG TAB (XARELTO) PO SCH ×2 (12:21→20:54)
[2020-03-22] MEDS: FERROUS SULFATE 325MG TAB PO SCH (12:22)
[2020-03-22] MEDS: K-PHOS NEUTRAL 250MG TABLET (SOD.PHOSPHATE/POT.PHOSPHATE) PO SCH (12:22)
[2020-03-22] MEDS: ATORVASTATIN 20 MG TAB PO SCH (12:22)
[2020-03-22] MEDS: OMEPRAZOLE 20 MG CAP PO SCH (12:22)
[2020-03-22] MEDS: HumaLOG INSULIN (NovoLOG) PER UNIT SC SCH ×3 (12:22→21:00)
[2020-03-22 14:00] VITALS: BP 158/90
[2020-03-22] MEDS ORDERED: amLODIPine 10 MG TAB PO ONE (14:00)
[2020-03-22] MEDS ORDERED: atenoloL 25 MG TAB PO ONE (15:00)
--- NOTE | 2020-03-22 15:23 | HPEPDOC ---
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 This morning, he fell in the bathroom when he got up from the toilet, hitting the wall, and falling on his knees and flat on on the floor. Life Alert was activated, and he was brought in to the ER. He denies LOC, lightheadedness, di zziness, palpitations, chest pain, pressure tightness, diaphoresis, n/v/d/constipation, diarrhea, brbpr, melena or black tarry stools. He admits to bumping his head on the wall, loss of appetite but does not know how much weight he may have lost, and some sob when he ambulates. In the ER, he was found to have b/l knee abrasions and skin tears, forehead trauma, and fever of 102.2 without cough, loss of taste, dysuria, urgency, frequency. He has chronic pain on his left LQ which is unchanged. CT chest, abd/pelvis, UA, COVID -19 are all negative. Pt's right infusaport appears clean and without erythema or tenderness. 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 HOME MEDICATIONS: Please see below. SOCIAL HISTORY: lives alone, nonsmoker, denies recreational drug use. REVIEW OF SYSTEMS: 10 pt systems negative aside from (+) findings on HPI PHYSICAL EXAMINATION: VITALS SIGNS: SEE BELOW GEN: contusion on forehead. AAOx3 no conversational dyspnea HEENT: no jvd dry mucus membranes no thyromegaly LUNGS: AEBEdiminished bs at bases. HEART: S1S2 RRR ABD: (+) BS SOFT NT ND NO CVAT EXT: no cyanosis, clubbing, or edema. b/l knee skin tears. LABORATORY DATA: SEE BELOW EKG: Intervals Reva Rate: 123 P: 59 CT: 165 QRS: -13 QRSD: 98 T: 96 QT: 324 QTc: 464 Interpretive Statements SINUS TACHYCARDIA Nonspecific ST-T wave abnormalities- similar to tracing done 03-06-20 Baseline artifact Electronically Signed on 03-22-2020 7:33:03 EDT by Delta Brown IMAGING STUDIES: CT ANGIO CHEST Digital preliminary exerciser radiograph demonstrates elevation of right he midiaphragm as on chest radiograph. A right-sided Oujvtv-W-Zzfg catheter seen in place. The lung window settings demonstrate a coarse area of linear discoid atelectasis in the right lower lobe. No infiltrate is seen in the lung parenchyma. There are scattered granulomatous calcifications throughout the lungs bilaterally. No pulmonary mass lesion is seen. No adrenal lesion is seen. There is good opacification of the pulmonary arterial tree. There is no filling defect or vessel cutoff seen to suggest pulmonary embolism. The thoracic aorta shows calcification but is normal in caliber and contour. No evidence of aortic dissection or aneurysm. No hilar or mediastinal mass or adenopathy is observed. No pleural or pericardial effusion is seen. There are degenerative changes in the thoracic spine. No bony destructive lesion. Multiple low-density areas are seen in the liver. These will be described in more detail on concurrently performed CT study of the abdomen report. IMPRESSION: No CT evidence of pulmonary embolus. Discoid atelectasis in the right lower lobe above an elevated right hemidiaphragm. No pema infiltrates seen. Multiple low-density liver lesions. CT HEAD WITHOUT CONTRAST Brain: No acute intracerebral abnormality or injury. No acute infarct or intracerebral bleed. 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 No significant interval change since the previous head CT from 03/06/2020. [place] Stroke Program Early CT Score (ASPECTS score) = 10. Cerebral ventricles: No ventriculomegaly. Bones/joints: Normal. Paranasal sinuses: Visualized sinuses are unremarkable. No fluid levels. Mastoid air cells: Visualized mastoid air cells are well aerated. Soft tissues: Minimal soft tissue swelling and a small scalp contusion is seen in the left frontal scalp on image 15 of series 202. No underlying calvarial or orbital fractures, however. IMPRESSION: 1. Minimal soft tissue swelling and a small scalp contusion is seen in the left frontal scalp on image 15 of series 202. No underlying calvarial or orbital fractures, however. 2. No acute intracerebral abnormality or injury. No acute infarct or intracerebral bleed. 3. 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 No significant interval change since the previous head CT from 03/06/2020. 4. [place] Stroke Program Early CT Score (ASPECTS score) = 10. Electronically signed by: Nghia Willis On 03/22/2020 07:15:[address] ABD/PELVIS Digital preliminary exerciser radiograph demonstrates a normal bowel gas pattern. The patient is apparently unable to bringing his arms out of the field of view. Discoid atelectasis is noted in the right lower lobe of the lung. No pleural effusion or upper abdominal ascites is seen. There are multiple low-density liver lesions scattered about the liver ranging in size up to 2.9 cm. These are consistent with hepatic metastatic lesions. They are unchanged from the March 06 study. Some are less conspicuous and smaller than on the October 28, 2018 study. The 2.8 cm lesion is larger. No definite new lesion. Spleen is homogeneous in texture and normal in size. No abnormality is noted in the pancreas. No adrenal abnormality is observed. There are multiple cysts affecting each kidney. These are unchanged. No evidence of hydronephrosis or new renal mass. There is no evidence of retroperitoneal lymphadenopathy. Small and large intestinal bowel loops are unremarkable. Prostate gland is enlarged. Urinary bladder seminal vesicles are unremarkable. Vas deferens calcification is noted incidentally. N o pelvic adenopathy or mass is seen. No abnormal fluid collection. Bone window settings demonstrate a stable benign hemangioma in the L4 vertebral body on the left side. No acute bony destructive lesion is seen. IMPRESSION: Multiple hepatic metastatic lesions again seen. Several of these are improved since October 2018. No definite new lesion. A central 2.9 cm lesion in the right lobe appears larger. No other evidence of abdominal mass or adenopathy. CT CERVICAL SPINE Bones/joints: No acute fractures seen in the cervical spine. The cervical spine alignment is normal except for mild loss of lordosis above C4, which is unchanged since the previous CT cervical spine study from 03/06/2020. Chronic degenerative vertebral body endplate osteophytosis with diminished disc height and anterior and posterior longitudinal ligament calcification is present at levels C3-T1. Moderately severe spinal stenosis is present at levels C3/C4 and C4/C5 secondary to posterior disc bulging and posterior vertebral body endplate osteophytic spurring. Discs/Spinal canal/Neural foramina: Chronic degenerative bony neuroforaminal stenosis secondary to uncal joint and posterior facet joint arthropathy, bilaterally at C3/C4 and C4/C5 and on the right at C6/C7. Soft tissues: Chronic degenerative calcification of the nuchal ligament is seen posteriorly at C4/C5 on image 44 of series 304. Lungs: Lung apices are normal. IMPRESSION: 1. No acute fractures seen in the cervical spine. 2. The cervical spine alignment is normal except for mild loss of lordosis above C4, which is unchanged since the previous CT cervical spine study from 03/06/2020. 3. Chronic degenerative vertebral body endplate osteophytosis with diminished disc height and anterior and posterior longitudinal ligament calcification is present at levels C3-T1. 4. Chronic degenerative bony neuroforaminal stenosis secondary to uncal joint and posterior facet joint arthropathy, bilaterally at C3/C4 and C4/C5 and on the right at C6/C7. 5. Moderately severe spinal stenosis is present at levels C3/C4 and C4/C5 secondary to posterior disc bulging and posterior vertebral body endplate osteophytic spurring. 6. Chronic degenerative calcification of the nuchal ligament is seen posteriorly at C4/C5 on image 44 of series 304. 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 This morning, he fell in the bathroom when he got up from the toilet, hitting the wall, and falling on his knees and flat on on the floor. Life Alert was activated, and he was brought in to the ER. He denies LOC, lightheadedness, dizziness, palpitations, chest pain, pressure tightness, diaphoresis, n/v /d/constipation, diarrhea, brbpr, melena or black tarry stools. He admits to bumping his head on the wall, loss of appetite but does not know how much weight he may have lost, and some sob when he ambulates. In the ER, he was found to have b/l knee abrasions and skin tears, forehead trauma, and fever of 102.2 without cough, loss of taste, dysuria, urgency, frequency. He has chronic pain on his left LQ which is unchanged. CT chest, abd/pelvis, UA, COVID -19 are all negative. Pt's right infusaport appears clean and without erythema or tenderness. 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 ID consulted. CT TAP, UA, covid 19 are all negative. Defer to ID for any changes in abx. await blood cx results to rule out line infection from port. IVfluids, kayexalate and calcium gluconate given for lactic acidosis and hyperkalemia, respectively. midodrine discontinued due to uncontrolled sbp, and levemir insulin bid with sliding scale for better glycemic control. renally dose all medications, and monitor strict i/o.xarelto for DVT. Vital Signs Vital Signs Date Time Temp Pulse Resp B/P (MAP) Pulse Ox O2 Delivery O2 Flow Rate FiO2 03/22/20 11:02 99.1 118 22 160/93 (115) 97 Room Air Laboratory Data Labs 24H Laboratory Tests 2 03/22/20 05:53: Bedside Glucose (Misc Panel) 449H 03/22/20 06:14: 03/22/20 06:15: Immature Granulocyte % (Auto) 0.6, Neutrophils (%) (Auto) 93.2H, Lymphocytes (%) (Auto) 1.7L, Monocytes (%) (Auto) 3.7, Eosinophils (%) (Auto) 0.6, Basophils (%) (Auto) 0.2, Neutrophils # (Auto) 14.5H, Lymphocytes # (Auto) 0.3L, Monocytes # (Auto) 0.6, Eosinophils # (Auto) 0.1, Basophils # (Auto) 0.0, Nucleated Red Blood Cells % (auto) 0.0, Erythrocyte Sedimentation Rate 9, Blood Gas Bicarbonate Standard 20.4, Venous Blood pH 7.353, Venous Blood Partial Pressure CO2 37.2L, Venous Blood Partial Pressure O2 60.5H, Venous Blood Total Carbon Dioxide 21.4L, Venous Blood HCO3 20.2L, Venous Blood Oxygen Saturation 89.2H, Venous Blood Base Excess -4.7L, Anion Gap 10, Glomerular Filtration Rate 49.5, Estimated Mean Plasma Glucose 157H, Hemoglobin A1c 7.1, Calcium Level 9.3, Total Bilirubin 0.5#, Direct Bilirubin 0.1, Aspartate Amino Transf (AST/SGOT) 50H, Alanine Aminotransferase (ALT/SGPT) 39, Alkaline Phosphatase 172H, Total Creatine Kinase 100, Creatine Kinase MB 1.9, Creatine Kinase MB Relative Index 1.90, Troponin I 0.09, C-Reactive Protein, Quantitative 1.02H, Total Protein 7.3, Albumin 3.1L, Albumin/Globulin Ratio 0.7, Lipase 168, B-Hydroxybutyrate 2.91H 03/22/20 06:16: Urine Color YELLOW, Urine Appearance CLEAR, Urine pH 5.0, Urine Specific [place] 1.018, Urine Protein 2+H, Urine Glucose (UA) 3+H, Urine Ketones NEGATIVE, Urine Blood 1+H, Urine Nitrite NEGATIVE, Urine Bilirubin NEGATIVE, Urine Urobilinogen 0.2, Urine Leukocyte Esterase NEGATIVE, Urine WBC (Auto) 2, Urine RBC (Auto) 2, Urine Hyaline Casts (Auto) 0, Urine Bacteria (Auto) NEGATIVE, Urine Squamous Epithelial Cells 1, Urine Sperm (Auto) 03/22/20 07:39: POC Lactate (Misc Panel) 3.61*H 03/22/20 11:27: Anion Gap 12, Glomerular Filtration Rate 48.3, Calcium Level 8.9 03/22/20 11:32: Bedside Glucose (Misc Panel) 379H 03/22/20 12:03: Lactic Acid Followup at 4 Hours 4.2*H CBC/BMP Laboratory Tests 03/22/20 06:15 03/22/20 11:27 Microbiology Microbiology 03/22/20 Respiratory Virus Panel (PCR) (SOLO) - Final, Complete 03/22/20 Blood Culture, Received Pending Home Medications Scheduled Atorvastatin Calcium (Atorvastatin Calcium) 40 Mg Tablet, 40 MG PO DAILY Duloxetine Hcl (Duloxetine HCl) 30 Mg Cap, 30 MG PO QHS Ferrous Sulfate (Ferrous Sulfate) 325 Mg Tablet, 325 MG PO DAILY Gabapentin (Gabapentin) 800 Mg Tablet, 400 MG PO QAM Gabapentin (Gabapentin) 800 Mg Tablet, 800 MG PO BID DINNER AND BEDTIME Insulin Aspart Protamine/Aspar (Novolog Mix 70-30 Vial) 100 Unit/1 Ml Vial, 40 UNITS SC QAM Insulin Aspart Protamine/Aspar (Novolog Mix 70-30 Vial) 100 Unit/1 Ml Vial, 10 UNITS SC QPM Metformin HCl (Metformin HCl) 850 Mg Tablet, 850 MG PO BID Midodrine HCl (Midodrine HCl) 2.5 Mg Tablet, 2.5 MG PO BID Omeprazole (Omeprazole) 20 Mg Capsule.dr, 20 MG PO DAILY Rivaroxaban (Xarelto) 15 Mg Tablet, 15 MG PO BID FILLED 03/11/20 FOR 21 DAYS Sod Phos Di, [place]/K Phos [place] (Virt-Phos 250 Neutral Tablet) 250 Mg Tablet, 250 MG PO DAILY Scheduled PRN Bisacodyl (Dulcolax) 5 Mg Tablet.dr, 5 MG PO BID PRN for CONSTIPATION Ondansetron HCl (Ondansetron HCl) 8 Mg Tablet, 8 MG PO Q8H PRN for NAUSEA OR VOMITING Polyethylene Glycol 3350 (Miralax) 17 Gm Powd.pack, 17 GM PO DAILY PRN for CONSTIPATION Prochlorperazine Maleate (Prochlorperazine Maleate) 10 Mg Tablet, 10 MG PO TID PRN for NAUSEA OR VOMITING Allergies Coded Allergies: [place] (Verified Allergy, Intermediate, RAW PEACH FUZZ; hives, 12/16/18) strawberry (Verified Allergy, Intermediate, hives, 12/16/18) A-FIB/CHADSVASC A-FIB History Current/History of A-Fib/PAF?: No Current PO Anticoag Therapy: No Age/Risk Factor Scoring CHADSVASC: CHADSVASC Response (Comments) Value Age Risk Factor Age 65-74 years old 1 Gender Risk Factor Male 0 Hx of CHF No 0 Hx of HTN Yes 1 Hx of Stroke/TIA/or VTE No 0 Hx of Diabetes Yes 1 Hx of Vascular Disease No 0 Total 3 Treatment Treatment ordered: NONE, Apixaban ZHANNA CHEEMA MD Mar 22, 2020 13:30
[2020-03-22] MEDS: NYSTATIN 100,000 UNITS/GM TOPICAL PWD 15 GM TOP SCH (17:15)
[2020-03-22] MEDS: SODIUM CHLORIDE 0.9% INJ 10 ML SYR IV PRN (17:20)
[2020-03-22] MEDS: VANCOMYCIN HCL 1,000 MG, VIAL MATE ADAPTER 1 EACH in D5W 250 ML IV SCH (17:21)
[2020-03-22 18:54] LABS: CALCIUM LEVEL 8.2 MG/DL (8.8-10.2); CREATININE FOR GFR 1.38 MG/DL (0.70-1.30); GLOMERULAR FILTRATION RATE 53.6 (>42); POTASSIUM SERUM 3.8 MEQ/L (3.5-5.1)
[2020-03-22] MEDS: atenoloL 25 MG TAB PO SCH (20:53)
[2020-03-22] MEDS: ACETAMINOPHEN TAB 650MG DOSE (2X325MG) PO PRN (20:53)
[2020-03-22] MEDS: DULoxetine 30 MG CAP (CYMBALTA) PO SCH (20:54)
[2020-03-22] MEDS: LEVEMIR (INSULIN DETEMIR) 1 UNITS/0.01ML SC SCH (20:55)
[2020-03-22 22:00] VITALS: BP 153/77
[2020-03-23] MEDS: ACETAMINOPHEN TAB 650MG DOSE (2X325MG) PO PRN ×3 (03:21→18:57)
[2020-03-23 04:12] VITALS: BP 128/62
[2020-03-23] MEDS: VANCOMYCIN HCL 1,000 MG, VIAL MATE ADAPTER 1 EACH in D5W 250 ML IV SCH (04:56)
[2020-03-23 05:10] VITALS: BP 94/42
[2020-03-23] MEDS ORDERED: MIDODRINE 5 MG TAB PO ONE (05:15)
[2020-03-23] MEDS ORDERED: NS 1,000 ML IV ONE (05:15)
[2020-03-23 06:00] VITALS: BP 103/44
[2020-03-23 06:20] VITALS: BP 134/48
[2020-03-23 06:25] LABS: HEMATOCRIT 32.2 % (42.0-52.0); MEAN CORPUSCULAR HGB CONC 31.4 g/dl (32.0-36.5); MEAN CORPUSCULAR VOLUME 95.5 fl (80.0-96.0); PLATELET COUNT, AUTOMATED 158 10^3/uL (150-450); RED BLOOD COUNT 3.37 10^6/uL (4.30-6.10); WHITE BLOOD COUNT 10.8 10^3/uL (4.0-10.0)
[2020-03-23 06:34] LABS: BLOOD UREA NITROGEN 18 MG/DL (7-18); CALCIUM LEVEL 7.8 MG/DL (8.8-10.2); CARBON DIOXIDE LEVEL 24 MEQ/L (21-32); CHLORIDE LEVEL 105 MEQ/L (98-107); CREATININE FOR GFR 1.25 MG/DL (0.70-1.30); GLOMERULAR FILTRATION RATE > 60.0 (>42); GLUCOSE, FASTING 173 MG/DL (70-100); POTASSIUM SERUM 3.6 MEQ/L (3.5-5.1); SODIUM LEVEL 135 MEQ/L (136-145)
[2020-03-23 07:01] LABS: HEMOGLOBIN 10.1 g/dl (13.5-17.5)
[2020-03-23] MEDS: K-PHOS NEUTRAL 250MG TABLET (SOD.PHOSPHATE/POT.PHOSPHATE) PO SCH (08:26)
[2020-03-23] MEDS: FERROUS SULFATE 325MG TAB PO SCH (08:27)
[2020-03-23] MEDS: ATORVASTATIN 20 MG TAB PO SCH (08:27)
[2020-03-23] MEDS: RIVAROXABAN 15 MG TAB (XARELTO) PO SCH ×2 (08:27→21:26)
[2020-03-23] MEDS: LEVEMIR (INSULIN DETEMIR) 1 UNITS/0.01ML SC SCH ×2 (08:27→21:00)
[2020-03-23] MEDS: GABAPENTIN 400 MG CAP PO SCH ×3 (08:27→21:26)
[2020-03-23] MEDS: OMEPRAZOLE 20 MG CAP PO SCH (08:27)
[2020-03-23] MEDS: amLODIPine 10 MG TAB PO SCH (08:28)
[2020-03-23] MEDS: HumaLOG INSULIN (NovoLOG) PER UNIT SC SCH ×4 (08:28→21:00)
[2020-03-23] MEDS: atenoloL 25 MG TAB PO SCH ×2 (08:29→21:00)
[2020-03-23] MEDS: NYSTATIN 100,000 UNITS/GM TOPICAL PWD 15 GM TOP SCH (08:30)
[2020-03-23] MEDS: SODIUM CHLORIDE 0.9% INJ 10 ML SYR IV SCH (08:30)
--- NOTE | 2020-03-23 09:32 | IPNPDOC ---
Date Seen The patient was seen on 03/23/20. Progress Note SUBJECTIVE: Tmax 102.9 overnight, and denies chills. CTTAP, U/A , covid-19, respiratory panel negative. denies chills, cough, n/v/d, but admits to chronic llq abd discomfort 4-5/10 pain scale, which he does not want pain meds for."It's always been there. I don't want anything for it." no sob, dysuria, urgency,frequency. c/o left elbow bleed and wants bandage changed. OBJECTIVE: PHYSICAL EXAMINATION: VITALS SIGNS: SEE BELOW GEN: contusion on forehead. AAOx3 no conversational dyspnea HEENT: no jvd dry mucus membranes no thyromegaly LUNGS: AEBE diminished bs at bases. no adventitious breath sounds HEART: S1S2 RRR ABD: (+) BS SOFT tender LLQ no rebound or guarding ND NO CVAT EXT: no cyanosis, clubbing, or edema. b/l knee skin tears. left elbow skintear w bloody bandage. 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 This morning, he fell in the bathroom when he got up from the toilet, hitting the wall, and falling on his knees and flat on on the floor. Life Alert was activated, and he was brought in to the ER. He denies LOC, lightheadedness, dizziness, palpitations, chest pain, pressure tightness, diaphoresis, n/v/d/constipation, diarrhea, brbpr, melena or black tarry stools. He admits to bumping his head on the wall, loss of appetite but does not know how much weight he may have lost, and some sob when he ambulates. In the ER, he was found to have b/l knee abrasions and skin tears, forehead trauma, and fever of 102.2 without cough, loss of taste, dysuria, urgency, frequency. He has chronic pain on his left LQ which is unchanged. CT chest, abd/pelvis, UA, COVID -19 are all negative. Pt's right infusaport appears clean and without erythema or tenderness. 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 no source of infection yet. ID consulted. continue supportive care, and adjust meds for better BP and glycemic control. pt does not want pain meds changed. dressing changes to all skin tears. palliative care for mets colon ca. VS, I&O, 24H, Fishbone Vital Signs/I&O Vital Signs Date Time Temp Pulse Resp B/P (MAP) Pulse Ox O2 Delivery O2 Flow Rate FiO2 03/23/20 08:28 67 125/56 03/23/20 06:20 100.0 03/23/20 06:00 18 96 Room Air I&O- Last 24 Hours up to 6 AM 03/23/20 06:00 Intake Total 6610 ml Output Total 100 ml Balance 6510 ml Laboratory Data 24H LABS Laboratory Tests 2 03/22/20 11:27: Anion Gap 12, Glomerular Filtration Rate 48.3, Calcium Level 8.9 03/22/20 11:32: Bedside Glucose (Misc Panel) 379H 03/22/20 12:03: Lactic Acid Followup at 4 Hours 4.2*H 03/22/20 16:13: Bedside Glucose (Misc Panel) 226H 03/22/20 16:14: 03/22/20 18:15: Anion Gap 12, Glomerular Filtration Rate 53.6, Lactic Acid Level 3.1*H, Calcium Level 8.2L 03/22/20 19:56: Bedside Glucose (Misc Panel) 247H 03/22/20 22:50: Lactic Acid Followup at 4 Hours 2.1*H 03/23/20 05:54: Nucleated Red Blood Cells % (auto) 0.0, Anion Gap 6L, Glomerular Filtration Rate > 60.0, Calcium Level 7.8L CBC/BMP Laboratory Tests 03/22/20 11:27 03/22/20 18:15 03/23/20 05:54 Microbiology Microbiology 03/22/20 Blood Culture, Received Pending 03/22/20 Blood Culture, Received Pending 03/22/20 Blood Culture, Received Pending 03/22/20 Blood Culture, Received Pending 03/22/20 Blood Culture, Received Pending 03/22/20 Respiratory Virus Panel (PCR) ([facility]O) - Final, Complete 03/22/20 Blood Culture - Preliminary, Resulted No growth after 24 hours . All specim... ZHANNA CHEEMA MD Mar 23, 2020 09:31
[2020-03-23 14:00] VITALS: BP 125/60
[2020-03-23] MEDS: DULoxetine 30 MG CAP (CYMBALTA) PO SCH (21:26)
[2020-03-23 22:00] VITALS: BP 132/57
[2020-03-23] MEDS ORDERED: VANCOMYCIN HCL 1,000 MG, VIAL MATE ADAPTER 1 EACH in D5W 250 ML IV SCH (23:00)
[2020-03-24] MEDS: ACETAMINOPHEN TAB 650MG DOSE (2X325MG) PO PRN (01:05)
[2020-03-24 06:00] VITALS: BP 129/55
[2020-03-24 06:08] LABS: HEMATOCRIT 30.6 % (42.0-52.0); HEMOGLOBIN 9.8 g/dl (13.5-17.5); MEAN CORPUSCULAR HEMOGLOBIN 30.2 pg (27.0-33.0); MEAN CORPUSCULAR VOLUME 94.4 fl (80.0-96.0); PLATELET COUNT, AUTOMATED 135 10^3/uL (150-450); RED BLOOD COUNT 3.24 10^6/uL (4.30-6.10); WHITE BLOOD COUNT 6.6 10^3/uL (4.0-10.0)
[2020-03-24 06:27] LABS: BLOOD UREA NITROGEN 17 MG/DL (7-18); CALCIUM LEVEL 7.9 MG/DL (8.8-10.2); CARBON DIOXIDE LEVEL 25 MEQ/L (21-32); CHLORIDE LEVEL 104 MEQ/L (98-107); CREATININE FOR GFR 0.98 MG/DL (0.70-1.30); GLOMERULAR FILTRATION RATE > 60.0 (>42); GLUCOSE, FASTING 120 MG/DL (70-100); POTASSIUM SERUM 3.3 MEQ/L (3.5-5.1); SODIUM LEVEL 136 MEQ/L (136-145)
--- NOTE | 2020-03-24 08:56 | IPNPDOC ---
Date Seen The patient was seen on 03/24/20. Progress Note SUBJECTIVE: Tmax 101.7 overnight. no c/o chills. no source of infection. sbp94 given midodrine last night. no other c/o. eating breakfast. chronic llq abd discomfort. CT TAP negative. covid neg. ua neg. on empiric abx. OBJECTIVE: PHYSICAL EXAMINATION: VITALS SIGNS: SEE BELOW GEN: contusion on forehead. AAOx3 no conversational dyspnea. no use of resp acc muscles HEENT: no jvd moist mucus membranes no thyromegaly no JVD LUNGS: AEBE diminished bs at bases. no adventitious breath sounds HEART: S1S2 RRR ABD: (+) BS SOFT tender LLQ no rebound or guarding ND NO CVAT EXT: no cyanosis, clubbing, or edema. b/l knee skin tears. left elbow skintear w bloody bandage. 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 This morning, he fell in the bathroom when he got up from the toilet, hitting the wall, and falling on his knees and flat on on the floor. Life Alert was activated, and he was brought in to the ER. He denies LOC, lightheadedness, dizziness, palpitations, chest pain, pressure tightness, diaphoresis, n/v/d/constipation, diarrhea, brbpr, melena or black tarry stools. He admits to bumping his head on the wall, loss of appetite but does not know how much weight he may have lost, and some sob when he ambulates. In the ER, he was found to have b/l knee abrasions and skin tears, forehead trauma, and fever of 102.2 without cough, loss of taste, dysuria, urgency, frequency. He has chronic pain on his left LQ which is unchanged. CT chest, abd/pelvis, UA, COVID -19 are all negative. Pt's right infusaport appears clean and without erythema or tenderness. 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 on empiric abx managed by pharmacy. ID consulted. cultures negative. await further ID recommendations. VS, I&O, 24H, Fishbone Vital Signs/I&O Vital Signs Date Time Temp Pulse Resp B/P (MAP) Pulse Ox O2 Delivery O2 Flow Rate FiO2 03/24/20 06:00 67 18 129/55 (79) 93 Room Air 03/23/20 20:24 101.7 I&O- Last 24 Hours up to 6 AM 03/24/20 06:00 Intake Total 1710 ml Output Total 0 ml Balance 1710 ml Laboratory Data 24H LABS Laboratory Tests 2 03/23/20 11:25: Bedside Glucose (Misc Panel) 145H 03/23/20 16:00: Vancomycin Level Trough 22.2H 03/23/20 16:31: Bedside Glucose (Misc Panel) 70L 03/23/20 20:42: Bedside Glucose (Misc Panel) 115H 03/24/20 05:47: Nucleated Red Blood Cells % (auto) 0.0, Anion Gap 7L, Glomerular Filtration Rate > 60.0, Calcium Level 7.9L CBC/BMP Laboratory Tests 03/24/20 05:47 Microbiology Microbiology 03/22/20 Blood Culture - Preliminary, Resulted No growth after 24 hours . All specim... 03/22/20 Blood Culture - Preliminary, Resulted No growth after 24 hours . All specim... 03/22/20 Blood Culture - Preliminary, Resulted No growth after 24 hours . All specim... 03/22/20 Blood Culture - Preliminary, Resulted No growth after 24 hours . All specim... 03/22/20 Blood Culture - Preliminary, Resulted No growth after 24 hours . All specim... 03/22/20 Respiratory Virus Panel (PCR) ([facility]) - Final, Complete 03/22/20 Blood Culture - Preliminary, Resulted No Growth after 48 hours. All Specime... ZHANNA CHEEMA MD Mar 24, 2020 08:56
[2020-03-24] MEDS ORDERED: POTASSIUM CHLORIDE 10 MEQ SR TABLET PO ONE (09:00)
[2020-03-24] MEDS: RIVAROXABAN 15 MG TAB (XARELTO) PO SCH ×2 (09:34→21:09)
[2020-03-24] MEDS: OMEPRAZOLE 20 MG CAP PO SCH (09:34)
[2020-03-24] MEDS: HumaLOG INSULIN (NovoLOG) PER UNIT SC SCH ×4 (09:34→21:00)
[2020-03-24] MEDS: LEVEMIR (INSULIN DETEMIR) 1 UNITS/0.01ML SC SCH ×2 (09:34→21:11)
[2020-03-24] MEDS: GABAPENTIN 400 MG CAP PO SCH ×3 (09:34→21:08)
[2020-03-24] MEDS: amLODIPine 10 MG TAB PO SCH (09:35)
[2020-03-24] MEDS: K-PHOS NEUTRAL 250MG TABLET (SOD.PHOSPHATE/POT.PHOSPHATE) PO SCH (09:35)
[2020-03-24] MEDS: ATORVASTATIN 20 MG TAB PO SCH (09:35)
[2020-03-24] MEDS: FERROUS SULFATE 325MG TAB PO SCH (09:35)
[2020-03-24] MEDS: atenoloL 25 MG TAB PO SCH ×2 (09:35→21:00)
[2020-03-24] MEDS: SODIUM CHLORIDE 0.9% INJ 10 ML SYR IV SCH (09:36)
[2020-03-24] MEDS: NYSTATIN 100,000 UNITS/GM TOPICAL PWD 15 GM TOP SCH (09:36)
[2020-03-24 14:00] VITALS: BP 136/66
[2020-03-24] MEDS: VANCOMYCIN HCL 1,000 MG, VIAL MATE ADAPTER 1 EACH in D5W 250 ML IV SCH (18:11)
[2020-03-24] MEDS: DULoxetine 30 MG CAP (CYMBALTA) PO SCH (21:09)
[2020-03-24] MEDS: SODIUM CHLORIDE 0.9% INJ 10 ML SYR IV PRN (21:29)
[2020-03-24 22:00] VITALS: BP 136/67
[2020-03-25 02:00] VITALS: BP 135/68
[2020-03-25 06:00] VITALS: BP 136/65
[2020-03-25 06:17] LABS: BLOOD UREA NITROGEN 16 MG/DL (7-18); CALCIUM LEVEL 7.9 MG/DL (8.8-10.2); CARBON DIOXIDE LEVEL 26 MEQ/L (21-32); CHLORIDE LEVEL 105 MEQ/L (98-107); CREATININE FOR GFR 0.85 MG/DL (0.70-1.30); GLOMERULAR FILTRATION RATE > 60.0 (>42); GLUCOSE, FASTING 117 MG/DL (70-100); POTASSIUM SERUM 3.7 MEQ/L (3.5-5.1); SODIUM LEVEL 137 MEQ/L (136-145); VANCOMYCIN LEVEL TROUGH 14.1 UG/ML (10.0-20.0)
[2020-03-25] MEDS: VANCOMYCIN HCL 1,000 MG, VIAL MATE ADAPTER 1 EACH in D5W 250 ML IV SCH ×2 (06:31→17:32)
[2020-03-25] MEDS: HumaLOG INSULIN (NovoLOG) PER UNIT SC SCH ×4 (07:10→21:00)
[2020-03-25] MEDS: SODIUM CHLORIDE 0.9% INJ 10 ML SYR IV SCH (07:11)
[2020-03-25] MEDS: K-PHOS NEUTRAL 250MG TABLET (SOD.PHOSPHATE/POT.PHOSPHATE) PO SCH (08:15)
[2020-03-25] MEDS: ATORVASTATIN 20 MG TAB PO SCH (08:15)
[2020-03-25] MEDS: FERROUS SULFATE 325MG TAB PO SCH (08:15)
[2020-03-25] MEDS: OMEPRAZOLE 20 MG CAP PO SCH (08:15)
[2020-03-25] MEDS: RIVAROXABAN 15 MG TAB (XARELTO) PO SCH ×2 (08:15→21:06)
[2020-03-25] MEDS: GABAPENTIN 400 MG CAP PO SCH ×3 (08:15→21:06)
[2020-03-25] MEDS: NYSTATIN 100,000 UNITS/GM TOPICAL PWD 15 GM TOP SCH (08:16)
[2020-03-25] MEDS: LEVEMIR (INSULIN DETEMIR) 1 UNITS/0.01ML SC SCH ×2 (08:16→21:06)
[2020-03-25] MEDS: amLODIPine 10 MG TAB PO SCH (08:18)
[2020-03-25] MEDS: atenoloL 25 MG TAB PO SCH ×2 (08:18→21:07)
--- NOTE | 2020-03-25 09:24 | IPNPDOC ---
Date Seen The patient was seen on 03/25/20. Progress Note SUBJECTIVE: stillwith low grade temp 100.2 -100.9 tmax 101 on 03/24/20. no new c/o. denies neck pain, headache, neckrigidity, upper/mid/lower back pain. chronic llq abd discomfort 5/10 pain scale w/o radiation,but refuses change in pain meds. no diarrhea. white count wnl on iv vanco. blood cx negative. infusaport without erythema. OBJECTIVE: PHYSICAL EXAMINATION: VITALS SIGNS: SEE BELOW GEN: erythematous contusion on forehead. AAOx3 no conversational dyspnea. no use of resp acc muscles HEENT: no jvd moist mucus membranes no thyromegaly no JVD no neck rigidity, no cervical spine tenderness. LUNGS: AEBE diminished bs at bases. no adventitious breath sounds HEART: S1S2 RRR no murmurs noted. ABD: (+) BS SOFT tender LLQ no rebound or guarding ND NO CVAT EXT: no cyanosis, clubbing, or edema. b/l knee skin tears. left elbow skintear w bloody bandage. 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 This morning, he fell in the bathroom when he got up from the toilet, hitting the wall, and falling on his knees and flat on on the floor. Life Alert was activated, and he was brought in to the ER. He denies LOC, lightheadedness, dizziness, palpitations, chest pain, pressure tightness, diaphoresis, n/v/d/constipation, diarrhea, brbpr, melena or black tarry stools. He admits to bumping his head on the wall, loss of appetite but does not know how much weight he may have lost, and some sob when he ambulates. In the ER, he was found to have b/l knee abrasions and skin tears, forehead trauma, and fever of 102.2 without cough, loss of taste, dysuria, urgency, frequency. He has chronic pain on his left LQ which is unchanged. CT chest, abd/pelvis, UA, COVID -19 are all negative. Pt's right infusaport appears clean and without erythema or tenderness. 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 on oral AC for DVT, and iv vanco with normal wbc. id consulted. ct chest abd pelvis blood cx ua negative. ?Echo, but previous was negative and neg blood cx. no c/o spine pain to suspect disciitis or osteomyelitis. no rash to suspect drug fever, and fever was present prior to abx. defer to ID for further investigation and abx changes. ?check peripheral smear? VS, I&O, 24H, Fishbone Vital Signs/I&O Vital Signs Date Time Temp Pulse Resp B/P (MAP) Pulse Ox O2 Delivery O2 Flow Rate FiO2 03/25/20 08:18 62 134/64 03/25/20 06:00 99.0 20 96 Room Air I&O- Last 24 Hours up to 6 AM 03/25/20 06:00 Intake Total 480 ml Output Total 200 ml Balance 280 ml Laboratory Data 24H LABS Laboratory Tests 2 03/24/20 12:22: Bedside Glucose (Misc Panel) 211H 03/24/20 16:31: Bedside Glucose (Misc Panel) 173H 03/24/20 17:08: Vancomycin Level Trough 9.2L 03/24/20 20:01: Bedside Glucose (Misc Panel) 229H 03/25/20 05:21: Anion Gap 6L, Glomerular Filtration Rate > 60.0, Calcium Level 7.9L, Vancomycin Level Trough 14.1 03/25/20 08:41: CBC/BMP Laboratory Tests 03/25/20 05:21 Microbiology Microbiology 03/22/20 Blood Culture - Preliminary, Resulted No Growth after 48 hours. All Specime... 03/22/20 Blood Culture - Preliminary, Resulted No Growth after 48 hours. All Specime... 03/22/20 Blood Culture - Preliminary, Resulted No Growth after 48 hours. All Specime... 03/22/20 Blood Culture - Preliminary, Resulted No Growth after 48 hours. All Specime... 03/22/20 Blood Culture - Preliminary, Resulted No Growth after 48 hours. All Specime... 03/22/20 Respiratory Virus Panel (PCR) ([facility]) - Final, Complete 03/22/20 Blood Culture - Preliminary, Resulted No Growth after 72 hours. All specime... ZHANNA CHEEMA MD Mar 25, 2020 09:24
[2020-03-25 09:26] LABS: BASO % 0.4 % (0.0-1.0); EOS # 0.2 10^3/uL (0.0-0.5); HEMATOCRIT 31.1 % (42.0-52.0); HEMOGLOBIN 9.8 g/dl (13.5-17.5); LYMPH # 0.7 10^3/uL (1.5-5.0); LYMPH % 14.3 % (24.0-44.0); MEAN CORPUSCULAR HEMOGLOBIN 29.8 pg (27.0-33.0); MEAN CORPUSCULAR HGB CONC 31.5 g/dl (32.0-36.5); MEAN CORPUSCULAR VOLUME 94.5 fl (80.0-96.0); MONO # 0.4 10^3/uL (0.0-0.8); MONO % 7.2 % (0.0-5.0); NEUTROPHILS # 3.7 10^3/uL (1.5-8.5); NEUTROPHILS % 73.7 % (36.0-66.0); PLATELET COUNT, AUTOMATED 133 10^3/uL (150-450); RED BLOOD COUNT 3.29 10^6/uL (4.30-6.10)
[2020-03-25 10:00] LABS: ERYTHROCYTE SEDIMENTATION RATE > 140 mm/hr (0-20)
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
[2020-03-25 14:00] VITALS: BP 164/78
[2020-03-25 14:30] VITALS: BP 158/64
[2020-03-25 20:00] VITALS: BP 180/80
[2020-03-25] MEDS: DULoxetine 30 MG CAP (CYMBALTA) PO SCH (21:06)
[2020-03-26] MEDS: VANCOMYCIN HCL 1,000 MG, VIAL MATE ADAPTER 1 EACH in D5W 250 ML IV SCH ×2 (05:25→18:37)
[2020-03-26 06:00] VITALS: BP 148/73
[2020-03-26 06:51] LABS: HEMATOCRIT 32.5 % (42.0-52.0); HEMOGLOBIN 10.2 g/dl (13.5-17.5); MEAN CORPUSCULAR HEMOGLOBIN 29.7 pg (27.0-33.0); MEAN CORPUSCULAR HGB CONC 31.4 g/dl (32.0-36.5); MEAN CORPUSCULAR VOLUME 94.5 fl (80.0-96.0); PLATELET COUNT, AUTOMATED 178 10^3/uL (150-450); RED BLOOD COUNT 3.44 10^6/uL (4.30-6.10); WHITE BLOOD COUNT 6.1 10^3/uL (4.0-10.0)
[2020-03-26] MEDS: SODIUM CHLORIDE 0.9% INJ 10 ML SYR IV PRN ×2 (07:00→20:11)
[2020-03-26 07:13] LABS: BLOOD UREA NITROGEN 12 MG/DL (7-18); C REACTIVE PROTEIN QUANTITATIV 7.26 MG/DL (0.00-0.30); CALCIUM LEVEL 8.4 MG/DL (8.8-10.2); CARBON DIOXIDE LEVEL 28 MEQ/L (21-32); CHLORIDE LEVEL 106 MEQ/L (98-107); CREATININE FOR GFR 0.74 MG/DL (0.70-1.30); GLOMERULAR FILTRATION RATE > 60.0 (>42); GLUCOSE, FASTING 139 MG/DL (70-100); POTASSIUM SERUM 3.5 MEQ/L (3.5-5.1); SODIUM LEVEL 137 MEQ/L (136-145)
[2020-03-26 07:21] LABS: ERYTHROCYTE SEDIMENTATION RATE 124 mm/hr (0-20)
[2020-03-26] MEDS: LEVEMIR (INSULIN DETEMIR) 1 UNITS/0.01ML SC SCH ×2 (08:35→21:26)
[2020-03-26] MEDS: HumaLOG INSULIN (NovoLOG) PER UNIT SC SCH ×4 (08:35→21:26)
[2020-03-26] MEDS: atenoloL 25 MG TAB PO SCH ×2 (08:36→20:12)
[2020-03-26] MEDS: amLODIPine 10 MG TAB PO SCH (08:36)
[2020-03-26] MEDS: NYSTATIN 100,000 UNITS/GM TOPICAL PWD 15 GM TOP SCH (08:37)
[2020-03-26] MEDS: OMEPRAZOLE 20 MG CAP PO SCH (08:37)
[2020-03-26] MEDS: RIVAROXABAN 15 MG TAB (XARELTO) PO SCH ×2 (08:37→20:09)
[2020-03-26] MEDS: SODIUM CHLORIDE 0.9% INJ 10 ML SYR IV SCH (08:37)
[2020-03-26] MEDS: FERROUS SULFATE 325MG TAB PO SCH (08:37)
[2020-03-26] MEDS: GABAPENTIN 400 MG CAP PO SCH ×3 (08:37→20:09)
[2020-03-26] MEDS: ATORVASTATIN 20 MG TAB PO SCH (08:37)
[2020-03-26] MEDS: K-PHOS NEUTRAL 250MG TABLET (SOD.PHOSPHATE/POT.PHOSPHATE) PO SCH (08:37)
[2020-03-26 14:00] VITALS: BP 146/69
--- NOTE | 2020-03-26 14:20 | IPN ---
INFECTIOUS DISEASE PROGRESS NOTE DATE: 03/25/2020 SUBJECTIVE: Patient wants to go home. He is tired of being in the hospital. Today he did not have any fever. Yesterday he had a T-max of 101. He has no complaints of neck pain today, upper low back pain. He does have chronic left lower quadrant pain which is unchanged to him. He has no diarrhea. His white count has improved. PHYSICAL EXAMINATION: Temperature was 99 this morning, tonight it is 98.4, pulse 50, respirations 20, blood pressure 154/87, O2 sat 97% on room air. Heart: Normal S1 and S2, no murmurs, rubs or gallops. Lungs: Clear, no wheezing, rales or rhonchi. Chest: Port site on the right upper chest has no tenderness, no redness. Abdomen: Soft, mildly tender in the left lower quadrant, no rebound, no hepatosplenomegaly. Back: No CVA tenderness. Extremities: No cyanosis, clubbing or edema. LABORATORY DATA: White count is down to 5 from 15.6, hemoglobin 9.8, hematocrit 31.1, platelets 133, ESR more than 140. Sodium 137, potassium 3.7, chloride 105, bicarb 26, BUN 16, creatinine 0.85, glucose 117, calcium 7.9. CRP 9.92 which has increased from 1. Vancomycin trough was 14.1. Beta 1,3D glucan is pending. Blood culture on 03/22: Two venous were no growth so far, 2 from her port were done after a dose of vancomycin and Zosyn and no growth after 72 hours. IMPRESSIONS/PLAN: 1. Fever of unknown origin in a patient with metastatic colon cancer. This is his third hospitalization with a fever. Initial one in January was probably related to a urinary tract infection, but in February the patient had a previous hospitalization with no obvious focus 2:55. He could have an infusion port infection, line infection and cultures are negative. He did receive vancomycin and Zosyn before antibiotics were given through the port. He continues on I.V. vancomycin and is currently afebrile. I would suggest repeating an echocardiogram, ESR, CRP and probably removing the port. 2. Colon cancer with metastasis to the lungs: Patients last treatment with Avastin and FOLFIRINOX was in November. Patient is not sure if he wants to continue with chemotherapy. I suggested obtaining follow up consultation with oncology to see him in the hospital. His last visit was in November when he took his chemotherapy and he has not been seen since then. I will obtain follow up CEA. Plan: Continue I.V. vancomycin, consult oncology regarding removal of infusion port, obtain follow up echocardiogram, sedimentation rate, CRP, procalcitonin and suggest removal of the port. CHE
--- NOTE | 2020-03-26 17:05 | IPNPDOC ---
Text Note Date of Service The patient was seen on 03/26/20. NOTE SUBJECTIVE: No fever for the past 24 hours. Complains of Left lower quadrant discomfort. Says very weak cannot move however demonstrated good movement of his arms and legs. Says he has most difficulty in sitting up. At home he tells me that he swings his to the side of bed bed with the help of gravity is able to sit up. He says his daughter moved from [place] and is going to stay with him. PHYSICAL EXAMINATION: VITALS SIGNS: As below. GEN: AAOx3 no conversational dyspnea. HEENT: Large scabbed over abrasion on the front part of the head 5 cm x 4 cm, moist mucus membranes Neck: no JVD, no thyromegaly No neck rigidity, no cervical spine tenderness. LUNGS: bilateral vesicular breath sounds. diminished bs at bases. no adventitious breath sounds HEART: S1S2 RRR no murmurs noted. ABD: (+) BS SOFT tender LLQ no rebound or guarding ND Back: No point tenderness EXT: no cyanosis, clubbing, or edema. Skin: b/l knee scabbed over abrasions. left elbow abrasion, Left knee abrasion with mild surrounding erythema. LABORATORY DATA and radiology: reviewed. 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 On the day of admission he fell in the bathroom when he got up from the toilet, hitting the wall, and falling on his knees and flat on on the floor. Life Alert was activated, and he was brought in to the ER. In the ER, he was found to have b/l knee abrasions and skin tears, forehead trauma, and fever of 102.2 without cough, loss of taste, dysuria, urgency, frequency. He has chronic pain on his left LQ which is unchanged. CT chest, abd/pelvis, UA, COVID -19 , resp panel are all negative. Pt's right infusaport appears clean and without erythema or tenderness. No tenderness int he spine. Blood cultures are negative till date. Echo has been done. He is being empirically treated with vancomycin. Sepsis/SIRS have not yet found soursce of infection Procalcitonin higher 0.[address] Linares fever could be malignancy related also. FUO rule out line infection blood cultures negative. ct chest abd pelvis neg , ua negative. Echo done pending results. on vancomycin. discussed with Dr Linares would like to keep the port if possible Follow up with ID. Lactic acidosis resolved Hypokalemia corrected Hypertension on amlodipine and atenolol Provoked DVT on Xarelto bid. 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 FS ac and Hs HLD on statin Iron deficiency Anemia ferrous sulphate C3-C4 spinal stenosis/disc bulges c4-5 on gabapentin PT BPH REY Left rotator cuff tear CKD 3 creatinine better than baseline VS,Fishbone, I+O VS, Fishbone, I+O Laboratory Tests 03/26/20 06:18 Vital Signs Date Time Temp Pulse Resp B/P (MAP) Pulse Ox O2 Delivery O2 Flow Rate FiO2 03/26/20 14:00 98.9 58 15 146/69 (94) 97 Room Air I&O- Last 24 Hours up to 6 AM 03/26/20 05:59 Intake Total 1180 ml Output Total 775 ml Balance 405 ml GEMINI HOLLINGSWORTH MD Mar 26, 2020 17:05
[2020-03-26] MEDS: DULoxetine 30 MG CAP (CYMBALTA) PO SCH (20:09)
[2020-03-26 22:00] VITALS: BP 148/72
[2020-03-27 06:00] VITALS: BP 130/58
[2020-03-27 06:15] LABS: HEMATOCRIT 31.7 % (42.0-52.0); HEMOGLOBIN 10.1 g/dl (13.5-17.5); MEAN CORPUSCULAR HEMOGLOBIN 30.3 pg (27.0-33.0); MEAN CORPUSCULAR HGB CONC 31.9 g/dl (32.0-36.5); MEAN CORPUSCULAR VOLUME 95.2 fl (80.0-96.0); PLATELET COUNT, AUTOMATED 186 10^3/uL (150-450); RED BLOOD COUNT 3.33 10^6/uL (4.30-6.10); WHITE BLOOD COUNT 6.1 10^3/uL (4.0-10.0)
[2020-03-27] MEDS: VANCOMYCIN HCL 1,000 MG, VIAL MATE ADAPTER 1 EACH in D5W 250 ML IV SCH ×2 (06:15→17:37)
[2020-03-27 06:39] LABS: BLOOD UREA NITROGEN 12 MG/DL (7-18); CARBON DIOXIDE LEVEL 29 MEQ/L (21-32); CHLORIDE LEVEL 105 MEQ/L (98-107); CREATININE FOR GFR 0.75 MG/DL (0.70-1.30); GLOMERULAR FILTRATION RATE > 60.0 (>42); GLUCOSE, FASTING 71 MG/DL (70-100); POTASSIUM SERUM 3.4 MEQ/L (3.5-5.1); SODIUM LEVEL 140 MEQ/L (136-145)
[2020-03-27] MEDS: HumaLOG INSULIN (NovoLOG) PER UNIT SC SCH ×4 (07:30→21:01)
[2020-03-27] MEDS: ATORVASTATIN 20 MG TAB PO SCH (08:13)
[2020-03-27] MEDS: RIVAROXABAN 15 MG TAB (XARELTO) PO SCH ×2 (08:14→21:02)
[2020-03-27] MEDS: atenoloL 25 MG TAB PO SCH ×2 (08:14→21:00)
[2020-03-27] MEDS: amLODIPine 10 MG TAB PO SCH (08:15)
[2020-03-27] MEDS: FERROUS SULFATE 325MG TAB PO SCH (08:15)
[2020-03-27] MEDS: POTASSIUM CHLORIDE 10 MEQ SR TABLET PO SCH (08:15)
[2020-03-27] MEDS: K-PHOS NEUTRAL 250MG TABLET (SOD.PHOSPHATE/POT.PHOSPHATE) PO SCH (08:15)
[2020-03-27] MEDS: GABAPENTIN 400 MG CAP PO SCH ×3 (08:15→21:01)
[2020-03-27] MEDS: OMEPRAZOLE 20 MG CAP PO SCH (08:15)
[2020-03-27] MEDS: NYSTATIN 100,000 UNITS/GM TOPICAL PWD 15 GM TOP SCH (08:16)
[2020-03-27] MEDS: SODIUM CHLORIDE 0.9% INJ 10 ML SYR IV SCH (08:16)
[2020-03-27] MEDS: LEVEMIR (INSULIN DETEMIR) 1 UNITS/0.01ML SC SCH ×2 (08:16→21:01)
--- NOTE | 2020-03-27 11:46 | ECHO ---
DATE OF PROCEDURE: Age: 75 Gender: Male Height: 183 cm Weight: 102 kg REFERRING PHYSICIAN: Mis Vargas MD INDICATION: Recurrent fever. MEASUREMENTS: No measurements were obtained. FINDINGS: The study is of limited technical quality. The patient is in atrial fibrillation with controlled rate. Left ventricle appears to have normal contractility in its basal segments. The apical segments were poorly visualized and based on limited views, I assume that there is apical wall motion abnormality. I am unable to estimate overall left ventricular ejection fraction. Right ventricle was also poorly visualized. Aortic valve is mildly sclerotic but mobility is preserved. No visualized vegetations are present. The same applies for mitral valve. Good mobility of leaflets and no obvious vegetations or structural abnormalities are apparent. Tricuspid valve was poorly visualized but grossly appears normal based on limited views. Pulmonic valve was not seen. No pericardial effusion is noted. Inferior vena cava was not well seen. Doppler interrogation reveals no aortic stenosis or insufficiency. There is trace mitral and trace tricuspid insufficiency with calculated pulmonary artery pressure within normal limits. CONCLUSIONS: 1. Study is of rather limited technical quality, no standard measurements were obtained. Underlying atrial fibrillation with controlled rate. 2. Poorly visualized left ventricle. The basal segments have normal contractility but the apical segments were not well seen and based on limited views I assume underlying wall motion abnormalities affecting apex. Unable to estimate overall ejection fraction. 3. No significant aortic valvular disease. 4. Trace mitral and tricuspid insufficiency. 5. Likely normal pulmonary artery pressure. 6. No visualized vegetations. COMMENTS: Limited study. If high clinical suspicion for bacterial endocarditis is present, then obviously a transesophageal echocardiogram will provide much better resolution. [facility]
--- NOTE | 2020-03-27 13:10 | IPNPDOC ---
Text Note Date of Service The patient was seen on 03/27/20. NOTE SUBJECTIVE: No fever for the past 48 hours. No new complaints today. I asked akila whether he wanted to continue the chemotherapy or not. He did not give a direct answer but he told me it was making him very sick. Spoke with daughter Carolynn who has moved from [place] 4 days ago and is going to stay with him for at least 2 months. I asked daughter why patient did not go for oncology visits since December, her understanding was that he was waiting for a call from the oncology office with an appointment. I feel like patient has been in and out of the hospital for the past 2 moths so he wanted to take a break and did not follow up with them. Spoke with Dr Linares and he is going to see patient today. PHYSICAL EXAMINATION: VITALS SIGNS: As below. GEN: AAOx3 no conversational dyspnea. HEENT: Large scabbed over abrasion on the front part of the head 5 cm x 4 cm, moist mucus membranes Neck: no JVD, no thyromegaly No neck rigidity, no cervical spine tenderness. LUNGS: bilateral vesicular breath sounds. diminished bs at bases. no adventitious breath sounds HEART: S1S2 RRR no murmurs noted. ABD: (+) BS SOFT tender LLQ no rebound or guarding ND Back: No point tenderness EXT: no cyanosis, clubbing, or edema. Skin: b/l knee scabbed over abrasions. left elbow abrasion, Left knee abrasion with mild surrounding erythema. LABORATORY DATA and radiology: reviewed. 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 On the day of admission he fell in the bathroom when he got up from the toilet, hitting the wall, and falling on his knees and flat on on the floor. Life Alert was activated, and he was brought in to the ER. In the ER, he was found to have b/l knee abrasions and skin tears, forehead trauma, and fever of 102.2 without cough, loss of taste, dysuria, urgency, frequency. He has chronic pain on his left LQ which is unchanged. CT chest, abd/pelvis, UA, COVID -19 , resp panel are all negative. Pt's right infusaport appears clean and without erythema or tenderness. No tenderness int he spine. Blood cultures are negative till date. Echo has been done. He is being empirically treated with vancomycin. Sepsis/SIRS have not yet found source of infection Procalcitonin higher 0.4 to 0.92 responding to vancomycin Most probably chemo port infection As per Dr Linares fever could be port infection related or malignancy related also. ID following FUO rule out port infection blood cultures negative. ct chest abd pelvis neg , ua negative. Echo no vegetations responding to vancomycin. discussed with Dr Linares about removal of the chemoprot he is going to see patient today. Chronic Afib rate controlled on xarelto Lactic acidosis resolved Hypokalemia corrected Hypertension on amlodipine and atenolol Provoked DVT on Xarelto bid. Stage IV colon adenocarcinoma w mets to liver & lung was on palliative FOLFIR & bevacizumab since July 2019 s/p right conor-colectomy in 2018 Last treatment was December 20 Did not want treatment on Jan 08. tht was his last oncology visit. 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 FS ac and Hs HLD on statin Iron deficiency Anemia ferrous sulphate C3-C4 spinal stenosis/disc bulges c4-5 on gabapentin PT BPH REY Left rotator cuff tear CKD 3 creatinine better than baseline VS,Fishbone, I+O VS, Fishbone, I+O Laboratory Tests 03/27/20 05:53 Vital Signs Date Time Temp Pulse Resp B/P (MAP) Pulse Ox O2 Delivery O2 Flow Rate FiO2 03/27/20 08:15 142/60 03/27/20 08:14 50 03/27/20 06:00 97.7 18 96 Room Air I&O- Last 24 Hours up to 6 AM 03/27/20 06:00 Intake Total 1260 ml Output Total 1100 ml Balance 160 ml GEMINI HOLLINGSWORTH MD Mar 27, 2020 13:10
[2020-03-27 14:00] VITALS: BP 134/60
--- NOTE | 2020-03-27 19:20 | CR.PDOC ---
General Date of Consultation: Mar 27, 2020 Referring Provider: GEMINI HOLLINGSWORTH MD Attending Physician: WHITNEY BAILON MD Consultation REASON FOR CONSULTATION/CHIEF COMPLAINT: [Metastatic colon cancer with met astases to liver and lung now with the current fever and history of falls]. HISTORY OF PRESENT ILLNESS: [I had the pleasure of seeing Mr. Lionel English in consideration for metastatic colon cancer with metastases to the liver and to the lungs area as you know Mr. Lionel English is a 75-year-old white gentleman with history of metastatic colon cancer with metastases to liver and lung. This was diagnosed in October 2018 with partial obstructing lesion in the descending colon with liver involvement. Biopsy documented adenocarcinoma EGFR was negative. Patient had right hemicolectomy and moderately differentiated adenocarcinoma with mucinous features. Cancer was present in 3 out of 10 very colonic lymph nodes. Primary tumor size was 5 cm and it was staged at T3 N1 b M1. Multiple hepatic metastasis as well as evidence were both right and left lobes of the liver. He was started on FOLFOX with Avastin and continued until June 2019. 07/25/2019 patient developed severe numbness of feet and tips of fingers due to a very pleasant and so he was switched to FOLFIRI and Avastin. CT/PET in September 2019 revealed inactive disease and CEA dropped down from a tender 229. He was seen last time in our office on 01/09/2020. He was having severe numbness and fatigue and he requested to hold back chemotherapy until he recovers. His last chemotherapy was given in first week of December 2019. Since then he has been sick and has been following off-and-on. He also developed fever intermittently and had several hospitalizations since then. Maximum fever was documented as 103F. Currently he is admitted because of fall and because of fever. No definite source of infection has been found and he is started empirically on antibiotics. Patient has been seen by Dr. Vargas. She feels that possible source of infection is board and might be a line infection or it might be a tumor fever because of multiple liver metastases. Currently patient is coherent and is able to answer questions without much difficulty. His breathing is good. He has no cough or wheezing. He denies chest pain or palpitation no headache or dizziness and has no urinary symptoms. He most involved once or twice a week. ]. ALLERGIES: Please see below. HOME MEDICATIONS: Please see below. PAST MEDICAL HISTORY: 1. [NIDDM]. 2. [Chronic renal insufficiency stage III 3]. Hypertension 4. Recurrent UTI with bacteremia admitted 01/25/2020 PAST SURGICAL HISTORY: 1. [Cataract surgery 2012 bilaterally] 2. [Hemicolectomy November 10 SOCIAL HISTORY: Marital status and/or living arrangements: [Patient lives alone with his cat who is 4-year-old. He is a nonsmoker now but quit smoking many years ago. Denies alcohol abuse, quit drinking in 2019..] Children: [Patient has 1 daughter in [place]] REVIEW OF SYSTEMS: CONSTITUTIONAL: [Physically weak and fatigued out and has been having multiple falls]. HEENT: [No complaint]. CARDIOVASCULAR: [Denies chest pain palpitation PND or orthopnea]. RESPIRATORY: [No cough or wheezing]. GENITOURINARY: [Denies burning urination]. MUSCULOSKELETAL: [No muscular pain]. GASTROINTESTINAL: [Mainly constipated and moves his bowel once or twice a week]. SKIN: [Normal]. NEUROLOGICAL: [Has been falling off-and-on]. PSYCHIATRIC: [Depression]. ENDOCRINE: [NIDDM]. PHYSICAL EXAMINATION: VITAL SIGNS: Please see below. GENERAL APPEARANCE: [75-year-old gentleman in no acute distress. There is no pale or jaundiced cyanosis no clubbing or colonic area HEENT: [WNL EOMI oral cavity clear without mucositis or thrush]. RESPIRATORY: [Clear to auscultation]. CARDIOVASCULAR: [RRR normal S1 and S2]. ABDOMEN: [Soft PRESENT NO HEPATOSPLENOMEGALY]. EXTREMITIES: [SENSORY TACTILE FEELING OTHERWISE NO EDEMA]. NEUROLOGICAL: [Following all 4 limbs except loss of sensations or touch]. PSYCHIATRIC: [Depression]. LABORATORY DATA: Please see below. ASSESSMENT/PLAN: Mr. Lionel Olivera is a 75-year-old white gentleman who has a history of metastatic colon cancer with metastases to liver and lung and has been getting Avastin and FOLFOX initially with switched to FOLFIRI and Avastin. He has been doing well and responded well to his medication but in December 2019 he asked for a break. He has been having fever off and on and was treated empirically with antibiotic but no definite source has been found. Dr. Vargas has seen the patient and she feels that fever is likely due to line infection or due to tumor burden itself. Patient has been ordered to have echocardiogram. I talked to the patient in detail about his future chemotherapy. He would like to continue his chemotherapy once he gets better . It is suggested to have a consultation with surgery to remove the port for now. We'll wait for him to get better and once fever subsides and he improves in his strength he will be reevaluated for further chemotherapy. In that case if he is found to be candidate for further treatment we'll request an other port insertion at that time. Currently there is no call for port placement right away since he will not be given chemotherapy until he becomes stable enough to tolerate that. So once port is removed and his fever subsides we'll see him as outpatient for further follow-up and decision making. Thanks for consultation in giving me the chance to see this nice patient. Vital Signs/I&O Vital Signs Date Time Temp Pulse Resp B/P (MAP) Pulse Ox O2 Delivery O2 Flow Rate FiO2 03/27/20 14:00 98.2 50 18 134/60 (84) 96 Room Air I&O- Last 24 Hours up to 6 AM 03/27/20 06:00 Intake Total 1260 ml Output Total 1100 ml Balance 160 ml Laboratory Data Labs 24H Laboratory Tests 2 03/26/20 20:53: Bedside Glucose (Misc Panel) 284H 03/27/20 05:53: Nucleated Red Blood Cells % (auto) 0.0, Anion Gap 6L, Glomerular Filtration Rate > 60.0, Calcium Level 9.0 03/27/20 11:45: Bedside Glucose (Misc Panel) 149H 03/27/20 16:40: Bedside Glucose (Misc Panel) 125H CBC/BMP Laboratory Tests 03/27/20 05:53 Microbiology Microbiology 03/22/20 Blood Culture - Final, Complete NO GROWTH AFTER 5 DAYS 03/22/20 Blood Culture - Final, Complete NO GROWTH AFTER 5 DAYS 03/22/20 Blood Culture - Final, Complete NO GROWTH AFTER 5 DAYS 03/22/20 Blood Culture - Final, Complete NO GROWTH AFTER 5 DAYS 03/22/20 Blood Culture - Final, Complete NO GROWTH AFTER 5 DAYS 03/22/20 Respiratory Virus Panel (PCR) (SOLO) - Final, Complete 03/22/20 Blood Culture - Final, Complete NO GROWTH AFTER 5 DAYS Allergies Coded Allergies: [place] (Verified Allergy, Intermediate, RAW PEACH FUZZ; hives, 12/16/18) strawberry (Verified Allergy, Intermediate, hives, 12/16/18) Home Medications Scheduled Atorvastatin Calcium (Atorvastatin Calcium) 40 Mg Tablet, 40 MG PO DAILY, (Reported) Duloxetine Hcl (Duloxetine HCl) 30 Mg Cap, 30 MG PO QHS, (Reported) Ferrous Sulfate (Ferrous Sulfate) 325 Mg Tablet, 325 MG PO DAILY, (Reported) Gabapentin (Gabapentin) 800 Mg Tablet, 400 MG PO QAM, (Reported) Gabapentin (Gabapentin) 800 Mg Tablet, 800 MG PO BID, (Reported) DINNER AND BEDTIME Insulin Aspart Protamine/Aspar (Novolog Mix 70-30 Vial) 100 Unit/1 Ml Vial, 40 UNITS SC QAM, (Reported) Insulin Aspart Protamine/Aspar (Novolog Mix 70-30 Vial) 100 Unit/1 Ml Vial, 10 UNITS SC QPM, (Reported) Metformin HCl (Metformin HCl) 850 Mg Tablet, 850 MG PO BID, (Reported) Midodrine HCl (Midodrine HCl) 2.5 Mg Tablet, 2.5 MG PO BID, (Reported) Omeprazole (Omeprazole) 20 Mg Capsule.dr, 20 MG PO DAILY, (Reported) Rivaroxaban (Xarelto) 15 Mg Tablet, 15 MG PO BID, (Reported) FILLED 03/11/20 FOR 21 DAYS Sod Phos Di, [place]/K Phos [place] (Virt-Phos 250 Neutral Tablet) 250 Mg Tablet, 250 MG PO DAILY, (Reported) Scheduled PRN Bisacodyl (Dulcolax) 5 Mg Tablet.dr, 5 MG PO BID PRN for CONSTIPATION, (Reported) Ondansetron HCl (Ondansetron HCl) 8 Mg Tablet, 8 MG PO Q8H PRN for NAUSEA OR VOMITING, (Reported) Polyethylene Glycol 3350 (Miralax) 17 Gm Powd.pack, 17 GM PO DAILY PRN for CONSTIPATION, (Reported) Prochlorperazine Maleate (Prochlorperazine Maleate) 10 Mg Tablet, 10 MG PO TID PRN for NAUSEA OR VOMITING, (Reported) WHITNEY BAILON MD Mar 27, 2020 19:20
[2020-03-27] MEDS: DULoxetine 30 MG CAP (CYMBALTA) PO SCH (21:02)
[2020-03-27 22:00] VITALS: BP 158/70
[2020-03-28] VITALS: BP 146/61
[2020-03-28] MEDS: SODIUM CHLORIDE 0.9% INJ 10 ML SYR IV PRN (00:17)
[2020-03-28] MEDS: VANCOMYCIN HCL 1,000 MG, VIAL MATE ADAPTER 1 EACH in D5W 250 ML IV SCH ×2 (05:35→18:14)
[2020-03-28 06:00] VITALS: BP 152/68
[2020-03-28 06:44] LABS: HEMATOCRIT 34.3 % (42.0-52.0); HEMOGLOBIN 11.1 g/dl (13.5-17.5); MEAN CORPUSCULAR HEMOGLOBIN 30.3 pg (27.0-33.0); MEAN CORPUSCULAR HGB CONC 32.4 g/dl (32.0-36.5); MEAN CORPUSCULAR VOLUME 93.7 fl (80.0-96.0); PLATELET COUNT, AUTOMATED 208 10^3/uL (150-450); RED BLOOD COUNT 3.66 10^6/uL (4.30-6.10); WHITE BLOOD COUNT 6.5 10^3/uL (4.0-10.0)
[2020-03-28 07:14] LABS: BLOOD UREA NITROGEN 12 MG/DL (7-18); CALCIUM LEVEL 8.7 MG/DL (8.8-10.2); CARBON DIOXIDE LEVEL 28 MEQ/L (21-32); CHLORIDE LEVEL 105 MEQ/L (98-107); CREATININE FOR GFR 0.77 MG/DL (0.70-1.30); GLOMERULAR FILTRATION RATE > 60.0 (>42); GLUCOSE, FASTING 158 MG/DL (70-100); POTASSIUM SERUM 3.8 MEQ/L (3.5-5.1); SODIUM LEVEL 138 MEQ/L (136-145)
[2020-03-28] MEDS: HumaLOG INSULIN (NovoLOG) PER UNIT SC SCH ×4 (08:57→20:32)
[2020-03-28] MEDS: LEVEMIR (INSULIN DETEMIR) 1 UNITS/0.01ML SC SCH ×2 (08:57→22:09)
[2020-03-28] MEDS: FERROUS SULFATE 325MG TAB PO SCH (08:57)
[2020-03-28] MEDS: amLODIPine 10 MG TAB PO SCH (08:58)
[2020-03-28] MEDS: atenoloL 25 MG TAB PO SCH ×2 (08:58→20:32)
[2020-03-28] MEDS: GABAPENTIN 400 MG CAP PO SCH ×3 (08:59→20:30)
[2020-03-28] MEDS: POTASSIUM CHLORIDE 10 MEQ SR TABLET PO SCH (08:59)
[2020-03-28] MEDS: ATORVASTATIN 20 MG TAB PO SCH (08:59)
[2020-03-28] MEDS: K-PHOS NEUTRAL 250MG TABLET (SOD.PHOSPHATE/POT.PHOSPHATE) PO SCH (08:59)
[2020-03-28] MEDS: SODIUM CHLORIDE 0.9% INJ 10 ML SYR IV SCH (09:00)
[2020-03-28] MEDS: OMEPRAZOLE 20 MG CAP PO SCH (09:00)
[2020-03-28] MEDS: NYSTATIN 100,000 UNITS/GM TOPICAL PWD 15 GM TOP SCH (09:01)
[2020-03-28 14:00] VITALS: BP 134/68
[2020-03-28] MEDS ORDERED: ZYVO1TAB PO (15:52)
--- NOTE | 2020-03-28 16:08 | IPNPDOC ---
Text Note Date of Service The patient was seen on 03/28/20. NOTE SUBJECTIVE: No fevers any more. Planned for removal of Port on Wednesday by IR. Spoke with daughter about discharge home tomorrow with home vancomycin BID. PHYSICAL EXAMINATION: VITALS SIGNS: As below. GEN: AAOx3 no conversational dyspnea. HEENT: Large scabbed over abrasion on the front part of the head 5 cm x 4 cm, moist mucus membranes Neck: no JVD, no thyromegaly No neck rigidity, no cervical spine tenderness. LUNGS: bilateral vesicular breath sounds. diminished bs at bases. no adventitious breath sounds HEART: S1S2 RRR no murmurs noted. ABD: (+) BS SOFT tender LLQ no rebound or guarding ND Back: No point tenderness EXT: no cyanosis, clubbing, or edema. Skin: b/l knee scabbed over abrasions. left elbow abrasion, Left knee abrasion with mild surrounding erythema. LABORATORY DATA and radiology: reviewed. 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 On the day of admission he fell in the bathroom when he got up from the toilet, hitting the wall, and falling on his knees and flat on on the floor. Life Alert was activated, and he was brought in to the ER. In the ER, he was found to have b/l knee abrasions and skin tears, forehead trauma, and fever of 102.2 without cough, loss of taste, dysuria, urgency, frequency. He has chronic pain on his left LQ which is unchanged. CT chest, abd/pelvis, UA, COVID -19 , resp panel are all negative. Pt's right infusaport appears clean and without erythema or tenderness. No tenderness int he spine. Blood cultures are negative till date. Echo has been done. He is being empirically treated with vancomycin. Sepsis/SIRS responded to vancomycin Most probably chemo port infection As per Dr Linares fever could be port infection related or malignancy related also. Port removal by IR on Wednesday 8: 30 am. FUO Probable chemo port infection blood cultures negative. ct chest abd pelvis neg , ua negative. Echo no vegetations responding to vancomycin. will give vanco till wednesday Am then give a 5 day course of po linezolid. Chronic Afib rate controlled on xarelto will have to hold on Wed and wednesday Lactic acidosis resolved Hypokalemia corrected Hypertension on amlodipine and atenolol Provoked DVT on Xarelto bid. Stage IV colon adenocarcinoma w mets to liver & lung was on palliative FOLFIR & bevacizumab since July 2019 s/p right conor-colectomy in 2018 Last treatment was December 20 Did not want treatment on Jan 08. tht was his last oncology visit. 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 FS ac and Hs HLD on statin Iron deficiency Anemia ferrous sulphate C3-C4 spinal stenosis/disc bulges c4-5 on gabapentin PT BPH RYE Left rotator cuff tear CKD 3 creatinine better than baseline VS,Fishbone, I+O VS, Fishbone, I+O Laboratory Tests 03/28/20 06:29 Vital Signs Date Time Temp Pulse Resp B/P (MAP) Pulse Ox O2 Delivery O2 Flow Rate FiO2 03/28/20 14:00 97.6 60 18 134/68 (90) 98 Room Air I&O- Last 24 Hours up to 6 AM 03/28/20 06:59 Intake Total 1910 ml Output Total 2725 ml Balance -815 ml GEMINI HOLLINGSWORTH MD Mar 28, 2020 16:07
[2020-03-28] MEDS: DULoxetine 30 MG CAP (CYMBALTA) PO SCH (20:30)
[2020-03-28 22:00] VITALS: BP 171/75
[2020-03-29 00:24] VITALS: BP 159/63
[2020-03-29 05:23] LABS: HEMATOCRIT 36.5 % (42.0-52.0); HEMOGLOBIN 11.7 g/dl (13.5-17.5); MEAN CORPUSCULAR HGB CONC 32.1 g/dl (32.0-36.5); MEAN CORPUSCULAR VOLUME 93.6 fl (80.0-96.0); PLATELET COUNT, AUTOMATED 265 10^3/uL (150-450); WHITE BLOOD COUNT 7.9 10^3/uL (4.0-10.0)
[2020-03-29 05:45] LABS: BLOOD UREA NITROGEN 12 MG/DL (7-18); CALCIUM LEVEL 8.7 MG/DL (8.8-10.2); CARBON DIOXIDE LEVEL 29 MEQ/L (21-32); CHLORIDE LEVEL 105 MEQ/L (98-107); CREATININE FOR GFR 0.86 MG/DL (0.70-1.30); GLOMERULAR FILTRATION RATE > 60.0 (>42); GLUCOSE, FASTING 152 MG/DL (70-100); POTASSIUM SERUM 4.4 MEQ/L (3.5-5.1); SODIUM LEVEL 140 MEQ/L (136-145)
[2020-03-29 06:00] VITALS: BP 158/65
[2020-03-29] MEDS: VANCOMYCIN HCL 1,000 MG, VIAL MATE ADAPTER 1 EACH in D5W 250 ML IV SCH (06:20)
[2020-03-29] MEDS ORDERED: AMLO1TAB25 PO (06:57)
[2020-03-29] MEDS ORDERED: ATEN25TA PO (06:57)
[2020-03-29] MEDS: HumaLOG INSULIN (NovoLOG) PER UNIT SC SCH ×2 (08:24→12:00)
[2020-03-29] MEDS: LEVEMIR (INSULIN DETEMIR) 1 UNITS/0.01ML SC SCH (08:24)
[2020-03-29 08:25] VITALS: BP 143/57
[2020-03-29] MEDS: ATORVASTATIN 20 MG TAB PO SCH (08:25)
[2020-03-29] MEDS: GABAPENTIN 400 MG CAP PO SCH (08:25)
[2020-03-29] MEDS: FERROUS SULFATE 325MG TAB PO SCH (08:25)
[2020-03-29] MEDS: atenoloL 25 MG TAB PO SCH (08:25)
[2020-03-29] MEDS: POTASSIUM CHLORIDE 10 MEQ SR TABLET PO SCH (08:26)
[2020-03-29] MEDS: K-PHOS NEUTRAL 250MG TABLET (SOD.PHOSPHATE/POT.PHOSPHATE) PO SCH (08:26)
[2020-03-29] MEDS: OMEPRAZOLE 20 MG CAP PO SCH (08:26)
[2020-03-29] MEDS: amLODIPine 10 MG TAB PO SCH (08:26)
[2020-03-29] MEDS: NYSTATIN 100,000 UNITS/GM TOPICAL PWD 15 GM TOP SCH (08:26)
[2020-03-29] MEDS: SODIUM CHLORIDE 0.9% INJ 10 ML SYR IV SCH (08:27)
--- NOTE | 2020-03-29 13:42 | DS.PDOC ---
Discharge Summary General Date of Admission Mar 22, 2020 at 07:36 Date of Discharge 03/29/20 Discharge Summary PROCEDURES PERFORMED DURING STAY: [None]. DISCHARGE DIAGNOSES: FUO Probable Chemo port infection Hypertension s/p Orthostatic hypotension SECONDARY INFECTION: Stage IV colon adenocarcinoma with mets to liver & lung was on palliative FOLFIR & bevacizumab ( last treatment in November 2019) s/p right conor-colectomy Provoked DVT Chronic A fib IDDM type 2 w retinopathy Iron deficiency Anemia Cervical spinal stenosis c3/c4 Orthostatic Hypotension on Midodrine BPH REY Left rotator cuff tear CKD 3 HLD COMPLICATIONS/CHIEF COMPLAINT: FUO. HOSPITAL COURSE: 75 y/o male who lives alone with pmh significant for Stage IV colon adenocarcinoma w mets to liver & lung was on palliative FOLFIR & bevacizumab s/p right conor-colectomy, chemo port placement on zyvox was in his usual state of health until the past few days when he has noted increasing weakness. On the day of admission he fell in the bathroom when he got up from the toilet, hitting the wall, and falling on his knees and flat on on the floor. Life Alert was activated, and he was brought in to the ER. In the ER, he was found to have b/l knee abrasions and skin tears, forehead trauma, and fever of 102.2 without cough, loss of taste, dysuria, urgency, frequency. He has chronic pain on his left LQ which is unchanged. He was admitted for the second time this month for FUO. CT chest, abd/pelvis, UA, COVID -19 , resp panel are all negative. Pt's right infusaport appears clean and without erythema or tenderness. No tenderness int he spine. Blood cultures are negative till date. Unfortunately there were no port cultures drawn prior to starting antibiotics. Echo negative for vegetations. He was empirically treated with vancomycin with resolution of Fever. Sepsis/SIRS responded to vancomycin Most probably chemo port infection As per Dr Linares fever could be port infection related or malignancy related also. Port removal by IR on Wednesday 8: 30 am. FUO Probable chemo port infection blood cultures negative. No port cultures prior to antibiotics. ct chest abd pelvis neg , ua negative. Echo no vegetations responded to vancomycin. Will give vanco till wednesday Am 04/01/20 then give a 5 day course of po linezolid. Chronic Afib rate controlled on xarelto will have to hold on Wed and Wednesday and Wednesday morning for port removal. During treatment with the chemotherapy he had orthostatic hypotension this has now resolved midodrine stopped. Lactic acidosis resolved Hypokalemia corrected Hypertension on amlodipine and atenolol Provoked DVT on Xarelto bid. Stage IV colon adenocarcinoma w mets to liver & lung was on palliative FOLFIR & bevacizumab since July 2019 s/p right conor-colectomy in 2018 Last treatment was December 20 Did not want treatment on Jan 08. tht was his last oncology visit. 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 FS ac and Hs HLD on statin Iron deficiency Anemia ferrous sulphate C3-C4 spinal stenosis/disc bulges c4-5 on gabapentin PT BPH REY Left rotator cuff tear CKD 3 creatinine better than baseline DISCHARGE MEDICATIONS: Please see below. ALLERGIES: Please see below. PHYSICAL EXAMINATION ON DISCHARGE: VITAL SIGNS: Please see below. GEN: AAOx3 no conversational dyspnea. HEENT: Large scabbed over abrasion on the front part of the head 5 cm x 4 cm, moist mucus membranes Neck: no JVD, no thyromegaly No neck rigidity, no cervical spine tenderness. LUNGS: bilateral vesicular breath sounds. diminished bs at bases. no nondenominational itious breath sounds HEART: S1S2 RRR no murmurs noted. ABD: (+) BS SOFT tender LLQ no rebound or guarding ND Back: No point tenderness EXT: no cyanosis, clubbing, or edema. Skin: b/l knee scabbed over abrasions. left elbow abrasion, Left knee abrasion with mild surrounding erythema. LABORATORY DATA: Please see below. ACTIVITY: [As tolerated]. DIET: Carb consistent. DISCHARGE PLAN: Home with services DISPOSITION: . DISCHARGE INSTRUCTIONS: Report to Patient registration on 04/01/20 at 8:30 am. Follow up with Dr Linares in 1 week. DISCHARGE CONDITION: [Stable]. TIME SPENT ON DISCHARGE: 35 minutes. Vital Signs/I&Os Vital Signs Date Time Temp Pulse Resp B/P (MAP) Pulse Ox O2 Delivery O2 Flow Rate FiO2 03/29/20 08:25 52 143/57 03/29/20 06:00 98.3 18 96 Room Air I&O- Last 24 Hours up to 6 AM 03/29/20 06:00 Intake Total 2660 ml Output Total 2725 ml Balance -65 ml Laboratory Data Labs 24H Laboratory Tests 2 03/28/20 17:12: Bedside Glucose (Misc Panel) 157H 03/28/20 20:32: Bedside Glucose (Misc Panel) 227H 03/29/20 05:06: Nucleated Red Blood Cells % (auto) 0.0, Anion Gap 6L, Glomerular Filtration Rate > 60.0, Calcium Level 8.7L, Vancomycin Level Trough 16.9 03/29/20 11:39: Bedside Glucose (Misc Panel) 238H CBC/BMP Laboratory Tests 03/29/20 05:06 FSBS Laboratory Tests Test 03/28/20 17:12 03/28/20 20:32 03/29/20 11:39 Range/Units Bedside Glucose (Misc Panel) 157 227 238 83-110 MG/DL Microbiology Microbiology 03/22/20 Blood Culture - Final, Complete NO GROWTH AFTER 5 DAYS 03/22/20 Blood Culture - Final, Complete NO GROWTH AFTER 5 DAYS 03/22/20 Blood Culture - Final, Complete NO GROWTH AFTER 5 DAYS 03/22/20 Blood Culture - Final, Complete NO GROWTH AFTER 5 DAYS 03/22/20 Blood Culture - Final, Complete NO GROWTH AFTER 5 DAYS 03/22/20 Respiratory Virus Panel (PCR) (SOLO) - Final, Complete 03/22/20 Blood Culture - Final, Complete NO GROWTH AFTER 5 DAYS Discharge Medications Scheduled Amlodipine Besylate (Amlodipine Besylate) 10 Mg Tablet, 10 MG PO DAILY Atenolol (Atenolol) 25 Mg Tablet, 25 MG PO BID Atorvastatin Calcium (Atorvastatin Calcium) 40 Mg Tablet, 40 MG PO DAILY, (Reported) Duloxetine Hcl (Duloxetine HCl) 30 Mg Cap, 30 MG PO QHS, (Reported) Ferrous Sulfate (Ferrous Sulfate) 325 Mg Tablet, 325 MG PO DAILY, (Reported) Gabapentin (Gabapentin) 800 Mg Tablet, 400 MG PO QAM, (Reported) Gabapentin (Gabapentin) 800 Mg Tablet, 800 MG PO BID, (Reported) DINNER AND BEDTIME Insulin Aspart Protamine/Aspar (Novolog Mix 70-30 Vial) 100 Unit/1 Ml Vial, 40 UNITS SC QAM, (Reported) Insulin Aspart Protamine/Aspar (Novolog Mix 70-30 Vial) 100 Unit/1 Ml Vial, 10 UNITS SC QPM, (Reported) Linezolid (Zyvox) 600 Mg Tablet, 1 TAB PO BID with food Metformin HCl (Metformin HCl) 850 Mg Tablet, 850 MG PO BID, (Reported) Omeprazole (Omeprazole) 20 Mg Capsule.dr, 20 MG PO DAILY, (Reported) Rivaroxaban (Xarelto) 15 Mg Tablet, 15 MG PO BID, (Reported) FILLED 03/11/20 FOR 21 DAYS Sod Phos Di, [place]/K Phos [place] (Virt-Phos 250 Neutral Tablet) 250 Mg Tablet, 250 MG PO DAILY, (Reported) Scheduled PRN Bisacodyl (Dulcolax) 5 Mg Tablet.dr, 5 MG PO BID PRN for CONSTIPATION, (Reported) Ondansetron HCl (Ondansetron HCl) 8 Mg Tablet, 8 MG PO Q8H PRN for NAUSEA OR VOMITING, (Reported) Polyethylene Glycol 3350 (Miralax) 17 Gm Powd.pack, 17 GM PO DAILY PRN for CON STIPATION, (Reported) Prochlorperazine Maleate (Prochlorperazine Maleate) 10 Mg Tablet, 10 MG PO TID PRN for NAUSEA OR VOMITING, (Reported) Allergies Coded Allergies: [place] (Verified Allergy, Intermediate, RAW PEACH FUZZ; hives, 12/16/18) strawberry (Verified Allergy, Intermediate, hives, 12/16/18) GEMINI HOLLINGSWORTH MD Mar 29, 2020 13:42
[2020-03-29 14:00] VITALS: BP 148/60
[2020-03-29 15:01] LABS: C REACTIVE PROTEIN QUANTITATIV 2.57 MG/DL (0.00-0.30)
--- NOTE | 2020-04-01 07:44 | IPN ---
DATE: 03/29/2020 Mr. English is anxious to go home. He has been on intravenous (IV) vancomycin for a total of 7 days. He has been afebrile since March 25. He denies any nausea, vomiting, or diarrhea. No abdominal pain. His daughter came to help him with his care and will be with him for a couple months. He was seen in consultation by Dr. Linares, oncologist, who will be seeing him as an outpatient for followup discussion of chemotherapy. At this point, his Fsseup-G-Elah will be removed on Wednesday, as they are concerned that he may have a line infection, and the blood cultures that were done were done after antibiotics were given. LABORATORY DATA: Culture March 22, four sets, were negative, but the port cultures were done after antibiotics. Respiratory panel was negative. IMPRESSION: Fever of unknown origin with presumptive line infection, doing much better with IV vancomycin. Patient will continue with IV vancomycin until Wednesday, when he will have his Ergrjl-X-Qlon removed. After Pcgfyt-M-Ttpd removal, he will continue with 3 days of linezolid post removal of the port. He will followup with Dr. Linares regarding his metastatic colon cancer and further chemotherapy in another line could be placed at a later time and possibly a peripherally inserted central catheter (PICC) line. LABORATORY DATA: White count 7.9, hemoglobin 11.7, hematocrit 36.5, platelets 265, ESR 124. Sodium 140, potassium 4.4, chloride 105, bicarbonate 29, BUN 12, creatinine 0.86, glucose 152, calcium 8.7, CRP 7.6, down from 9.92. Case discussed with Dr. Marta Lim and [facility] regarding his discharge plan. Nurse Gonsalo Hathaway is at the bedside. [facility]
== END 2020-03-29 15:09 | disposition home health service (06) | DRG 314 ==
LOC: M ED 05:42 → M ED INP 07:36 → ENRESERV 10:40 → M MSPAV 11:02
PROVIDERS: ADMIT General Practice; ATTEND Internal Medicine Nephrology
DX: T82.7XXA Infection and inflammatory reaction due to other cardiac and vascular devices, implants and grafts, initial encounter (principal); A41.9 Sepsis, unspecified organism; C78.7 Secondary malignant neoplasm of liver and intrahepatic bile duct; C78.00 Secondary malignant neoplasm of unspecified lung; E87.2 Acidosis; I48.20 Chronic atrial fibrillation, unspecified; E11.319 Type 2 diabetes mellitus with unspecified diabetic retinopathy without macular edema; D50.9 Iron deficiency anemia, unspecified; M48.02 Spinal stenosis, cervical region; M50.221 Other cervical disc displacement at C4-C5 level; I95.1 Orthostatic hypotension; N40.0 Benign prostatic hyperplasia without lower urinary tract symptoms; G47.33 Obstructive sleep apnea (adult) (pediatric); N18.30 Chronic kidney disease, stage 3 unspecified; Z90.49 Acquired absence of other specified parts of digestive tract; Z95.828 Presence of other vascular implants and grafts; Z87.891 Personal history of nicotine dependence; E87.5 Hyperkalemia; Z86.718 Personal history of other venous thrombosis and embolism; E11.65 Type 2 diabetes mellitus with hyperglycemia; E11.22 Type 2 diabetes mellitus with diabetic chronic kidney disease; Z79.4 Long term (current) use of insulin; Z91.018 Allergy to other foods; Y83.1 Surgical operation with implant of artificial internal device as the cause of abnormal reaction of the patient, or of later complication, without mention of misadventure at the time of the procedure; Z20.828 Contact with and (suspected) exposure to other viral communicable diseases; E11.40 Type 2 diabetes mellitus with diabetic neuropathy, unspecified; E78.5 Hyperlipidemia, unspecified; Z85.038 Personal history of other malignant neoplasm of large intestine

== ENCOUNTER → 2020-04-01 | Outpatient (CLI) | payer MEDICARE ==
[~2020-04-01] MED LIST changes: +AMLO1TAB25 PO; +ATEN25TA PO; +LIDOCAINE 1% MDV 20ML VIAL As Ordered ONE; +MIDAZOLAM INJ 2MG/2ML VIAL (J2250 PER 1MG) As Ordered ONE; +PROMETHAZINE INJ 25 MG/ML VIAL (J2550) As Ordered ONE; +ZYVO1TAB PO; +ceFAZolin 2 GM/D5W 50 ML IV BAG (J0690 PER 500MG) As Ordered ONE; +diphenhydrAMINE 50MG/ML VIAL (J1200) As Ordered ONE; +fentaNYL 100 MCG/2 ML INJECTION (J3010) As Ordered ONE
--- NOTE | 2020-04-01 10:24 | IRHP ---
[facility] IR Pre-Procedure H & P General Date of Service: Apr 01, 2020 Procedure: Same Day Surgery Interval History and Physical I have seen the patient and reviewed last H & P performed within 30 days. There is no significant interval change. History of Present Illness Chief Complaint The patient is a 75-year-old male admitted with a reason for visit of Cancer. PRE-PROCEDURE DIAGNOSIS: colon ca. treatment complete HEART: normal rate. LUNGS: normal breathing at rest. ASA Classification ASA Classification: III-Severe systemic dis. Mallampati Score: II NPO: Yes Problems with prior sedation: No Obstructive Sleep Apnea: No Plan moderate sedation Allergies Coded Allergies: [place] (Verified Allergy, Intermediate, RAW PEACH FUZZ; hives, 12/16/18) strawberry (Verified Allergy, Intermediate, hives, 12/16/18) Home Medications Scheduled Amlodipine Besylate (Amlodipine Besylate), 10 MG PO DAILY Atenolol (Atenolol), 25 MG PO BID Atorvastatin Calcium (Atorvastatin Calcium), 40 MG PO DAILY, (Reported) Duloxetine Hcl (Duloxetine HCl), 30 MG PO QHS, (Reported) Ferrous Sulfate (Ferrous Sulfate), 325 MG PO DAILY, (Reported) Gabapentin (Gabapentin), 400 MG PO QAM, (Reported) Gabapentin (Gabapentin), 800 MG PO BID, (Reported) Insulin Aspart Protamine/Aspar (Novolog Mix 70-30 Vial), 40 UNITS SC QAM, (Reported) Insulin Aspart Protamine/Aspar (Novolog Mix 70-30 Vial), 10 UNITS SC QPM, (Reported) Linezolid (Zyvox), 1 TAB PO BID Metformin HCl (Metformin HCl), 850 MG PO BID, (Reported) Omeprazole (Omeprazole), 20 MG PO DAILY, (Reported) Rivaroxaban (Xarelto), 15 MG PO BID, (Reported) Sod Phos Di, [place]/K Phos [place] (Virt-Phos 250 Neutral Tablet), 250 MG PO DAILY, (Reported) Scheduled PRN Bisacodyl (Dulcolax), 5 MG PO BID PRN for CONSTIPATION, (Reported) Ondansetron HCl (Ondansetron HCl), 8 MG PO Q8H PRN for NAUSEA OR VOMITING, (Reported) Polyethylene Glycol 3350 (Miralax), 17 GM PO DAILY PRN for CONSTIPATION, (Reported) Prochlorperazine Maleate (Prochlorperazine Maleate), 10 MG PO TID PRN for NAUSEA OR VOMITING, (Reported) Discontinued Medications Midodrine HCl (Midodrine HCl), 2.5 MG PO BID, (Reported) VS, I&O, 24H, Fishbone Vital Signs/I&O Vital Signs Date Time Temp Pulse Resp B/P (MAP) Pulse Ox O2 Delivery O2 Flow Rate FiO2 04/01/20 10:15 79 19 100 Nasal Cannula 2 04/01/20 09:04 98.1 LUCIEN FLORES MD Apr 01, 2020 10:24
--- NOTE | 2020-04-01 10:37 | POST-OPPD ---
Postoperative Procedure Note Date Of Procedure: Apr 01, 2020 Time Of Procedure: 10:36 Port Removal / Explant Clinical Information:Colon cancer. Treatment complete. Physician: Dr. Anne. Procedure: The patient was advised of the benefits, risks, and alternatives of the procedure and informed consent was obtained. A time out was performed with verification of the patient's name, MRN, site of procedure, and type of procedure to be performed. The patient was positioned in the supine position on the angiographic table. The site was prepped and draped in the usual sterile fashion. Moderate sedation was performed by the physician including the presence of an independent trained RN who assisted in monitoring the patient's level of consciousness and physiological status. Following the administration of fentanyl and Versed the physician spent 30 minutes of continuous [id number] time with the patient. A gis analyst radiograph reveals a right-sided port. The soft tissues overlying the port were anesthetized with lidocaine. An incision was made over the port using a 15 blade scalpel in the location of the prior incision. The catheter was then freed with blunt dissection and extracted. Pressure was applied to obtain hemostasis. The port was then freed with blunt dissection and subsequently removed. There were no signs of infection. After hemostasis was achieved, the incision was closed with interrupted deep 3-0 Vicryl sutures and subcuticular Monocryl suture followed by glue and steri-strips. The site was covered with a sterile dressing. The patient tolerated the procedure well and was returned to the PRU in stable condition. EBL:Less than 5 mL Complications:None. Conclusions: 1. Successful explant of a right-sided port. 2. No signs of infection. Thank you for this referral LUCIEN ANNE MD Apr 01, 2020 10:37
[2020-04-01 12:25] VITALS: BP 168/78
== END ==
LOC: M IRPRO 08:58
PROVIDERS: ATTEND Radiology Diagnostic Radiology
DX: Z45.2 Encounter for adjustment and management of vascular access device (principal); C18.9 Malignant neoplasm of colon, unspecified; C78.00 Secondary malignant neoplasm of unspecified lung; C78.7 Secondary malignant neoplasm of liver and intrahepatic bile duct; E87.5 Hyperkalemia; E11.319 Type 2 diabetes mellitus with unspecified diabetic retinopathy without macular edema; D50.9 Iron deficiency anemia, unspecified; I12.9 Hypertensive chronic kidney disease with stage 1 through stage 4 chronic kidney disease, or unspecified chronic kidney disease; N18.30 Chronic kidney disease, stage 3 unspecified; M50.30 Other cervical disc degeneration, unspecified cervical region; Z79.4 Long term (current) use of insulin; Z79.899 Other long term (current) drug therapy; Z86.718 Personal history of other venous thrombosis and embolism; Z91.018 Allergy to other foods
CPT/HCPCS: 36590; 87071; 99152; 99153; J0690; J1200; J1644; J2250; J3010

== ENCOUNTER → 2020-05-09 | Outpatient (CLI) | payer MEDICARE ==
[~2020-05-09] MED LIST changes: -BISA5TAB13 PO; +BISA5TAB15 PO; +ONDANSETRON 4MG/2ML VIAL As Ordered ONE; -PROMETHAZINE INJ 25 MG/ML VIAL (J2550) As Ordered ONE
--- NOTE | 2020-05-09 12:13 | IRHP ---
[facility] IR Pre-Procedure H & P General Date of Service: May 09, 2020 Procedure: Same Day Surgery Interval History and Physical I have seen the patient and reviewed last H & P performed within 30 days. There is no significant interval change. History of Present Illness Chief Complaint The patient is a 75-year-old male admitted with a reason for visit of Colon Ca. PRE-PROCEDURE DIAGNOSIS: colon cancer HEART: normal rate. LUNGS: normal breathing at rest. ASA Classification ASA Classification: III-Severe systemic dis. Mallampati Score: II NPO: Yes Problems with prior sedation: No Obstructive Sleep Apnea: No Plan moderate sedation Allergies Coded Allergies: [place] (Verified Allergy, Intermediate, RAW PEACH FUZZ; hives, 12/16/18) strawberry (Verified Allergy, Intermediate, hives, 12/16/18) Home Medications Scheduled Atenolol (Atenolol), 25 MG PO BID Atorvastatin Calcium (Atorvastatin Calcium), 40 MG PO DAILY, (Reported) Duloxetine Hcl (Duloxetine HCl), 30 MG PO QHS, (Reported) Ferrous Sulfate (Ferrous Sulfate), 325 MG PO DAILY, (Reported) Insulin Aspart Protamine/Aspar (Novolog Mix 70-30 Vial), 40 UNITS SC QAM, (Reported) Insulin Aspart Protamine/Aspar (Novolog Mix 70-30 Vial), 20 UNITS SC QPM, (Reported) Linezolid (Zyvox), 1 TAB PO BID Metformin HCl (Metformin HCl), 850 MG PO BID, (Reported) Omeprazole (Omeprazole), 20 MG PO DAILY, (Reported) Rivaroxaban (Xarelto), 15 MG PO BID, (Reported) Scheduled PRN Bisacodyl (Dulcolax), 5 MG PO BID PRN for CONSTIPATION, (Reported) Ondansetron HCl (Ondansetron HCl), 8 MG PO Q8H PRN for NAUSEA OR VOMITING, (Reported) Prochlorperazine Maleate (Prochlorperazine Maleate), 10 MG PO TID PRN for NAUSEA OR VOMITING, (Reported) LUCIEN FLORES MD May 09, 2020 12:13
[2020-05-09 15:20] VITALS: BP 164/80
--- NOTE | 2020-05-10 10:23 | POST-OPPD ---
Postoperative Procedure Note Date Of Procedure: May 09, 2020 Time Of Procedure: 16:00 IR ultrasound and fluoroscopy guided port placement IR Ultrasound of the neck. IR Moderate sedation. Clinical indication: Colon cancer. Physician: Dr. Anne. Procedure: The patient was advised of the benefits, risks, and alternatives of the procedure and informed consent was obtained. A time-out was performed with verification of the patient's name, MRN, site of procedure and type of procedure to be performed. The patient was positioned in the supine position on the angiographic table. The site was prepped and draped in the usual sterile fashion. Moderate sedation was performed by the physician including the presence of an independent trained RN who assisted and monitored the patient's level of consciousness and physiologic status. Following the administration of fentanyl and Versed , the physician spent 45 minutes of continuous face to face time with the patient. Ultrasound of the neck reveals a patent and compressible right internal jugular vein. A bundle cutter radiograph reveals no gross abnormality. The neck and anterior chest wall were anesthetized with lidocaine. The right internal jugular vein was accessed using a microintroducer needle under ultrasound guidance, via a lateral approach. An 018 wire was advanced into the superior vena cava, the needle was removed and a microsheath was placed. An Amplatz wire was then passed into the inferior vena cava. An incision at the internal jugular vein access site and anterior chest wall were made using a scalpel. An incision was made at the anterior chest wall. A small pocket was created using a combination of blunt and sharp dissection. A tunneling device was then used to pass the catheter from the pocket to the neck puncture site. An 8- [place] [employer] Smart power port was then positioned in the pocket. The catheter was then measured and cut. The introducer sheath was exchanged for a peel-away sheath. The catheter was passed through the peel-away sheath into the internal jugular vein and the peel- away sheath was removed. The port tip was positioned at the cavoatrial junction. The port was then accessed with a Patton needle. The port flushes and aspirates well. The puncture site in the neck was closed. The chest wall incision was then closed with 2-0 Vicryl and 4-0 Monocryl. Glue and Steri- Strips were applied. A sterile dressing was then applied. The patient tolerated the procedure well and was returned to the PRU in stable condition. Estimated blood loss: <5 ml. Complications: None. Conclusion: 1. Successful placement of an 8-[place] [employer] Smart power port via the right internal jugular vein. The port is ready for immediate use. 2. Patient to follow up in IR clinic in 2 weeks. Thank you for this referral. LUCIEN ANNE MD May 10, 2020 10:23
== END ==
LOC: M IRPRO 11:40
PROVIDERS: ATTEND Radiology Diagnostic Radiology
DX: C18.9 Malignant neoplasm of colon, unspecified (principal); Z79.899 Other long term (current) drug therapy; Z91.018 Allergy to other foods
CPT/HCPCS: 36561; 99152; 99153; C1769; C1788; C1894; J0690; J1642; J1644; J2250; J2405; J3010

== ENCOUNTER → 2020-06-28 | Outpatient (CLI) | payer MEDICARE ==
[~2020-06-28] MED LIST changes: -LIDOCAINE 1% MDV 20ML VIAL As Ordered ONE; +LISI10TA22 PO; -LISI10TA4 PO; +LOMO2.5T PO; -MIDAZOLAM INJ 2MG/2ML VIAL (J2250 PER 1MG) As Ordered ONE; +NORV5TAB PO; -ONDANSETRON 4MG/2ML VIAL As Ordered ONE; -ceFAZolin 2 GM/D5W 50 ML IV BAG (J0690 PER 500MG) As Ordered ONE; -diphenhydrAMINE 50MG/ML VIAL (J1200) As Ordered ONE; -fentaNYL 100 MCG/2 ML INJECTION (J3010) As Ordered ONE
--- NOTE | 2020-06-28 15:13 | REP ---
INDICATION: RIGHT LEG US FOLLOW UP FOR DVT. COMPARISON: Comparison study March 07, 2020.. TECHNIQUE: Right lower extremity duplex venous scanning. FINDINGS: The deep veins are anechoic and fully compressible from the groin to the popliteal fossa in the right lower extremity. Color flow imaging is homogeneous. Spectral Doppler interrogation demonstrates intact respiratory variation in flow and normal manual augmentation of flow. There is no evidence of deep vein thrombosis. IMPRESSION: Negative right lower extremity duplex venous ultrasound. No evidence of deep vein thrombosis. <Electronically signed by Mateo Oakes > 06/28/20 [id number]
== END ==
LOC: M RAD 14:18
PROVIDERS: ATTEND Family Medicine
DX: I82.411 Acute embolism and thrombosis of right femoral vein (principal)

== ENCOUNTER → 2020-07-16 | Outpatient (REF) | payer MEDICARE | LOC: M SFHCCLAY 08:48 | PROVIDERS: ATTEND Family Medicine | DX: I82.411 Acute embolism and thrombosis of right femoral vein (principal) ==

== ENCOUNTER → 2020-08-08 | Outpatient (REF) | payer MEDICARE ==
[~2020-08-08] MED LIST changes: +STIV40TA PO
[2020-08-08 18:33] LABS: CREATININE,RANDOM URINE 64.3 MG/DL
== END ==
LOC: M LAB REF 17:04
PROVIDERS: ATTEND Internal Medicine Nephrology
DX: R80.9 Proteinuria, unspecified (principal)

== ENCOUNTER → 2020-08-14 | Outpatient (CLI) | payer MEDICARE ==
[~2020-08-14] MED LIST changes: +GASTROGRAFIN SOLUTION 30ML (Q9963) As Ordered ONE; +ISOVUE-370 76% 100ML VIAL As Ordered ONE
--- NOTE | 2020-08-14 18:34 | REP ---
INDICATION: COLON CA W/ METS. COMPARISON: 03/22/2020. TECHNIQUE: CT of the chest with IV contrast. FINDINGS: Patient has clinical history of lung, colon and liver carcinoma. There are occasional tiny calcified granulomas. The right hemidiaphragm is elevated and there is chronic atelectasis of the right lower lobe of the elevated hemidiaphragm. There are no infiltrates or effusions otherwise. However, there is a new nodule like density measuring 2.0 cm in transverse diameter inferiorly in the right lower lobe just above the elevated right hemidiaphragm as an interval change a. This could represent focal atelectasis or a new lung nodule. There is no mediastinal, hilar or axillary lymph node enlargement. There are no lytic, blastic or destructive skeletal changes. The thoracic aorta is unremarkable. Cardiac size is normal. There is no pericardial effusion. There are multiple hypodense lesions in the liver. There appear to be more liver lesions today. There appear to be larger larger liver lesions today IMPRESSION: Questionable new nodule in the right lower lobe just above the dome of the elevated right hemidiaphragm versus atelectasis as discussed above. There are tiny calcified granulomas. There is no lymphadenopathy. There is chronic atelectasis of the right lower lobe above the elevated right hemidiaphragm. No acute infiltrate or effusion. <Electronically signed by Abdirahman Fan > 08/14/20 [id number]
--- NOTE | 2020-08-14 19:03 | REP ---
INDICATION: COLON CA W/ METS. COMPARISON: Abdomen/pelvis CT dated 03/22/2020. TECHNIQUE: Abdomen/pelvis CT with IV contrast, without bowel contrast. FINDINGS: There are multiple hypodense lesions in the liver. These all have increased size and there may be a few more lesions today than previously. This is consistent with hepatic metastatic disease. The gallbladder, pancreas and spleen are unremarkable. The adrenals are unremarkable. There are multiple bilateral renal cortical cysts, not significantly changed. The abdominal aorta is unremarkable. There is no periaortic adenopathy or mass. The bowel and mesentery are unremarkable except for a circumferential and thus the Modic surgical suture ring in the proximal transverse colon. There is no evidence of tumor recurrence along the suture line. There is no bowel distention or obstruction. There is no ascites. No mesenteric adenopathy. Pelvis: There is no adenopathy or ascites. The bladder is unremarkable. The pelvic bowel loops are unremarkable. There are no lytic, blastic or destructive skeletal changes. IMPRESSION: The known multiple hepatic hypodensities have all increased in size and there may be a few more hypodensities today and previously. This is compatible with progressing metastatic disease. Otherwise, no significant interval change. <Electronically signed by Abdirahman Fan > 08/14/20 [id number]
== END ==
LOC: M RAD 15:16
PROVIDERS: ATTEND Specialist
DX: C18.9 Malignant neoplasm of colon, unspecified (principal); C78.00 Secondary malignant neoplasm of unspecified lung; C78.7 Secondary malignant neoplasm of liver and intrahepatic bile duct
CPT/HCPCS: 71260; 74177; Q9963; Q9967

== ENCOUNTER → 2020-08-22 | Outpatient (REF) | payer MEDICARE ==
[~2020-08-22] MED LIST changes: +FERR324T21 PO; -FERR325T16 PO; -GASTROGRAFIN SOLUTION 30ML (Q9963) As Ordered ONE; -ISOVUE-370 76% 100ML VIAL As Ordered ONE
[2020-08-23 13:23] LABS: HEMOGLOBIN A1c 6.2 %
== END ==
LOC: M SFHCCLAY 15:36
PROVIDERS: ATTEND Family Medicine
DX: E11.43 Type 2 diabetes mellitus with diabetic autonomic (poly)neuropathy (principal)
CPT/HCPCS: 83036; G0463

== ENCOUNTER 2020-10-25 11:14 | Observation (INO) | payer MEDICARE ==
[~2020-10-25] VITALS: Ht 182.9 cm; Wt 87.7 kg
[~2020-10-25 11:14] MED LIST changes: +BACTDSTA PO; +GABA-283 PO; -GABA-845 PO; +MAGN400T3 PO; +POTA1TAB14 PO; -SULF1TAB93 PO
[2020-10-25] MEDS ORDERED: MORPHINE 4 MG/ML 1ML VIAL/SYRINGE (J2270) IV PRN (12:10)
[2020-10-25] MEDS ORDERED: PANTOPRAZOLE 40MG VIAL (C9113 PER 1) IV ONE (12:10)
[2020-10-25] MEDS ORDERED: ONDANSETRON 4MG/2ML VIAL IV ONE (12:10)
[2020-10-25] MEDS ORDERED: NS 1,000 ML IV ONE (12:10)
[2020-10-25 13:17] LABS: BASO # 0.1 10^3/uL (0.0-0.2); BASO % 0.5 % (0.0-1.0); EOS # 0.1 10^3/uL (0.0-0.5); EOS % 0.5 % (0.0-3.0); HEMATOCRIT 36.1 % (42.0-52.0); HEMOGLOBIN 11.5 g/dl (13.5-17.5); LYMPH # 0.4 10^3/uL (1.5-5.0); LYMPH % 3.4 % (24.0-44.0); MEAN CORPUSCULAR HEMOGLOBIN 29.9 pg (27.0-33.0); MEAN CORPUSCULAR HGB CONC 31.9 g/dl (32.0-36.5); MEAN CORPUSCULAR VOLUME 93.8 fl (80.0-96.0); MONO # 1.3 10^3/uL (0.0-0.8); MONO % 9.9 % (2.0-8.0); NEUTROPHILS # 10.7 10^3/uL (1.5-8.5); NEUTROPHILS % 82.6 % (36.0-66.0); PLATELET COUNT, AUTOMATED 269 10^3/uL (150-450); RED BLOOD COUNT 3.85 10^6/uL (4.30-6.10)
[2020-10-25 13:37] LABS: INR 1.13; PROTHROMBIN TIME 14.8 SECONDS (12.5-14.3)
[2020-10-25 14:01] LABS: ALBUMIN 1.3 GM/DL (3.2-5.2); BILIRUBIN,TOTAL 24.4 MG/DL (0.2-1.0); CALCIUM LEVEL 8.3 MG/DL (8.8-10.2); CREATININE FOR GFR 1.3 MG/DL (0.70-1.30); GLOMERULAR FILTRATION RATE 57.4 (>42); TOTAL PROTEIN 4.5 GM/DL (6.4-8.2)
[2020-10-25] MEDS ORDERED: ISOVUE-370 76% 100ML VIAL As Ordered ONE (14:03)
--- NOTE | 2020-10-25 15:06 | REP ---
INDICATION: jaundice COMPARISON: CT exams 08/14/2020. TECHNIQUE: CT Scan of the abdomen and pelvis was performed with intravenous administration of 100 cc of Isovue 370, without oral contrast. Sagittal and coronal reconstruction images are performed. FINDINGS: Lung bases: In the posterior right upper lobe there is a new subpleural lobulated nodule 1.6 cm in diameter. Laterally at this level there is a new 8 mm subpleural nodule. There is also posterior subpleural nodule measuring 4 mm in diameter. Anteromedially there is a new 1.4 cm nodule. There is a new 6 mm subpleural nodule in the right lower lobe. Multiple new subcentimeter nodules are also seen scattered throughout the left lung. There is a 1.3 cm nodule in the anteromedial lingula and 1.2 cm nodule in the left lower lobe along the diaphragm. The right hemidiaphragm is elevated with adjacent atelectasis/infiltrate which has mildly increased. Multiple tiny calcified granulomas are also seen in both lungs. Liver: Previously noted multiple liver masses have increased in size, and there are also multiple new liver nodules present. Nodules are present diffusely, the largest is superiorly in the left lobe measuring approximately 10 cm in diameter. Gallbladder: Collapsed. Spleen: Normal. Adrenals: Normal. Pancreas: There is a lobulated cystic structure along the superior margin of the pancreatic head and body. This measures approximately 4.9 x 6.2 cm at its epicenter. This is unchanged since the exam of 08/14/2020. This could represent low-density adenopathy. Kidneys: There are multiple bilateral renal cysts which do not demonstrate significant enhancement. There is no hydronephrosis bilaterally. Small and large bowel: Prior right hemicolectomy. Free fluid: There is mild free fluid throughout the abdomen and pelvis. Abdominal aorta: No aneurysm or dissection. Adenopathy: Multiple subcentimeter lymph nodes are seen in the periaortic region.. Osseous structures: There are degenerative changes of the spine without compression deformity. Pelvis: No mass. There is a small umbilical hernia and midline supraumbilical hernia containing fat. IMPRESSION: Multiple new pulmonary nodules present bilaterally. Progressive, worsening diffuse metastatic disease of the liver. Stable lobulated cystic structure along the superior margin of the pancreatic head body. This could represent low-density adenopathy. New mild free fluid throughout the abdomen and pelvis. <Electronically signed by Abdirahman Kenny > 10/25/20 [id number]
[2020-10-25] MEDS ORDERED: BISACODYL 10 MG SUPP PR PRN (15:20)
[2020-10-25] MEDS ORDERED: MORPHINE 10MG/0.5ML ORAL CONCENTRATE SOLUTION U/D SL PRN (15:20)
[2020-10-25] MEDS ORDERED: ONDANSETRON 4 MG ORAL DISINTEGRATING TAB PO PRN (15:20)
[2020-10-25] MEDS ORDERED: LORazepam 1 MG TAB PO PRN (15:20)
[2020-10-25] MEDS ORDERED: ATROPINE SULFATE 1% OP SOLN 2 ML BTL SL PRN (15:20)
[2020-10-25] MEDS ORDERED: LORazepam 2 MG/ML VIAL IV PRN (15:20)
[2020-10-25] MEDS ORDERED: SCOPOLAMINE 1MG TRANSDERMAL PATCH TOP PRN (15:20)
[2020-10-25] MEDS ORDERED: HYOSCYAMINE SULFATE 0.125 MG SUBL TABLET PO PRN (15:20)
[2020-10-25] MEDS ORDERED: ONDANSETRON 4MG/2ML VIAL IV PRN (15:20)
[2020-10-25] MEDS ORDERED: FLEET ENEMA PR PRN (15:20)
[2020-10-25] MEDS ORDERED: ATEN25TA PO (15:39)
[2020-10-25] MEDS ORDERED: AMLO1TAB24 PO (15:39)
[2020-10-25] MEDS ORDERED: LOMO2.5T PO (15:39)
[2020-10-25] MEDS ORDERED: XARE20TA PO (15:39)
[2020-10-25 15:53] LABS: RSV AMPLIFICATION NEGATIVE (NEGATIVE)
--- NOTE | 2020-10-25 16:14 | HPEPDOC ---
General Date of Admission Oct 25, 2020 at 15:17 Date of Service: Oct 25, 2020 Chief Complaint The patient is a 75-year-old male admitted with a reason for visit of Liver Merastases. Source: Patient Timing/Duration: Week(s) History of Present Illness Patient is 75 years old male with past history of metastatic colon cancer with metastasis to the liver and lungs, diabetes type 2 presented to the hospital with generalized weakness and hypotension. Patient was in the oncology office in the morning and was sent to ER when he was found to have hypotension. Of note patient has a long history of metastatic colon adenocarcinoma. Oncologist Dr. Linares follows him. Patient received Chemotherapy with FOLFIRI without Avastin was started 06/10/2020 because of rising CEA. Avastin was held back because of proteinuria. Switched to Styvarga on August 2020 because of progressive disease. In ER patient was found to have yellowish skin color, total bilirubin 24.4, leukocytosis of 13, alkaline phosphatase of 900,AST 157, ALT 86, glucose level of 261. CT abdomen and pelvis showed Multiple new pulmonary nodules present bilaterally. Progressive, worsening diffuse metastatic disease of the liver. Stable lobulated cystic structure along the superior margin of the pancreatic head body. This could represent low-density adenopathy. 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 Home Medications Scheduled Amlodipine Besylate (Amlodipine Besylate) 5 Mg Tablet, 5 MG PO DAILY, (Reported) Atenolol (Atenolol) 25 Mg Tablet, 25 MG PO QHS, (Reported) Duloxetine Hcl (Duloxetine HCl) 30 Mg Cap, 30 MG PO QHS, (Reported) Ferrous Sulfate (Ferrous Sulfate) 325 Mg Tablet, 325 MG PO DAILY, (Reported) Insulin Aspart Protamine/Aspar (Novolog Mix 70-30 Vial) 100 Unit/1 Ml Vial, 50 UNITS SC QAM, (Reported) Insulin Aspart Protamine/Aspar (Novolog Mix 70-30 Vial) 100 Unit/1 Ml Vial, 40 UNITS SC QPM, (Reported) Magnesium Oxide (Magnesium Oxide) 400 Mg Tablet, 400 MG PO BID, (Reported) Metformin HCl (Metformin HCl) 850 Mg Tablet, 850 MG PO BID, (Reported) Potassium Chloride (Potassium Chloride) 20 Meq Tablet.er, 20 MEQ PO DAILY, (Reported) Scheduled PRN Bisacodyl (Dulcolax) 5 Mg Tablet.dr, 5 MG PO BID PRN for CONSTIPATION, (Reported) Diphenoxylate HCl/Atropine (Lomotil 2.5-0.025 mg Tablet) 1 Each Tablet, 1 TAB PO QID PRN for DIARRHEA, (Reported) Ondansetron HCl (Ondansetron HCl) 8 Mg Tablet, 8 MG PO Q8H PRN for NAUSEA OR VOMITING, (Reported) Prochlorperazine Maleate (Prochlorperazine Maleate) 10 Mg Tablet, 10 MG PO TID PRN for NAUSEA OR VOMITING, (Reported) Allergies Coded Allergies: [place] (Verified Allergy, Intermediate, RAW PEACH FUZZ; hives, 12/16/18) strawberry (Verified Allergy, Intermediate, hives, 12/16/18) Past Medical History Medical History DM, INSULIN REQUIRING HTN BPH LEFT ROTATOR CUFF TEAR (TWO OF THE 4 ARE TORN) HAS MRI OF SAME) DIABETIC POLYNEUROPATHY SLEEP APNEA DIABETIC RETINOPATHY Surgical History TOOTH EXTRACTION EYES (L) 2011 CATARACT SURGERY(L) 2011 RIGHT EYE SURGERY 2011 LEFT EYE SURGERY 2012 RIGHT EYE LASER SURGERY 2016 COLECTOMY 12/23/2018 Colon Adenocarcinoma Stage IV Family History FATHER: 92 YRS, DIABETES, LIVER CANCER, PANCREATIC CANCER, DIAGNOSED WITH OTHER MALIGNANT NEOPLASM OF UNSPECIFIED SITE MOTHER: ALIVE 96 YRS, CARDIAC DISEASE, PACEMAKER SON(S): ALIVE, BRAIN CANCER DAUGHTER(S): ALIVE 2 BROTHER(S) , 1 SISTER(S) . 1 SON(S) , 1 DAUGHTER(S) . Social History * Smoker: former Smoker Alcohol: Denies Drugs: denies A-FIB/CHADSVASC A-FIB History Current/History of A-Fib/PAF?: No Current PO Anticoag Therapy: No Review of Systems Constitutional: Reports: Weakness, Fatigue, Weight Loss; Denies: Chills ENT: Denies: Head Aches Skin: Reports: Jaundice; Denies: Rash Pulmonary: Denies: Dyspnea Cardiovascular: Denies: Chest Pain, Palpitations Gastrointestinal: Reports: Nausea Genitourinary: Denies: Dysuria, Frequency Hematologic: Denies: Bruising Endocrine: Denies: Polydipsia, Polyphagia Musculoskeletal: Denies: Neck Pain Neurological: Denies: Weakness Psych: Reports: Mood Normal Physical Examination General Exam: Positive: Alert, Cooperative Eye Exam: Positive: PERRLA ENT Exam: Positive: Atraumatic Neck Exam: Positive: Supple; Negative: JVD Chest Exam: Positive: Clear to auscultation Heart Exam: Positive: Rate Normal Telemetry: Positive: No significant arrhythmia Abdomen Exam: Positive: BS Hypoactive, Soft Extremity Exam: Positive: Edema; Negative: Cyanosis Skin Exam: Positive: Other skin issue (severe jaundice) Neuro Exam: Positive: Cranial Nerves 3-12 NL Psych Exam: Positive: Mental status NL Vital Signs Vital Signs Date Time Temp Pulse Resp B/P (MAP) Pulse Ox O2 Delivery O2 Flow Rate FiO2 10/25/20 12:55 18 10/25/20 11:27 96.9 66 136/60 100 Room Air Laboratory Data Labs 24H Laboratory Tests 2 10/25/20 12:54: Immature Granulocyte % (Auto) 3.1H, Neutrophils (%) (Auto) 82.6H, Lymphocytes (%) (Auto) 3.4L, Monocytes (%) (Auto) 9.9H, Eosinophils (%) (Auto) 0.5, Basophils (%) (Auto) 0.5, Neutrophils # (Auto) 10.7H, Lymphocytes # (Auto) 0.4L, Monocytes # (Auto) 1.3H, Eosinophils # (Auto) 0.1, Basophils # (Auto) 0.1, Nucleated Red Blood Cells % (auto) 0.0, Prothrombin Time 14.8H, Prothromb Time International Ratio 1.13, Anion Gap 9, Glomerular Filtration Rate 57.4, Calcium Level 8.3L, Total Bilirubin 24.4*H, Aspartate Amino Transf (AST/SGOT) 157H, Alanine Aminotransferase (ALT/SGPT) 86H, Alkaline Phosphatase 900H, Total Protein 4.5#L, Albumin 1.3L, Albumin/Globulin Ratio 0.4, Lipase 69L 10/25/20 15:07: 10/25/20 15:23: Urine Color RIOS, Urine Appearance HAZY, Urine pH 5.0, Urine Specific [place] 1.021, Urine Protein 2+H, Urine Glucose (UA) 3+H, Urine Ketones NEGATIVE, Urine Blood 1+H, Urine Nitrite NEGATIVE, Urine Bilirubin 2+H, Urine Urobilinogen 4.0H, Urine Leukocyte Esterase NEGATIVE, Urine WBC (Auto) 4H, Urine RBC (Auto) 0, Urine Hyaline Casts (Auto) 0, Urine Bacteria (Auto) NEGATIVE, Urine Squamous Epithelial Cells 0, Urine Granular Casts (Auto) 3, Urine Mucus (Auto) SMALL, Urine Sperm (Auto) CBC/BMP Laboratory Tests 10/25/20 12:54 Assessment/Plan Patient is 75 years old male with past history of metastatic colon cancer with metastasis to the liver and lungs, diabetes type 2 presented to the hospital with generalized weakness and hypotension. Patient was in the oncology office in the morning and was sent to ER when he was found to have hypotension. Of note patient has a long history of metastatic colon adenocarcinoma. Oncologist Dr. Linares follows him. Patient received Chemotherapy with FOLFIRI without Avastin was started 06/10/2020 because of rising CEA. Avastin was held back because of proteinuria. Switched to Styvarga on August 2020 because of progressive disease. In ER patient was found to have yellowish skin color, total bilirubin 24.4, leukocytosis of 13, alkaline phosphatase of 900,AST 157, ALT 86, glucose level of 261. CT abdomen and pelvis showed Multiple new pulmonary nodules present bilaterally. Progressive, worsening diffuse metastatic disease of the liver. Stable lobulated cystic structure along the superior margin of the pancreatic head body. This could represent low-density adenopathy. 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 CT abdomen and pelvis showed progression of the cancer. Hospice care consult placed (3) DM2 (diabetes mellitus, type 2) Status: Chronic Problem Text: See above (4) Liver metastases Status: Chronic Problem Text: See above (5) Lung metastases Status: Chronic Problem Text: See above Plan / VTE VTE Prophylaxis Ordered?: No WILBERT HUNT DO Oct 25, 2020 16:14
[2020-10-25 16:35] LABS: BILIRUBIN,DIRECT 21.3 MG/DL (0.0-0.2)
[2020-10-26] MEDS: MORPHINE 2 MG/ML 1ML VIAL (J2270) IV PRN ×2 (08:08→13:57)
[2020-10-26 09:20] VITALS: BP 130/55
[2020-10-26] MEDS ORDERED: MORP1SOL SL (09:50)
[2020-10-26] MEDS ORDERED: HYOS125TA PO (09:50)
[2020-10-26] MEDS ORDERED: SCOP1PAT2 TOP (09:50)
[2020-10-26] MEDS ORDERED: BISA10SU PR (09:50)
[2020-10-26] MEDS ORDERED: ONDA4TAB6 PO (09:50)
[2020-10-26] MEDS ORDERED: ATIV1TAB7 PO (09:50)
[2020-10-26] MEDS ORDERED: OXYC1TAB15 PO (11:35)
--- NOTE | 2020-10-26 14:06 | DS.PDOC ---
Discharge Summary General Date of Admission Oct 25, 2020 at 15:17 Date of Discharge 10/26/20 Discharge Summary PROCEDURES PERFORMED DURING STAY: [None]. ADMITTING DIAGNOSES: Weakness Adenocarcinoma of colon DM2 (diabetes mellitus, type 2 Liver metastases Lung metastases DISCHARGE DIAGNOSES: Weakness Adenocarcinoma of colon DM2 (diabetes mellitus, type 2 Liver metastases Lung metastases COMPLICATIONS/CHIEF COMPLAINT: Liver Merastases. HISTORY OF PRESENT ILLNESS: Patient is 75 years old male with past history of metastatic colon cancer with metastasis to the liver and lungs, diabetes type 2 presented to the hospital with generalized weakness and hypotension. Patient was in the oncology office in the morning and was sent to ER when he was found to have hypotension. Of note patient has a long history of metastatic colon adenocarcinoma. Oncologist Dr. Linares follows him. Patient received Chemotherapy with FOLFIRI without Avastin was started 06/10/2020 because of rising CEA. Avastin was held back because of proteinuria. Switched to [place] on August 2020 because of progressive disease. In ER patient was found to have yellowish skin color, total bilirubin 24.4, leukocytosis of 13, alkaline phosphatase of 900,AST 157, ALT 86, glucose level of 261. CT abdomen and pelvis showed Multiple new pulmonary nodules present bilaterally. Progressive, worsening diffuse metastatic disease of the liver. Stable lobulated cystic structure along the superior margin of the pancreatic head body. This could represent low-density adenopathy. I discussed with patient's prognosis and goals of treatment, after discussion patient decided to be [facility] HOSPITAL COURSE: During the hospital stay the following issues addressed (1) Weakness Secondary to advanced malignancy (2) Adenocarcinoma of colon Patient has advanced stage IV colon adenocarcinoma with metastasis to the liver and lungs. CT abdomen and pelvis showed progression of the cancer. Hospice care consult placed (3) DM2 (diabetes mellitus, type 2) See above (4) Liver metastases See above (5) Lung metastases Status: Chronic Problem Text: See above DISCHARGE MEDICATIONS: Please see below. ALLERGIES: Please see below. PHYSICAL EXAMINATION ON DISCHARGE: VITAL SIGNS: Please see below. General Exam: Positive: Alert, Cooperative Eye Exam: Positive: PERRLA ENT Exam: Positive: Atraumatic Neck Exam: Positive: Supple; Negative: JVD Chest Exam: Positive: Clear to auscultation Heart Exam: Positive: Rate Normal Telemetry: Positive: No significant arrhythmia Abdomen Exam: Positive: BS Hypoactive, Soft Extremity Exam: Positive: Edema; Negative: Cyanosis Skin Exam: Positive: Other skin issue (severe jaundice) Neuro Exam: Positive: Cranial Nerves 3-12 NL Psych Exam: Positive: Mental status NL LABORATORY DATA: Please see below. IMAGING: See above PROGNOSIS: Poor ACTIVITY: [As tolerated]. DIET: Regular ITEMS TO FOLLOWUP ON ON OUTPATIENT: Follow up with hospice care DISCHARGE CONDITION: [Stable]. TIME SPENT ON DISCHARGE: 40minutes. Vital Signs/I&Os Vital Signs Date Time Temp Pulse Resp B/P (MAP) Pulse Ox O2 Delivery O2 Flow Rate FiO2 10/26/20 13:57 16 10/26/20 09:20 98.3 88 130/55 (80) 98 Room Air I&O- Last 24 Hours up to 6 AM 10/26/20 06:00 Intake Total 1300 ml Output Total 1000 ml Balance 300 ml Laboratory Data Labs 24H Laboratory Tests 2 10/25/20 15:07: Coronavirus (COVID-19)(PCR) NEGATIVE, Influenza Type A (RT-PCR) NEGATIVE, Influenza Type B (RT-PCR) NEGATIVE, Respiratory Syncytial Virus (PCR) NEGATIVE 10/25/20 15:23: Urine Color RIOS, Urine Appearance HAZY, Urine pH 5.0, Urine Specific [place] 1.021, Urine Protein 2+H, Urine Glucose (UA) 3+H, Urine Ketones NEGATIVE, Urine Blood 1+H, Urine Nitrite NEGATIVE, Urine Bilirubin 2+H, Urine Urobilinogen 4.0H, Urine Leukocyte Esterase NEGATIVE, Urine WBC (Auto) 4H, Urine RBC (Auto) 0, Urine Hyaline Casts (Auto) 0, Urine Bacteria (Auto) NEGATIVE, Urine Squamous Epithelial Cells 0, Urine Granular Casts (Auto) 3, Urine Mucus (Auto) SMALL, Urine Sperm (Auto) Discharge Medications Scheduled Duloxetine Hcl (Duloxetine HCl) 30 Mg Cap, 30 MG PO QHS, (Reported) Scheduled PRN Bisacodyl (Dulcolax) 5 Mg Tablet.dr, 5 MG PO BID PRN for CONSTIPATION, (Reported) Bisacodyl (Bisacodyl) 10 Mg Supp.rect, 10 MG UT Q24HP PRN for CONSTIPATION Diphenoxylate HCl/Atropine (Lomotil 2.5-0.025 mg Tablet) 1 Each Tablet, 1 TAB PO QID PRN for DIARRHEA, (Reported) Hyoscyamine Sulfate (Hyoscyamine Sulfate) 0.125 Mg Tab.subl, 0.125 MG PO Q4HP PRN for TERMINAL SECRETIONS Lorazepam (Ativan) 1 Mg Tablet, 1 MG PO Q2HP PRN for ANXIETY Ondansetron (Ondansetron Odt) 4 Mg Tab.rapdis, 4 MG PO Q6HP PRN for NAUSEA OR VOMITING Ondansetron HCl (Ondansetron HCl) 8 Mg Tablet, 8 MG PO Q8H PRN for NAUSEA OR VOMITING, (Reported) Oxycodone HCl/Acetaminophen (Oxycodon-Acetaminophen 7.5-325) 1 Each Tablet, 1 TAB PO QIDP PRN for pain Prochlorperazine Maleate (Prochlorperazine Maleate) 10 Mg Tablet, 10 MG PO TID PRN for NAUSEA OR VOMITING, (Reported) Scopolamine (Transderm-Scop) 1 Each Patch.td.3, 1 MG TOP Q3DP PRN for EXCESSIVE SECRETIONS Allergies Coded Allergies: [place] (Verified Allergy, Intermediate, RAW PEACH FUZZ; hives, 12/16/18) strawberry (Verified Allergy, Intermediate, hives, 12/16/18) WILBERT HUNT DO Oct 26, 2020 14:06
== END 2020-10-26 16:07 | disposition home or self-care (01) ==
LOC: M ED 11:14 → M ED INP 15:17 → ENRESERV 16:30 → M MSPAV 17:33
PROVIDERS: ADMIT Internal Medicine; ATTEND Internal Medicine
DX: C18.9 Malignant neoplasm of colon, unspecified (principal); C78.7 Secondary malignant neoplasm of liver and intrahepatic bile duct; C78.00 Secondary malignant neoplasm of unspecified lung; E11.42 Type 2 diabetes mellitus with diabetic polyneuropathy; I95.9 Hypotension, unspecified; R10.9 Unspecified abdominal pain; E86.0 Dehydration; R17 Unspecified jaundice; I10 Essential (primary) hypertension; E11.319 Type 2 diabetes mellitus with unspecified diabetic retinopathy without macular edema; G47.30 Sleep apnea, unspecified; N40.0 Benign prostatic hyperplasia without lower urinary tract symptoms; Z79.899 Other long term (current) drug therapy; Z79.4 Long term (current) use of insulin; Z91.018 Allergy to other foods; Z51.5 Encounter for palliative care; Z87.891 Personal history of nicotine dependence
CPT/HCPCS: 36591; 74177; 80053; 81001; 83690; 85025; 85610; 87631; 96361; 96374; 96375; 96376; 99285; C9113; G0378; G0463; J2270; J2405; Q9967